=== PATIENT | female | born 1960 | race Caucasian/White ===

== ENCOUNTER 2020-04-09 19:08 | Emergency (ER) | payer OTHER ==
[2020-04-09] MEDS ORDERED: HYDROCODONE/APAP 5/325 MG TAB ONE (20:51)
[2020-04-09] MEDS ORDERED: KETOROLAC 30 MG/ML INJ ONE (20:52)
--- NOTE | 2020-04-09 21:00 | RAD REPORT ---
EXAM DESCRIPTION: RAD - Ankle Right 3 View - 04/09/2020 8:45 pm CLINICAL HISTORY: Right ankle pain status post fall FINDINGS: Tiny avulsion fracture lateral malleolus. No dislocation
--- NOTE | 2020-04-09 21:18 | RAD REPORT ---
EXAM DESCRIPTION: RAD - Knee Left 3 View - 04/09/2020 8:45 pm CLINICAL HISTORY: Left knee pain status post injury FINDINGS: No fracture or dislocation is seen. The anterior soft tissue laceration with possible partial tear patellar tendon. If clinically indicat ed further evaluation with MRI or CT could be obtained
[2020-04-09] MEDS ORDERED: CLINDAMYCIN IV 150 MG/ML (4 mL) VIAL ONE (22:02)
--- NOTE | 2020-04-09 22:37 | ER ---
Nurse's Notes [facility] Name: Erin Jiang Age: 60 yrs Sex: Female : 1960 Arrival Date: 04/09/2020 Time: 19:13 Bed 14 Private MD: Diagnosis: Fracture of lateral malleolus;Laceration of unspecified muscle and tendon at lower leg level Presentation: 04/09 19:25 Chief complaint: Patient states: I am holding my baby then I got out of balance twisted rr5 my right ankle, landed on my left side, now the back of my left shoulder, left elbow, left knee pain. denies head trauma denies blood thinner. Coronavirus screen: Client denies travel out of the [place] in the last 14 days. At this time, the client does not indicate any symptoms associated with coronavirus-19. Ebola Screen: Patient negative for fever greater than or equal to 101.5 degrees Fahrenheit, and additional compatible Ebola Virus Disease symptoms Patient denies exposure to infectious person. Patient denies travel to an Ebola-affected area in the 21 days before illness onset. Initial Sepsis Screen: Does the patient meet any 2 criteria? No. Patient's initial sepsis screen is negative. Does the patient have a suspected source of infection? No. Patient's initial sepsis screen is negative. Risk Assessment: Do you want to hurt yourself or someone else? Patient reports no desire to harm self or others. Onset of symptoms was April 09, 2020. 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 - Social history:: Smoking status: Patient reports the use of cigarette tobacco products, smokes one pack cigarettes per day. Patient uses alcohol, occasionally. Patient/guardian denies using street drugs. Screenin:00 Abuse screen: Denies threats or abuse. Nutritional screening: No deficits noted. jb4 Tuberculosis screening: No symptoms or risk factors identified. Fall Risk Gait- Impaired (20 pts.). Total Giron Fall Scale indicates No Risk (0-24 pts). Assessment: 20:00 General: Appears in no apparent distress. uncomfortable, Behavior is calm, cooperative, jb4 appropriate for age. Pain: Complains of pain in right ankle and left knee Pain does not radiate. Pain currently is 10 out of 10 on a pain scale. Neuro: Level of Consciousness is awake, alert, obeys commands, Oriented to person, place, time, situation. Cardiovascular: Patient's skin is warm and dry. Respiratory: Airway is patent Respiratory effort is even, unlabored, Respiratory pattern is regular, symmetrical. GI: No signs and/or symptoms were reported involving the gastrointestinal system. : No signs and/or symptoms were reported regarding the genitourinary system. EENT: No signs and/or symptoms were reported regarding the EENT system. Derm: Skin is intact, Skin is pink, warm \T\ dry. Musculoskeletal: Circulation, motion, and sensation intact. Range of motion: intact in all extremities. 20:33 Reassessment: X-ray at the bedside. jb4 21:00 Reassessment: Patient appears in no apparent distress at this time. Patient and/or jb4 family updated on plan of care and expected duration. Pain level reassessed. Patient is alert, oriented x 3, equal unlabored respirations, skin warm/dry/pink. 22:00 Reassessment: Patient appears in no apparent distress at this time. Patient and/or jb4 family updated on plan of care and expected duration. Pain level reassessed. Patient is alert, oriented x 3, equal unlabored respirations, skin warm/dry/pink. 23:20 Reassessment: Patient appears in no apparent distress at this time. Patient and/or jb4 family updated on plan of care and expected duration. Pain level reassessed. Patient is alert, oriented x 3, equal unlabored respirations, skin warm/dry/pink. Pt verbalized understanding of d/c and follow up instructions denies questions or concerns. assisted to vehicle via wheel chair. Vital Signs: 19:25 BP 117 / 95; Pulse 75; Resp 19; Temp 98.4; Pulse Ox 99% ; Weight 81.65 kg; Height 5 ft. rr5 5 in. (165.10 cm); Pain 10/10; 21:00 BP 155 / 69; Pulse 56; Resp 16; Pulse Ox 96% on R/A; jb4 22:00 BP 157 / 83; Pulse 51; Resp 16; Pulse Ox 99% on R/A; jb4 23:00 BP 124 / 62; Pulse 51; Resp 16; Pulse Ox 99% on R/A; jb4 19:25 Body Mass Index 29.95 (81.65 kg, 165.10 cm) rr5 ED Course: 19:13 Patient arrived in ED. bp1 19:29 Triage completed. rr5 19:32 Arm band placed on right wrist. rr5 19:51 Antonio Ramos MD is Attending Physician. tw4 20:00 Patient has correct armband on for positive identification. Bed in low position. Call jb4 light in reach. Side rails up X 1. Pulse ox on. NIBP on. 20:33 Onofre Islas RN is Primary Nurse. jb4 20:45 Ankle Right 3 View XRAY In Process Unspecified. EDMS 20:45 Knee Left 3 View XRAY In Process Unspecified. EDMS 22:34 Junaid Tee MD is Referral Physician. tw4 22:34 Eric Rios MD is Referral Physician. tw4 23:33 No provider procedures requiring assistance completed. Patient did not have IV access jb4 during this emergency room visit. Administered Medications: 20:45 Drug: TORadol 60 mg Route: IM; Site: left gluteus; jb4 21:45 Follow up: Response: No adverse reaction; Pain is decreased jb4 20:46 Drug: [place] 5 mg-325 mg 2 tabs Route: PO; jb4 21:45 Follow up: Response: No adverse reaction; Pain is decreased; RASS: Alert and Calm (0) jb4 22:23 Drug: Cleocin 600 mg Route: IM; Site: right gluteus; jb4 23:00 Follow up: Response: No adverse reaction jb4 Outcome: 22:37 Discharge ordered by . tw4 23:33 Discharged to home via wheelchair, with crutches, with family. jb4 23:33 Condition: stable 23:33 Discharge instructions given to patient, Instructed on discharge instructions, follow up and referral plans. medication usage, Demonstrated understanding of instructions, follow-up care, medications, Prescriptions given X 3. 23:34 Patient left the ED. jb4 Signatures: Dispatcher [employer] EDOnofre Wang RN RN jb4 Antonio Ramos MD MD tw4 Roberto Carlos Mcconnell RN RN rr5 Jeanne Alfaro [facility] Corrections: (The following items were deleted from the chart) 21:11 21:00 Reassessment: Patient appears in no apparent distress at this time. Patient jb4 and/or family updated on plan of care and expected duration. Pain level reassessed. Patient is alert, oriented x 3, equal unlabored respirations, skin warm/dry/pink. PT to CT jb4
--- NOTE | 2020-04-09 22:37 | EDPHYS ---
Physician Documentation [facility] Name: Erin Jiang Age: 60 yrs Sex: Female : 1960 Arrival Date: 04/09/2020 Time: 19:13 Bed 14 Private MD: ED Physician Antonio Ramos HPI: 04/09 20:08 This 60 yrs old Female presents to ER via Wheelchair with complaints of Fall tw4 Injury, Leg Injury. 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 - Social history:: Smoking status: Patient reports the use of cigarette tobacco products, smokes one pack cigarettes per day. Patient uses alcohol, occasionally. Patient/guardian denies using street drugs. ROS: 20:15 Constitutional: Negative for fever, chills, and weight loss, Eyes: Negative for injury, tw4 pain, redness, and discharge, Cardiovascular: Negative for chest pain, palpitations, and edema, Respiratory: Negative for shortness of breath, cough, wheezing, and pleuritic chest pain, Abdomen/GI: Negative for abdominal pain, nausea, vomiting, diarrhea, and constipation, Skin: Negative for injury, rash, and discoloration, Neuro: Negative for headache, weakness, numbness, tingling, and seizure. 20:15 MS/extremity: Positive for injury or acute deformity, abrasion, laceration, swelling, tenderness. Exam: 20:15 Constitutional: This is a well developed, well nourished patient who is awake, alert, tw4 and in no acute distress. Head/Face: Normocephalic, atraumatic. Chest/axilla: Normal chest wall appearance and motion. Nontender with no deformity. No lesions are appreciated. Cardiovascular: Regular rate and rhythm with a normal S1 and S2. No gallops, murmurs, or rubs. Normal PMI, no JVD. No pulse deficits. Respiratory: Lungs have equal breath sounds bilaterally, clear to auscultation and percussion. No rales, rhonchi or wheezes noted. No increased work of breathing, no retractions or nasal flaring. Abdomen/GI: Soft, non-tender, with normal bowel sounds. No distension or tympany. No guarding or rebound. No evidence of tenderness throughout. Skin: Warm, dry with normal turgor. Normal color with no rashes, no lesions, and no evidence of cellulitis. Neuro: Awake and alert, GCS 15, oriented to person, place, time, and situation. Cranial nerves II-XII grossly intact. Motor strength 5/5 in all extremities. Sensory grossly intact. Cerebellar exam normal. Normal gait. 20:15 Musculoskeletal/extremity: Extremities: noted in the left knee: abrasion, decreased ROM, laceration, noted in the right ankle, right Achilles and anterior aspect of right ankle: decreased ROM, pain, swelling, tenderness, ROM: limited active range of motion due to pain, limited passive range of motion due to pain, in the lateral aspect of right knee, right ankle, posterior aspect of right knee, right Achilles, right knee and anterior aspect of right ankle, Circulation is intact in all extremities. Sensation intact. Joints: Vital Signs: 19:25 BP 117 / 95; Pulse 75; Resp 19; Temp 98.4; Pulse Ox 99% ; Weight 81.65 kg; Height 5 ft. rr5 5 in. (165.10 cm); Pain 10/10; 21:00 BP 155 / 69; Pulse 56; Resp 16; Pulse Ox 96% on R/A; jb4 22:00 BP 157 / 83; Pulse 51; Resp 16; Pulse Ox 99% on R/A; jb4 23:00 BP 124 / 62; Pulse 51; Resp 16; Pulse Ox 99% on R/A; jb4 19:25 Body Mass Index 29.95 (81.65 kg, 165.10 cm) rr5 MDM: 19:51 Patient medically screened. tw4 20:15 Differential diagnosis: abrasion, contusion, fracture, multiple trauma, sprain, strain. tw4 Data reviewed: vital signs, nurses notes. Counseling: I had a detailed discussion with the patient and/or guardian regarding: the historical points, exam findings, and any diagnostic results supporting the discharge/admit diagnosis. 04/09 20:01 Order name: Ankle Right 3 View XRAY; Complete Time: 21:43 tw4 04/09 20:01 Order name: Knee Left 3 View XRAY; Complete Time: 21:43 tw4 04/09 22:42 Order name: Aircast Ankle Splint; Complete Time: 23:26 jb4 04/09 22:42 Order name: Knee Immobilizer; Complete Time: 23:26 jb4 04/09 23:25 Order name: Crutches; Complete Time: 23:26 jb4 Administered Medications: 20:45 Drug: TORadol 60 mg Route: IM; Site: left gluteus; jb4 21:45 Follow up: Response: No adverse reaction; Pain is decreased jb4 20:46 Drug: [place] 5 mg-325 mg 2 tabs Route: PO; jb4 21:45 Follow up: Response: No adverse reaction; Pain is decreased; RASS: Alert and Calm (0) 4 22:23 Drug: Cleocin 600 mg Route: IM; Site: right gluteus; jb4 23:00 Follow up: Response: No adverse reaction 4 Disposition: 04/09/20 22:37 Discharged to Home. Impression: Fracture of lateral malleolus, Laceration of unspecified muscle and tendon at lower leg level. - Condition is Stable. - Discharge Instructions: Ankle Fracture, Ankle Sprain, Tendon Repair, Ankle Pain. - Prescriptions for Cleocin 300 mg Oral Capsule - take 1 capsule by ORAL route every 6 hours for 10 days; 40 capsule. Tylenol- Codeine #3 300-30 mg Oral Tablet - take 2 tablet by ORAL route every 6 hours As needed; 6 tablet. Tramadol 50 mg Oral Tablet - take 1 tablet by ORAL route every 8 hours as needed; 12 tablet. - Medication Reconciliation Form, Thank You Letter, Antibiotic Education, Prescription Opioid Use form. - Follow up: Private Physician; When: Upon discharge from the Emergency Department; Reason: Recheck today's complaints, Continuance of care, Re-evaluation by your physician. Follow up: Junaid Tee MD; When: Upon discharge from the Emergency Department; Reason: Recheck today's complaints, Continuance of care, Re-evaluation by your physician. Follow up: Eric Rios MD; When: Upon discharge from the Emergency Department; Reason: Recheck today's complaints, Continuance of care, Re-evaluation by your physician. - Problem is new. - Symptoms have improved. Signatures: Dispatcher [employer] EDMS Onofre Islas RN RN jb4 Antonio Ramos MD MD tw4 Roberto Carlos Mcconnell RN RN rr5 Corrections: (The following items were deleted from the chart) 20:19 20:15 Constitutional: This is a well developed, well nourished patient who is awake, tw4 alert, and in no acute distress. Head/Face: Normocephalic, atraumatic. Chest/axilla: Normal chest wall appearance and motion. Nontender with no deformity. No lesions are appreciated. Cardiovascular: Regular rate and rhythm with a normal S1 and S2. No gallops, murmurs, or rubs. Normal PMI, no JVD. No pulse deficits. Respiratory: Lungs have equal breath sounds bilaterally, clear to auscultation and percussion. No rales, rhonchi or wheezes noted. No increased work of breathing, no retractions or nasal flaring. Abdomen/GI: Soft, non-tender, with normal bowel sounds. No distension or tympany. No guarding or rebound. No evidence of tenderness throughout. Back: No spinal tenderness. No costovertebral tenderness. Full range of motion. Neuro: Awake and alert, GCS 15, oriented to person, place, time, and situation. Cranial nerves II-XII grossly intact. Motor strength 5/5 in all extremities. Sensory grossly intact. Cerebellar exam normal. Normal gait. tw4 23:34 22:37 04/09/2020 22:37 Discharged to Home. Impression: Fracture of lateral malleolus; jb4 Laceration of unspecified muscle and tendon at lower leg level. Condition is Stable. Forms are Medication Reconciliation Form, Thank You Letter, Antibiotic Education, Prescription Opioid Use. Follow up: Private Physician; When: Upon discharge from the Emergency Department; Reason: Recheck today's complaints, Continuance of care, Re-evaluation by your physician. Follow up: Junaid Tee; When: Upon discharge from the Emergency Department; Reason: Recheck today's complaints, Continuance of care, Re-evaluation by your physician. Follow up: Eric Rios; When: Upon discharge from the Emergency Department; Reason: Recheck today's complaints, Continuance of care, Re-evaluation by your physician. Problem is new. Symptoms have improved. tw4
[2020-04-14 06:20] VITALS: TEMP 98.4
[2020-04-14 06:23] VITALS: O2SAT 99
[2020-04-14 06:24] VITALS: BP 124/62
== END 2020-04-09 23:34 | disposition home or self-care (01) ==
LOC: ER 19:08
PROC: 2W3QX1Z Immobilization of Right Lower Leg using Splint (ICD-10-PCS; principal; 2020-04-09)
DX: S82.61XA Displaced fracture of lateral malleolus of right fibula, initial encounter for closed fracture (principal); S86.922A Laceration of unspecified muscle(s) and tendon(s) at lower leg level, left leg, initial encounter; W19.XXXA Unspecified fall, initial encounter; Y93.89 Activity, other specified; Y92.9 Unspecified place or not applicable; Z88.1 Allergy status to other antibiotic agents; Z88.2 Allergy status to sulfonamides; F17.210 Nicotine dependence, cigarettes, uncomplicated
CPT/HCPCS: 73562; 73610; 29515; S0077; 96372; 99284

== ENCOUNTER 2020-04-12 09:13 | Emergency (ER) | payer OTHER ==
--- NOTE | 2020-04-12 09:49 | EDPHYS ---
Physician Documentation [facility] Name: Erin Jiang Age: 60 yrs Sex: Female : 1960 Arrival Date: 04/12/2020 Time: 09:14 Bed 19 Private MD: ED Physician Mickie Stacy HPI: 04/12 09:43 This 60 yrs old Female presents to ER via Wheelchair with complaints of Knee kb Pain, Ankle Pain. 09:43 The patient presents with decreased range of motion, an injury, pain, swelling, kb tenderness. The complaints affect the right ankle and left knee. Context: The problem was sustained at home, resulted from the patient falling, while walking, the patient can partially bear weight, uses crutches. Onset: The symptoms/episode began/occurred 4 day(s) ago. Modifying factors: The symptoms are alleviated by nothing. the symptoms are aggravated by movement, weight bearing, bending knee. Associated signs and symptoms: Pertinent positives: swelling, Pertinent negatives calf tenderness, fever, nausea, numbness, rash, tingling, vomiting, warmth, weakness. Treatment prior to arrival includes: no previous treatment. Severity of symptoms: At their worst the symptoms were mild, in the emergency department the symptoms are unchanged. The patient has not experienced similar symptoms in the past. The patient has been recently seen at the [facility] Emergency Department, this week, for similar complaints X-rays were performed, was given a prescription for pain medications. Pt reports she fell on Saturday. Was seen here and diagnosed with a right ankle fracture and left knee laceration with possible laceration of tendon. Was given tylenol with codeine and tramadol for pain and told to follow up with ortho. Pt was unable to get into ortho so she came back due to pain so we could call the ortho out to see her here. . Historical: - Allergies: 09:33 Bactrim; iw 09:33 Levaquin; iw 09:33 PENICILLINS; iw 09:33 Sulfa (Sulfonamide Antibiotics); iw - Home Meds: 09:33 Lexapro 20 mg oral tab once daily [Active]; Zocor 20 mg oral tab once daily [Active]; iw - PMHx: 09:33 Hyperlipidemia; menieresdisease; iw - PSHx: 09:33 neck surgery; iw - Immunization history:: Adult Immunizations not up to date. - Social history:: Smoking status: Patient reports the use of cigarette tobacco products, smokes one pack cigarettes per day. ROS: 09:41 Constitutional: Negative for fever, chills, and weight loss, Cardiovascular: Negative kb for chest pain, palpitations, and edema, Respiratory: Negative for shortness of breath, cough, wheezing, and pleuritic chest pain, Abdomen/GI: Negative for abdominal pain, nausea, vomiting, diarrhea, and constipation, Neuro: Negative for headache, weakness, numbness, tingling, and seizure. 09:41 MS/extremity: Positive for decreased range of motion, pain, swelling, tenderness, of the right ankle and left knee. 09:41 Skin: Positive for laceration(s), of the left knee. Exam: 09:41 Constitutional: This is a well developed, well nourished patient who is awake, alert, kb and in no acute distress. Head/Face: Normocephalic, atraumatic. Neuro: Awake and alert, GCS 15, oriented to person, place, time, and situation. Cranial nerves II-XII grossly intact. Motor strength 5/5 in all extremities. Sensory grossly intact. Cerebellar exam normal. Normal gait. 09:41 Respiratory: the patient does not display signs of respiratory distress, Respirations: normal. 09:41 Musculoskeletal/extremity: Extremities: grossly normal except: noted in the right ankle and left knee: decreased ROM, pain, swelling, tenderness, ROM: limited active range of motion, Circulation is intact in all extremities. Sensation intact. Weight bearing: can bear weight with assistance only, uses crutches. 09:41 Skin: injury, laceration(s), the wound is approximately 3 cm(s), of the left knee, that can be described as clean, no foreign body, irregular, without bleeding. Vital Signs: 09:33 BP 90 / 76; Pulse 76; Resp 16; Temp 97.0; Pulse Ox 98% on R/A; Weight 81.65 kg; Height iw 5 ft. 5 in. (165.10 cm); Pain 10/10; 10:21 BP 131 / 58; Pulse 61; Resp 16; Pulse Ox 94% ; bp 09:33 Body Mass Index 29.95 (81.65 kg, 165.10 cm) iw MDM: 09:23 Patient medically screened. kb 09:42 Data reviewed: vital signs, nurses notes. Data interpreted: Pulse oximetry: on room air kb is 98 %. Interpretation: normal. Counseling: I had a detailed discussion with the patient and/or guardian regarding: the historical points, exam findings, and any diagnostic results supporting the discharge/admit diagnosis, the need for outpatient follow up, a orthopedic surgeon, to return to the emergency department if symptoms worsen or persist or if there are any questions or concerns that arise at home. 09:46 ED course: x-rays from Saturday reviewed. Pt educated that she needs to follow up with kb ortho on an outpatient basis. Pt has appt today to get a referral so she can see the orthopedist. States the ortho didn't have availability until May. I recommended calling to surrounding areas if she would like to get in sooner. Administered Medications: 10:00 Drug: [place] 10 mg-325 mg 1 tabs Route: PO; bp 10:20 Follow up: Response: Pain is decreased bp 10:00 Drug: TORadol 60 mg Route: IM; Site: left gluteus; bp 10:20 Follow up: Response: Pain is decreased bp Disposition: 18:34 Co-signature as Attending Physician, Mickie Stacy MD. ma2 Disposition: 04/12/20 09:49 Discharged to Home. Impression: Fracture of lateral malleolus, Laceration of unspecified muscle and tendon at lower leg level, Laceration without foreign body of knee. - Condition is Stable. - Discharge Instructions: Ankle Fracture, [id number]. - Medication Reconciliation Form, Thank You Letter, Antibiotic Education, Prescription Opioid Use form. - Follow up: Emergency Department; When: As needed; Reason: Worsening of condition. Follow up: Private Physician; When: 2 - 3 days; Reason: Recheck today's complaints, Continuance of care, Re-evaluation by your physician. Signatures: Brandie Sesay, DESTINY CORTES-Amber Dunlap RN RN iw Peltier, Brian, RN RN bp Alzahri, Mohammad, MD MD ma2 Corrections: (The following items were deleted from the chart) 10:31 09:49 04/12/2020 09:49 Discharged to Home. Impression: Fracture of lateral malleolus; bp Laceration of unspecified muscle and tendon at lower leg level; Laceration without foreign body of knee. Condition is Stable. Forms are Medication Reconciliation Form, Thank You Letter, Antibiotic Education, Prescription Opioid Use. Follow up: Emergency Department; When: As needed; Reason: Worsening of condition. Follow up: Private Physician; When: 2 - 3 days; Reason: Recheck today's complaints, Continuance of care, Re-evaluation by your physician. kb
--- NOTE | 2020-04-12 09:49 | ER ---
Nurse's Notes [facility] Name: Erin Jiang Age: 60 yrs Sex: Female : 1960 Arrival Date: 04/12/2020 Time: 09:14 Bed 19 Private MD: Diagnosis: Fracture of lateral malleolus;Laceration of unspecified muscle and tendon at lower leg level;Laceration without foreign body of knee Presentation: 04/12 09:29 Chief complaint: Patient states: had a fall on Saturday , was seen here and was told iw she had a right ankle fracture and torn ligament in her left knee , was told to f/u with ortho but can;t be seen til May , is having a lot of pain. Ebola Screen: Patient negative for fever greater than or equal to 101.5 degrees Fahrenheit, and additional compatible Ebola Virus Disease symptoms Patient denies exposure to infectious person. Patient denies travel to an Ebola-affected area in the 21 days before illness onset. No symptoms or risks identified at this time. Initial Sepsis Screen: Does the patient meet any 2 criteria? No. Patient's initial sepsis screen is negative. Does the patient have a suspected source of infection? No. Patient's initial sepsis screen is negative. Risk Assessment: Do you want to hurt yourself or someone else? Patient reports no desire to harm self or others. 09:29 Method Of Arrival: Wheelchair iw 09:29 Acuity: MONY 4 iw 09:30 Coronavirus screen: At this time, the client does not indicate any symptoms associated bp with coronavirus-19. 09:30 Onset of symptoms is unknown. bp Triage Assessment: 09:30 General: Appears distressed, uncomfortable, obese, Behavior is cooperative, appropriate bp for age, anxious. Pain: Complains of pain in right ankle and left knee. EENT: No deficits noted. Neuro: No deficits noted. Cardiovascular: No deficits noted. Respiratory: No deficits noted. GI: No signs and/or symptoms were reported involving the gastrointestinal system. : No signs and/or symptoms were reported regarding the genitourinary system. Derm: No deficits noted. Musculoskeletal: Range of motion: limited in right ankle and left knee Reports pain in right ankle and left knee. Historical: - Allergies: :33 Bactrim; iw 09:33 Levaquin; iw 09:33 PENICILLINS; iw 09:33 Sulfa (Sulfonamide Antibiotics); iw - Home Meds: 09:33 Lexapro 20 mg oral tab once daily [Active]; Zocor 20 mg oral tab once daily [Active]; iw - PMHx: 09:33 Hyperlipidemia; menieresdisease; iw - PSHx: 09:33 neck surgery; iw - Immunization history:: Adult Immunizations not up to date. - Social history:: Smoking status: Patient reports the use of cigarette tobacco products, smokes one pack cigarettes per day. Screenin:30 Abuse screen: Denies threats or abuse. Denies injuries from another. Nutritional bp screening: No deficits noted. Tuberculosis screening: No symptoms or risk factors identified. Fall Risk Fall in past 12 months (25 points). No secondary diagnosis (0 pts). No IV (0 pts). Ambulatory Aid- Crutches/Cane/Walker (15 pts). Gait- Weak (10 pts.). Mental Status- Oriented to own ability (0 pts). Total Giron Fall Scale indicates Low Risk Score (25-44 pts). Fall prevention measures have been instituted. Side Rails Up X 2 Placed close to Nursing Station Frequent Obs/Assesments occuring Family Present and informed to notify staff if they need to leave bedside As available Patient and Family Educated on Fall Prevention Program and strategies. Assessment: 09:30 General: SEE TRIAGE NOTE. bp 10:21 Reassessment: PT D/C HOME VIA W/C WITH FAMILY, DX WITH LATERAL MALLEOLUS FX. bp Vital Signs: 09:33 BP 90 / 76; Pulse 76; Resp 16; Temp 97.0; Pulse Ox 98% on R/A; Weight 81.65 kg; Height iw 5 ft. 5 in. (165.10 cm); Pain 10/10; 10:21 BP 131 / 58; Pulse 61; Resp 16; Pulse Ox 94% ; bp 09:33 Body Mass Index 29.95 (81.65 kg, 165.10 cm) ED Course: 09:14 Patient arrived in ED. ag5 09:22 Brandie Sesay FNP-C is PHCP. kb 09:22 Mickie Stacy MD is Attending Physician. kb 09:30 Patient has correct armband on for positive identification. Bed in low position. Call bp light in reach. Side rails up X2. Adult w/ patient. 09:31 Triage completed. iw 09:58 Otoniel Martinez, RN is Primary Nurse. bp 10:21 No provider procedures requiring assistance completed. Patient did not have IV access bp during this emergency room visit. Administered Medications: 10:00 Drug: [place] 10 mg-325 mg 1 tabs Route: PO; bp 10:20 Follow up: Response: Pain is decreased bp 10:00 Drug: TORadol 60 mg Route: IM; Site: left gluteus; bp 10:20 Follow up: Response: Pain is decreased bp Outcome: :49 Discharge ordered by . kb 10:21 Discharged to home via wheelchair, with family. bp 10:21 Condition: stable 10:21 Discharge instructions given to patient, family, Instructed on discharge instructions, follow up and referral plans. Demonstrated understanding of instructions, follow-up care. :31 Patient left the ED. bp Signatures: Brandie Sesay, BOTTOM WORKER-C BOTTOM WORKER-Ckb Amber Naranjo RN RN Otoniel Martinez, RN RN bp Priya Grijalva ag5 Corrections: (The following items were deleted from the chart) 10:23 10:21 Discharge instructions given to patient, family, Instructed on discharge bp instructions, follow up and referral plans. medication usage, Demonstrated understanding of instructions, follow-up care, medications, Prescriptions given X 2, bp
[2020-04-12] MEDS ORDERED: HYDROCODONE/APAP 10/325 TAB ONE (10:17)
[2020-04-12] MEDS ORDERED: KETOROLAC 30 MG/ML INJ ONE (10:18)
--- OUTSIDE RECORDS SUMMARY | 2020-04-12 16:40 | XMS REPORT | Continuity of Care Document ---
:1960 Author Organization [facility] t Address [address] [place] [address] Care Team Providers Name Role Phone CAPPS Attending Clinician Unavailable BERTIN Attending Clinician Unavailable JI Attending Clinician Unavailable CECILE Attending Clinician Unavailable DR COLEMAN Attending Clinician Unavailable JOSSE Attending Clinician Unavailable GÉNESIS Admitting Clinician Unavailable BERTIN Admitting Clinician Unavailable JI Admitting Clinician Unavailable GIOVANNA Admitting Clinician Unavailable DALEY Admitting Clinician Unavailable CHERIPARAMBIL Admitting Clinician Unavailable SOLHPOUR Admitting Clinician Unavailable SUBRAMANIA Admitting Clinician Unavailable CEDRIC Admitting Clinician Unavailable DO KOREY Admitting Clinician Unavailable JOSSE Admitting Clinician Unavailable Problems Condition Condition Condition Status Onset Resolution Last Treating Co mments Source Name Details Category Date Date Treatment Clinician Date Costal Costal Problem Active [facility] chondritis chondritis 6-22 Jeremy kes - 00:00: Memoria 00 l (LUF/LI V/SA) Pancreatit Pancreatit Problem Active 2018-[address] [facility] is 2[facility]16 [facility] (LUF/LI V/SA) Diarrhea Diarrhea Problem Active 2018-05 [facility] (LUF/LI V/SA) Cervical Cervical Problem [facility] radiculopa radiculopa [facility]14 Jeremy kes - thy thy 00:00: Memoria 00 l (LUF/LI V/SA) Cervical Cervical Problem [facility] rad[facility] radiculopa [facility]01 Jeremy kes - thy thy 00:00: Memoria 00 l (LUF/LI V/SA) Gastroesop Gastroesop Problem Active [facility] hageal hageal 5-23 [facility] - reflux reflux 00:00: Memoria disease disease 00 l (LUF/LI V/SA) Chest pain Chest pain Problem Active [facility] - [facility]oria 00 l (LUF/LI V/SA) 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 00:00: Memori a 00 l (LUF/LI V/SA) Chest pain Chest pain Problem Active [facility] 09[facility]24 [facility] - 00:[facility]: [facility]oria 00 l (LUF/LI V/SA) Contusion Contusion Problem Active [facility] of lower of lower 6-14 [facility] - leg leg 00:00: Memoria 00 l (LUF/LI V/SA) Contusion Contusion Problem Active [facility] of of 6-06 [facility] - multiple multiple 00:00: Memori a sites sites 00 l (LUF/LI V/SA) Falls Falls Problem Active [facility] - 00:[facility]: Memoria 00 l (LUF/LI V/SA) Contusion Contusion Problem Active [facility] wrist or wrist or 09-11 [facility] - hand hand 00:00: Memoria 00 l (LUF/LI V/SA) Contusion Contusion Problem Active [facility] of rib of rib 09-11 [facility] - 00:00: Memoria 00 l (LUF/LI V/SA) M?i?e's M?i?e's Problem Active [facility] disease disease [facility] - Memoria l (LUF/LI V/SA) Hypertensi Hypertensi Problem Active [facility] ve ve [facility] - disorder disorder Memori a l (LUF/LI V/SA) Viral Viral Problem Active [facility] hepatitis hepatitis [facility] - C C Memoria l (LUF/LI V/SA) Abdominal Abdominal Problem Active [facility] pain pain [facility] (LUF/LI V/SA) 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 Social History Smoking Status Start Date Stop Date Source [facility] ([facility]/SA) Medications Ordered Filled Start Stop Current Ordering Indication Dosage Frequency Signature Comments Components Source Medication Medication Date Date Medication? Clinician (SIG) Name Name Acetaminoph Acetaminoph Yes 1 2xD orally [address] [facility] en 300 MG / en 300 MG / times per [facility] - Codeine Codeine day as [facility]oria Phosphate Phosphate needed. l 30 MG Oral 30 MG Oral (JEREMY F/LI Tablet Tablet V/SA) Albuterol Albuterol Yes [address] [facility] 4 [facility] - hours as Memoria needed. ( l administer (LUF/LI with V/SA) spacer;) Escitalopra Escitalopra Yes 20mg 1xD orally [facility] m 20 MG m 20 MG daily [facility] - Oral Tablet Oral Tablet M emoria l (F/LI V/) Meclizine Meclizine Yes 25mg 3xD orally [address] Hydrochlori Hydrochlori times per [facility] - de 25 MG de 25 MG day as Memor ia Oral Tablet Oral Tablet needed. l (LUF/LI V/SA) Simvastatin Simvastatin Yes 20mg orally [facility] 20 MG Oral 20 MG Oral every day [facility] - Tablet Tablet at bedtime Memor ia l (LUF/LI V/) Spironolact Spironolact Yes 25mg 1xD orally [facility] one 25 MG one 25 MG daily as L ukes - Oral Tablet Oral Tablet needed. Memoria l (LUF/LI V/SA) Immunizations Ordered Immunization Filled Immunization Date Status Commen ts Source Name Name not utd influenza not utd influenza 2019-10-26 Completed [facility] - 00:00:00 [facility] ([facility]/ABHISHEK/SA) pneumococcal pneumococcal 2018-05-21 Completed [facility] es - vaccine, NOS vaccine, NOS 00:00:00 [facility] ([facility]/ABHISHEK/SA) Vital Signs Vital Name Observation Time Observation Value Comments Source Pulse Rate 2019-10-26 17:38:00 48 /min [facility] ([facility]/ABHISHEK/SA) Respiratory Rate 2019-10-26 17:38:00 19 /min [facility] ([facility]/ABHISHEK/SA) O2% BldC Oximetry 2019-10-26 17:38:00 90 % [facility] ([facility]/ABHISHEK/SA) BP Systolic 2019-10-26 17:38:00 152 mm[Hg] [facility] Ean [facility] (LUF/ABHISHEK/SA) BP Diastolic 2019-10-26 17:38:00 77 mm[Hg] [facility] (LUF/ABHISHEK/SA) Body Temperature 2019-10-26 15:10:00 97.8 [degF] [facility] (LUF/ABHISHEK/SA) Height 2019-10-26 15:10:00 55 [in_i] [facility] (LUF/ABHISHEK/SA) Weight 2019-10-26 15:10:00 170 [lb_av] [facility] (LUF/ABHISHEK/SA) BMI (Body Mass Index) 2019-10-26 15:10:00 39.9 kg/m2 [facility] (LUF/ABHISHEK/SA) Body Temperature 2018-10-30 15:03:00 97.8 F [facility] (LUF/ABHISHEK/SA) Pulse Rate 2018-10-30 15:03:00 80 /min [facility] (LUF/ABHISHEK/SA) Respiratory Rate 2018-10-30 15:03:00 18 /min [facility] (LUF/ABHISHEK/SA) O2% BldC Oximetry 2018-10-30 15:03:00 97 % [facility] (LUF/ABHISHEK/SA) BP Systolic 2018-10-30 15:03:00 137 mm[Hg] [facility] (LUF/ABHISHEK/SA) BP Diastolic 2018-10-30 15:03:00 69 mm[Hg] [facility] (LUF/ABHISHEK/SA) Height 2018-10-30 15:03:00 65 in [facility] (LUF/ABHISHEK/SA) Weight Measured 2018-10-30 15:03:00 186.95 lbs [address]НА currie [facility] (LUF/ABHISHEK/SA) BMI (Body Mass Index) 2018-10-30 15:03:00 31.1 kg/m2 [facility] (LUF/ABHISHEK/SA) Body Temperature 2018-10-17 10:41:00 98.6 F [facility] (LUF/ABHISHEK/SA) Pulse Rate 2018-10-17 10:41:00 74 /min [facility] (LUF/ABHISHEK/SA) Respiratory Rate 2018-10-17 10:41:00 18 /min [facility] (LUF/ABHISHEK/SA) O2% BldC Oximetry 2018-10-17 10:41:00 99 % [facility] (LUF/ABHISHEK/SA) BP Systolic 2018-10-17 10:41:00 146 mm[Hg] [facility] (LUF/ABHISHEK/SA) BP Diastolic 2018-10-17 10:41:00 80 mm[Hg] [facility] (LUF/ABHISHEK/SA) Height 2018-10-17 10:41:00 65 in [facility] (LUF/ABHISHEK/SA) Weight Measured 2018-10-17 10:41:00 189.6 lbs [facility] (LUF/ABHISHEK/SA) BMI (Body Mass Index) 2018-10-17 10:41:00 31.5 kg/m2 [facility] (LUF/ABHISHEK/SA) Body Temperature 2018-10-04 14:11:00 98 F [facility] (LUF/ABHISHEK/SA) Pulse Rate 2018-10-04 14:11:00 78 /min [facility] (LUF/ABHISHEK/SA) Respiratory Rate 2018-10-04 14:11:00 20 /min [facility] (LUF/ABHISHEK/SA) O2% BldC Oximetry 2018-10-04 14:11:00 99 % [facility] (LUF/ABHISHEK/SA) BP Systolic 2018-10-04 14:11:00 129 mm[Hg] [facility] (LUF/ABHISHEK/SA) BP Diastolic 2018-10-04 14:11:00 98 mm[Hg] [facility] (LUF/ABHISHEK/SA) Height 2018-10-04 14:11:00 55 in [facility] (LUF/ABHISHEK/SA) Weight Measured 2018-10-04 14:11:00 191 lbs [facility] (LUF/ABHISHEK/SA) BMI (Body Mass Index) 2018-10-04 14:11:00 44.8 kg/m2 [facility] (LUF/ABHISHEK/SA) Pulse Rate 2018-08-28 13:30:00 65 /min [facility] (LUF/ABHISHEK/SA) O2% BldC Oximetry 2018-08-28 13:30:00 96 % [facility] (LUF/ABHISHEK/SA) BP Systolic 2018-08-28 13:30:00 139 mm[Hg] [facility] (LUF/ABHISHEK/SA) BP Diastolic 2018-08-28 13:30:00 86 mm[Hg] [facility] (LUF/ABHISHEK/SA) Body Temperature 2018-08-28 11:47:00 97.5 F [facility] (LUF/ABHISHEK/SA) Respiratory Rate 2018-08-28 11:47:00 18 /min [facility] (LUF/ABHISHEK/SA) Height 2018-08-28 11:47:00 66 in [facility] (LUF/ABHISHEK/SA) Weight Measured 2018-08-28 11:47:00 195 lbs [facility] Zane currie [facility] (LUF/ABHISHEK/SA) BMI (Body Mass Index) 2018-08-28 11:47:00 31.7 kg/m2 [facility] (LUF/ABHISHEK/SA) Body Temperature 2017-09-26 11:00:00 96.5 F [facility] (LUF/ABHISHEK/SA) Respiratory Rate 2017-09-26 11:00:00 18 /min [facility] (LUF/ABHISHEK/SA) O2% BldC Oximetry 2017-09-26 11:00:00 96 % [facility] (LUF/ABHISHEK/SA) BP Systolic 2017-09-26 11:00:00 128 mm[Hg] [facility] (LUF/ABHISHEK/SA) BP Diastolic 2017-09-26 11:00:00 63 mm[Hg] [facility] (LUF/ABHISHEK/SA) Weight Measured 2017-09-26 00:00:00 191.58 lbs [facility] Zane currie [facility] (LUF/ABHISHEK/SA) Height 2017-09-25 18:32:00 65 in [facility] (LUF/ABHISHEK/SA) BMI (Body Mass Index) 2017-09-25 18:32:00 31.9 [facility] (LUF/ABHISHEK/SA) Respiratory Rate 2017-09-25 13:33:00 16 /min [facility] (LUF/ABHISHEK/SA) O2% BldC Oximetry 2017-09-25 13:33:00 95 % [facility] (LUF/ABHISHEK/SA) BP Systolic 2017-09-25 13:33:00 126 mm[Hg] [facility] (LUF/ABHISHEK/SA) BP Diastolic 2017-09-25 13:33:00 72 mm[Hg] [facility] (LUF/ABHISHEK/SA) Body Temperature 2017-09-25 12:25:00 98 F [facility] (LUF/ABHISHEK/SA) Height 2017-09-25 12:25:00 65 in [facility] (LUF/ABHISHEK/SA) Weight Measured 2017-09-25 12:25:00 224.87 lbs [address]НА currie [facility] (LUF/ABHISHEK/SA) BMI (Body Mass Index) 2017-09-25 12:25:00 37.4 [facility] (LUF/ABHISHEK/SA) Body Temperature 2017-09-24 01:37:00 98.3 F [facility] (LUF/ABHISHEK/SA) Respiratory Rate 2017-09-24 01:37:00 20 /min [facility] (LUF/ABHISHEK/SA) O2% BldC Oximetry 2017-09-24 01:37:00 99 % [facility] (LUF/ABHISHEK/SA) BP Systolic 2017-09-24 01:37:00 126 mm[Hg] [facility] (LUF/ABHISHEK/SA) BP Diastolic 2017-09-24 01:37:00 76 mm[Hg] [facility] (LUF/ABHISHEK/SA) Height 2017-09-23 21:40:00 65 in [facility] (LUF/ABHISHEK/SA) Weight Measured 2017-09-23 21:40:00 194 lbs [facility] (LUF/ABHISHEK/SA) BMI (Body Mass Index) 2017-09-23 21:40:00 32.3 [facility] (LUF/ABHISHEK/SA) Procedures Procedure Date / Time Performed Performing Clinician [facility] e RIGHT KNEE [facility] (LUF/ABHISHEK/SA) Appendectomy [facility] (LUF/ABHISHEK/SA) Cholecystectomy [facility] (LUF/ABHISHEK/SA) Hysterectomy [facility] (LUF/ABHISHEK/SA) RIGHT KNEE [facility] (LUF/ABHISHEK/SA) Encounters Start End Encounter Admission Attending Care Care Encounter Source Date/Time Date/Time Type Type Clinicians Facility Department ID 2019-10-26 2019-10-26 CHONDROCOS 1 NAHID CAPPS [facility] [id number] 15:02:00 18:15:00 TANNER AROLDO SILVASTON L ukes - JUNCTION N, [address] [place], (LUF[place] [address] 2018-10-30 2018-10-30 RADICULOJAIRO HUBER U[place]ICH [facility] [id number] 14:48:00 17:52:00 THY AROLDO REDDY L ukes - CERVICAL N, [address] [facility] [address], (LUF/[place] [address] 2018-10-17 2018-10-17 OTH SPEC 3 HEREDIA, [facility] [id number] 09:32:00 23:59:00 DORSOPATHI AGRICEL [facility]ERV N, [address] [facility] [address], ([place]F/[place] [address] 2018-10-17 2018-10-17 ASHTYN NAIR [facility] [id number] 10:35:00 11:31:00 THY APOLINAR SILVASTON L ukes - CERVICAL N, [address] [facility] [address], (LUF/[place] [address] 2018-10-04 2018-10-04 RADICULOPA HUBER, [place] [facility] [id number] 14:03:00 15:00:00 THY AROLDO Mckoy ukes - CERVICAL N, [address], (LUF/[place] [address] 2018-08-28 2018-08-28 CERVICALGI HUBER, [place] [facility] [id number] 11:43:00 14:12:00 A AROLDO Mckoy ukes - N, [address], (LUF/[place] [address] 2018-08-08 2018-08-08 OTH SPEC 3 HEREDIA, [facility] [id number] 09:59:00 23:59:00 DORSOPATHI AGRICEL RICARDOAnh [employer] [facility] - ES CERV N, [address] [facility] [address], (LUF/[place] [address] 2018-06-04 2018-06-04 UNS VIRAL O DALEY, [facility] [id number] 09:46:00 23:59:00 HEPATITIS RAGFEROZBLAISE SILVAAnh REDDY [facility] - C W/O HEP N, [address], (LUF/[place] [address] 2018-05-20 2018-05-20 PAIN IN 3 JI, [facility] [id number] [facility] 09:27:00 23:59:00 RIGHT FRANCISCO J GAMA [facility] - UPPER ARM N, [address], (LUF/[place] [address] 2018-04-17 2018-04-17 OTH ABN 3 JI, [facility] [id number] [facility] 09:21:00 23:59:00 INCONCL FRANCISCO J REDDY [facility] - FIND DX N, [address] BREAST [place]PASS, (LUF/[place] [address] 2018-03-11 2018-03-11 Inpatient O DALEY, [facility] [id number] 11:55:00 23:59:00 RAGHUVEER Dilcia [facility] - N, [address], (LUF/[place] [address] 2018-02-25 2018-02-25 Inpatient [facility] [id number] 13:04:00 23:59:00 [facility] - N, [address], (LUF/[place] [address] 2018-02-04 2018-02-04 CHRONIC O HEREDIA, [facility] [id number] [facility] 11:11:00 23:59:00 VIRAL AGRICEL [facility] Ean ukes - HEPATITIS N, [address], (LUF/[place] [address] 2018-01-09 2018-01-09 UNS VIRAL O DALEY, [facility] [id number] 12:39:00 23:59:00 HEPATITIS RAGFEROZVELEANNA Ha [facility] - C W/O HEP N, [address], (LUF/[place] [address] 2017-11-05 2017-11-05 CHRONIC O DALEY, [facility] [id number] [facility] 08:20:00 23:59:00 VIRAL RAGFEROZVELEANNA Ha [facility] Jeremykes - HEPATITIS N, [address], (LUF/[place] [address] 2017-10-03 2017-10-03 OTHER 3 CHERIPARAMB [facility] [id number] 08:10:00 23:59:00 CHEST PAIN IL, [facility] - TANI N, [address], (LUF[place] [address] 2017-10-02 2017-10-02 HYPERLIPID O SOLHPOUR, [facility] [id number] 12:33:00 23:59:00 EMIA AMIRREZA [place] REDDY [facility] - UNSPECIFIE N, [address], (LUF/[place] [address] 2017-09-25 2017-09-26 OTHER I COLEMAN, [facility] [id number] 17:37:00 14:05:[address], [address] (LUF/[address], V/[place]) [place] [address] 2017-09-25 2017-09-25 UNSTABLE 1 CEDRIC, [facility] [id number] 10:16:00 15:52:00 ANGINA NOAM Mckoy ukes - N, [address], (LUF/[place] [address] 2017-09-23 2017-09-24 CHEST PAIN E KOREY, [facility] [id number] 21:34:00 01:39:00 UNSPECIFIE APOLINAR REDDY [facility] - D N, [address], (LUF/[place] [address] 2017-08-19 2017-08-19 OTH ABN 3 JI, [facility] [id number] [facility] 13:06:00 23:59:00 INCONCL FRANCISCO J Mckoy ukes - FIND DX N, [address] [place], (LUF/[place] [address] 2017-07-31 2017-07-31 ENC SCR 3 JI, [facility] [id number] [facility] 10:47:00 23:59:00 MAMMO FRANCISCO J Mckoy ukes - MALIG N, [address] [place], (LUF/[place] [address] Results Test Description Test Time Test Comments Results Result Sourc e Comments XR RIBS 2019-10-26 Left rib series with UNILATERAL/ PA 16:57:42 PA chest, 5 CHEST views:History: Rib painNo acute rib fracture is identified. There is old healed fracture of the leftsixth rib. No pneumothorax or pleural effusion is noted. The frontal view of thechest shows no acute cardiopulmonary abnormality.Impression : No acute rib fracture.This final report was electronically signed by Dr Gulshan Sanchez MD 10/26/20194:51 PMDictated By: GULSHAN SANCHEZDate: 10/26/2019 16:51 MRI CSPINE W/O 2019-05-25 "If patient is EXAMINATION: MRI of CONTRAST 15:23:44 claustrophobic, the cervical spine contact ordering without ysician for contrastHISTORY: additional Chronic neck pain instructions." radiating to the left upper extremityCOMPARISON: Cervical spine MRI of 10/17/[address] 10/09/16TECHNIQUE: Sagittal T1, T2, STIR; axial T2, gradient echo.FINDINGS:Curvatur e: Normal lordosis.Vertebrae: No evidence of neoplasm, infection, or fracture.Foramen magnum: No mass, Chiari malformation, or basilar invagination.Spinal Cord: Normal size and signal intensity.Soft Tissues: Unremarkable.Degenerat pedro pablo changes:C1-C2: Unremarkable.C2-C3: Unremarkable.C3-C4: Again seen fusion of the left facet joint. No canal or foraminalstenoses.C4-C 5: Small disc osteophyte complex formation, bilateral uncovertebral andfacet arthroses worse on the left with degenerative synovitis (bone marrow edemaand periarticular soft tissue swelling). Mild left foraminal narrowing.C5-C6: Asymmetric right disc osteophyte complex formation, uncovertebraland facet arthroses. Mild right foraminal stenoses.C6-C7: Minimal disc bulge and facet arthrosis without stenoses.C7-T1: Unremarkable.IMPRESSIO N:1. Persistent prominent degenerative facet synovitis on the left side at C4-C5.2. Mild degenerative foraminal stenosis on the left at C4-C5 and on the rightat C5-6.This final report was electronically signed by Dr Law Taylor MD 05/25/2019 3:17PMDictated By: LAW TAYLORDate: 05/25/2019 15:17 [facility] 2019-04-22 09:48:00 Test Item Value Reference Range Interpretation Comme nts Glucose (test code = GLU) 120 mg/dl 75-110 H BUN (test code = BUN) 10.0 mg/dl 6.0-17.0 Creatinine (test code = 0.8 mg/dl 0.4-1.2 CREA) Sodium (test code = NA) 140 mmol/l 137-145 Potassium (test code = K) 3.9 mmol/l 3.5-5.0 Chloride (test code = CL) 108 mmol/l 98-107 H CO2 (test code = CO2) 28 mmol/l 22-30 Calcium (test code = 8.7 mg/dl 8.4-10.2 CALC) T Protein (test code = 6.5 gm/dl 5.1-8.7 TP) Albumin (test code = ALB) 3.3 gm/dl 3.5-4.6 L A/G Ratio (test code = 1.0 % 1.1-2.2 L AGRAT) AST (SGOT) (test code = 68 U/L 11-36 H AST) ALT (SGPT) (test code = 116 U/L 11-40 H ALT) Alkaline Phos (test code 140 U/L 47-114 H = ALKP) Total Bilirubin (test 0.4 mg/dl 0.2-1.2 code = TBIL) Globulin (test code = 3.2 gm/dl 2.3-3.5 GLOBU) Calcium, Corrected (test 9.3 mg/dl 8.4-10.2 Nely ious formulas exist for code = CALCCORR) corrected s awilda calcium results, each y ielding different value s. This corrected resul t was based on the formula: Co rrected Calcium = Serum Calcium + [0.8 * ( 4 - SerumAl bumin)] EGFR if >60 mL/min/1.73m\\S\\2 (test code = EGFRAA) EGFR if Non- >60 mL/min/1.73m\\S\\2 Estimated Glomerular Emirati (test code = Filtra tion Rate (eGFR) EGFRNA) Reference Inter vals Decision Points for 18 y ears and older and average bod y mass: >= 60 Does not exclude kid yue disease. 30 - 59 Suggests moderate chroni c kidney disease and indica daria the need for further inv estigation including asses sment of proteinuria and cardiovascular factors. < 30 Us ually indicates a nee d for referral for assessment and management of chronic kidney failure. [id number] 09:48:00 Test Item Value Reference Range Interpretation Comments Lipase (test code = LIPA) 269 U/L 8-223 H CBC (HEMOGRAM ONLY)2019-04-22 09:05:00 Test Item Value Reference Range Interpretation Comments WBC (test code = 7.09 10\\S\\3/ul 4.80-10.80 WBC) RBC (test code = 3.84 10\\S\\6/ul 4.20-5.40 L RBC) Hemoglobin (test 11.9 gm/dl 12.0-14.0 L code = HGB) Hematocrit (test 36.5 % 37.0-47.0 L code = HCT) MCV (test code = 95.1 fL 81.0-99.0 MCV) MCH (test code = 31.0 pg 27.0-31.0 MCH) MCHC (test code = 32.6 gm/dl 33.0-37.0 L MCHC) RDW (test code = 14.8 % 11.5-14.5 H RDWVC) Platelet (test code 204 10\\S\\3/ul 130-400 = PLT) MPV (test code = 12.0 fL 7.4-10.4 A "NOT MEASUR ED" MPV) RESULTS ARE DIS PLAYED WHEN THE INSTRU MENT HAS A SUPPRESSE D OR UNREPORTABLE RE SULT. THIS WILL MOST OFTEN HAPPEN WITH THE MPV WHEN THERE IS A N ABNORMAL PLATEL ET DISTRIBUTION DU E TO A CRITICAL LOW VA LUE OR PLATELET CLUMPI NG. THE RDW MAY BE SUPPRESSED IF T HERE ARE MULTIPLE PE AKS PRESENT ON THE RBC HISTOGRAM. IN THIS CASE, A MANUAL REVIEW OF THE SLIDE WI LL BE PERFORMED, AND RBC MORPHOLOGY WILL BE NOTED ON THE RE PORT. [id number] 14:03:00 Test Item Value Reference Range Interpretation Comments Glucose (test code 80 mg/dl 75-110 = GLU) BUN (test code = 8.0 mg/dl 6.0-17.0 BUN) Creatinine (test 0.8 mg/dl 0.4-1.2 code = CREA) Sodium (test code = 139 mmol/l 137-145 NA) Potassium (test 4.1 mmol/l 3.5-5.0 code = K) Chloride (test code 106 mmol/l 98-107 = CL) CO2 (test code = 30 mmol/l 22-30 CO2) Calcium (test code 8.7 mg/dl 8.4-10.2 = CALC) T Protein (test 6.7 gm/dl 5.1-8.7 code = TP) Albumin (test code 3.5 gm/dl 3.5-4.6 = ALB) A/G Ratio (test 1.1 % 1.1-2.2 code = AGRAT) AST (SGOT) (test 87 U/L 11-36 H code = AST) ALT (SGPT) (test 127 U/L 11-40 H code = ALT) Alkaline Phos (test 125 U/L 47-114 H code = ALKP) Total Bilirubin 0.5 mg/dl 0.2-1.2 (test code = TBIL) Globulin (test code 3.2 gm/dl 2.3-3.5 = GLOBU) Calcium, Corrected 9.1 mg/dl 8.4-10.2 Various f ormulas exist (test code = for corrected s awilda CALCCORR) calcium results , each yielding differ ent values. This corrected resul t was based on the fo rmula: Corrected Calci um = SerumCalcium + [0.8 * ( 4 - SerumAlbu min)] EGFR if >60 [place] (test code mL/min/1.73m\\ = EGFRAA) S\\2 EGFR if Non- >60 Estimate d Glomerular [place] (test code mL/min/1.73m\\ Filtrat ion Rate (eGFR) = EGFRNA) S\\2 Reference Inter vals Decision Points for 18 years and older and average body ma ss: >= 60 Does not exc lude kidney disease. 30 - 59 Suggests modera te chronic kidney disease and indicat es the need for furthe r investigation including asses sment of proteinuria and cardiovascular factors. < 30 Usually in dicates a need for refe rral for assessment and management of c hronic kidney failure. [id number] 13:56:00 Test Item Value Reference Range Interpretation Comments Lipase (test code = LIPA) 232 U/L 8-223 H CBC (HEMOGRAM ONLY)2019-04-21 13:41:00 Test Item Value Reference Range Interpretation Comments WBC (test code = 7.18 10\\S\\3/ul 4.80-10.80 WBC) RBC (test code = 3.95 10\\S\\6/ul 4.20-5.40 L RBC) Hemoglobin (test 12.1 gm/dl 12.0-14.0 code = HGB) Hematocrit (test 38.0 % 37.0-47.0 code = HCT) MCV (test code = 96.2 fL 81.0-99.0 MCV) MCH (test code = 30.6 pg 27.0-31.0 MCH) MCHC (test code = 31.8 gm/dl 33.0-37.0 L MCHC) RDW (test code = 14.8 % 11.5-14.5 H RDWVC) Platelet (test code 218 10\\S\\3/ul 130-400 = PLT) MPV (test code = 11.9 fL 7.4-10.4 A "NOT MEASUR ED" MPV) RESULTS ARE DIS PLAYED WHEN THE INSTRU MENT HAS A SUPPRESSE D OR UNREPORTABLE RE SULT. THIS WILL MOST OFTEN HAPPEN WITH THE MPV WHEN THERE IS A N ABNORMAL PLATEL ET DISTRIBUTION DU E TO A CRITICAL LOW VA LUE OR PLATELET CLUMPI NG. THE RDW MAY BE SUPPRESSED IF T HERE ARE MULTIPLE PE AKS PRESENT ON THE RBC HISTOGRAM. IN THIS CASE, A MANUAL REVIEW OF THE SLIDE WI LL BE PERFORMED, AND RBC MORPHOLOGY WILL BE NOTED ON THE RE PORT. US ABDOMEN [id number] 14:19:42Hx of RUQ pain, S/P GB resection, and some alcohol over the weekend now with pain, please assess for possible bile duct stoneRIGHT UPPER QUADRANT ULTRASOUND:INDICATION: Right upper quadrant painDISCUSSION:The liver is mildly enlarged but shows normal echogenicity. There is mildperiportal biliary duct dilatation. Hepatopedal flow is noted in the portalvein.The gallbladder is surgically absent. The common duct is mildly dilated statuspost cholecystectomy, measuring just over 11 mm.The visualized portions of the pancreas, IVC, aorta and right kidney show nosignificant abnormality. There is no ascites in the right upper quadrant.IMPRESSION:1. Mild hepatomegaly.2. Status post cholecystectomy with mildly dilated common duct and periportalbile ducts. Correlate with the clinical and laboratory findings.This final report was electronically signed by Dr Gulshan Sanchez MD 04/20/20192:13 PMDictated By: GULSHAN SANCHEZDate: 04/20/2019 14:13CT ABDOMEN/PELVIS [id number] 07:28:14EXAM: CT Abdomen and Pelvis WITH contrastINDICATION: [id number]: Abdominal pain quadrant pain, nausea tonight, hep CCOMPARISON: Abdominal CT October 09, 2016.TECHNIQUE: Abdomen and pelvis were scanned utilizing a multidetector helicalscanner from the lung base to the pubic symphysis after administration ofIVcontrast. Coronal and sagittal reformations were obtained. Routine protocol wasperformed. Scan wasperformed when during portal venous phase.IV CONTRAST: 100 mL of Isovue 300ORAL CONTRAST: NoneCOMPLIC ATIONS: NoneRADIATION DOSE:Total DLP: 1004 mGy*cmEstimated effective dose: (DLP x 0.015 x size factor) mSvCTDIvol has been reviewed. It is below the limits set by the RadiationProtocol Committee (RPC).Dose modulation, iterative reconstruction, and/or weight based adjustmentsof the mA/kV was utilized to reduce the radiation dose to as low as reasonablyachievable.FINDINGS:LINES and TUBES: None.LOWER THORAX: UnremarkableHEPATOBILIARY: Heterogeneous the right and central hepatic parenchyma (series 2image 21). Periportal edema (series 331. No focal hepatic lesions. Mildhepatomegaly. There is intra- andextra- hepatic biliary dilation likely postcholecystectomy reservoir effect, unchanged since 2016.GALLBLADDER: There are cholecystectomy clips.SPLEEN: No splenomegaly. Stable 3.8 cm circumscribed hypodense mass within thespleen with some internal heterogeneity, unchanged since October 09, 2016,compatible with a benign entity such as hemangioma or hamartoma..PANCREAS: No focal masses or ductal dilatation.ADRENALS: No adrenal nodules. Stable slightly thickened and hypodense leftadrenal gland,unchanged since October 09, 2016.KIDNEYS/URETERS: Kidneys enhance symmetrically. No hydronephrosis.Subcentimeter left renal interpolar hypodensity, too small to characterize,likely benign. No stones.GI TR ACT: No abnormal distention, wall thickening, or evidence of bowelobstruction. Appendix absent.PELVIC ORGANS/BLADDER: Hysterectomy. No adnexal masses.LYMPH NODES: No lymphadenopathy.VESSELS: There is mild atherosclerotic disease in the aorta and major arterialbranches.PERITONEUM / RETROPERITONEUM: No free air or fluid.BONES: There are degenerative changes in the spine and hips.SOFT TISSUES: Unremarkable.IMPRESSION:Heterogeneity of the right and central hepatic parenchyma, with periportal edemaand mild hepatomegaly, can be seen with acute hepatitis.This final report was electronically signed by Dr Apolinar Patrick DO 04/20/20197:21 AMDictated By: APOLINAR PATRICKDate: 04/20/2019 07:21CMP 2019-04-20 05:04:00 Test Item Value Reference Range Interpretation Comments Glucose (test code 101 mg/dl 75-110 = GLU) BUN (test code = 10.0 mg/dl 6.0-17.0 BUN) Creatinine (test 0.9 mg/dl 0.4-1.2 code = CREA) Sodium (test code = 139 mmol/l 137-145 NA) Potassium (test 3.7 mmol/l 3.5-5.0 code = K) Chloride (test code 109 mmol/l 98-107 H = CL) CO2 (test code = 28 mmol/l 22-30 CO2) Calcium (test code 8.7 mg/dl 8.4-10.2 = CALC) T Protein (test 6.7 gm/dl 5.1-8.7 code = TP) Albumin (test code 3.3 gm/dl 3.5-4.6 L = ALB) A/G Ratio (test 1.0 % 1.1-2.2 L code = AGRAT) AST (SGOT) (test 27 U/L 11-36 code = AST) ALT (SGPT) (test 26 U/L 11-40 code = ALT) Alkaline Phos (test 75 U/L 47-114 code = ALKP) Total Bilirubin 0.3 mg/dl 0.2-1.2 (test code = TBIL) Globulin (test code 3.4 gm/dl 2.3-3.5 = GLOBU) Calcium, Corrected 9.3 mg/dl 8.4-10.2 Various f ormulas exist (test code = for corrected s awilda CALCCORR) calcium results , each yielding differ ent values. This corrected resul t was based on the fo rmula: Corrected Calci um = SerumCalcium + [0.8 * ( 4 - SerumAlbu min)] EGFR if >60 [place] (test code mL/min/1.73m\\ = EGFRAA) S\\2 EGFR if Non- >60 Estimate d Glomerular [place] (test code mL/min/1.73m\\ Filtrat ion Rate (eGFR) = EGFRNA) S\\2 Reference Inter vals Decision Points for 18 years and older and average body ma ss: >= 60 Does not exc lude kidney disease. 30 - 59 Suggests modera te chronic kidney disease and indicat es the need for furthe r investigation including asses sment of proteinuria and cardiovascular factors. < 30 Usually in dicates a need for refe rral for assessment and management of c hronic kidney failure. [id number] 05:04:00 Test Item Value Reference Range Interpretation Comments Lipase (test code = LIPA) 586 U/L 8-223 H URINALYSIS WITH [id number] 04:55:00 Test Item Value Reference Range Interpretation Comments Color (test code = UCOLR) Lt. Yellow Clarity (test code = UCLAR) Clear Glucose (test code = UGLUC) NEGATIVE NEGATIVE N Bilirubin (test code = UBILI) NEGATIVE NEGATIVE N Ketones (test code = UKET) NEGATIVE NEGATIVE N Specific [place] (test code = 1.010 1.005-1.030 A USPGR) Blood (test code = UBLD) NEGATIVE NEGATIVE N PH (test code = UPH) 7.0 4.5-8.0 A Protein (test code = UPROT) NEGATIVE NEGATIVE N Urobilinogen (test code = U UROB) 0.2 >0.2 N Nitrite (test code = UNITR) NEGATIVE NEGATIVE N Leukocyte Esterase (test code = NEGATIVE NEGATIVE N ULEUK) WBC (test code = WBCUR) None seen 0-5 A RBC (test code = RBCUR) None seen 0-5 A Epithial Cells (test code = U EPI) 0-5 0-10 A Bacteria (test code = UBACT) None seen None Seen,Trace A CBC WITH AUTO [id number] 04:34:00 Test Item Value Reference Range Interpretation Comments WBC (test code = 8.65 10\\S\\3/ul 4.80-10.80 WBC) RBC (test code = 4.02 10\\S\\6/ul 4.20-5.40 L RBC) Hemoglobin (test 12.5 gm/dl 12.0-14.0 code = HGB) Hematocrit (test 37.5 % 37.0-47.0 code = HCT) MCV (test code = 93.3 fL 81.0-99.0 MCV) MCH (test code = 31.1 pg 27.0-31.0 H MCH) MCHC (test code = 33.3 gm/dl 33.0-37.0 MCHC) RDW (test code = 14.7 % 11.5-14.5 H RDWVC) Platelet (test code 236 10\\S\\3/ul 130-400 = PLT) MPV (test code = 11.9 fL 7.4-10.4 A "NOT MEASUR ED" MPV) RESULTS ARE DIS PLAYED WHEN THE INSTRU MENT HAS A SUPPRESSE D OR UNREPORTABLE RE SULT. THIS WILL MOST OFTEN HAPPEN WITH THE MPV WHEN THERE IS A N ABNORMAL PLATEL ET DISTRIBUTION DU E TO A CRITICAL LOW VA LUE OR PLATELET CLUMPI NG. THE RDW MAY BE SUPPRESSED IF T HERE ARE MULTIPLE PE AKS PRESENT ON THE RBC HISTOGRAM. IN THIS CASE, A MANUAL REVIEW OF THE SLIDE WI LL BE PERFORMED, AND RBC MORPHOLOGY WILL BE NOTED ON THE RE PORT. NE% (test code = 53.0 % 42.0-75.0 NE) LY% (test code = 34.7 % 13.0-42.0 LY) MO% (test code = 4.7 % 4.0-14.0 MO) EO% (test code = 6.6 % 1.0-5.0 H EO) BA% (test code = 0.3 % 0.0-3.0 BA) IG% (test code = 0.7 % 0.0-0.4 H IG%) ERYTHROCYTE SED [id number] 13:57:00 Test Item Value Reference Range Interpretation Comments Sed Rate (test 23 mm/hr 0-35 EFFECTIVE 08-04, THE code = ESR) METHODOLOGY USE D FOR ERYTHROCYTE SED IMENTATION RATE HAS CHANGE D. THE NORMAL RANGES H AVE CHANGED. PLEASE NOTE TH AT RANGES ARE DEFINED BY THE AGE OF THE PATIENT. N EW REFERENCE RANGES: Females 0-49 years old = 0-25 mm/h r Females 50-999 years ol d = 0-35 mm/hr Males 0-4 9 years old = 0-20 mm/hr Ma les 50-999 years old = 0-2 5 mm/hr CBC (HEMOGRAM ONLY)2019-03-16 13:19:00 Test Item Value Reference Range Interpretation Comments WBC (test code = 7.94 10\\S\\3/ul 4.80-10.80 WBC) RBC (test code = 4.05 10\\S\\6/ul 4.20-5.40 L RBC) Hemoglobin (test 12.9 gm/dl 12.0-14.0 code = HGB) Hematocrit (test 38.4 % 37.0-47.0 code = HCT) MCV (test code = 94.8 fL 81.0-99.0 MCV) MCH (test code = 31.9 pg 27.0-31.0 H MCH) MCHC (test code = 33.6 gm/dl 33.0-37.0 MCHC) RDW (test code = 14.3 % 11.5-14.5 RDWVC) Platelet (test code 228 10\\S\\3/ul 130-400 = PLT) MPV (test code = 12.1 fL 7.4-10.4 A "NOT MEASUR ED" MPV) RESULTS ARE DIS PLAYED WHEN THE INSTRU MENT HAS A SUPPRESSE D OR UNREPORTABLE RE SULT. THIS WILL MOST OFTEN HAPPEN WITH THE MPV WHEN THERE IS A N ABNORMAL PLATEL ET DISTRIBUTION DU E TO A CRITICAL LOW VA LUE OR PLATELET CLUMPI NG. THE RDW MAY BE SUPPRESSED IF T HERE ARE MULTIPLE PE AKS PRESENT ON THE RBC HISTOGRAM. IN THIS CASE, A MANUAL REVIEW OF THE SLIDE WI LL BE PERFORMED, AND RBC MORPHOLOGY WILL BE NOTED ON THE RE PORT. MRI CSPINE W/O [id number] 15:49:03"If patient is claustrophobic, contact ordering ysician for additional instructions."MRI of the cervical spine without contrast:History: Neck pain and left shoulder and arm painMultiplanar magnetic resonance imaging of the cervical spine was performedwithout contrast.There is normal alignment of the cervical spine. No disc space narrowing isnoted. There is no abnormal marrow or disc signal identified.No disc herniation or significant disc bulging is noted. There is asymmetricright-sided uncovertebral spurring at C4-5 with mild to moderate right foraminalstenosis. Similar changes arepresent to a lesser degree at C5-6 on the rightwith mild right foraminal stenosis.There is no focal disc herniation or significant disc bulging. The cervical cordappears unremarkable. The visualized posterior fossa structures are withinnormal limits and the cerebellar tonsils are in normal position.Impression: Asymmetric uncovertebral spurring at C4-5 and C5-6 on the left withright foraminal stenosisas described.This final report was electronically signed by Dr Gulshan Sanchez MD 10/17/20183:42 PMDictated By: GULSHAN SANCHEZDate: 10/17/2018 15:42XR CERV SPINE MIN 4-5 [id number] 12:09:31Cervical spine series 5 views:History: Neck painAP, lateral, odontoid and both oblique views were obtained. No fracture orsubluxation is identified. No disc space narrowing is noted. There is noprevertebral soft tissue swelling. The sagittal diameter of the spinal canalappears adequate.Impression: Negative cervical spine series.This final report was electronically signed by Dr Gulshan Sanchez MD 08/08/201812:03 PMDictated By: Nathanael SANCHEZte: 08/08/2018 12:03 HCV, RNA, QUANT RT PCR, VIRAL [id number] 06:13:00 Test Item Value Reference Range Interpretation Comments HEPATITIS C HCV Not QUANTITATION (test Detected IU/mL code = 432204) HCV LOG10 (test code GLAZING SUPERINTENDENT = 485406) TEST INFORMATION Comment The quantit ative (test code = 798993) range o f this assay is 15 IU/mL to 100 million IU/mL. PERFORMED AT: [facility] [id number] STEREOTYPER: Etienne Cervantes MD PHONE: [phone] 11:50:00 Test Item Value Reference Range Interpretation Comments Glucose (test code 88 mg/dl 75-110 = GLU) BUN (test code = 11.0 mg/dl 6.0-17.0 BUN) Creatinine (test 0.9 mg/dl 0.4-1.2 code = CREA) Sodium (test code = 138 mmol/l 137-145 NA) Potassium (test 4.7 mmol/l 3.5-5.0 code = K) Chloride (test code 104 mmol/l 98-107 = CL) CO2 (test code = 30 mmol/l 22-30 CO2) Calcium (test code 8.7 mg/dl 8.4-10.2 = CALC) T Protein (test 6.9 gm/dl 5.1-8.7 code = TP) Albumin (test code 4.0 gm/dl 3.5-4.6 = ALB) A/G Ratio (test 1.4 % 1.1-2.2 code = AGRAT) AST (SGOT) (test 12 U/L 11-36 code = AST) ALT (SGPT) (test 20 U/L 11-40 code = ALT) Alkaline Phos (test 76 U/L 47-114 code = ALKP) Total Bilirubin 0.3 mg/dl 0.2-1.2 (test code = TBIL) Globulin (test code 2.9 gm/dl 2.3-3.5 = GLOBU) Calcium, Corrected 8.7 mg/dl 8.4-10.2 Various f ormulas exist (test code = for corrected s awilda CALCCORR) calcium results , each yielding differ ent values. This corrected resul t was based on the fo rmula: Corrected Calci um = SerumCalcium + [0.8 * ( 4 - SerumAlbu min)] EGFR if >60 [place] (test code mL/min/1.73m\\ = EGFRAA) S\\2 EGFR if Non- >60 Estimate d Glomerular [place] (test code mL/min/1.73m\\ Filtrat ion Rate (eGFR) = EGFRNA) S\\2 Reference Inter vals Decision Points for 18 years and older and average body ma ss: >= 60 Does not exc lude kidney disease. 30 - 59 Suggests modera te chronic kidney disease and indicat es the need for furthe r investigation including asses sment of proteinuria and cardiovascular factors. < 30 Usually in dicates a need for refe rral for assessment and management of c hronic kidney failure. CBC WITH AUTO [id number] 11:37:00 Test Item Value Reference Range Interpretation Comments WBC (test code = WBC) 6.62 10\\S\\3/ul 4.80-10.80 RBC (test code = RBC) 4.20 10\\S\\6/ul 4.20-5.40 Hemoglobin (test code = HGB) 12.5 gm/dl 12.0-14.0 Hematocrit (test code = HCT) 39.6 % 37.0-47.0 MCV (test code = MCV) 94.3 fL 81.0-99.0 MCH (test code = MCH) 29.8 pg 27.0-31.0 MCHC (test code = MCHC) 31.6 gm/dl 33.0-37.0 L RDW (test code = RDWVC) 14.7 % 11.5-14.5 H Platelet (test code = PLT) 203 10\\S\\3/ul 130-400 MPV (test code = MPV) 12.3 fL 7.4-10.4 A NE% (test code = NE) 47.5 % 42.0-75.0 LY% (test code = LY) 38.1 % 13.0-42.0 MO% (test code = MO) 5.4 % 4.0-14.0 EO% (test code = EO) 8.2 % 1.0-5.0 H BA% (test code = BA) 0.5 % 0.0-3.0 IG% (test code = IG%) 0.3 % 0.0-0.4 US EXTREMITY NON VASC-SPECIFIC [id number] 10:38:25Ultrasound of the right axillary region:History: Right axillary pain and tendernessTargeted ultrasound examination of the right axilla was performed. No cyst orsolid lesion is visualized. No lymphadenopathy is noted. There is no fluidcollection noted.Impression: Negative ultrasound of the right axilla.This final report was electronically signed by Dr Gulshan Sanchez MD 05/20/201810:32 AMDictated By: GULSHAN ALBADate: 05/20/2018 10:32MM MAMMO DIAG 3D [id number]-[id number] 08:29:26Procedure: MM MAMMO DIAG 3D CASA-BilateralExam Date: 04/17/2018 9:30 AMOrdering Provider: FRANCISCO J Lopezinical Indication: Digital screening mammography.Comparison: July 31, 2017 and August 09, 2017Technique: 3-D tomosynthesis views of both breasts were obtained. The study isinterpreted using computer-aided detection (CAD).Findings:There are scattered fibroglandular densities in each breast.Continued stability of the left retroareolar nodule, showing findings suggestingfibroadenoma on ultrasound.There are benign calcifications in each breast.There are no pathologic skin or nipple alteration s.Impression: No mammographic findings to suggest malignancy. The retroareolarnodule in the left breast can be followed by ultrasound at six-month intervalsuntil two-year stability is established.BIRADS Result 3: Probably benign, short term follow up recommended.This final report was electronically s igned by Dr Gulshan Sanchez MD 04/18/20188:23 AMDictated By: GULSHAN SANCHEZDate: 04/18/2018 08:23HCV, RNA, QUANT RT PCR, VIRAL [id number] 08:31:00 Test Item Value Reference Range Interpretation Comments HEPATITIS C HCV Not QUANTITATION (test Detected IU/mL code = 209603) HCV LOG10 (test code GLAZING SUPERINTENDENT = 616086) TEST INFORMATION Comment The quantit ative (test code = 102208) range o f this assay is 15 IU/mL to 100 million IU/mL. PERFORMED AT: [facility] [id number] STEREOTYPER: Etienne Cervantes MD PHONE: [phone] 13:17:00 Test Item Value Reference Range Interpretation Comments Glucose (test code 91 mg/dl 75-110 = GLU) BUN (test code = 8.0 mg/dl 6.0-17.0 BUN) Creatinine (test 1.0 mg/dl 0.4-1.2 code = CREA) Sodium (test code = 142 mmol/l 137-145 NA) Potassium (test 4.7 mmol/l 3.5-5.0 code = K) Chloride (test code 106 mmol/l 98-107 = CL) CO2 (test code = 31 mmol/l 22-30 H CO2) Calcium (test code 9.4 mg/dl 8.4-10.2 = CALC) T Protein (test 7.3 gm/dl 5.1-8.7 code = TP) Albumin (test code 3.9 gm/dl 3.5-4.6 = ALB) A/G Ratio (test 1.1 % 1.1-2.2 code = AGRAT) AST (SGOT) (test 17 U/L 11-36 code = AST) ALT (SGPT) (test 27 U/L 11-40 code = ALT) Alkaline Phos (test 84 U/L 47-114 code = ALKP) Total Bilirubin 0.4 mg/dl 0.2-1.2 (test code = TBIL) Globulin (test code 3.4 gm/dl 2.3-3.5 = GLOBU) Calcium, Corrected 9.5 mg/dl 8.4-10.2 Various f ormulas exist (test code = for corrected s awilda CALCCORR) calcium results , each yielding differ ent values. This corrected resul t was based on the fo rmula: Corrected Calci um = SerumCalcium + [0.8 * ( 4 - SerumAlbu min)] EGFR if >60 [place] (test code mL/min/1.73m\\ = EGFRAA) S\\2 EGFR if Non- >60 Estimate d Glomerular [place] (test code mL/min/1.73m\\ Filtrat ion Rate (eGFR) = EGFRNA) S\\2 Reference Inter vals Decision Points for 18 years and older and average body ma ss: >= 60 Does not exc lude kidney disease. 30 - 59 Suggests modera te chronic kidney disease and indicat es the need for furthe r investigation including asses sment of proteinuria and cardiovascular factors. < 30 Usually in dicates a need for refe rral for assessment and management of c hronic kidney failure. CBC WITH AUTO [id number] 12:37:00 Test Item Value Reference Range Interpretation Comments WBC (test code = WBC) 7.50 10\\S\\3/ul 4.80-10.80 RBC (test code = RBC) 3.99 10\\S\\6/ul 4.20-5.40 L Hemoglobin (test code = HGB) 11.7 gm/dl 12.0-14.0 L Hematocrit (test code = HCT) 37.5 % 37.0-47.0 MCV (test code = MCV) 94.0 fL 81.0-99.0 MCH (test code = MCH) 29.3 pg 27.0-31.0 MCHC (test code = MCHC) 31.2 gm/dl 33.0-37.0 L RDW (test code = RDWVC) 16.4 % 11.5-14.5 H Platelet (test code = PLT) 228 10\\S\\3/ul 130-400 MPV (test code = MPV) 11.3 fL 7.4-10.4 A NE% (test code = NE) 46.2 % 42.0-75.0 LY% (test code = LY) 35.6 % 13.0-42.0 MO% (test code = MO) 6.5 % 4.0-14.0 EO% (test code = EO) 10.7 % 1.0-5.0 H BA% (test code = BA) 0.5 % 0.0-3.0 IG% (test code = IG%) 0.5 % 0.0-0.4 H URINALYSIS WITH [id number] 13:40:00 Test Item Value Reference Range Interpretation Comments Color (test code = UCOLR) LT. YELLOW Clarity (test code = UCLAR) CLEAR Glucose (test code = UGLUC) NEGATIVE NEGATIVE N Bilirubin (test code = UBILI) NEGATIVE NEGATIVE N Ketones (test code = UKET) NEGATIVE NEGATIVE N Specific [place] (test code = <=1.005 1.005-1.030 A USPGR) Blood (test code = UBLD) TRACE-INTACT NEGATIVE A PH (test code = UPH) 6.5 4.5-8.0 A Protein (test code = UPROT) NEGATIVE NEGATIVE N Urobilinogen (test code = U 0.2 >0.2 N UROB) Nitrite (test code = UNITR) NEGATIVE NEGATIVE N Leukocyte Esterase (test code = NEGATIVE NEGATIVE N ULEUK) RBC (test code = RBCUR) 0-5 0-5 N Epithial Cells (test code = U 0-1 0-10 A EPI) Bacteria (test code = UBACT) Trace None Seen,Trace N [id number] 13:13:00 Test Item Value Reference Range Interpretation Comments Glucose (test code 84 mg/dl 75-110 = GLU) BUN (test code = 12.0 mg/dl 6.0-17.0 BUN) Creatinine (test 0.9 mg/dl 0.4-1.2 code = CREA) Sodium (test code = 142 mmol/l 137-145 NA) Potassium (test 4.5 mmol/l 3.5-5.0 code = K) Chloride (test code 106 mmol/l 98-107 = CL) CO2 (test code = 31 mmol/l 22-30 H CO2) Calcium (test code 9.2 mg/dl 8.4-10.2 = CALC) T Protein (test 7.3 gm/dl 5.1-8.7 code = TP) Albumin (test code 3.7 gm/dl 3.5-4.6 = ALB) A/G Ratio (test 1.0 % 1.1-2.2 L code = AGRAT) AST (SGOT) (test 13 U/L 11-36 code = AST) ALT (SGPT) (test 23 U/L 11-40 code = ALT) Alkaline Phos (test 82 U/L 47-114 code = ALKP) Total Bilirubin 0.2 mg/dl 0.2-1.2 (test code = TBIL) Globulin (test code 3.6 gm/dl 2.3-3.5 H = GLOBU) Calcium, Corrected 9.4 mg/dl 8.4-10.2 Various f ormulas exist (test code = for corrected s awilda CALCCORR) calcium results , each yielding differ ent values. This corrected resul t was based on the fo rmula: Corrected Calci um = SerumCalcium + [0.8 * ( 4 - SerumAlbu min)] EGFR if >60 [place] (test code mL/min/1.73m\\ = EGFRAA) S\\2 EGFR if Non- >60 Estimate d Glomerular [place] (test code mL/min/1.73m\\ Filtrat ion Rate (eGFR) = EGFRNA) S\\2 Reference Inter vals Decision Points for 18 years and older and average body ma ss: >= 60 Does not exc lude kidney disease. 30 - 59 Suggests modera te chronic kidney disease and indicat es the need for furthe r investigation including asses sment of proteinuria and cardiovascular factors. < 30 Usually in dicates a need for refe rral for assessment and management of c hronic kidney failure. C-REACTIVE [id number] 13:12:00 Test Item Value Reference Range Interpretation Comments C REACTIVE PROTEIN (test code = <2.9 mg/dl 0.0-0.9 H CRP) ERYTHROCYTE SED [id number] 12:32:00 Test Item Value Reference Range Interpretation Comments Sed Rate (test 38 mm/hr 0-35 H EFFECTIVE 08-04, THE code = ESR) METHODOLOGY USE D FOR ERYTHROCYTE SED IMENTATION RATE HAS CHANGE D. THE NORMAL RANGES H AVE CHANGED. PLEASE NOTE TH AT RANGES ARE DEFINED BY THE AGE OF THE PATIENT. N EW REFERENCE RANGES: Females 0-49 years old = 0-25 mm/h r Females 50-999 years ol d = 0-35 mm/hr Males 0-4 9 years old = 0-20 mm/hr Ma les 50-999 years old = 0-2 5 mm/hr CBC WITH AUTO [id number] 12:07:00 Test Item Value Reference Range Interpretation Comments WBC (test code = 6.89 10\\S\\3/ul 4.80-10.80 WBC) RBC (test code = 4.01 10\\S\\6/ul 4.20-5.40 L RBC) Hemoglobin (test 11.6 gm/dl 12.0-14.0 L code = HGB) Hematocrit (test 37.1 % 37.0-47.0 code = HCT) MCV (test code = 92.5 fL 81.0-99.0 MCV) MCH (test code = 28.9 pg 27.0-31.0 MCH) MCHC (test code = 31.3 gm/dl 33.0-37.0 L MCHC) RDW (test code = 15.3 % 11.5-14.5 H RDWVC) Platelet (test code 212 10\\S\\3/ul 130-400 = PLT) MPV (test code = 11.0 fL 7.4-10.4 A "NOT MEASUR ED" MPV) RESULTS ARE DIS PLAYED WHEN THE INSTRU MENT HAS A SUPPRESSE D OR UNREPORTABLE RE SULT. THIS WILL MOST OFTEN HAPPEN WITH THE MPV WHEN THERE IS A N ABNORMAL PLATEL ET DISTRIBUTION DU E TO A CRITICAL LOW VA LUE OR PLATELET CLUMPI NG. THE RDW MAY BE SUPPRESSED IF T HERE ARE MULTIPLE PE AKS PRESENT ON THE RBC HISTOGRAM. IN THIS CASE, A MANUAL REVIEW OF THE SLIDE WI LL BE PERFORMED, AND RBC MORPHOLOGY WILL BE NOTED ON THE RE PORT. NE% (test code = 46.6 % 42.0-75.0 NE) LY% (test code = 32.8 % 13.0-42.0 LY) MO% (test code = 7.1 % 4.0-14.0 MO) EO% (test code = 12.3 % 1.0-5.0 H EO) BA% (test code = 0.6 % 0.0-3.0 BA) IG% (test code = 0.6 % 0.0-0.4 H IG%) [id number] 15:37:00 Test Item Value Reference Range Interpretation Comments Glucose (test code 74 mg/dl 75-110 L = GLU) BUN (test code = 9.0 mg/dl 6.0-17.0 BUN) Creatinine (test 0.9 mg/dl 0.4-1.2 code = CREA) Sodium (test code = 142 mmol/l 137-145 NA) Potassium (test 4.5 mmol/l 3.5-5.0 code = K) Chloride (test code 104 mmol/l 98-107 = CL) CO2 (test code = 32 mmol/l 22-30 H CO2) Calcium (test code 9.4 mg/dl 8.4-10.2 = CALC) T Protein (test 7.2 gm/dl 5.1-8.7 code = TP) Albumin (test code 3.9 gm/dl 3.5-4.6 = ALB) A/G Ratio (test 1.2 % 1.1-2.2 code = AGRAT) AST (SGOT) (test 14 U/L 11-36 code = AST) ALT (SGPT) (test 23 U/L 11-40 code = ALT) Alkaline Phos (test 86 U/L 47-114 code = ALKP) Total Bilirubin 0.3 mg/dl 0.2-1.2 (test code = TBIL) Globulin (test code 3.3 gm/dl 2.3-3.5 = GLOBU) Calcium, Corrected 9.5 mg/dl 8.4-10.2 Various f ormulas exist (test code = for corrected s awilda CALCCORR) calcium results , each yielding differ ent values. This corrected resul t was based on the fo rmula: Corrected Calci um = SerumCalcium + [0.8 * ( 4 - SerumAlbu min)] EGFR if >60 [place] (test code mL/min/1.73m\\ = EGFRAA) S\\2 EGFR if Non- >60 Estimate d Glomerular [place] (test code mL/min/1.73m\\ Filtrat ion Rate (eGFR) = EGFRNA) S\\2 Reference Inter vals Decision Points for 18 years and older and average body ma ss: >= 60 Does not exc lude kidney disease. 30 - 59 Suggests modera te chronic kidney disease and indicat es the need for furthe r investigation including asses sment of proteinuria and cardiovascular factors. < 30 Usually in dicates a need for refe rral for assessment and management of c hronic kidney failure. CBC WITH AUTO [id number] 14:32:00 Test Item Value Reference Range Interpretation Comments WBC (test code = 7.75 10\\S\\3/ul 4.80-10.80 WBC) RBC (test code = 4.15 10\\S\\6/ul 4.20-5.40 L RBC) Hemoglobin (test 11.9 gm/dl 12.0-14.0 L code = HGB) Hematocrit (test 39.1 % 37.0-47.0 code = HCT) MCV (test code = 94.2 fL 81.0-99.0 MCV) MCH (test code = 28.7 pg 27.0-31.0 MCH) MCHC (test code = 30.4 gm/dl 33.0-37.0 L MCHC) RDW (test code = 15.4 % 11.5-14.5 H RDWVC) Platelet (test code 242 10\\S\\3/ul 130-400 = PLT) MPV (test code = 11.9 fL 7.4-10.4 A "NOT MEASUR ED" MPV) RESULTS ARE DIS PLAYED WHEN THE INSTRU MENT HAS A SUPPRESSE D OR UNREPORTABLE RE SULT. THIS WILL MOST OFTEN HAPPEN WITH THE MPV WHEN THERE IS A N ABNORMAL PLATEL ET DISTRIBUTION DU E TO A CRITICAL LOW VA LUE OR PLATELET CLUMPI NG. THE RDW MAY BE SUPPRESSED IF T HERE ARE MULTIPLE PE AKS PRESENT ON THE RBC HISTOGRAM. IN THIS CASE, A MANUAL REVIEW OF THE SLIDE WI LL BE PERFORMED, AND RBC MORPHOLOGY WILL BE NOTED ON THE RE PORT. NE% (test code = 50.9 % 42.0-75.0 NE) LY% (test code = 30.8 % 13.0-42.0 LY) MO% (test code = 6.3 % 4.0-14.0 MO) EO% (test code = 11.0 % 1.0-5.0 H EO) BA% (test code = 0.5 % 0.0-3.0 BA) IG% (test code = 0.5 % 0.0-0.4 H IG%) HCV RNA GENOTYPE [id number] 12:58:00 Test Item Value Reference Range Interpretation Comments HEPATITIS C GENOTYPE 1a TEST PE RFORMED AT (test code = 796819) [facility] [id number] 10:32:00 Test Item Value Reference Interpretation Comments Range FIBROSIS SCORE (test 0.08 0.00-0.21 N code = 862943) FIBROSIS STAGE (test Comment F0 code = 235739) - No fibrosis NECROINFLAMMAT 0.08 0.00-0.17 N ACTIVITY SCORE (test code = 435469) NECROINFLAMMAT A0-No ACTIVITY GRADE (test activity code = 791340) Alpha 2 248 mg/dL 110-276 N Macroglobulins Qn (test code = 786129) Haptoglobin (test 216 mg/dL 34-200 H code = 951015) Apolipoprotein A1 170 mg/dL 116-209 N (test code = 591528) Bilirubin, Total 0.2 mg/dL 0.0-1.2 N (test code = 648277) GGT (test code = 19 IU/L 0-60 N 108594) ALT P5P (test code = 24 IU/L 0-40 N 809486) INTERPRETATIONS (test Comment Quanti tative results code = 977271) of 6 biochemi zaynab tests are analyzed us ing a computational algorithm to pr ovide a quantitative ulrich rrogate marker (0.0-1.0 ) for liver fibrosis (METAVIR F0-F4) and for necroinflam matory activity (METAV IR A0-A3). Fibrosis Scoring Comment <0.21 = Stage F0 (test code = 083484) - No fi brosis 0.21 - 0.27 = Stage F0 - F1 0.27 - 0.31 = S tage F1 - Portal fibros is 0.31 - 0.48 = Stage F1 - F2 0.48 - 0.58 = S tage F2 - Bridging fibr osis with few septa 0.58 - 0.72 = Stage F3 - Bridging fibros is with many septa 0.72 - 0.74 = Stage F3 - F4 >0.74 = Stage F 4 - Cirrhosis NECROINFLAMM ACTIVITY Comment <0.17 = Grade A0 SCORING (test code = - No Ac tivity 0.17 - 888351) 0.29 = Grade A0 - A1 0.29 - 0.36 = G rade A1 - Minimal activ ity 0.36 - 0.52 = G rade A1 - A2 0.52 - 0.6 0 = Grade A2 - Mode rate activity 0.60 - 0.62 = Grade A2 - A3 >0.62 = Grade A 3 - Severe activity LIMITATIONS (test Comment The negati ve code = 632876) predictive va lue of a Fibrotest score <0.31 (absence of cli nically significant fib rosis) was 85% when co mpared to liver biopsy in 1,270 HCV infec priyank patients with a 38% prevalence of significant abhishek er fibrosis (F2, 3 or 4). The positive predictive valu e of a Fibro- test sco re >0.48 (F2, 3, 4 ) was 61% in that [facility] patient cohort. HCV FibroSURE is no t recommended in patients with G ilbert Disease, acute hemolysis (e.g. HCV ribavirin thera py mediated hemoly sis) acute hepa- tit is of the liver, extra-hepatic cholestasis, transplant ray ents, and/or renal insufficiency patients. Any of these clinical situations may lead to inaccurate quantitative predictions of fibrosis and necroinflammato ry activity in the liver. COMMENT (test code = Comment This te st was 764700) developed and i ts performance characteristics determined by [employer]. It has not bee n cleared or appr jluis by the Food and Dr ug Administration. The FDA has determi bettie that such clear ance or approval is not necessary. For questions saravanan parnell this report ple ase contact custome r service at . HEP B SURFACE [id number] 06:14:00 Test Item Value Reference Range Interpretation Comments FT (test code = Negative Negative N HBSAG) (qualifier value) Hep B Surface Ag 0.05 mIU/mL HBsAg Signa l Cutoff (Signal Value) Interpretatio n Guide: (test code = < 1.00 HBSAG.SV) Negative Spec imen is presumed to be negative for HB sAg. >=1.00 and < 5. 00 Reactive Spec imen is reactive for HB sAg. Suggest confirm ation by supplemental testing. > 5.00 Positive Specimen is pos itive for HBsAg. US HEPATIC- Liver/ [id number] 11:30:35RIGHT UPPER QUADRANT ULTRASOUND:DATE: 11/05/2017INDICATION: Chronic viral hepatitis CDISCUSSION:The liver is mildly enlarged and demonstrates normal echogenicity. There isminimal prominence of the intrahepatic bile ducts likely reflecting reservoireffect from cholecystectomy. Hepatopedal flow is noted in the portal vein. Thegallbladder is surgically absent. The common duct borderline dilated.The visualized portions of the pancreas, IVC, aorta and right kidney show nosignificant abnormality. There is no ascites in the right upper quadrant.IMPRESSION:1. Mild hepatomegaly.2. Slight prominence of the bile ducts likely reflects reservoir effect fromcholecystectomy.This final report was electronically signed by Dr Gulshan Sanchez MD 11/05/201711:24 AMDictated By: GULSHAN SANCHEZDate: 11/05/2017 11:30 NM MYOCARD PERF STRESS REST [id number] 14:24:44NUCLEAR MEDICINE REST/STRESS MYOCARDIAL PERFUSION SPECT SCANDATE OF EXAM: [id number]: risk fac torsCOMPARISON: nilDISCUSSION: Nuclear medicine myocardial perfusion SPECT imaging acquired andreviewed. Rest and stress images were acquired post intravenous xgvoxhnfazvzqi97 mCi and 30 mCi haiqoempsx92z labeled Cardiolite, respectively per departmentprotocol. The patient was given 0.4 mg Lexiscan for pharmacologic stress images.Gated SPECT imaging acquired in axial, coronal, and sagittal planes. Resting EKGshowed sinus rhythm, non specific STT abnormalities, BP 130/90 mm Hg recordedat rest, BP 121 /71 mm Hg, at the end of the test patient tolerated the testwell, with minimal side effects, & no new EKG changes.FINDINGS: Left ventricle is of normal size and contour with near homogeneousactivity. No reversible perfusion defects are identified. Small low intensity,fixed lateral defects. There is no regional wall motion abnormality, withcardiac ejection fraction estimated at 72 percent.IMPRESSION:1. Non-ischemic rest/and pharmacologic stress myocardial perfusion SPECT scan.Small low intensit y, fixed lateral defects noted .2. There is no regional wall motion abnormality, with cardiac ejection fractionestimated at 72 percent.This final report was electronically signed by Tani Cooper MD10/03/2017 2:18 PMDictated By: TANI COOPERDate: 10/03/2017 14:[id number] 14:19:00 Test Item Value Reference Range Interpretation Comments Glucose (test code 89 mg/dl 75-110 = GLU) BUN (test code = 12.0 mg/dl 6.0-17.0 BUN) Creatinine (test 0.8 mg/dl 0.4-1.2 code = CREA) Sodium (test code = 141 mmol/l 137-145 NA) Potassium (test 3.5 mmol/l 3.5-5.0 code = K) Chloride (test code 97 mmol/l 98-107 L = CL) CO2 (test code = 33 mmol/l 22-30 H CO2) Calcium (test code 10.1 mg/dl 8.4-10.2 = CALC) T Protein (test 7.4 gm/dl 5.1-8.7 code = TP) Albumin (test code 4.4 gm/dl 3.5-4.6 = ALB) A/G Ratio (test 1.5 % 1.1-2.2 code = AGRAT) AST (SGOT) (test 41 U/L 11-36 H code = AST) ALT (SGPT) (test 47 U/L 11-40 H code = ALT) Alkaline Phos (test 95 U/L 47-114 code = ALKP) Total Bilirubin 0.5 mg/dl 0.2-1.2 (test code = TBIL) Globulin (test code 3.0 gm/dl 2.3-3.5 = GLOBU) Anion Gap (test 10 code = GAP) Calcium, Corrected 9.8 mg/dl 8.4-10.2 Various f ormulas exist (test code = for corrected s awilda CALCCORR) calcium results , each yielding differ ent values. This corrected resul t was based on the fo rmula: Corrected Calci um = SerumCalcium + [0.8 * ( 4 - SerumAlbu min)] EGFR if >60 [place] (test code mL/min/1.73m\\ = EGFRAA) S\\2 EGFR if Non- >60 Estimate d Glomerular [place] (test code mL/min/1.73m\\ Filtrat ion Rate (eGFR) = EGFRNA) S\\2 Reference Inter vals Decision Points for 18 years and older and average body ma ss: >= 60 Does not exc lude kidney disease. 30 - 59 Suggests modera te chronic kidney disease and indicat es the need for furthe r investigation including asses sment of proteinuria and cardiovascular factors. < 30 Usually in dicates a need for refe rral for assessment and management of c hronic kidney failure. CBC (HEMOGRAM ONLY)2017-10-02 13:46:00 Test Item Value Reference Range Interpretation Comments WBC (test code = 8.70 10\\S\\3/ul 4.80-10.80 WBC) RBC (test code = 4.37 10\\S\\6/ul 4.20-5.40 RBC) Hemoglobin (test 13.0 gm/dl 12.0-14.0 code = HGB) Hematocrit (test 40.5 % 37.0-47.0 code = HCT) MCV (test code = 92.7 fL 81.0-99.0 MCV) MCH (test code = 29.7 pg 27.0-31.0 MCH) MCHC (test code = 32.1 gm/dl 33.0-37.0 L MCHC) RDW (test code = 15.0 % 11.5-14.5 H RDWVC) Platelet (test code 231 10\\S\\3/ul 130-400 = PLT) MPV (test code = 11.6 fL 7.4-10.4 A "NOT MEASUR ED" MPV) RESULTS ARE DIS PLAYED WHEN THE INSTRU MENT HAS A SUPPRESSE D OR UNREPORTABLE RE SULT. THIS WILL MOST OFTEN HAPPEN WITH THE MPV WHEN THERE IS A N ABNORMAL PLATEL ET DISTRIBUTION DU E TO A CRITICAL LOW VA LUE OR PLATELET CLUMPI NG. THE RDW MAY BE SUPPRESSED IF T HERE ARE MULTIPLE PE AKS PRESENT ON THE RBC HISTOGRAM. IN THIS CASE, A MANUAL REVIEW OF THE SLIDE WI LL BE PERFORMED, AND RBC MORPHOLOGY WILL BE NOTED ON THE RE PORT. HEPARIN [id number] 11:44:00 Test Item Value Reference Range Interpretation Comments HEPARIN XA (test code = HEPXA) 0.36 0.30-0.70 [id number] 05:31:00 Test Item Value Reference Range Interpretation Comments Glucose (test code 107 mg/dl 75-110 = GLU) BUN (test code = 14.0 mg/dl 6.0-17.0 BUN) Creatinine (test 0.6 mg/dl 0.4-1.2 code = CREA) Sodium (test code = 144 mmol/l 137-145 NA) Potassium (test 3.6 mmol/l 3.5-5.0 code = K) Chloride (test code 102 mmol/l 98-107 = CL) CO2 (test code = 29 mmol/l 22-30 CO2) Calcium (test code 9.4 mg/dl 8.4-10.2 = CALC) EGFR if >60 [place] (test code mL/min/1.73m\\ = EGFRAA) S\\2 EGFR if Non- >60 Estimate d Glomerular [place] (test code mL/min/1.73m\\ Filtrat ion Rate (eGFR) = EGFRNA) S\\2 Reference Inter vals Decision Points for 18 years and older and average body ma ss: >= 60 Does not exc lude kidney disease. 30 - 59 Suggests modera te chronic kidney disease and indicat es the need for furthe r investigation including asses sment of proteinuria and cardiovascular factors. < 30 Usually in dicates a need for refe rral for assessment and management of c hronic kidney failure. CBC WITH AUTO [id number] 05:30:00 Test Item Value Reference Range Interpretation Comments WBC (test code = 11.31 4.80-10.80 H WBC) 10\\S\\3/ul RBC (test code = 4.08 10\\S\\6/ul 4.20-5.40 L RBC) Hemoglobin (test 12.1 gm/dl 12.0-14.0 code = HGB) Hematocrit (test 37.8 % 37.0-47.0 code = HCT) MCV (test code = 92.6 fL 81.0-99.0 MCV) MCH (test code = 29.7 pg 27.0-31.0 MCH) MCHC (test code = 32.0 gm/dl 33.0-37.0 L MCHC) RDW (test code = 14.9 % 11.5-14.5 H RDWVC) Platelet (test code 232 10\\S\\3/ul 130-400 = PLT) MPV (test code = 12.0 fL 7.4-10.4 A "NOT MEASUR ED" MPV) RESULTS ARE DIS PLAYED WHEN THE INSTRU MENT HAS A SUPPRESSE D OR UNREPORTABLE RE SULT. THIS WILL MOST OFTEN HAPPEN WITH THE MPV WHEN THERE IS A N ABNORMAL PLATEL ET DISTRIBUTION DU E TO A CRITICAL LOW VA LUE OR PLATELET CLUMPI NG. THE RDW MAY BE SUPPRESSED IF T HERE ARE MULTIPLE PE AKS PRESENT ON THE RBC HISTOGRAM. IN THIS CASE, A MANUAL REVIEW OF THE SLIDE WI LL BE PERFORMED, AND RBC MORPHOLOGY WILL BE NOTED ON THE RE PORT. NE% (test code = 77.4 % 42.0-75.0 H NE) LY% (test code = 16.1 % 13.0-42.0 LY) MO% (test code = 5.4 % 4.0-14.0 MO) EO% (test code = 0.2 % 1.0-3.0 L EO) BA% (test code = 0.2 % 1.0-3.0 L BA) IG% (test code = 0.7 % 0.0-0.4 H IG%) HEPARIN [id number] 05:28:00 Test Item Value Reference Range Interpretation Comments HEPARIN XA (test code = HEPXA) 0.42 0.30-0.70 TROPONIN-I [id number] 01:04:00 Test Item Value Reference Range Interpretation Comments Troponin-I (test <0.012 ng/ml 0.000-0.034 N [address] URL code = TROP) is 0.034 ng/mL. The Joint Society of Cardiology/[place] [place] College of Card iology (ESC/ACC) and t he [facility] y of Clinical [place] Standards of La boratory Practices (NACB ) recommends that the diagnosis of AM I includes the presence of clinical history suggest pedro pablo of Acute Coronary Syndrome (ACS) and a max imum concentration o f cardiac troponin exceed ing the 99th percentile of a normal referenc e population [upp er reference limit (URL)] on at least one oc casion during the firs t 24 hours after the clini zaynab event. MYOGLOBIN, [id number] 01:04:00 Test Item Value Reference Range Interpretation Comments Myoglobin (test code = FLAVIO) 29.3 ng/ml 0.0-61.5 [id number] 01:04:00 Test Item Value Reference Range Interpretation Comments CKMB (test code = CKMB) 0.58 ng/ml 0.00-2.37 CT ANGIO CHEST W/ [id number] 22:13:0620 g Cathlon Above the Antecubital or higher requiredProcedures: CT ANGIO ABD PELVIS W/WO OR W//CON, CT ANGIO CHEST W/ CONTRASTExam Date: 09/25/2017 5:46 PMOrdering Physician: DR LIA AVILEZlinical Indication: RESPDIST: Chest-Respiratory DistressComparison: CT chest/abdomen/pelvis, 10/09/16TECHNIQUE: Spiral multislice scanning was obtained through the thorax,abdomen, and pelvis with a high rate of intravenous contrast infusion foropacification of the aorta. 2-D reconstructions were obtained according to ourusual protocol, utilizing a slice thickness of 3 mm or less.This exam was performed according to the our departmental dose-optimizationprogram which includes automated exposure control, adjustment of the mA and/orkV according to patient size and/or use of iterative reconstruction techniques.Findings:NECK:Limited evaluation is without sign ificant abnormality.LUNGS:Pneumothorax: None.Lungs: Minimal bilateral dependent atelectasis. No worrisome pulmonary nodulesor masses.Effusion: None.Vascular: The pulmonary arterial vasculature is well opacified for evaluationof pulmonary embolism. No significant filling defects are demonstrated withinthe pulmonary trunk, main pulmonary arteries, segmental, or subsegmentalbranches.Airways: No significant abnormality.MEDIASTINUM:Aorta: Four-vessel aortic arch. Few punctate atherosclerotic calcific plaqueare present. No evidence of stenosis, dissection, or aneurysmal dilatation.Airways: No significant abnormality.Lymph nodes: No lymphadenopathy.Heart: No significant abnormality.Esophagus: No significant abnormality.VASCULATURE:Aorta: Atherosclerotic calcific plaque of the abdominal aorta withoutaneurysmal dilatation. The renal arteries, superior mesenteric artery, inferiormesenteric artery, and celiac axis are patent and without significant stenosisor aneurysmal dilatation.RENAL: Normal symmetric cortical enhancement. No hydronephrosis ornephrolithiasis. The ureters are of normal course and caliber. No significantabnormalities of the urinary bladder. Incidental pelvic phlebolithsare noted.Postsurgical change status post hysterectomy.GASTROINTESTINAL: The appendix is not clearly identified on this exam; however,no pericecal inflammatory stranding or free fluid is demonstrated. Moderate tolarge stool burden is demonstrated throughout the colon and may representconstipation.MESENTERY & RETROPERITONEUM: No significant abnormality of theretroperitoneum.OSSEOUS: Mild degenerative changes of the spine; otherwise, no significantosseous lesions.OTHER: No significant abnormali ties of the remaining soft tissues.IMPRESSION:1. Mild amount of atherosclerotic calcific plaque within the abdominal aortawithout aneurysmal dilatation, stenosis, or dissection.2. No significant CT evidence of pulmonary embolism within the pulmonary trunk,main pulmonary arteries, or segmental branches.3. Chronic disease findings, as above.This final report was electronically signed by Dr Lia Rosen MD09/25/2017 10:06 PMDictated By: LIA BRADSHAWDate: 09/25/2017 22:12CT ANGIO ABD PELVIS W/WO OR W//[id number] 22:13:0220 g Cathlon Above the Antecubital or higher requiredProcedures: CT ANGIO ABD PELVIS W/WO OR W//CON, CT ANGIO CHEST W/ CONTRASTExam Date: 09/25/2017 5:46 PMOrdering Physician: DR FITZGERALD MOPURClinical Indication: RESPDIST: Chest- Respiratory DistressComparison: CT chest/abdomen/pelvis, 10/09/16TECHNIQUE: Spiral multislice scanning was obtained through the thorax,abdomen, and pelvis with a high rate of intravenous contrast infusion foropacification of the aorta. 2-D reconstructions were obtained according to ourusual protocol, utilizing a slice thickness of 3 mm or less.This exam was performed according to the our departmental dose-optimizationprogram which includes automated exposure control, adjustment of the mA and/orkV according to patient size and/or use of iterative reconstruction techniques.Findings:NECK:Limited evaluation is without sign ificant abnormality.LUNGS:Pneumothorax: None.Lungs: Minimal bilateral dependent atelectasis. No worrisome pulmonary nodulesor masses.Effusion: None.Vascular: The pulmonary arterial vasculature is well opacified for evaluationof pulmonary embolism. No significant filling defects are demonstrated withinthe pulmonary trunk, main pulmonary arteries, segmental, or subsegmentalbranches.Airways: No significant abnormality.MEDIASTINUM:Aorta: Four-vessel aortic arch. Few punctate atherosclerotic calcific plaqueare present. No evidence of stenosis, dissection, or aneurysmal dilatation.Airways: No significant abnormality.Lymph nodes: No lymphadenopathy.Heart: No significant abnormality.Esophagus: No significant abnormality.VASCULATURE:Aorta: Atherosclerotic calcific plaque of the abdominal aorta withoutaneurysmal dilatation. The renal arteries, superior mesenteric artery, inferiormesenteric artery, and celiac axis are patent and without significant stenosisor aneurysmal dilatation.RENAL: Normal symmetric cortical enhancement. No hydronephrosis ornephrolithiasis. The ureters are of normal course and caliber. No significantabnormalities of the urinary bladder. Incidental pelvic phlebolithsare noted.Postsurgical change status post hysterectomy.GASTROINTESTINAL: The appendix is not clearly identified on this exam; however,no pericecal inflammatory stranding or free fluid is demonstrated. Moderate tolarge stool burden is demonstrated throughout the colon and may representconstipation.MESENTERY & RETROPERITONEUM: No significant abnormality of theretroperitoneum.OSSEOUS: Mild degenerative changes of the spine; otherwise, no significantosseous lesions.OTHER: No significant abnormali ties of the remaining soft tissues.IMPRESSION:1. Mild amount of atherosclerotic calcific plaque within the abdominal aortawithout aneurysmal dilatation, stenosis, or dissection.2. No significant CT evidence of pulmonary embolism within the pulmonary trunk,main pulmonary arteries, or segmental branches.3. Chronic disease findings, as above.This final report was electronically signed by Dr Lia Rosen MD09/25/2017 10:06 PMDictated By: LIA BRADSHAWDate: 09/25/2017 22:[id number] 19:00:00 Test Item Value Reference Range Interpretation Comments CKMB (test code = CKMB) 0.48 ng/ml 0.00-2.37 MYOGLOBIN, [id number] 19:00:00 Test Item Value Reference Range Interpretation Comments Myoglobin (test code = FLAVIO) 33.6 ng/ml 0.0-61.5 TROPONIN-I [id number] 19:00:00 Test Item Value Reference Range Interpretation Comments Troponin-I (test <0.012 ng/ml 0.000-0.034 N [address] URL code = TROP) is 0.034 ng/mL. The Joint Society of Cardiology/[facility] College of Card iology (ESC/ACC) and t [facility] Standards of La boratory Practices (NACB ) recommends that the diagnosis of AM I includes the presence of clinical history suggest pedro pablo of Acute Coronary Syndrome (ACS) and a max imum concentration o f cardiac troponin exceed ing the 99th percentile of a normal referenc e population [upp er reference limit (URL)] on at least one oc casion during the firs t 24 hours after the clini zaynab event. CT HEAD W/O [id number] 13:22:53CT HEAD WITHOUT CONTRAST:DATE OF EXAM: 09/25/2017INDICATION: headacheNoncontrast CT head was performed. Total DLP 898 mGy-cm.FINDINGS:No intracranial hemorrhage, mass effect or midline shift is identified. Theventricular system is normal in size and configuration. The basal cisterns arepatent.The visualized portions of the mastoids, paranasal sinuses and orbits show nosignificant abnormality.IMPRESSION:Negative CT head without contrast.This final report was electronically signed by Dr Gulshan Sanchez MD 09/25/20171:16 PMDictated By: GULSHAN SANCHEZDate: 09/25/2017 13:22PTT 2017-09-25 13:18:00 Test Item Value Reference Range Interpretation Comments aPTT (test code = PTT) 28.1 seconds 25.3-35.7 PT AND [id number] 13:18:00 Test Item Value Reference Range Interpretation Comments Protime (test code 10.2 seconds 9.0-11.8 = PT) INR (test code = 1.0 0.9-1.1 INR results are INR) intended ONLY t o monitor Oral Anticoagulant t herapy in stablized pa tients. The INR Therape utic Range is 2.0 - 3.0 Patients with a mechanical hear t, the INR Range is 2. 5 - 3.5 [id number] 12:06:00 Test Item Value Reference Range Interpretation Comments CPK (test code = CPK) 90 U/L 30-135 TROPONIN-I [id number] 12:06:00 Test Item Value Reference Range Interpretation Comments Troponin-I (test <0.012 ng/ml 0.000-0.034 N [address] URL code = TROP) is 0.034 ng/mL. The Joint Society of Cardiology/[facility] College of Card iology (ESC/ACC) and [facility] of Clinical [facility] Standards of La boratory Practices (NACB ) recommends that the diagnosis of AM I includes the presence of clinical history suggest pedro pablo of Acute Coronary Syndrome (ACS) and a max imum concentration o f cardiac troponin exceed ing the 99th percentile of a normal referenc e population [upp er reference limit (URL)] on at least one oc casion during the firs t 24 hours after the clini zaynab event. [id number] 12:06:00 Test Item Value Reference Range Interpretation Comments CKMB (test code = CKMB) 0.41 ng/ml 0.00-2.36 [id number] 11:22:00 Test Item Value Reference Range Interpretation Comments Glucose (test code 99 mg/dl 75-110 = GLU) BUN (test code = 10.0 mg/dl 6.0-17.0 BUN) Creatinine (test 0.8 mg/dl 0.4-1.2 code = CREA) Sodium (test code = 143 mmol/l 137-145 NA) Potassium (test 3.6 mmol/l 3.5-5.0 code = K) Chloride (test code 99 mmol/l 98-107 = CL) CO2 (test code = 32 mmol/l 22-30 H CO2) Calcium (test code 9.9 mg/dl 8.4-10.2 = CALC) T Protein (test 7.9 gm/dl 5.1-8.7 code = TP) Albumin (test code 4.5 gm/dl 3.5-4.6 = ALB) A/G Ratio (test 1.3 % 1.1-2.2 code = AGRAT) AST (SGOT) (test 53 U/L 11-36 H code = AST) ALT (SGPT) (test 41 U/L 11-40 H code = ALT) Alkaline Phos (test 94 U/L 47-114 code = ALKP) Total Bilirubin 0.6 mg/dl 0.2-1.2 (test code = TBIL) Globulin (test code 3.4 gm/dl 2.3-3.5 = GLOBU) Anion Gap (test 12 code = GAP) Calcium, Corrected 9.5 mg/dl 8.4-10.2 Various f ormulas exist (test code = for corrected s awilda CALCCORR) calcium results , each yielding differ ent values. This corrected resul t was based on the fo rmula: Corrected Calci um = SerumCalcium + [0.8 * ( 4 - SerumAlbu min)] EGFR if >60 [place] (test code mL/min/1.73m\\ = EGFRAA) S\\2 EGFR if Non- >60 Estimate d Glomerular [place] (test code mL/min/1.73m\\ Filtrat ion Rate (eGFR) = EGFRNA) S\\2 Reference Inter vals Decision Points for 18 years and older and average body ma ss: >= 60 Does not exc lude kidney disease. 30 - 59 Suggests modera te chronic kidney disease and indicat es the need for furthe r investigation including asses sment of proteinuria and cardiovascular factors. < 30 Usually in dicates a need for refe rral for assessment and management of c hronic kidney failure. [id number] 11:22:00 Test Item Value Reference Range Interpretation Comments Magnesium (test code = MG) 2.0 mg/dl 1.6-2.3 TROPONIN-I [id number] 11:22:00 Test Item Value Reference Range Interpretation Comments Troponin-I (test <0.012 ng/ml 0.000-0.034 N [address] URL code = TROP) is 0.034 ng/mL. The Joint Society of Cardiology/[place]mer [place] College of Card iology (ESC/ACC) and [facility] of Clinical [place] Standards of [place] boratory Practices (NACB ) recommends that the diagnosis of AM I includes the presence of clinical history suggest pedro pablo of Acute Coronary Syndrome (ACS) and a max imum concentration o f cardiac troponin exceed ing the 99th percentile of a normal referenc e population [upp er reference limit (URL)] on at least one oc casion during the firs t 24 hours after the clini zaynab event. PRO-BNP(B-Type Natriuretic Peptide)2017-09-25 11:22:00 Test Item Value Reference Range Interpretation Comments Pro-BNP(B-Peptide) (test code = 20 pg/ml 0-125 PROBNP) XR CHEST AP/PA 1 [id number] 11:09:11Exam: AP portable chest DATE OF EXAM: 09/25/2017 10:44AMINDICATION: chest painThe lungs are clear. The cardiomediastinal silhouette is within normal limits.The bony thorax shows no significant abnormality.Impression:No active cardiopulmonary disease.This final report was electronically signed by Dr Gulshan Sanchez MD 09/25/201711:02 AMDictated By: GULSHAN SANCHEZDate: 09/25/2017 11:09CBC WITH AUTO [id number] 10:40:00 Test Item Value Reference Range Interpretation Comments WBC (test code = 7.23 10\\S\\3/ul 4.80-10.80 WBC) RBC (test code = 4.43 10\\S\\6/ul 4.20-5.40 RBC) Hemoglobin (test 13.3 gm/dl 12.0-14.0 code = HGB) Hematocrit (test 41.5 % 37.0-47.0 code = HCT) MCV (test code = 93.7 fL 81.0-99.0 MCV) MCH (test code = 30.0 pg 27.0-31.0 MCH) MCHC (test code = 32.0 gm/dl 33.0-37.0 L MCHC) RDW (test code = 15.4 % 11.5-14.5 H RDWVC) Platelet (test code 231 10\\S\\3/ul 130-400 = PLT) MPV (test code = 11.4 fL 7.4-10.4 A "NOT MEASUR ED" MPV) RESULTS ARE DIS PLAYED WHEN THE INSTRU MENT HAS A SUPPRESSE D OR UNREPORTABLE RE SULT. THIS WILL MOST OFTEN HAPPEN WITH THE MPV WHEN THERE IS A N ABNORMAL PLATEL ET DISTRIBUTION DU E TO A CRITICAL LOW VA LUE OR PLATELET CLUMPI NG. THE RDW MAY BE SUPPRESSED IF T HERE ARE MULTIPLE PE AKS PRESENT ON THE RBC HISTOGRAM. IN THIS CASE, A MANUAL REVIEW OF THE SLIDE WI LL BE PERFORMED, AND RBC MORPHOLOGY WILL BE NOTED ON THE RE PORT. NE% (test code = 55.7 % 42.0-75.0 NE) LY% (test code = 28.6 % 13.0-42.0 LY) MO% (test code = 6.1 % 4.0-14.0 MO) EO% (test code = 8.4 % 1.0-3.0 H EO) BA% (test code = 0.6 % 1.0-3.0 L BA) IG% (test code = 0.6 % 0.0-0.4 H IG%) TROPONIN-I [id number] 00:17:00 Test Item Value Reference Range Interpretation Comments Troponin-I (test <0.012 ng/ml 0.000-0.034 N [address] URL code = TROP) is 0.034 ng/mL. The Joint Society of Cardiology/[facility] College of Card iology (ESC/ACC) and [facility] of Clinical [place] Standards of [place] boratory Practices (NACB ) recommends that the diagnosis of AM I includes the presence of clinical history suggest pedro pablo of Acute Coronary Syndrome (ACS) and a max imum concentration o f cardiac troponin exceed ing the 99th percentile of a normal referenc e population [upp er reference limit (URL)] on at least one oc casion during the firs t 24 hours after the clini zaynab event. Rpt Cardiac Panel at 90 mins after 1st set [id number] 00:17:00 Test Item Value Reference Range Interpretation Comments CPK (test code = CPK) 141 U/L 30-135 H Rpt Cardiac Panel at 90 mins after 1st set [id number] 00:17:00 Test Item Value Reference Range Interpretation Comments CKMB (test code = CKMB) 0.79 ng/ml 0.00-2.36 Rpt Cardiac Panel at 90 mins after 1st set [id number] 22:37:00 Test Item Value Reference Range Interpretation Comments CKMB (test code = CKMB) 0.98 ng/ml 0.00-2.36 [id number] 22:37:00 Test Item Value Reference Range Interpretation Comments CPK (test code = CPK) 177 U/L 30-135 H TROPONIN-I [id number] 22:37:00 Test Item Value Reference Range Interpretation Comments Troponin-I (test <0.012 ng/ml 0.000-0.034 N The [address] URL code = TROP) is 0.034 ng/mL. The Joint Society of Cardiology/[facility] College of Card iology (ESC/ACC) and [facility] Standards of La boratory Practices (NACB ) recommends that the diagnosis of AM I includes the presence of clinical history suggest pedro pablo of Acute Coronary Syndrome (ACS) and a max imum concentration o f cardiac troponin exceed ing the 99th percentile of a normal referenc e population [upp er reference limit (URL)] on at least one oc casion during the firs t 24 hours after the clini zaynab event. XR CHEST 2 PA [id number] 22:25:05EXAM: XR CHEST 2 PA LATERALINDICATION: cpCOMPARISON: CT of the chest October 09, 2016 and chest x-ray September 11, 2016FINDINGS:LINES/TUBES: NoneLUNGS: No consolidations or edema.PLEURA: No effusions or pneumothorax.HEART AND MEDIASTINUM: Normal size and contour.BONES AND SOFT TISSUES: No acute findings.IMPRESSION:No acute thoracic abnormality.This final report was electronically signed by Dr Navin Zuniga MD 09/23/201710:18 PMDictated By: NAVIN ZUNIGADate: 09/23/2017 22:[id number] 22:24:00 Test Item Value Reference Range Interpretation Comments Glucose (test code 114 mg/dl 75-110 H = GLU) BUN (test code = 11.0 mg/dl 6.0-17.0 BUN) Creatinine (test 0.9 mg/dl 0.4-1.2 code = CREA) Sodium (test code = 141 mmol/l 137-145 NA) Potassium (test 3.3 mmol/l 3.5-5.0 L code = K) Chloride (test code 100 mmol/l 98-107 = CL) CO2 (test code = 31 mmol/l 22-30 H CO2) Calcium (test code 9.2 mg/dl 8.4-10.2 = CALC) EGFR if >60 [place] (test code mL/min/1.73m\\ = EGFRAA) S\\2 EGFR if Non- >60 Estimate d Glomerular [place] (test code mL/min/1.73m\\ Filtrat ion Rate (eGFR) = EGFRNA) S\\2 Reference Inter vals Decision Points for 18 years and older and average body ma ss: >= 60 Does not exc lude kidney disease. 30 - 59 Suggests modera te chronic kidney disease and indicat es the need for furthe r investigation including asses sment of proteinuria and cardiovascular factors. < 30 Usually in dicates a need for refe rral for assessment and management of c hronic kidney failure. CBC WITH AUTO [id number] 22:07:00 Test Item Value Reference Range Interpretation Comments WBC (test code = 9.04 10\\S\\3/ul 4.80-10.80 WBC) RBC (test code = 4.08 10\\S\\6/ul 4.20-5.40 L RBC) Hemoglobin (test 12.0 gm/dl 12.0-14.0 code = HGB) Hematocrit (test 38.1 % 37.0-47.0 code = HCT) MCV (test code = 93.4 fL 81.0-99.0 MCV) MCH (test code = 29.4 pg 27.0-31.0 MCH) MCHC (test code = 31.5 gm/dl 33.0-37.0 L MCHC) RDW (test code = 15.4 % 11.5-14.5 H RDWVC) Platelet (test code 248 10\\S\\3/ul 130-400 = PLT) MPV (test code = 11.1 fL 7.4-10.4 A "NOT MEASUR ED" MPV) RESULTS ARE DIS PLAYED WHEN THE INSTRU MENT HAS A SUPPRESSE D OR UNREPORTABLE RE SULT. THIS WILL MOST OFTEN HAPPEN WITH THE MPV WHEN THERE IS A N ABNORMAL PLATEL ET DISTRIBUTION DU E TO A CRITICAL LOW VA LUE OR PLATELET CLUMPI NG. THE RDW MAY BE SUPPRESSED IF T HERE ARE MULTIPLE PE AKS PRESENT ON THE RBC HISTOGRAM. IN THIS CASE, A MANUAL REVIEW OF THE SLIDE WI LL BE PERFORMED, AND RBC MORPHOLOGY WILL BE NOTED ON THE RE PORT. NE% (test code = 55.0 % 42.0-75.0 NE) LY% (test code = 31.9 % 13.0-42.0 LY) MO% (test code = 5.4 % 4.0-14.0 MO) EO% (test code = 6.9 % 1.0-3.0 H EO) BA% (test code = 0.4 % 1.0-3.0 L BA) IG% (test code = 0.4 % 0.0-0.4 IG%) US BREAST UNILATERAL [id number] 08:43:17Procedure: MM MAMMO DIAG DIR DIGITAL-BILAT, US BREAST UNILATERAL LIMITED, USBREAST UNILATERAL LIMITEDExam Date: 08/19/2017Ordering Provider: FRANCISCO J Logan Indication: Abnormal screening mammogramComparison: Mammograms dated July 31, 2017Compression spot films of the right breast were obtained as well as targetedultrasound examination of both breasts.Findings: Compression spot films of theright breast show persistence of the 2tiny nodular foci measuring up to 4 mm.Targeted ultrasound examination of the right breast shows a few small lymphnodes in the upper outer right breast. No cyst ordiscrete solid lesion isvisualized. The lymph nodes are slightly larger than the mammographic nodules.Given the probable benignity of these mammographic nodules, followup mammogramsin 6 months would be recommended.Targeted ultrasound examination of the retroareolar left breast shows a 3 x 7 x10 mm hypoechoic well-circumscribed ovoid nodule. It corresponds to themammographic nodule and is most suggestive of a fibroadenoma. There are noassociated calcifications.Impression: Probable benign findings bilaterally as noted. Recommend followupmammograms in 6 months.BI-RADS 3: Probably benign, short term follow up recommended.This final report was electronically signed by Dr Gulshan Sanchez MD 08/20/20178:36 AMDictated By: GULSHAN SANCHEZDate: 08/20/2017 08:43US BREAST UNILATERAL [id number] 08:43:15Procedure: MM MAMMO DIAG DIR DIGITAL-BILAT, US BREAST UNILATERAL LIMITED, USBREAST UNILATERAL LIMITEDExam Date: 08/19/2017Ordering Provider: FRANCISCO J Logan Indication: Abnormal screening mammogramComparison: Mammograms dated July 31, 2017Compression spot films of the right breast were obtained as well as targetedultrasound examination of both breasts.Findings: Compression spot films of theright breast show persistence of the 2tiny nodular foci measuring up to 4 mm.Targeted ultrasound examination of the right breast shows a few small lymphnodes in the upper outer right breast. No cyst ordiscrete solid lesion isvisualized. The lymph nodes are slightly larger than the mammographic nodules .Given the probable benignity of these mammographic nodules, followup mammogramsin 6 months would berecommended.Targeted ultrasound examination of the retroareolar left breast shows a 3 x 7 x10 mm hypoechoic well-circumscribed ovoid nodule. It corresponds to themammographic nodule and is most suggestive of a fibroadenoma. There are noassociated calcifications.Impression: Probable benign findings bilaterally as noted. Recommend followupmammograms in 6 months.BI-RADS 3: Probably benign, short term follow up recommended.This final report was electronically signed by Dr Gulshan Sanchez MD 08/20/20178:36 AMDictated By: GULSHAN SANCHEZDate: 08/20/2017 08:43MM MAMMO DIAG DIR [id number] 08:43:11Procedure: MM MAMMO DIAG DIR DIGITAL-BILAT, US BREAST UNILATERAL LIMITED, USBREAST UNILATERAL LIMITEDExam Date: 08/19/2017Ordering Provider: FRANCISCO J Lopezinical Indication: Abnormal screening mammogramComparison: Mammograms dated July 31, 2017Compression spot films of the right breast were obtained as well as targetedultrasound examination of both breasts.Findings: Compression spot films of theright breast show persistence of the 2tiny nodular foci measuring up to 4 mm.Targeted ultrasound examination of the right breast shows a few small lymphnodes in the upper outer right breast. No cyst ordiscrete solid lesion isvisualized. The lymph nodes are slightly larger than the mammographic nodules.Given the probable benignity of these mammographic nodules, followup mammogramsin 6 months would be recommended.Targeted ultrasound examination of the retroareolar left breast shows a 3 x 7 x10 mm hypoechoic well-circumscribed ovoid nodule. It corresponds to themammographic nodule and is most suggestive of a fibroadenoma. There are noassociated calcifications.Impression: Probable benign findings bilaterally as noted. Recommend followupmammograms in 6 months.BI-RADS 3: Probably benign, short term follow up recommended.This final report was electronically signed by Dr Gulshan Sanchez MD 08/20/20178:36 AMDictated By: Nathanael SANCHEZte: 08/20/2017 08:43MM MAMMO SCREEN DIR [id number] 17:49:01Procedures: MM MAMMO SCREEN DIR DIGITALExam Date: 07/31/2017 10:45 AMOrdering Provider: FRANCISCO J Lopezinical Indication: Digital screening mammography.Comparison: None availableTechnique: Digital craniocaudal and mediolateral oblique views of both breastswere obtained. Exam dictated utilizing computer-aided detection (CAD).Findings:There are scattered fibroglandular densities in each breast.There is a 9 mm nodule which projects in the retroareolar left past. This shouldbe further assessed with ultrasound. There are 2 apparent lymph nodes in the midand outer left breast. On the right, there are2 small nodular parenchymal fociin the mid upper right breast as seen on the MLO view. These could alsorepresent lymph nodes but should be further assessed with compression spot filmsand possibly ultrasound.There are no suspicious calcifications in either breast.There are no pathologic skin or nipple alterations.Impression:Subareolar left breast nodule and possible lymph nodes in the mid upper rightbreast. Recommend compression spot films and ultrasound.BIRADS Result 0: Incomplete. Need additionalimaging and/or prior mammogramsfor comparison.This final report was electronically signed by Dr Gulshan Sanchez MD 07/31/20175:42 PMDictated By: Nathanael SANCHEZte: 07/31/2017 17:49URINALYSIS WITH [id number] 23:35:00 Test Item Value Reference Range Interpretation Comments Color (test code = UCOLR) Lt. Yellow Clarity (test code = UCLAR) CLEAR Glucose (test code = UGLUC) NEGATIVE NEGATIVE N Bilirubin (test code = UBILI) NEGATIVE NEGATIVE N Ketones (test code = UKET) NEGATIVE NEGATIVE N Specific [place] (test code = <=1.005 1.005-1.030 A USPGR) Blood (test code = UBLD) NEGATIVE NEGATIVE N PH (test code = UPH) 5.0 4.5-8.0 A Protein (test code = UPROT) NEGATIVE NEGATIVE N Urobilinogen (test code = U UROB) 0.2 >0.2 N Nitrite (test code = UNITR) NEGATIVE NEGATIVE N Leukocyte Esterase (test code = NEGATIVE NEGATIVE N ULEUK) WBC (test code = WBCUR) 0-1 0-5 A RBC (test code = RBCUR) 0-1 0-5 A Epithial Cells (test code = U EPI) 0-5 0-10 A Mucous (test code = UMUC) None Seen None Seen N Bacteria (test code = UBACT) Trace None Seen,Trace N DRUG SCREEN [id number] 23:21:00 Test Item Value Reference Range Interpretation Comments FT (test code Negative (qualifier = AMPHET) value) FT (test code Negative (qualifier = ALFA) value) FT (test code Negative (qualifier = BENZO) value) FT (test code Negative (qualifier = CHRISTA) value) FT (test code Negative (qualifier = MTD) value) Opiates (test Presumptive code = OPIAT) Positive; Confirmation Upon Request FT (test code Negative (qualifier The fol lowing table = PCP) value) provides an interpretive gu silvio for the Drugs o f Abuse ran on Vitros 5.1 anal yzer listed there in : Amphetamines < 1000 ng/ml = Negative Barbituates < 200 ng/ml = Negative Benzodiazapines < 200 ngml = Negative Christa ceci < 300 n g/ml = Negative Methadone < 300 ng/ml = Negative Opi ate < 300 n g/ml = Negative P CP < 25 ng/ml = Negati ve THC < 50 ng/ml = Nega tive Results equal t o or greater than e above cut-off v alues = Presumptive Positive. Confirmation of Presumptive Pos itive results are hoang ilable upon request. Cannabinoids, Presumptive THC (test code Positive; = THC) Confirmation Upon Request TROPONIN-I [id number] 21:22:00 Test Item Value Reference Range Interpretation Comments Troponin-I (test <0.012 ng/ml 0.000-0.034 N The [address] r[address]ile URL code = TROP) is 0.034 ng/mL. The Joint Society of Cardiology/[facility] College of Card iology (ESC/ACC) and [facility] Clinical [place] Standards of [place] boratory Practices (NACB ) recommends that the diagnosis of AM I includes the presence of clinical history suggest pedro pablo of Acute Coronary Syndrome (ACS) and a max imum concentration o f cardiac troponin exceed ing the 99th percentile of a normal referenc e population [upp er reference limit (URL)] on at least one oc casion during the firs t 24 hours after the clini zaynab event. [id number] 21:15:00 Test Item Value Reference Range Interpretation Comments aPTT (test code = PTT) 25.4 seconds 25.3-35.7 PT AND [id number] 21:15:00 Test Item Value Reference Range Interpretation Comments Protime (test code 10.1 seconds 9.0-11.8 = PT) INR (test code = 1.0 0.9-1.1 INR results are INR) intended ONLY t o monitor Oral Anticoagulant t herapy in stablized pa tients. The INR Therape utic Range is 2.0 - 3.0 Patients with a mechanical hear t, the INR Range is 2. 5 - 3.5 LIPASE, [id number] 21:09:00 Test Item Value Reference Range Interpretation Comments Lipase (test code = LIPA) 75 U/L 8-223 ALCOHOL, [id number] 21:08:00 Test Item Value Reference Range Interpretation Comments Alcohol % (test code = 0 % 0.00-0.00 N Walt ol % 0.00 - 0.10 ALCPC) Sub-clinical 0.11 - 0.20 Emotional Instability 0.21 - 0.30 Confusion 0.31 - 0.40 Stupor 0.41 - 0.50 Coma >.50 Fatal [id number] 21:08:00 Test Item Value Reference Range Interpretation Comments Glucose (test code 91 mg/dl 75-110 = GLU) BUN (test code = 13.0 mg/dl 6.0-17.0 BUN) Creatinine (test 0.9 mg/dl 0.4-1.2 code = CREA) Sodium (test code = 144 mmol/l 137-145 NA) Potassium (test 4.5 mmol/l 3.5-5.0 code = K) Chloride (test code 105 mmol/l 98-107 = CL) CO2 (test code = 27 mmol/l 22-30 CO2) Calcium (test code 9.6 mg/dl 8.4-10.2 = CALC) T Protein (test 6.8 gm/dl 5.1-8.7 code = TP) Albumin (test code 4.0 gm/dl 3.5-4.6 = ALB) A/G Ratio (test 1.4 % 1.1-2.2 code = AGRAT) AST (SGOT) (test 25 U/L 11-36 code = AST) ALT (SGPT) (test 26 U/L 11-40 code = ALT) Alkaline Phos (test 92 U/L 47-114 code = ALKP) Total Bilirubin 0.3 mg/dl 0.2-1.2 (test code = TBIL) Globulin (test code 2.8 gm/dl 2.3-3.5 = GLOBU) Anion Gap (test 13 code = GAP) Calcium, Corrected 9.6 mg/dl 8.4-10.2 Various f ormulas exist (test code = for corrected s awilda CALCCORR) calcium results , each yielding differ ent values. This corrected resul t was based on the fo rmula: Corrected Calci um = SerumCalcium + [0.8 * ( 4 - SerumAlbu min)] EGFR if >60 [place] (test code mL/min/1.73m\\ = EGFRAA) S\\2 EGFR if Non- >60 Estimate d Glomerular [place] (test code mL/min/1.73m\\ Filtrat ion Rate (eGFR) = EGFRNA) S\\2 Reference Inter vals Decision Points for 18 years and older and average body ma ss: >= 60 Does not exc lude kidney disease. 30 - 59 Suggests modera te chronic kidney disease and indicat es the need for furthe r investigation including asses sment of proteinuria and cardiovascular factors. < 30 Usually in dicates a need for refe rral for assessment and management of c hronic kidney failure. CBC WITH AUTO [id number] 20:49:00 Test Item Value Reference Range Interpretation Comments WBC (test code = WBC) 9.6 k/ul 4.8-10.8 RBC (test code = RBC) 3.91 Millions/ul 4.20-5.40 L Hemoglobin (test code = HGB) 11.7 gm/dl 12.0-14.0 L Hematocrit (test code = HCT) 34.9 % 37.0-47.0 L MCV (test code = MCV) 89.3 fL 81.0-99.0 MCH (test code = MCH) 29.8 pg 27.0-31.0 MCHC (test code = MCHC) 33.4 gm/dl 33.0-37.0 RDW (test code = RDWVC) 15.7 % 11.5-14.5 H Platelet (test code = PLT) 208 k/ul 130-400 MPV (test code = MPV) 9.4 fL 7.4-10.4 NE% (test code = NE) 57.9 % 42.0-75.0 LY% (test code = LY) 26.6 % 13.0-42.0 MO% (test code = MO) 5.8 % 4.0-14.0 EO% (test code = EO) 9.0 % 1.0-3.0 H BA% (test code = BA) 0.7 % 1.0-3.0 L NRBC, Auto (test code = 0 /100WBC 0-0 NRBC_AUTO)
== END 2020-04-12 10:31 | disposition home or self-care (01) ==
LOC: ER 09:13
DX: S82.61XD Displaced fracture of lateral malleolus of right fibula, subsequent encounter for closed fracture with routine healing (principal); S81.012D Laceration without foreign body, left knee, subsequent encounter; E78.5 Hyperlipidemia, unspecified; F17.210 Nicotine dependence, cigarettes, uncomplicated; Z88.0 Allergy status to penicillin; Z88.1 Allergy status to other antibiotic agents; Z88.2 Allergy status to sulfonamides
CPT/HCPCS: 96372; 99283

== ENCOUNTER 2020-06-23 13:17 | Emergency (ER) | payer OTHER ==
--- NOTE | 2020-06-23 17:02 | ER ---
Nurse's Notes [facility] Name: Erin Jiang Age: 60 yrs Sex: Female : 1960 Arrival Date: 06/23/2020 Time: 13:19 Bed Hall1 Private MD: Diagnosis: Anxiety disorder, unspecified;Encounter for issue of repeat prescription-Lexapro Presentation: 06/23 13:24 Chief complaint: Patient states: Out of Lexapro for 6 days. Very anxious, slightly ll1 depressed, and stressed. No Suicidal thoughts. Out of electricity and water. Coronavirus screen: Client denies travel out of the [place] in the last 14 days. At this time, the client does not indicate any symptoms associated with coronavirus-19. Initial Sepsis Screen: Does the patient meet any 2 criteria? No. Patient's initial sepsis screen is negative. Risk Assessment: Do you want to hurt yourself or someone else? Patient reports no desire to harm self or others. Onset of symptoms was June 23, 2020. 13:24 Method Of Arrival: Ambulatory ll1 13:24 Acuity: MONY 4 ll1 13:24 Ebola Screen: Patient denies travel to an Ebola-affected area in the 21 days before ll1 illness onset. Initial Sepsis Screen: Does the patient meet any 2 criteria? Does the patient have a suspected source of infection? No. Patient's initial sepsis screen is negative. Historical: - Allergies: 13:26 Bactrim; ll1 13:26 Levaquin; ll1 13:26 PENICILLINS; ll1 13:26 Sulfa (Sulfonamide Antibiotics); ll1 - PMHx: 13:26 Hyperlipidemia; menieresdisease; ll1 - PSHx: 13:26 neck surgery; ll1 - Immunization history:: Flu vaccine is not up to date. - Social history:: Smoking status: Patient reports the use of cigarette tobacco products, smokes one pack cigarettes per day. Screenin:30 Abuse screen: Denies threats or abuse. Denies injuries from another. Nutritional iw screening: No deficits noted. Tuberculosis screening: No symptoms or risk factors identified. Fall Risk None identified. Assessment: 17:10 General: Appears in no apparent distress. Behavior is calm, cooperative. Pain: Denies iw pain. Neuro: Level of Consciousness is awake, alert, obeys commands, Oriented to person, place, time, situation. Cardiovascular: Patient's skin is warm and dry. Respiratory: Respiratory effort is even, unlabored, Respiratory pattern is regular, symmetrical. Derm: Skin is intact, is healthy with good turgor. Musculoskeletal: Range of motion: intact in all extremities. Vital Signs: 13:24 BP 158 / 94; Pulse 71; Resp 16; Temp 97.7; Pulse Ox 99% ; Weight 83.91 kg; Height 5 ft. ll1 5 in. (165.10 cm); Pain 0/10; 14:40 BP 129 / 77; Pulse 67; Resp 17; ll1 13:24 Body Mass Index 30.79 (83.91 kg, 165.10 cm) ll1 ED Course: 13:19 Patient arrived in ED. ds1 13:26 Triage completed. ll1 13:27 Arm band placed on. ll1 16:35 Valeriano Menchaca MD is Attending Physician. [facility] 16:59 Joni Cadena MD is Referral Physician. [facility] 17:01 Amber Naranjo, GILLIAN is Primary Nurse. iw 17:10 Patient has correct armband on for positive identification. iw 17:30 No provider procedures requiring assistance completed. Patient did not have IV access iw during this emergency room visit. Administered Medications: 17:16 Drug: Ativan 1 mg Route: PO; iw 17:29 Follow up: Response: No adverse reaction iw 17:29 Drug: Lexapro 40 mg Route: PO; iw 17:30 Follow up: Response: No adverse reaction iw Outcome: 17:01 Discharge ordered by . [facility] 17:31 Discharged to home ambulatory. iw 17:31 Condition: good 17:31 Discharge instructions given to patient, Instructed on discharge instructions, follow up and referral plans. medication usage, Demonstrated understanding of instructions, follow-up care, medications, Prescriptions given X 1. 17:32 Patient left the ED. hb Signatures: Valeriano Menchaca MD MD cha Sanford, Demi ds1 Amber Naranjo, GILLIAN FRENCH Nikia Klein RN RN hb Lewis, Lynsay, RN RN ll1 Corrections: (The following items were deleted from the chart) 13:28 13:24 Acuity: MONY 3 ll1 ll1
--- NOTE | 2020-06-23 17:02 | EDPHYS ---
Physician Documentation [facility] Name: Erin Jiang Age: 60 yrs Sex: Female : 1960 Arrival Date: 06/23/2020 Time: 13:19 Bed Hall1 Private MD: ED Physician Valeriano Menchaca HPI: 06/23 16:55 This 60 yrs old Female presents to ER via Ambulatory with complaints of devin Anxiety. 16:55 The patient presents to the emergency department with anxiety, depression. Onset: The devin symptoms/episode began/occurred 5 day(s) ago. Past psychiatric history: Prior diagnosis: depression, Psychiatric medications include: Lexapro. Associated signs and symptoms: The patient has no apparent associated signs or symptoms. Severity of symptoms: At their worst the symptoms were mild moderate in the emergency department the symptoms are unchanged. The patient has not experienced similar symptoms in the past. Historical: - Allergies: 13:26 Bactrim; ll1 13:26 Levaquin; ll1 13:26 PENICILLINS; ll1 13:26 Sulfa (Sulfonamide Antibiotics); ll1 - PMHx: 13:26 Hyperlipidemia; menieresdisease; ll1 - PSHx: 13:26 neck surgery; ll1 - Immunization history:: Flu vaccine is not up to date. - Social history:: Smoking status: Patient reports the use of cigarette tobacco products, smokes one pack cigarettes per day. ROS: 16:55 Constitutional: Negative for fever, chills, and weight loss, Eyes: Negative for injury, devin pain, redness, and discharge, ENT: Negative for injury, pain, and discharge, Neck: Negative for injury, pain, and swelling, Cardiovascular: Negative for chest pain, palpitations, and edema, Respiratory: Negative for shortness of breath, cough, wheezing, and pleuritic chest pain, Abdomen/GI: Negative for abdominal pain, nausea, vomiting, diarrhea, and constipation, Back: Negative for injury and pain, : Negative for injury, bleeding, discharge, and swelling, MS/Extremity: Negative for injury and deformity, Skin: Negative for injury, rash, and discoloration, Psych: Negative for depression, anxiety, suicide ideation, homicidal ideation, and hallucinations, Allergy/Immunology: Negative for hives, rash, and allergies, Endocrine: Negative for neck swelling, polydipsia, polyuria, polyphagia, and marked weight changes, Hematologic/Lymphatic: Negative for swollen nodes, abnormal bleeding, and unusual bruising. 16:55 Neuro: Positive for dizziness. 16:55 Psych: Positive for anxiety. Exam: 16:55 Constitutional: This is a well developed, well nourished patient who is awake, alert, devin and in no acute distress. Head/Face: Normocephalic, atraumatic. Eyes: Pupils equal round and reactive to light, extra-ocular motions intact. Lids and lashes normal. Conjunctiva and sclera are non-icteric and not injected. Cornea within normal limits. Periorbital areas with no swelling, redness, or edema. ENT: Nares patent. No nasal discharge, no septal abnormalities noted. Tympanic membranes are normal and external auditory canals are clear. Oropharynx with no redness, swelling, or masses, exudates, or evidence of obstruction, uvula midline. Mucous membranes moist. Neck: Trachea midline, no thyromegaly or masses palpated, and no cervical lymphadenopathy. Supple, full range of motion without nuchal rigidity, or vertebral point tenderness. No Meningismus. Chest/axilla: Normal chest wall appearance and motion. Nontender with no deformity. No lesions are appreciated. Cardiovascular: Regular rate and rhythm with a normal S1 and S2. No gallops, murmurs, or rubs. Normal PMI, no JVD. No pulse deficits. Respiratory: Lungs have equal breath sounds bilaterally, clear to auscultation and percussion. No rales, rhonchi or wheezes noted. No increased work of breathing, no retractions or nasal flaring. Abdomen/GI: Soft, non-tender, with normal bowel sounds. No distension or tympany. No guarding or rebound. No evidence of tenderness throughout. Back: No spinal tenderness. No costovertebral tenderness. Full range of motion. Female : Normal external genitalia. Skin: Warm, dry with normal turgor. Normal color with no rashes, no lesions, and no evidence of cellulitis. MS/ Extremity: Pulses equal, no cyanosis. Neurovascular intact. Full, normal range of motion. Neuro: Awake and alert, GCS 15, oriented to person, place, time, and situation. Cranial nerves II-XII grossly intact. Motor strength 5/5 in all extremities. Sensory grossly intact. Cerebellar exam normal. Normal gait. 16:55 Psych: Behavior/mood is anxious, Affect is animated, Oriented to person, place, time, Patient has no thoughts/intents to harm self or others. Judgement / Insight is normal. Memory is normal. Delusions/hallucinations are not present. Vital Signs: 13:24 BP 158 / 94; Pulse 71; Resp 16; Temp 97.7; Pulse Ox 99% ; Weight 83.91 kg; Height 5 ft. ll1 5 in. (165.10 cm); Pain 0/10; 14:40 BP 129 / 77; Pulse 67; Resp 17; ll1 13:24 Body Mass Index 30.79 (83.91 kg, 165.10 cm) ll1 MDM: 16:35 Patient medically screened. devin 16:58 Differential diagnosis: acute psychotic break, depression, psychosis secondary to devin non-compliance. Data reviewed: vital signs, nurses notes. Data interpreted: site monitor: rate is 67 beats/min, rhythm is regular. Test interpretation: by ED physician or midlevel provider: ECG, plain radiologic studies. Counseling: I had a detailed discussion with the patient and/or guardian regarding: the historical points, exam findings, and any diagnostic results supporting the discharge/admit diagnosis, the need for outpatient follow up, for definitive care, a family practitioner, a psychiatrist. Administered Medications: 17:16 Drug: Ativan 1 mg Route: PO; iw 17:29 Follow up: Response: No adverse reaction iw 17:29 Drug: Lexapro 40 mg Route: PO; iw 17:30 Follow up: Response: No adverse reaction Disposition: 06/23/20 17:01 Discharged to Home. Impression: Anxiety disorder, unspecified, Encounter for issue of repeat prescription - Lexapro. - Condition is Stable. - Discharge Instructions: Panic Attacks, [id number], Generalized Anxiety Disorder. - Prescriptions for Lexapro 20 mg Oral tablet - take 1 tablet by ORAL route once daily; 30 tablet. - Medication Reconciliation Form, Thank You Letter, Antibiotic Education, Prescription Opioid Use form. - Follow up: Private Physician; When: 2 - 3 days; Reason: Recheck today's complaints, Continuance of care, Re-evaluation by your physician. Follow up: Joni Cadena MD; When: 2 - 3 days; Reason: Recheck today's complaints, Continuance of care, Re-evaluation by your physician. - Problem is new. - Symptoms have improved. Signatures: Valeriano Menchaca MD MD cha Williams, Irene, GILLIAN FRENCH Nikia Klein, GILLIAN FRENCH Blade John RN RN ll1 Corrections: (The following items were deleted from the chart) 17:32 17:01 06/23/2020 17:01 Discharged to Home. Impression: Anxiety disorder, unspecified; Encounter for issue of repeat prescription - Lexapro. Condition is Stable. Forms are Medication Reconciliation Form, Thank You Letter, Antibiotic Education, Prescription Opioid Use. Follow up: Private Physician; When: 2 - 3 days; Reason: Recheck today's complaints, Continuance of care, Re-evaluation by your physician. Follow up: Joni Cadena; When: 2 - 3 days; Reason: Recheck today's complaints, Continuance of care, Re-evaluation by your physician. Problem is new. Symptoms have improved. devin
[2020-06-23] MEDS ORDERED: LORAZEPAM 1 MG TABLET ONE (17:24)
[2020-06-23] MEDS ORDERED: ESCITALOPRAM 20 MG TAB PO SCH (18:00)
[2020-06-23 18:39] VITALS: TEMP 97.7; O2SAT 99
[2020-06-23 18:40] VITALS: BP 129/77
== END 2020-06-23 17:32 | disposition home or self-care (01) ==
LOC: ER 13:17
DX: F41.9 Anxiety disorder, unspecified (principal); Z76.0 Encounter for issue of repeat prescription; Z88.0 Allergy status to penicillin; Z88.1 Allergy status to other antibiotic agents; Z88.2 Allergy status to sulfonamides; F17.210 Nicotine dependence, cigarettes, uncomplicated
CPT/HCPCS: 99283

== ENCOUNTER 2020-10-10 10:34 | Emergency (ER) | payer OTHER ==
--- OUTSIDE RECORDS SUMMARY | 2020-10-10 10:40 | XMS REPORT | Continuity of Care Document ---
:[address] [facility] t Address [address] [place] [address] Care Team Providers Name Role Phone GÉNESIS Attending Clinician Unavailable BERTIN Attending Clinician Unavailable JI Attending Clinician Unavailable CECILE Attending Clinician Unavailable DR COLEMAN Attending Clinician Unavailable JOSSE Attending Clinician Unavailable GÉNESIS Admitting Clinician Unavailable BERTIN Admitting Clinician Unavailable JI Admitting Clinician Unavailable HEREDIA Admitting Clinician Unavailable DALEY Admitting Clinician Unavailable [...] Problem Active [facility] - reflux reflux 00:00: Memoria disease disease 00 l (LUF/LI V/SA) Chest pain Chest pain Problem Active [facility] - 00:[facility]: Memoria 00 l (LUF/LI V/SA) 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 00:00: Memori a 00 l (LUF/LI V/SA) Chest pain Chest pain Problem Active [facility] 5- [facility] - 00:[facility]: Memoria 00 l (LUF/LI V/SA) Contusion Contusion Problem Active [facility] lower 6-14 [facility] - leg leg 00:00: Memoria 00 l (LUF/LI V/SA) Contusion Contusion Problem Active [facility]06 [facility] - multiple multiple 00:00: Memori a sites sites 00 l (LUF/LI V/SA) Falls Falls Problem Active [facility] - 00:00: Memoria 00 l (LUF/LI V/SA) Contusion Contusion Problem Active [facility] wrist or wrist or 09-11 [facility] - hand hand 00:00: Memoria 00 l (LUF/LI V/SA) Contusion Contusion Problem Active [facility] rib of rib - [facility] - 00:00: Memoria 00 l [...] Oral Tablet Oral Tablet M emoria l (LUF/LI V/SA) Meclizine Meclizine Yes 25mg 3xD orally [address] Hydrochlori Hydrochlori times per [facility] - de 25 MG de 25 MG day as Memor ia Oral Tablet Oral Tablet needed. l (LUF/LI V/SA) Simvastatin Simvastatin Yes 20mg orally [facility] 20 MG Oral 20 MG Oral every day [facility] - Tablet Tablet at bedtime Memor ia l (LUF/LI V/SA) Spironolact Spironolact Yes 25mg 1xD orally [facility] one 25 MG one 25 MG daily as L ukes - Oral Tablet Oral Tablet needed. Memoria l (LUF/LI V/SA) Immunizations Ordered Immunization Filled Immunization Date Status Commen ts Source Name Name not utd influenza not utd influenza 2019-10-26 [address] [facility]00 [facility] (LUF/ABHISHEK/SA) pneumococcal pneumococcal 2018-05-21 Completed [facility] Jacques es - vaccine, NOS vaccine, NOS 00:00:00 [facility] (LUF/ABHISHEK/SA) Vital Signs Vital Name Observation Time Observation Value Comments Source Pulse Rate 2019-10-26 17:38:00 48 /min [facility] (LUF/[facility]HEK/SA) Respiratory Rate 2019-10-26 17:38:00 19 /min [facility] (LUF/ABHISHEK/SA) O2% BldC Oximetry 2019-10-26 17:38:00 90 % [facility] (LUF/ABHISHEK/SA) BP Systolic 2019-10-26 17:38:00 152 mm[Hg] [facility] (LUF/ABHISHEK/SA) BP Diastolic 2019-10-26 17:38:00 77 mm[Hg] [facility] (LUF/ABHISHEK/SA) Body Temperature 2019-10-26 15:10:00 97.8 [degF] [facility] (LUF/ABHISHEK/SA) Height 2019-10-26 15:10:00 55 [in_i] [facility] (LUF/ABHISHEK/SA) Weight 2019-10-26 15:10:00 170 [lb_av] [facility] (LUF/ABHISHEK/SA) BMI (Body Mass Index) 2019-10-26 15:10:00 39.9 kg/m2 [facility] (LUF/ABHISHEK/SA) Body Temperature 2018-10-30 15:03:00 97.8 F [facility] (LUF/ABHISHEK/SA) Pulse Rate 2018-10-30 15:03:00 80 /min [facility] (LUF/ABHISHEK/SA) Respiratory Rate 2018-10-30 15:03:00 18 /min [facility] (LUF/ABHISHEK/SA) O2% BldC Oximetry 2018-10-30 15:03:00 97 % [facility] (LUF/ABHISHEK/SA) BP Systolic 2018-10-30 15:03:00 137 mm[Hg] [facility] (LUF/ABHISHEK/SA) BP Diastolic 2018-10-30 15:03:00 69 mm[Hg] [facility] (LUF/ABHISHEK/SA) Height 2018-10-30 15:03:00 65 in [facility] (LUF/ABHISHEK/SA) Weight Measured 2018-10-30 15:03:00 186.95 lbs [facility] Zane currie [facility] (LUF/ABHISHEK/SA) BMI (Body Mass Index) 2018-10-30 15:03:00 31.1 kg/m2 [facility] (LUF/ABHISHEK/SA) Body Temperature 2018-10-17 10:41:00 98.6 F [facility] (LUF/ABHISHEK/SA) Pulse Rate 2018-10-17 10:41:00 74 /min [facility] (LUF/ABHISHEK/SA) Respiratory Rate 2018-10-17 10:41:00 18 /min [facility] (LUF/ABHISHEK/SA) O2% BldC Oximetry 2018-10-17 10:41:00 99 % [facility] (LUF/ABHISHEK/SA) BP Systolic 2018-10-17 10:41:00 146 mm[Hg] [facility] (LUF/ABHISHEK/SA) BP Diastolic 2018-10-17 10:41:00 80 mm[Hg] [facility] (LUF/ABHISHEK/SA) Height 2018-10-17 10:41:00 65 in [facility] (LUF/ABHISHEK/SA) Weight Measured 2018-10-17 10:41:00 189.6 lbs [facility] (LUF/ABHISHEK/SA) BMI (Body Mass Index) 2018-10-17 10:41:00 31.5 kg/m2 [facility] (LUF/ABHISHEK/SA) Body Temperature 2018-10-04 14:11:00 98 F [facility] (LUF/ABHISHEK/SA) Pulse Rate 2018-10-04 14:11:00 78 /min [facility] (LUF/ABHISHEK/SA) Respiratory Rate 2018-10-04 14:11:00 20 /min [facility] (LUF/ABHISHEK/SA) O2% BldC Oximetry 2018-10-04 14:11:00 99 % [facility] (LUF/ABHISHEK/SA) BP Systolic 2018-10-04 14:11:00 129 mm[Hg] [facility] (LUF/ABHISHEK/SA) BP Diastolic 2018-10-04 14:11:00 98 mm[Hg] [facility] (LUF/ABHISHEK/SA) Height 2018-10-04 14:11:00 55 in [facility] (LUF/ABHISHEK/SA) Weight Measured 2018-10-04 14:11:00 191 lbs [facility]ane cur[facility] (LUF/ABHISHEK/SA) BMI (Body Mass Index) 2018-10-04 14:11:00 44.8 kg/m2 [facility] (LUF/ABHISHEK/SA) Pulse Rate 2018-08-28 13:30:00 65 /min [facility] (LUF/ABHISHEK/SA) O2% BldC Oximetry 2018-08-28 13:30:00 96 % [facility] (LUF/ABHISHEK/SA) BP Systolic 2018-08-28 13:30:00 139 mm[Hg] [facility] (LUF/ABHISHEK/SA) BP Diastolic 2018-08-28 13:30:00 86 mm[Hg] [facility] (LUF/ABHISHEK/SA) Body Temperature 2018-08-28 11:47:00 97.5 F [facility] (LUF/ABHISHEK/SA) Respiratory Rate 2018-08-28 11:47:00 18 /min [facility] (LUF/ABHISHEK/SA) Height 2018-08-28 11:47:00 66 in [facility] (LUF/ABHISHEK/SA) Weight Measured 2018-08-28 11:47:00 195 lbs [facility] (LUF/ABHISHEK/SA) BMI (Body Mass Index) 2018-08-28 11:47:00 31.7 kg/m2 [facility] (LUF/ABHISHEK/SA) Body Temperature 2017-09-26 11:00:00 96.5 F [facility] (LUF/ABHISHEK/SA) Respiratory Rate 2017-09-26 11:00:00 18 /min [facility] (LUF/ABHISHEK/SA) O2% BldC Oximetry 2017-09-26 11:00:00 96 % [facility] (LUF/ABHISHEK/SA) BP Systolic 2017-09-26 11:00:00 128 mm[Hg] [facility] (LUF/ABHISHEK/SA) BP Diastolic 2017-09-26 11:00:00 63 mm[Hg] [facility] (LUF/ABHISHEK/SA) Weight Measured 2017-09-26 00:00:00 191.58 lbs [facility] (LUF/ABHISHEK/SA) Height 2017-09-25 18:32:00 65 in [facility] (LUF/ABHISHEK/SA) BMI (Body Mass Index) 2017-09-25 18:32:00 31.9 [facility] (LUF/ABHISHEK/SA) Respiratory Rate 2017-09-25 13:33:00 16 /min [facility] (LUF/ABHISHEK/SA) O2% BldC Oximetry 2017-09-25 13:33:00 95 % [facility] (LUF/ABHISHEK/SA) BP Systolic 2017-09-25 13:33:00 126 mm[Hg] [facility] (LUF/ABHISHEK/SA) BP Diastolic 2017-09-25 13:33:00 72 mm[Hg] [facility] (LUF/ABHISHEK/SA) Body Temperature 2017-09-25 12:25:00 98 F [facility] (LUF/ABHISHEK/SA) Height 2017-09-25 12:25:00 65 in [facility] (LUF/ABHISHEK/SA) Weight Measured 2017-09-25 12:25:00 224.87 lbs [facility] (LUF/ABHISHEK/SA) BMI (Body Mass Index) 2017-09-25 12:25:00 37.4 [facility] (LUF/ABHISHEK/SA) Body Temperature 2017-09-24 01:37:00 98.3 F [facility] (LUF/ABHISHEK/SA) Respiratory Rate 2017-09-24 01:37:00 20 /min [facility] (LUF/ABHISHEK/SA) O2% BldC Oximetry 2017-09-24 01:37:00 99 % [facility] (LUF/ABHISHEK/SA) BP Systolic 2017-09-24 01:37:00 126 mm[Hg] [facility] (LUF/ABHISHEK/SA) BP Diastolic 2017-09-24 01:37:00 76 mm[Hg] [facility] (LUF/ABHISHEK/SA) Height 2017-09-23 21:40:00 65 in [facility]ТЬЯНА [facility] (LUF/ABHISHEK/SA) Weight Measured 2017-09-23 21:40:00 194 lbs [address]АТЬЯНА currie [facility] (LUF/ABHISHEK/SA) BMI (Body Mass Index) 2017-09-23 21:40:00 32.3 [facility] (LUF/ABHISHEK/SA) Procedures Procedure Date / Time Performed Performing Clinician Sourc e RIGHT KNEE [facility] (LUF/ABHISHEK/SA) Append[facility] (LUF/ABHISHEK/SA) Cholecyst[facility] (LUF/ABHISHEK/SA) Hyste[facility] (LUF/ABHISHEK/SA) RIGHT KNEE [facility] (LUF/ABHISHEK/SA) Encounters Start End Encounter Admission Attending Care Care Encounter Source Date/Time Date/Time Type Type Clinicians Facility Department ID 2020-07-04 2020[facility]07[id number] 2020-05-25 2020-05-[facility] [id number] 2020-05-10 2020-05-[facility] [id number] 2020-05-03 2020-05-[facility] [id number] [facility] 2020-04-25 2020-04-[facility] [id number] [facility] 2020-04-21 2020-04-[address] [facility] [id number] [facility] 2019-10-26 2019-10-26 CHONDROCOS 1 NAHID CAPPS [facility] [id number] 15:02:00 18:15:00 TANNER AROLDO Mckoy ukes - JUNCTION N, [address], ([place] [address] 2018-10-30 2018-10-30 RADICULOPA HUBER, ULRICH [facility] [id number] 14:48:00 17:52:00 THY AROLDO Mckoy [facility] - CERVICAL N, [address], (LUF[place] [address] 2018-10-17 2018-10-17 OTH SPEC 3 HEREDIA, [facility] [id number] 09:32:00 23:59:00 DORSOPATHI [facility] CERV N, [address] [facility] [address], ([place] [address] 2018-10-17 2018-10-17 RADILUIGI NAIR, [facility] [id number] 10:35:00 11:31:00 THY APOLINAR REDDY L [facility] - CERVICAL N, [address] [facility] [address], ([place] [address] 2018-10-04 2018-10-04 RADICULOPA HUBER, ULRICH [facility] [id number] 14:03:00 15:00:00 THY AROLDO Mckoy ukes - CERVICAL N, [address] [facility] [address], (LUF[place] [address] 2018-08-28 2018-08-28 CERVICALGI HUBER, ULRICH [facility] [id number] 11:43:00 14:12:00 A AROLDO Mckoy ukes - N, [address], (LUF/[place] [address] 2018-08-08 2018-08-08 OTH SPEC 3 HEREDIA, [facility] [id number] 09:59:00 23:59:00 DORSOPATHI NUSRAT [facility] - ES CERV N, [address], (LUF/[place] [address] 2018-06-04 2018-06-04 UNS VIRAL O DALEY, [facility] [id number] 09:46:00 23:59:00 HEPATITIS EVON Malonekes - C W/O HEP N, [address], (LUF[place] [address] 2018-05-20 2018-05-20 PAIN IN 3 JI, [facility] [id number] [facility] 09:27:00 23:59:00 RIGHT FRANCISCOJ SILVAAnh REDDY Jeremykes - UPPER ARM N, [address], ([place]F/[place] [address] 2018-04-17 2018-04-17 OTH ABN 3 JI, [facility] [id number] [facility] 09:21:00 23:59:00 INCONCL FRANCISCO J Malonekes - FIND DX N, [address]AST [address], (LUF/[place] [address] 2018-03-11 2018-03-11 Inpatient O DALEY, [facility] [id number] 11:55:00 23:59:00 RAGSTEPHEN REDDY [facility] - N, [address], ([place] [address] 2018-02-25 2018-02-25 Inpatient [facility] [id number] 13:04:00 23:59:00 AROLDO REDDY L [facility] - N, [address], ([place] [address] 2018-02-04 2018-02-04 CHRONIC O HEREDIA, [facility] [id number] [facility] 11:11:00 23:59:00 VIRAL AGRICEL AROLDO REDDY L [facility] - HEPATITIS N, [address], (LUF/[place] [address] 2018-01-09 2018-01-09 UNS VIRAL O DALEY, [facility] [id number] 12:39:00 23:59:00 HEPATITIS RAGHUVEER Dilcia [facility] - C W/O HEP N, [address], (LUF/[place] [address] 2017-11-05 2017-11-05 CHRONIC O DALEY, [facility] [id number] [facility] 08:20:00 23:59:00 VIRAL RAGHUVEER Dilcia [facility] - HEPATITIS N, [address], ([place] [address] 2017-10-03 2017-10-03 OTHER 3 CHERIPARAMB [facility] [id number] 08:10:00 23:59:00 CHEST PAIN [place], [facility] - TANI N, [address], (LUF[place] [address] 2017-10-02 2017-10-02 HYPERLIPID O SOLHPOUR, [facility] [id number] 12:33:00 23:59:00 EMIA AMITIMA [facility] - UNSPECIFIE N, [address], ([place] [address] 2017-09-25 2017-09-26 OTHER I COLEMAN, [facility] [id number] 17:37:00 14:05:00 CHEST PAIN [facility], Memoria [address] (LUF/[address], V/SA) [facility] [place] [address] 2017-09-25 2017-09-25 UNSTABLE 1 CEDRIC, [facility] [id number] 10:16:00 15:52:00 ANGINA CLEMENT [facility] L u[facility] - N, [address], (LUF[place] [address] 2017-09-23 2017-09-24 CHEST PAIN E KOREY, [facility] [id number] 21:34:00 01:39:00 UNSPECIFIE APOLINARFRANCIS REDDY [facility] D N, [address], (LUF[place] [address] 2017-08-19 2017-08-19 OTH ABN 3 JI, [facility] [id number] [facility] 13:06:00 23:59:00 INCONCL FRANCISCO J Mckoy ukes - FIND DX N, [address], (LUF/[place] [address] 2017-07-31 2017-07-31 ENC SCR 3 JI, [facility] [id number] [facility] 10:47:00 23:59:00 MAMMO FRANCISCO J Mckoy ukes - MALIG N, [address] [place], ([place] [address] Results Test Description Test Time Test Comments [...] PMDictated By: GULSHAN SANCHEZDate: 10/26/2019 16:51 [facility] "If patient is EXAMINATION: MRI [...] 05/25/2019 3:17PMDictated By: LAW TAYLORDate: 05/25/2019 15:17 [facility] 2019-04-22 09:48:00 Test Item Value Reference Range [...] EGFR if Non- >60 mL/min/1.73m\\S\\2 Estimated Glomerular Thai (test code = Filtra tion Rate (eGFR) [...] assessment and management of chronic kidney failure. [id number] 09:48:00 Test Item Value Reference Range Interpretation [...] WILL BE NOTED ON THE RE PORT. [id number] 14:03:00 Test Item Value Reference Range Interpretation [...] 4 - SerumAlbu min)] EGFR if >60 Thai (test code mL/min/1.73m\\ = EGFRAA) S\\2 EGFR if Non- >60 Estimate d Glomerular Thai (test code mL/min/1.73m\\ Filtrat ion Rate (eGFR) [...] and management of c hronic kidney failure. [id number] 13:56:00 Test Item Value Reference Range Interpretation [...] NOTED ON THE RE PORT. US ABDOMEN [id number] 14:19:42Hx of RUQ pain, S/P GB resection, [...] PMDictated By: GULSHAN SANCHEZDate: 04/20/2019 14:13CT ABDOMEN/PELVIS [id number] 07:28:14EXAM: CT Abdomen and Pelvis WITH contrastINDICATION: [id number]: Abdominal pain quadrant pain, nausea tonight, hep [...] 4 - SerumAlbu min)] EGFR if >60 Thai (test code mL/min/1.73m\\ = EGFRAA) S\\2 EGFR if Non- >60 Estimate d Glomerular Thai (test code mL/min/1.73m\\ Filtrat ion Rate (eGFR) [...] and management of c hronic kidney failure. [id number] 05:04:00 Test Item Value Reference Range Interpretation Comments Lipase (test code = LIPA) 586 U/L 8-223 H URINALYSIS WITH [id number] 04:55:00 Test Item Value Reference Range Interpretation Comments Color (test code = UCOLR) Lt. Yellow Clarity (test code = UCLAR) Clear Glucose (test code = UGLUC) NEGATIVE NEGATIVE N Bilirubin (test code = UBILI) NEGATIVE NEGATIVE N Ketones (test code = UKET) NEGATIVE NEGATIVE N Specific [place] (test code = 1.010 1.005-1.030 A USPGR) [...] seen None Seen,Trace A CBC WITH AUTO [id number] 04:34:00 Test Item Value Reference Range Interpretation [...] 0.7 % 0.0-0.4 H IG%) ERYTHROCYTE SED [id number] 13:57:00 Test Item Value Reference Range Interpretation [...] ON THE RE PORT. MRI CSPINE W/O [id number] 15:49:03"If patient is claustrophobic, contact ordering ysician [...] SANCHEZDate: 10/17/2018 15:42XR CERV SPINE MIN 4-5 [id number] 12:09:31Cervical spine series 5 views:History: Neck painAP, lateral, odontoid and both oblique views were obtained. No fracture orsubluxation is identified. No disc space narrowing is noted. There is noprevertebral soft tissue swelling. The sagittal diameter of the spinal canalappears adequate.Impression: Negative cervical spine series.This final report was electronically signed by Dr uGlshan Sanchez MD 08/08/201812:03 PMDictated By: GULSHAN SANCHEZDate: 08/08/2018 12:03 HCV, RNA, QUANT RT PCR, VIRAL [id number] 06:13:00 Test Item Value Reference Range Interpretation Comments HEPATITIS C HCV Not QUANTITATION (test Detected IU/mL code = 463350) HCV LOG10 (test code RECORDAK OPERATOR = 051005) TEST INFORMATION Comment The quantit ative (test code = 785563) range o f this assay is 15 IU/mL to 100 million IU/mL. PERFORMED AT: [facility] [id number] DENTIST ATTENDANT: Etienne Cervantes MD PHONE: [phone] 11:50:00 Test Item Value Reference Range Interpretation [...] 4 - SerumAlbu min)] EGFR if >60 Thai (test code mL/min/1.73m\\ = EGFRAA) S\\2 EGFR if Non- >60 Estimate d Glomerular Thai (test code mL/min/1.73m\\ Filtrat ion Rate (eGFR) [...] c hronic kidney failure. CBC WITH AUTO [id number] 11:37:00 Test Item Value Reference Range Interpretation [...] 0.3 % 0.0-0.4 US EXTREMITY NON VASC-SPECIFIC [id number] 10:38:25Ultrasound of the right axillary region:History: Right axillary pain and tendernessTargeted ultrasound examination of the right axilla was performed. No cyst orsolid lesion is visualized. No lymphadenopathy is noted. There is no fluidcollection noted.Impression: Negative ultrasound of the right axilla.This final report was electronically signed by Dr Gulshan Sanchez MD 05/20/201810:32 AMDictated By: GULSHAN ALBADate: 05/20/2018 10:32MM MAMMO DIAG 3D [id number] 08:29:26Procedure: MM MAMMO DIAG 3D CASA-BilateralExam Date: [...] 04/18/2018 08:23HCV, RNA, QUANT RT PCR, VIRAL [id number] 08:31:00 Test Item Value Reference Range Interpretation Comments HEPATITIS C HCV Not QUANTITATION (test Detected IU/mL code = 113426) HCV LOG10 (test code RECORDAK OPERATOR = 791944) TEST INFORMATION Comment The quantit ative (test code = 946412) range o f this assay is 15 IU/mL to 100 million IU/mL. PERFORMED AT: [facility] [id number] DENTIST ATTENDANT: Etienne Cervantes MD PHONE: [phone] 13:17:00 Test Item Value Reference Range Interpretation [...] 4 - SerumAlbu min)] EGFR if >60 Thai (test code mL/min/1.73m\\ = EGFRAA) S\\2 EGFR if Non- >60 Estimate d Glomerular Thai (test code mL/min/1.73m\\ Filtrat ion Rate (eGFR) [...] c hronic kidney failure. CBC WITH AUTO [id number] 12:37:00 Test Item Value Reference Range Interpretation [...] IG%) 0.5 % 0.0-0.4 H URINALYSIS WITH [id number] 13:40:00 Test Item Value Reference Range Interpretation Comments Color (test code = UCOLR) LT. YELLOW Clarity (test code = UCLAR) CLEAR Glucose (test code = UGLUC) NEGATIVE NEGATIVE N Bilirubin (test code = UBILI) NEGATIVE NEGATIVE N Ketones (test code = UKET) NEGATIVE NEGATIVE N Specific [place] (test code = <=1.005 1.005-1.030 A USPGR) [...] code = UBACT) Trace None Seen,Trace N [id number] 13:13:00 Test Item Value Reference Range Interpretation [...] 4 - SerumAlbu min)] EGFR if >60 Thai (test code mL/min/1.73m\\ = EGFRAA) S\\2 EGFR if Non- >60 Estimate d Glomerular Thai (test code mL/min/1.73m\\ Filtrat ion Rate (eGFR) [...] management of c hronic kidney failure. C-REACTIVE [id number] 13:12:00 Test Item Value Reference Range Interpretation Comments C REACTIVE PROTEIN (test code = <2.9 mg/dl 0.0-0.9 H CRP) ERYTHROCYTE SED [id number] 12:32:00 Test Item Value Reference Range Interpretation [...] = 0-2 5 mm/hr CBC WITH AUTO [id number] 12:07:00 Test Item Value Reference Range Interpretation [...] code = 0.6 % 0.0-0.4 H IG%) [id number] 15:37:00 Test Item Value Reference Range Interpretation [...] 4 - SerumAlbu min)] EGFR if >60 Thai (test code mL/min/1.73m\\ = EGFRAA) S\\2 EGFR if Non- >60 Estimate d Glomerular Thai (test code mL/min/1.73m\\ Filtrat ion Rate (eGFR) [...] c hronic kidney failure. CBC WITH AUTO [id number] 14:32:00 Test Item Value Reference Range Interpretation [...] % 0.0-0.4 H IG%) HCV RNA GENOTYPE [id number] 12:58:00 Test Item Value Reference Range Interpretation Comments HEPATITIS C GENOTYPE 1a TEST PE RFORMED AT (test code = 468768) [facility] [id number] 10:32:00 Test Item Value Reference Interpretation Comments Range FIBROSIS SCORE (test 0.08 0.00-0.21 N code = 641337) FIBROSIS STAGE (test Comment F0 code = 400972) - No fibrosis NECROINFLAMMAT 0.08 0.00-0.17 N ACTIVITY SCORE (test code = 958752) NECROINFLAMMAT A0-No ACTIVITY GRADE (test activity code = 267292) Alpha 2 248 mg/dL 110-276 N Macroglobulins Qn (test code = 856651) Haptoglobin (test 216 mg/dL 34-200 H code = 759126) Apolipoprotein A1 170 mg/dL 116-209 N (test code = 586074) Bilirubin, Total 0.2 mg/dL 0.0-1.2 N (test code = 933604) GGT (test code = 19 IU/L 0-60 N 385426) ALT P5P (test code = 24 IU/L 0-40 N 187149) INTERPRETATIONS (test Comment Quanti tative results code = 847275) of 6 biochemi zaynab tests are analyzed us ing a computational algorithm to pr ovide a quantitative ulrich rrogate marker (0.0-1.0 ) for liver fibrosis (METAVIR F0-F4) and for necroinflam matory activity (METAV IR A0-A3). Fibrosis Scoring Comment <0.21 = Stage F0 (test code = 006046) - No fi brosis 0.21 - 0.27 [...] = - No Ac tivity 0.17 - 385652) 0.29 = Grade A0 - A1 0.29 - 0.36 = G rade A1 - Minimal activ ity 0.36 - 0.52 = G rade A1 - A2 0.52 - 0.6 0 = Grade A2 - Mode rate activity 0.60 - 0.62 = Grade A2 - A3 >0.62 = Grade A 3 - Severe activity LIMITATIONS (test Comment The negati ve code = 490468) predictive va lue of a Fibrotest score <0.31 (absence of cli nically significant fib rosis) was 85% when co mpared to liver biopsy in 1,270 HCV infec priyank patients with a 38% prevalence of significant abhishek er fibrosis (F2, 3 or 4). The positive predictive valu e of a Fibro- test sco re >0.48 (F2, 3, 4 ) was 61% in that [facility] e patient cohort. HCV FibroSURE is no t [...] code = Comment This te st was [id number]) developed and i ts performance characteristics determined by Ean Funez. It has not bee n cleared or appr jluis by the Food and Dr ug Administration. The FDA has determi bettie that such clear ance or approval is not necessary. For questions regar parmjit this report ple ase contact custome r service at . HEP B SURFACE [id number] 06:14:00 Test Item Value Reference Range Interpretation [...] pos itive for HBsAg. US HEPATIC- Liver/ [id number] 11:30:35RIGHT UPPER QUADRANT ULTRASOUND:DATE: 11/05/2017INDICATION: Chronic viral [...] 11/05/2017 11:30 NM MYOCARD PERF STRESS REST [id number] 14:24:44NUCLEAR MEDICINE REST/STRESS MYOCARDIAL PERFUSION SPECT SCANDATE OF EXAM: 0-60-97MPHIEUTRLN: risk fac torsCOMPARISON: nilDISCUSSION: Nuclear medicine myocardial perfusion SPECT imaging acquired andreviewed. Rest and stress images were acquired post intravenous vjuamtdbwpjktn61 mCi and 30 mCi niovryywiu50p labeled Cardiolite, respectively per departmentprotocol. The patient [...] MD10/03/2017 2:18 PMDictated By: TANI COOPERDate: 10/03/2017 14:[id number] 14:19:00 Test Item Value Reference Range Interpretation [...] 4 - SerumAlbu min)] EGFR if >60 Thai (test code mL/min/1.73m\\ = EGFRAA) S\\2 EGFR if Non- >60 Estimate d Glomerular Thai (test code mL/min/1.73m\\ Filtrat ion Rate (eGFR) [...] BE NOTED ON THE RE PORT. HEPARIN [id number] 11:44:00 Test Item Value Reference Range Interpretation Comments HEPARIN XA (test code = HEPXA) 0.36 0.30-0.70 [id number] 05:31:00 Test Item Value Reference Range Interpretation [...] mg/dl 8.4-10.2 = CALC) EGFR if >60 Thai (test code mL/min/1.73m\\ = EGFRAA) S\\2 EGFR if Non- >60 Estimate d Glomerular Thai (test code mL/min/1.73m\\ Filtrat ion Rate (eGFR) [...] c hronic kidney failure. CBC WITH AUTO [id number] 05:30:00 Test Item Value Reference Range Interpretation [...] = 0.7 % 0.0-0.4 H IG%) HEPARIN [id number] 05:28:00 Test Item Value Reference Range Interpretation Comments HEPARIN XA (test code = HEPXA) 0.42 0.30-0.70 TROPONIN-I [id number] 01:04:00 Test Item Value Reference Range Interpretation Comments Troponin-I (test <0.012 ng/ml 0.000-0.034 N [address] URL code = TROP) is 0.034 ng/mL. The Joint Society of Cardiology/[facility] College of Card iology (ESC/ACC) and [facility] [place] of Clinical [facility] ce Standards of La boratory Practices (NACB [...] hours after the clini zaynab event. MYOGLOBIN, [id number] 01:04:00 Test Item Value Reference Range Interpretation Comments Myoglobin (test code = FLAVIO) 29.3 ng/ml 0.0-61.5 [id number] 01:04:00 Test Item Value Reference Range Interpretation Comments CKMB (test code = CKMB) 0.58 ng/ml 0.00-2.37 CT ANGIO CHEST W/ [id number] 22:13:0620 g Cathlon Above the Antecubital or higher requiredProcedures: CT ANGIO ABD PELVIS W/WO OR W//CON, CT ANGIO CHEST W/ CONTRASTExam Date: 09/25/2017 5:46 PMOrder[address] Physician: DR LIA SOTOURClinical Indication: RESPDIST: Chest-Respiratory DistressComparison: CT chest/abdomen/pelvis, 10/09/16TECHNIQUE: [...] 09/25/2017 22:12CT ANGIO ABD PELVIS W/WO OR W//[id number] 22:13:0220 g Cathlon Above the Antecubital or [...] MD09/25/2017 10:06 PMDictated By: LIA BRADSHAWDate: 09/25/2017 22:[id number] 19:00:00 Test Item Value Reference Range Interpretation Comments CKMB (test code = CKMB) 0.48 ng/ml 0.00-2.37 MYOGLOBIN, [id number] 19:00:00 Test Item Value Reference Range Interpretation Comments Myoglobin (test code = FLAVIO) 33.6 ng/ml 0.0-61.5 TROPONIN-I [id number] 19:00:00 Test Item Value Reference Range Interpretation Comments Troponin-I (test <0.012 ng/ml 0.000-0.034 N [address] URL code = TROP) is 0.034 ng/mL. The Joint Society of Cardiology/[facility] College of Card iology (ESC/ACC) and t [facility] of Clinical [facility] ce Standards of La boratory Practices (NACB [...] the clini zaynab event. CT HEAD W/O [id number] 13:22:53CT HEAD WITHOUT CONTRAST:DATE OF EXAM: 09/25/2017INDICATION: [...] = PTT) 28.1 seconds 25.3-35.7 PT AND [id number] 13:18:00 Test Item Value Reference Range Interpretation Comments Protime (test code 10.2 seconds 9.0-11.8 = PT) INR (test code = 1.0 0.9-1.1 INR results are INR) intended ONLY t o monitor Oral Anticoagulant t herapy in stablized pa tients. The INR Therape utic Range is 2.0 - 3.0 Patients with a mechanical hear t, the INR Range is 2. 5 - 3.5 [id number] 12:06:00 Test Item Value Reference Range Interpretation Comments CPK (test code = CPK) 90 U/L 30-135 TROPONIN-I [id number] 12:06:00 Test Item Value Reference Range Interpretation Comments Troponin-I (test <0.012 ng/ml 0.000-0.034 N [address] r[address]ile URL code = TROP) is 0.034 ng/mL. The Joint Society of Cardiology/[place]mer [place] College of Card iology (ESC/ACC) and t he National [facility] of Clinical [facility] ce Standards of La boratory Practices (NACB [...] 24 hours after the clini zaynab event. [id number] 12:06:00 Test Item Value Reference Range Interpretation Comments CKMB (test code = CKMB) 0.41 ng/ml 0.00-2.36 [id number] 11:22:00 Test Item Value Reference Range Interpretation [...] 4 - SerumAlbu min)] EGFR if >60 Thai (test code mL/min/1.73m\\ = EGFRAA) S\\2 EGFR if Non- >60 Estimate d Glomerular Thai (test code mL/min/1.73m\\ Filtrat ion Rate (eGFR) [...] and management of c hronic kidney failure. [id number] 11:22:00 Test Item Value Reference Range Interpretation Comments Magnesium (test code = MG) 2.0 mg/dl 1.6-2.3 TROPONIN-I [id number] 11:22:00 Test Item Value Reference Range Interpretation Comments Troponin-I (test <0.012 ng/ml 0.000-0.034 N [address] r[address]ile URL code = TROP) is 0.034 ng/mL. The Joint Society of Cardiology/[facility] College of Card iology (ESC/ACC) and [facility] of Clinical [place] ce Standards of La [...] pg/ml 0-125 PROBNP) XR CHEST AP/PA 1 [id number] 11:09:11Exam: AP portable chest DATE OF EXAM: 09/25/2017 10:44AMINDICATION: chest painThe lungs are clear. The cardiomediastinal silhouette is within normal limits.The bony thorax shows no significant abnormality.Impression:No active cardiopulmonary disease.This final report was electronically signed by Dr Gulshan Sanchez MD 09/25/201711:02 AMDictated By: GULSHAN SANCHEZDate: 09/25/2017 11:09CBC WITH AUTO [id number] 10:40:00 Test Item Value Reference Range Interpretation [...] = 0.6 % 0.0-0.4 H IG%) TROPONIN-I [id number] 00:17:00 Test Item Value Reference Range Interpretation Comments Troponin-I (test <0.012 ng/ml 0.000-0.034 N [address] r[address]ile URL code = TROP) is 0.034 ng/mL. The Joint Society of Cardiology/[place]mer ican College of Card iology (ESC/ACC) and [facility] [employer] Clinical [employer] ce Standards of La boratory [...] Panel at 90 mins after 1st set [id number] 00:17:00 Test Item Value Reference Range Interpretation Comments CPK (test code = CPK) 141 U/L 30-135 H Rpt Cardiac Panel at 90 mins after 1st set [id number] 00:17:00 Test Item Value Reference Range Interpretation Comments CKMB (test code = CKMB) 0.79 ng/ml 0.00-2.36 Rpt Cardiac Panel at 90 mins after 1st set [id number] 22:37:00 Test Item Value Reference Range Interpretation Comments CKMB (test code = CKMB) 0.98 ng/ml 0.00-2.36 [id number] 22:37:00 Test Item Value Reference Range Interpretation Comments CPK (test code = CPK) 177 U/L 30-135 H TROPONIN-I [id number] 22:37:00 Test Item Value Reference Range Interpretation Comments Troponin-I (test <0.012 ng/ml 0.000-0.034 N [address] r[address]ile URL code = TROP) is 0.034 ng/mL. The Joint Society of Cardiology/[facility] College of Card iology (ESC/ACC) and [facility] [employer] Clinical [place] ce Standards of La boratory [...] clini zaynab event. XR CHEST 2 PA [id number] 22:25:05EXAM: XR CHEST 2 PA LATERALINDICATION: cpCOMPARISON: CT of the chest October 09, 2016 and chest x-ray September 11, 2016FINDINGS:LINES/TUBES: NoneLUNGS: No consolidations or edema.PLEURA: No effusions or pneumothorax.HEART AND MEDIASTINUM: Normal size and contour.BONES AND SOFT TISSUES: No acute findings.IMPRESSION:No acute thoracic abnormality.This final report was electronically signed by Dr Navin Zuniga MD 09/23/201710:18 PMDictated By: NAVIN ZUNIGADate: 09/23/2017 22:[id number] 22:24:00 Test Item Value Reference Range Interpretation [...] mg/dl 8.4-10.2 = CALC) EGFR if >60 Thai (test code mL/min/1.73m\\ = EGFRAA) S\\2 EGFR if Non- >60 Estimate d Glomerular Thai (test code mL/min/1.73m\\ Filtrat ion Rate (eGFR) [...] c hronic kidney failure. CBC WITH AUTO [id number] 22:07:00 Test Item Value Reference Range Interpretation [...] 0.4 % 0.0-0.4 IG%) US BREAST UNILATERAL [id number] 08:43:17Procedure: MM MAMMO DIAG DIR DIGITAL-BILAT, US [...] By: GULSHAN SANCHEZDate: 08/20/2017 08:43US BREAST UNILATERAL [id number] 08:43:15Procedure: MM MAMMO DIAG DIR DIGITAL-BILAT, US [...] GULSHAN SANCHEZDate: 08/20/2017 08:43MM MAMMO DIAG DIR [id number] 08:43:11Procedure: MM MAMMO DIAG DIR DIGITAL-BILAT, US [...] Nathanael SANCHEZte: 08/20/2017 08:43MM MAMMO SCREEN DIR [id number] 17:49:01Procedures: MM MAMMO SCREEN DIR DIGITALExam Date: 07/31/2017 10:45 AMOrdering Provider: FRANCISCO J Logan Indication: Digital screening mammography.Comparison: None availableTechnique: Digital [...] Dr Gulshan Sanchez MD 07/31/20175:42 PMDictated By: GULSHAN SANCHEZDate: 07/31/2017 17:49URINALYSIS WITH [id number] 23:35:00 Test Item Value Reference Range Interpretation Comments Color (test code = UCOLR) Lt. Yellow Clarity (test code = UCLAR) CLEAR Glucose (test code = UGLUC) NEGATIVE NEGATIVE N Bilirubin (test code = UBILI) NEGATIVE NEGATIVE N Ketones (test code = UKET) NEGATIVE NEGATIVE N Specific [place] (test code = <=1.005 1.005-1.030 A USPGR) [...] UBACT) Trace None Seen,Trace N DRUG SCREEN [id number] 23:21:00 Test Item Value Reference Range Interpretation [...] the Drugs o f Abuse ran on th e Vitros 5.1 anal yzer listed there in [...] Positive; = THC) Confirmation Upon Request TROPONIN-I [id number] 21:22:00 Test Item Value Reference Range Interpretation Comments Troponin-I (test <0.012 ng/ml 0.000-0.034 N [address] URL code = TROP) is 0.034 ng/mL. The Joint Society of Cardiology/[facility] College of Card iology (ESC/ACC) and t [facility] of Clinical [facility] Standards of La boratory Practices (NACB [...] 24 hours after the clini zaynab event. [id number] 21:15:00 Test Item Value Reference Range Interpretation Comments aPTT (test code = PTT) 25.4 seconds 25.3-35.7 PT AND [id number] 21:15:00 Test Item Value Reference Range Interpretation Comments Protime (test code 10.1 seconds 9.0-11.8 = PT) INR (test code = 1.0 0.9-1.1 INR results are INR) intended ONLY t o monitor Oral Anticoagulant t herapy in stablized pa tients. The INR Therape utic Range is 2.0 - 3.0 Patients with a mechanical hear t, the INR Range is 2. 5 - 3.5 LIPASE, [id number] 21:09:00 Test Item Value Reference Range Interpretation Comments Lipase (test code = LIPA) 75 U/L 8-223 ALCOHOL, [id number] 21:08:00 Test Item Value Reference Range Interpretation Comments Alcohol % (test code = 0 % 0.00-0.00 N Walt ol % 0.00 - 0.10 ALCPC) Sub-clinical 0.11 - 0.20 Emotional Instability 0.21 - 0.30 Confusion 0.31 - 0.40 Stupor 0.41 - 0.50 Coma >.50 Fatal [id number] 21:08:00 Test Item Value Reference Range Interpretation [...] 4 - SerumAlbu min)] EGFR if >60 Thai (test code mL/min/1.73m\\ = EGFRAA) S\\2 EGFR if Non- >60 Estimate d Glomerular Thai (test code mL/min/1.73m\\ Filtrat ion Rate (eGFR) [...] c hronic kidney failure. CBC WITH AUTO [id number] 20:49:00 Test Item Value Reference Range Interpretation [...]
[2020-10-10 11:52] LABS: Absolute Lymphocytes (CBC) 1.6 K/uL (0.7-4.9); Basophils % 1.2 % (0-1.3); Hematocrit 40.1 % (36.0-45.0); Lymphocytes % 24.8 % (15.3-44.8); MPV 10.6 fL (7.6-11.3); RBC Red Blood Cell Count 4.22 M/uL (3.86-4.86)
--- NOTE | 2020-10-10 11:54 | RAD REPORT ---
EXAM DESCRIPTION: CT - Head Brain Wo Cont - 10/10/2020 11:29 am CLINICAL HISTORY: Head injury status post fall. Headache COMPARISON: None TECHNIQUE: Computed axial tomography of the head was obtained. IV contrast was not requested. All CT scans are performed using dose optimization technique as appropriate and may include automated exposure control or mA/KV adjustment according to patient size. FINDINGS: An intracranial bleed is not seen . The ventricles are normal in caliber. No extra-axial fluid collection is noted. Fluid within the sinuses/ mastoids is not seen. Chronic sinusitis IMPRESSION: No acute intracranial abnormality is seen. If patient's symptoms persist MRI of the bra in would be recommended.
[2020-10-10 12:01] LABS: Protime INR 0.97
--- NOTE | 2020-10-10 12:06 | RAD REPORT ---
EXAM DESCRIPTION: RAD - Humerus Left - 10/10/2020 12:01 pm CLINICAL HISTORY: Left arm pain status post fall FINDINGS: No fracture is seen
[2020-10-10 12:11] LABS: Potassium 3.9 mmol/L (3.5-5.1)
--- NOTE | 2020-10-10 12:57 | EDPHYS ---
Physician Documentation [facility] Name: Erin Jiang Age: 60 yrs Sex: Female : 1960 Arrival Date: 10/10/2020 Time: 10:37 Bed 8 Private MD: ED Physician Oziel Gonzalez HPI: 10/10 12:51 This 60 yrs old Female presents to ER via Ambulatory with complaints of Fall rn Injury - yest, Arm Pain, Headache. 12:51 Details of fall: The patient fell from an upright position. rn 12:51 Onset: The symptoms/episode began/occurred 2 day(s) ago. Associated injuries: The rn patient sustained injury to the head, left arm. Severity of symptoms: At their worst the symptoms were moderate, in the emergency department the symptoms are unchanged. The patient has not experienced similar symptoms in the past. The patient has not recently seen a physician. Fall 2 days ago, hit head, unsure if LOC, not on blood thinners but states bruises easily. Does not feel like broke left arm but increased swelling just today. . Historical: - Allergies: 10:56 Bactrim; jd3 10:56 Levaquin; jd3 10:56 PENICILLINS; jd3 10:56 Sulfa (Sulfonamide Antibiotics); jd3 - PMHx: 10:56 Hyperlipidemia; menieresdisease; jd3 - PSHx: 10:56 neck surgery; breast cyst removal; jd3 - Immunization history:: Adult Immunizations up to date. - Social history:: Smoking status: Patient reports the use of cigarette tobacco products, smokes one pack cigarettes per day. - Family history:: not pertinent. - Hospitalizations: : No recent hospitalization is reported. ROS: 12:51 Constitutional: Negative for fever, chills, and weight loss, Eyes: Negative for injury, rn pain, redness, and discharge, Neck: Negative for injury, pain, and swelling, Cardiovascular: Negative for chest pain, palpitations, and edema, Respiratory: Negative for shortness of breath, cough, wheezing, and pleuritic chest pain, Abdomen/GI: Negative for abdominal pain, nausea, vomiting, diarrhea, and constipation, Back: Negative for injury and pain, : Negative for injury, bleeding, discharge, and swelling, MS/Extremity: + left arm pain and swelling Skin: + bruising Neuro: Negative for weakness, numbness, tingling, and seizure. Exam: 12:51 Constitutional: This is a well developed, well nourished patient who is awake, alert, rn and in no acute distress. Head/Face: + small contusion and hematoma right forehead Eyes: Pupils equal round and reactive to light, extra-ocular motions intact. Lids and lashes normal. Conjunctiva and sclera are non-icteric and not injected. Cornea within normal limits. Periorbital areas with no swelling, redness, or edema. Neck: No midline tenderness Chest/axilla: Normal chest wall appearance and motion. Nontender with no deformity. No lesions are appreciated. Cardiovascular: Regular rate and rhythm. No pulse deficits. Respiratory: No increased work of breathing, no retractions or nasal flaring. Abdomen/GI: Soft, non-tender Skin: Warm, dry MS/ Extremity: Pulses equal, no cyanosis. + LUE with moderate subcutaneous swelling and ecchymosis, no gross bony deformity noted. Neuro: Awake and alert, GCS 15 Vital Signs: 10:56 BP 147 / 76; Pulse 63; Resp 17 S; Temp 97.8(TE); Pulse Ox 98% on R/A; Weight 77.11 kg jd3 (R); Height 5 ft. 5 in. (165.10 cm) (R); Pain 7/10; 12:26 BP 138 / 70; Pulse 61; Resp 18; Temp 97.3; Pulse Ox 99% on R/A; ph 13:14 BP 129 / 72; Pulse 61; Resp 16; Temp 97.8; Pulse Ox 99% on R/A; ph 10:56 Body Mass Index 28.29 (77.11 kg, 165.10 cm) jd3 MDM: 11:03 Patient medically screened. rn 12:51 Differential diagnosis: abrasion, closed head injury, contusion, fracture, sprain, rn strain. Data reviewed: vital signs, nurses notes, lab test result(s), radiologic studies, CT scan, plain films, and as a result, I will discharge patient. Counseling: I had a detailed discussion with the patient and/or guardian regarding: the historical points, exam findings, and any diagnostic results supporting the discharge/admit diagnosis, lab results, radiology results, the need for outpatient follow up, to return to the emergency department if symptoms worsen or persist or if there are any questions or concerns that arise at home. Response to treatment: the patient's symptoms have mildly improved after treatment, and as a result, I will discharge patient. Special discussion: Based on the patient's history, exam and DX evaluation, there is no indication for emergent intervention or inpatient TX. It is understood by the patient/guardian that if the SXs persist or worsen they need to return immediately for re-evaluation. I discussed with the patient/guardian in detail that at this point there is no indication for admission to the hospital. It is understood, however, that if the symptoms persist or worsen the patient needs to return immediately for re-evaluation. 10/10 11:19 Order name: CBC with Diff; Complete Time: 12:13 rn 10/10 11:19 Order name: Basic Metabolic Panel; Complete Time: 12:13 rn 10/10 11:20 Order name: PT-INR rn 10/10 11:20 Order name: Ptt, Activated rn 10/10 11:20 Order name: Protime (+INR); Complete Time: 12:13 EDIN 10/10 11:20 Order name: PTT, Activated Partial Thromb; Complete Time: 12:13 EDIN 10/10 11:19 Order name: IV Start; Complete Time: 11:40 rn 10/10 11:19 Order name: XRAY Humerus LEFT; Complete Time: 12:13 rn 10/10 11:19 Order name: CT Head Brain wo Cont; Complete Time: 12:13 rn Administered Medications: No medications were administered Disposition: 10/10/20 12:57 Discharged to Home. Impression: Hematoma, unspecified, Superficial injury of head. - Condition is Stable. - Discharge Instructions: Head Injury, Adult, Hematoma. - Medication Reconciliation Form, Thank You Letter, Antibiotic Education, Prescription Opioid Use form. - Follow up: Private Physician; When: As needed; Reason: Recheck today's complaints, Re-evaluation by your physician. - Problem is new. - Symptoms have improved. Signatures: Dispatcher [employer] EDMS Oziel Gonzalez ph D, MD MD rn Hall, Patricia, RN RNavies, Jonathon, RN RN jd3 Corrections: (The following items were deleted from the chart) 13:15 12:57 10/10/2020 12:57 Discharged to Home. Impression: Hematoma, unspecified; ph Superficial injury of head. Condition is Stable. Forms are Medication Reconciliation Form, Thank You Letter, Antibiotic Education, Prescription Opioid Use. Follow up: Private Physician; When: As needed; Reason: Recheck today's complaints, Re-evaluation by your physician. Problem is new. Symptoms have improved. rn
--- NOTE | 2020-10-10 12:57 | ER ---
Nurse's Notes [facility] Name: Erin Jiang Age: 60 yrs Sex: Female : 1960 Arrival Date: 10/10/2020 Time: 10:37 Bed 8 Private MD: Diagnosis: Hematoma, unspecified;Superficial injury of head Presentation: 10/10 10:53 Chief complaint: Patient states: "I got tripped up with my dog and i have a pretty jd3 nasty bruise on my left arm. with a knot and a good bump on the head. i have been a little nauseous, but no dizziness.". Coronavirus screen: At this time, the client does not indicate any symptoms associated with coronavirus-19. Ebola Screen: Patient negative for fever greater than or equal to 101.5 degrees Fahrenheit, and additional compatible Ebola Virus Disease symptoms. Initial Sepsis Screen: Does the patient meet any 2 criteria? No. Patient's initial sepsis screen is negative. Does the patient have a suspected source of infection? No. Patient's initial sepsis screen is negative. Risk Assessment: Do you want to hurt yourself or someone else? Patient reports no desire to harm self or others. Onset of symptoms was October 08, 2020. 10:53 Method Of Arrival: Ambulatory jd3 10:53 Acuity: MONY 3 jd3 Historical: - Allergies: 10:56 Bactrim; jd3 10:56 Levaquin; jd3 10:56 PENICILLINS; jd3 10:56 Sulfa (Sulfonamide Antibiotics); jd3 - PMHx: 10:56 Hyperlipidemia; menieresdisease; jd3 - PSHx: 10:56 neck surgery; breast cyst removal; jd3 - Immunization history:: Adult Immunizations up to date. - Social history:: Smoking status: Patient reports the use of cigarette tobacco products, smokes one pack cigarettes per day. - Family history:: not pertinent. - Hospitalizations: : No recent hospitalization is reported. Screenin:15 Abuse screen: Denies threats or abuse. Denies injuries from another. Nutritional ph screening: No deficits noted. Tuberculosis screening: No symptoms or risk factors identified. Fall Risk Fall in past 12 months (25 points). No secondary diagnosis (0 pts). IV access (20 points). Ambulatory Aid- None/Bed Rest/Nurse Assist (0 pts). Gait- Normal/Bed Rest/Wheelchair (0 pts) Mental Status- Oriented to own ability (0 pts). Total Giron Fall Scale indicates High Risk Score (45 or more points). Fall prevention measures have been instituted. Side Rails Up X 2 Placed Close to Nursing Station Frequent Obs/Assessments Occuring As available patient and family educated on Fall Prevention Program and Strategies. Assessment: 11:41 General: Appears in no apparent distress. uncomfortable, Behavior is cooperative, jl7 anxious. Pain: Complains of pain in left bicep Pain currently is 7 out of 10 on a pain scale. Neuro: Level of Consciousness is awake, alert, obeys commands, Oriented to person, place, time, situation. Cardiovascular: Patient's skin is warm and dry. Respiratory: Airway is patent Respiratory effort is even, unlabored, Respiratory pattern is regular, symmetrical. Derm: Skin is pink, warm \\T\\ dry. Musculoskeletal: Range of motion: intact in all extremities. Injury Description: Bruise sustained to left upper arm, left calf. right siode of forehead. 12:25 Reassessment: Patient appears in no apparent distress at this time. Patient and/or ph family updated on plan of care and expected duration. Pain level reassessed. Patient is alert, oriented x 3, equal unlabored respirations, skin warm/dry/pink. Awaiting lab and radiology results. 13:14 Reassessment: Patient appears in no apparent distress at this time. Patient and/or ph family updated on plan of care and expected duration. Pain level reassessed. Patient is alert, oriented x 3, equal unlabored respirations, skin warm/dry/pink. Vital Signs: 10:56 BP 147 / 76; Pulse 63; Resp 17 S; Temp 97.8(TE); Pulse Ox 98% on R/A; Weight 77.11 kg jd3 (R); Height 5 ft. 5 in. (165.10 cm) (R); Pain 7/10; 12:26 BP 138 / 70; Pulse 61; Resp 18; Temp 97.3; Pulse Ox 99% on R/A; ph 13:14 BP 129 / 72; Pulse 61; Resp 16; Temp 97.8; Pulse Ox 99% on R/A; ph 10:56 Body Mass Index 28.29 (77.11 kg, 165.10 cm) jd3 ED Course: 10:37 Patient arrived in ED. as 10:55 Triage completed. jd3 10:56 Arm band placed on. jd3 11:03 Oziel Gonzalez MD is Attending Physician. rn 11:04 Kelsi Doe, RN is Primary Nurse. ph 11:15 Patient has correct armband on for positive identification. Bed in low position. Call ph light in reach. Side rails up X 1. Pulse ox on. NIBP on. Door closed. Noise minimized. Warm blanket given. 11:30 CT Head Brain wo Cont In Process Unspecified. EDMS 11:40 Ptt, Activated Sent. jl7 11:41 PT-INR Sent. jl7 11:41 Initial lab(s) drawn, by me, sent to lab. Inserted saline lock: 20 gauge in left jl7 antecubital area, using aseptic technique. Blood collected. 12:01 XRAY Humerus LEFT In Process Unspecified. EDMS 13:14 No provider procedures requiring assistance completed. IV discontinued, intact, ph bleeding controlled, No redness/swelling at site. Pressure dressing applied. Administered Medications: No medications were administered Outcome: 12:57 Discharge ordered by . rn 13:14 Discharged to home ambulatory. ph 13:14 Condition: good 13:14 Discharge instructions given to patient, Instructed on discharge instructions, follow up and referral plans. Demonstrated understanding of instructions, follow-up care. 13:15 Patient left the ED. ph Signatures: Dispatcher [employer] BRANDONMS Damari Anand Roman, MD MD rn Hall, Patricia, RN RN ph Leta Thomas RN RN jl7 Hamlet Gamboa RN RN jd3
[2020-10-10 13:45] VITALS: O2SAT 99
[2020-10-10 13:47] VITALS: BP 129/72; TEMP 97.8
== END 2020-10-10 13:15 | disposition home or self-care (01) ==
LOC: ER 10:34
DX: S00.90XA Unspecified superficial injury of unspecified part of head, initial encounter (principal); T14.8XXA Other injury of unspecified body region, initial encounter; F17.210 Nicotine dependence, cigarettes, uncomplicated; E78.5 Hyperlipidemia, unspecified; W19.XXXA Unspecified fall, initial encounter
CPT/HCPCS: 36415; 70450; 80048; 85025; 85610; 85730; 99284

== ENCOUNTER 2022-02-23 11:01 | Emergency (ER) | payer OTHER ==
--- OUTSIDE RECORDS SUMMARY | 2022-02-23 11:08 | XMS REPORT | Continuity of Care Document ---
:1960 Author Organization [facility] t Address [address] [place] [address] Care Team Providers Name Role Phone NNAMDI GARY Primary Care Physician Unavailable Kip Manzo Attending Clinician Unavailable Only, Ang Db Test Attending Clinician Unavailable Mae [employer] TECH[employer] Attending Clinician SABINE WALL Attending Clinician Unavailable Uri Marx MD Attending Clinician URI MARX Attending Clinician Unavailable Doctor Unassigned, [place] Attending Clinician Unavailable Only, Adc Test Attending Clinician Unavailable Pob, Adc Lab Main Attending Clinician Unavailable Dale Galeano MD Attending Clinician NAHID CAPPS Attending Clinician Unavailable LEE DENTON Attending Clinician Unavailable KIP MANZO Attending Clinician Unavailable SERG HUBER Attending Clinician Unavailable DR LIA CEE Attending Clinician Unavailable DANNI LOAIZA Attending Clinician Unavailable Uri Marx MD Admitting Clinician URI MARX Admitting Clinician Unavailable NAHID CAPPS Admitting Clinician Unavailable LEE DENTON Admitting Clinician Unavailable KIP MANZO Admitting Clinician Unavailable NUSRAT HEREDIA Admitting Clinician Unavailable EVON DALEY Admitting Clinician Unavailable JOHN COOPER Admitting Clinician Unavailable TRISH SOLIMAN Admitting Clinician Unavailable SUBRAMANIA Admitting Clinician Unavailable NOAM STEELE Admitting Clinician Unavailable DO APOLINAR NAIR Admitting Clinician Unavailable DANNI LOAIZA Admitting Clinician Unavailable Payers Payer Name Policy Type Policy Number Effective Date Expiration Date [place] [id number] Common Sp yaakov ing Medicare - [facility] [id number] [facility] [id number] [facility] [id number] [facility] [id number] [facility] [id number] [facility] [id number] [facility] Problems Condition Condition Condition Status Onset Resolution Last Treating Co mments Source Name Details Category Date Date Treatment Clinician Date Costal Costal Problem Active [facility] chondritis chondritis 6-22 Jeremy kes 00:00: Memoria 00 l (LUF/LI V/SA) Pancreatit Pancreatit Problem Active 2018-[address] [facility] 2[facility]16 [facility] (LUF/LI V/SA) Diarrhea Diarrhea Problem Active 2018-05 [facility] (LUF/LI V/SA) Cervical Cervical Problem Active [facility] radiculopa radiculopa 6-14 Jeremy kes thy thy 00:00: Memoria 00 l (LUF/LI V/SA) Cervical Cervical Problem Active [facility] radiculopa radiculopa 6-01 Jeremy kes thy thy 00:00: Memoria 00 l (LUF/LI V/SA) Gastroesop Gastroesop Problem Active [facility] hageal hageal 5-23 [facility] reflux reflux 00:00: Memoria disease disease 00 l (LUF/LI V/SA) Chest pain Chest pain Problem Active [facility] 00[facility]: [facility] l (LUF/LI V/SA) 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 00:00: Memori a 00 l (LUF/LI V/SA) Chest pain Chest pain Problem Active [facility] 00:[facility]: [facility]oria 00 l (LUF/LI V/SA) Contusion Contusion Problem Active [facility] of lower of lower 6-14 [facility] leg leg 00:00: Memoria 00 l (LUF/LI V/SA) Contusion Contusion Problem Active [facility] of of 6-06 [facility] multiple multiple 00:00: Memori a sites sites 00 l (LUF/LI V/SA) Falls Falls Problem Active [facility] 6[facility]06 [facility] 00:[facility]: Memoria 00 l (LUF/LI V/SA) Contusion Contusion Problem Active [facility] wrist or wrist or 5-09 [facility] hand hand 00:00: Memoria 00 l (LUF/LI V/SA) Contusion Contusion Problem Active [facility] of rib of rib 5-09 [facility] 00:00: Memoria 00 l (LUF/LI V/SA) Low back Low back Disease Active Unive rs pain pain 7 ity of 00:00: [place] 00 Medical Branch Chest pain Chest pain Disease Active U nivers 7- ity of 00:00: [place] [id number] Medical Branch M?i?e's M?i?e's Problem Active [facility] disease disease [facility] l (LUF/LI V/SA) Hypertensi Hypertensi Problem Active [facility] ve ve [facility] disorder disorder Memori a l (LUF/LI V/SA) Viral Viral Problem Active [facility] hepatitis hepatitis Luke s C C Memoria l (LUF/LI V/SA) Abdominal Abdominal Problem Active [facility] pain pain [facility] (LUF/LI V/SA) 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 ed [facility] (LUF/LI V/SA) Allergies, Adverse Reactions, Alerts Allergy Allergy Status Severity Reaction(s) Onset Inactive Treating Comm ents Source Name Type Date Date Clinician Sulfa Propensi Active 2020-05 Univers (Sulfona ty to 05-08 ity of mide adverse 00:00: [place] Antibiot reaction 00 Medica l ics) s Branch SULFAMET DRUG Active 2020-05 Univers HOXAZOLE 05-08 ity of -TRIMETH 00:00: [place] OPRIM 00 Medical Branch SULFA Drug Active Hives 2020-05 Univers (SULFONA Class 1-03 ity of MIDE 00:00: [place] ANTIBIOT 00 Medical ICS) Branch Sulfamet Propensi Active Hives 2020-05 Univer s hoxazole ty to 05-08 ity of -Trimeth adverse 00:00: [place] oprim reaction 00 Medical s Branch Amoxicil Propensi Active Rash Univer s tati ty to 11-28 ity of adverse 00:00: [place] reaction Medical s Branch Levoflox Propensi Active Anaphylaxis U nivers acin ty to 11-28 ity of adverse 00:00: [place] reaction Medical s Branch Penicill Propensi Active Rash Univer s ins ty to 11-28 ity of adverse 00:00: [place] reaction Medical s Branch AMOXICIL DRUG Active Rash Univers TATI INGREDI 11-28 ity of 00:00: [place] Medical [facility] LEVOFLOX DRUG Active Anaphylaxis Uni vers ACIN INGREDI 11-28 ity of 00:00: [place] [facility] PENICILL Drug Active Rash Univers INS Class 11-28 ity of 00:00: [place] 00 Medical Branch sulfamet sulfamet Active Unknown Commo n hoxazole hoxazole Spirit / / - [facility] trimetho trimetho [facility] doxycycl DA Active Unknown [facility] in[facility] (LUF/LI V/SA) gabapent DA Active Unknown [facility] in [facility] (LUF/LI V/SA) Bactrim DA Active Unknown thrush [facility] DS [facility] (LUF/LI V/SA) Levaquin DA Active Unknown thrush [facility] (LUF/LI V/SA) Penicill DA Active Unknown Anaphylaxis [facility] ins (Severe [facility] Allergic Memoria Rxn) l (LUF/LI V/SA) Social History Social Habit Start Date Stop Date Quantity Comments Source Exposure to Not sure [facility] SARS-CoV-2 (event) Medica l Branch History of Tobacco Current Smoker Co m[facility] - [facility] Sex Assigned At Common Sp yaakov - [facility] Smoking Status Start Date Stop Date Source Never smoker [facility] Mem orial (LUF/ABHISHEK/SA) [facility] 2020[facility]07[facility]ations Ordered Filled Start Stop Current Ordering Indication Dosage Frequency Signature Comments Components Source Medication Medication Date Date Medication? Clinician (SIG) Name Name bupivacaine 2020-05 Yes PRN, Univer s (preserv 04 Starting ity of free) 0.5% 17:31: on Mara [place] (SENSORCAIN 00 03/09/21 at [place] dicmd E MPF) 0.5 1231, Branch % (5 mg/mL) Until injection Discontinu ed, Routine, Intra-op bupivacaine 2020-05- No PRN, Unive rs (preserv 05-09 Starting ity of free) 0.5% 17:31: 20:11 [place] (SENSOR[place]IN 00 :30 03/09/21 at [place] dicmd E MPF) 0.5 1231, Branch % (5 mg/mL) Until Mara injection 03/09/21 at 1511, Routine, Intra-op lactated 2020-05 Yes 1000mL at 100 Unive rs ringers IV 1-04 mL/hr, ity of infusion 14:00: 1,000 [place], [place] 1[place]000 [place] 00 IV Medical Infusion, Branch CONTINUOUS , Starting on Mara 03/09/21 at 0900, Until Discontinu ed, Routine, PACU HYDROcodone 2020-05- No 1{tbl} 1 tablet, Univers -acetaminop 05-09 Oral, ity of hen (NORCO 14:00: 14:39 ONCE, 1 Tae as 5) 5-325 mg 00 :00 dose, On Medi zaynab tablet 1 Mara Branch tablet 03/09/21 at 0900, Routine, PACU HYDROcodone 2020-05- No 1{tbl} 1 tablet, Univers -acetaminop 05-09 Oral, ity of hen (NORCO 14:00: 14:39 ONCE, 1 Tae as 5) 5-325 mg 00 :00 dose, On Medi zaynab tablet 1 [place] Branch tablet 03/09/21 at 0900, Routine, PACU lactated 2020-05- No 1000mL at 100 Univ ers ringers IV 1-04 11-04 mL/hr, ity of infusion 14:00: 20:11 1,000 mL, [place] 1,000 mL 00 :30 IV Medical Infusion, Branch CONTINUOUS , Starting on Mara 03/09/21 at 0900, Until Mara 03/09/21 at 1511, Routine, PACU HYDROmorphO 2020-05 Yes .2mg 0.2 mg, Uni vers ne 05-09 Slow IV ity of (DILAUDID) 13:55: Push, [place] injection 47 Q5MIN PRN, Medi zaynab 0.2 mg 10 doses, Branch Starting on Mara 03/09/21 at 0855, Until Discontinu ed, Routine, Pain (scale 7-10), PACU
Us e approved by (Faculty): PACU USE -ANESTHESI A SERVICE-HY DROMORPHON E INJECTIONS FENTanyl PF 2020-05 Yes 25ug 25 mcg, Uni vers (SUBLIMAZE 05-09 Slow IV ity of (PF)) 13:55: Push, [place] injection 47 Q5MIN PRN, Medi zaynab 25 mcg 4 doses, Branch Starting on Mara 03/09/21 at 0855, Until Discontinu ed, Routine, Pain (scale 4-6), PACU ondansetron 2020-05 Yes 4mg 4 mg, Slow Univers (ZOFRAN 05-09 IV Push, ity of (PF)) 13:55: PRN, 1 [place] injection 4 47 dose, Medical mg Starting Branch on Mara 03/09/21 at 0855, Until Discontinu ed, Routine, Nausea and Vomiting (N/V), PACU HYDROmorphO 2020-05- No .2mg 0.2 mg, Un swathi ne 05-0904 Slow IV ity of (DILAUDID) 13:55: 20:11 Push, [place] injection 47 :30 Q5MIN PRN, Medi zaynab 0.2 mg 10 doses, Branch Starting on Mara 03/09/21 at 0855, Until Mara 03/09/21 at 1511, Routine, Pain (scale 7-10), PACU
Us e approved by (Faculty): PACU USE -ANESTHESI A SERVICE-HY DROMORPHON E INJECTIONS FENTanyl PF 2020-05- No 25ug 25 mcg, Un swathi (SUBLIMAZE 05-09 Slow IV ity o f (PF)) 13:55: 20:11 Push, [place] injection 47 :30 Q5MIN PRN, Medi zaynab 25 mcg 4 doses, Branch Starting on Mara 03/09/21 at 0855, Until Mara 03/09/21 at 1511, Routine, Pain (scale 4-6), PACU ondansetron 2020-05- No 4mg 4 mg, Slow Univers (ZOFRAN 05-09 IV Push, ity of (PF)) 13:55: 20:11 PRN, 1 [place] injection 4 47 :30 dose, Medical mg Starting Branch on Mara 03/09/21 at 0855, Until Mara 03/09/21 at 1511, Routine, Nausea and Vomiting (N/V), PACU SPIRONOLACT 2020-05 Yes Take by Uni vers ONE ORAL 1-04 mouth. ity of 13:11: [address] HYDROCODONE 2020-05 Yes Take by Uni vers /ACETAMINOP 1-04 mouth. ity of HEN (NORCO 13:11: [place] ORAL) [address] [place] [address] CYCLOBENZAP 2020-05 Yes Take by Uni vers RINE HCL 1-04 mouth. ity of (FLEXERIL 13:11: [place] ORAL) [address] [place] [address] SPIRONOLACT 2020-05 Yes Take by Uni vers ONE ORAL 1-04 mouth. ity of 13:11: [address] HYDROCODONE 2020-05 Yes Take by Uni vers /ACETAMINOP 1-04 mouth. ity of HEN (NORCO 13:11: [place] ORAL) [address] [place] [address] CYCLOBENZAP 2020-05 Yes Take by Uni vers RINE HCL 1-04 mouth. ity of (FLEXERIL 13:11: [place] ORAL) [address] [place] [address] Branch SPIRONOLACT 2020-05 Yes Take by Uni vers ONE ORAL 1-04 mouth. ity of 13:11: [address] HYDROCODONE 2020-05 Yes Take by Uni vers /ACETAMINOP 1-04 mouth. ity of HEN (NORCO 13:11: [place] ORAL) [address] [place] [address] CYCLOBENZAP 2020-05 Yes Take by Uni vers RINE HCL 1-04 mouth. ity of (FLEXERIL 13:11: [place] ORAL) [address] [place] [address] SPIRONOLACT 2020-05 Yes Take by Uni vers ONE ORAL 1-04 mouth. ity of 13:11: [place] 28 Medical Branch HYDROCODONE 2020-05 Yes Take by Uni vers /ACETAMINOP 1-04 mouth. ity of HEN (NORCO 13:11: [place] ORAL) 28 Medical Branch CYCLOBENZAP 2020-05 Yes Take by Uni vers RINE HCL 1-04 mouth. ity of (FLEXERIL 13:11: [place] ORAL) 28 Medical Branch lactated 2020-05- No 1000mL at 42 Unive rs ringers IV 1-04 11-04 mL/hr, ity of infusion 12:30: 12:22 1,000 mL, [place] 1,000 mL 00 :00 IV Medical Infusion, Branch ONCE, 1 dose, On Mara 03/09/21 at 0730, Routine, DSU Pre-op lactated 2020-05- No 1000mL at 42 Unive rs ringers IV 1-04 11-04 mL/hr, ity of infusion 12:30: 12:22 1,000 mL, [place] 1,000 mL 00 :00 IV Medical Infusion, Branch ONCE, 1 dose, On Mara 03/09/21 at 0730, Routine, DSU Pre-op HYDROCODONE 2020-05 Yes Take by Uni vers /ACETAMINOP 1-03 mouth. ity of HEN (NORCO 10:33: [place] ORAL) 23 Medical Branch CYCLOBENZAP 2020-05 Yes Take by Uni vers RINE HCL 1-03 mouth. ity of (FLEXERIL 10:33: [place] ORAL) 23 Medical Branch TRELEGY 2020-05 Yes Univers ELLIPTA 1-01 ity of 100-62.5-25 00:00: [place] mcg DsDv Medical Branch TRELEGY 2020-05 Yes Univers ELLIPTA 1-01 ity of 100-62.5-25 00:00: [place] mcg DsDv Medical Branch TRELEGY 2020-05 Yes Univers ELLIPTA 1-01 ity of 100-62.5-25 00:00: [place] mcg DsDv Medical Branch TRELEGY 2020-05 Yes Univers ELLIPTA 1-01 ity of 100-62.5-25 00:00: [place] mcg DsDv Medical Branch TRELEGY 2020-05 Yes Univers ELLIPTA 1-01 ity of 100-62.5-25 00:00: [place] mcg DsDv Medical Branch clindamycin 2020-05 Yes Univer s 150 mg 0-28 ity of capsule 00:00: Medical Branch clindamycin 2020-05 Yes Univer s 150 mg 0-28 ity of capsule 00:00: [place] [facility] clindamycin 2020-05 Yes Univer s 150 mg 0-28 ity of capsule 00:00: [place] [facility] clindamycin 2020-05 Yes Univer s 150 mg 0-28 ity of capsule 00:00: [place] [facility] clindamycin 2020-05 Yes Univer s 150 mg 0-28 ity of capsule 00:00: [place] [facility] escitalopra 2020-05 Yes Univer s m oxalate 0-05 ity of 20 mg 00:00: [place] tablet Medical Branch traZODone 2020-05 Yes Univers 50 mg 0-05 ity of tablet 00:00: [place] [facility] escitalopra 2020-05 Yes Univer s m oxalate 0-05 ity of 20 mg 00:00: [place] tablet Medical Branch traZODone 2020-05 Yes Univers 50 mg 0-05 ity of tablet 00:00: [place] [facility] escitalopra 2020-05 Yes Univer s m oxalate 0-05 ity of 20 mg 00:00: [place] tablet Medical Branch traZODone 2020-05 Yes Univers 50 mg 0-05 ity of tablet 00:00: Medical Branch escitalopra 2020-05 Yes Univer s m oxalate 0-05 ity of 20 mg 00:00: [place] tablet Medical Branch traZODone 2020-05 Yes Univers 50 mg 0-05 ity of tablet 00:00: [place] [facility] escitalopra 2020-05 Yes Univer s m oxalate 0-05 ity of 20 mg 00:00: [place] tablet 00 Medical Branch traZODone 2020-05 Yes Univers 50 mg 0-05 ity of tablet 00:00: [place] 00 Medical Branch SPIRONOLACT 0 Yes Take by Uni vers ONE ORAL 7-27 mouth. ity of 17:49: [place] 55 Medical Branch HYDROCODONE Yes Take by Uni vers /ACETAMINOP 7-27 mouth. ity of HEN (NORCO 17:49: [place] ORAL) 55 Medical Branch CYCLOBENZAP Yes Take by Uni vers RINE HCL 7-27 mouth. ity of (FLEXERIL 17:49: [place] ORAL) 55 Medical Branch SPIRONOLACT Yes Take by Uni vers ONE ORAL 7-27 mouth. ity of 17:49: [place] [address] Medical Branch HYDROCODONE Yes Take by Uni vers /ACETAMINOP 7-27 mouth. ity of HEN (NORCO 17:49: [place] ORAL) 55 Medical Branch CYCLOBENZAP Yes Take by Uni vers RINE HCL 7-27 mouth. ity of (FLEXERIL 17:49: [place] ORAL) 55 Medical Branch SPIRONOLACT Yes Take by Uni vers ONE ORAL 7-27 mouth. ity of 17:49: [place] [address] Medical Branch HYDROCODONE Yes Take by Uni vers /ACETAMINOP 7-27 mouth. ity of HEN (NORCO 17:49: [place] ORAL) 55 Medical Branch CYCLOBENZAP Yes Take by Uni vers RINE HCL 7-27 mouth. ity of (FLEXERIL 17:49: [place] ORAL) 55 Medical Branch SPIRONOLACT Yes Take by Uni vers ONE ORAL 7-27 mouth. ity of 17:49: [place] [address] Medical Branch HYDROCODONE Yes Take by Uni vers /ACETAMINOP 7-27 mouth. ity of HEN (NORCO 17:49: [place] ORAL) 55 Medical Branch CYCLOBENZAP Yes Take by Uni vers RINE HCL 7-27 mouth. ity of (FLEXERIL 17:49: [place] ORAL) 55 Medical Branch SPIRONOLACT Yes Take by Uni vers ONE ORAL 7-27 mouth. ity of 17:49: [place] [address] Medical Branch aspirin 81 Yes 81mg Take 1 Tab U nivers mg chewable 7-27 by mouth ity of tablet 00:00: daily. [place] [facility] aspirin 81 Yes 81mg Take 1 Tab U nivers mg chewable 7-27 by mouth ity of tablet 00:00: daily. [place] [facility] aspirin 81 Yes 81mg Take 1 Tab U nivers mg chewable 7-27 by mouth ity of tablet 00:00: daily. [place] [facility] aspirin 81 Yes 81mg Take 1 Tab U nivers mg chewable 7-27 by mouth ity of tablet 00:00: daily. [place] [facility] aspirin 81 2014-0 Yes 81mg Take 1 Tab U nivers mg chewable 7-27 by mouth ity of tablet 00:00: daily. [place] [facility] aspirin 81 2014-0 Yes 81mg Take 1 Tab U nivers mg chewable 7-27 by mouth ity of tablet 00:00: daily. [place] [facility] aspirin 81 Yes 81mg Take 1 Tab U nivers mg chewable 7-27 by mouth ity of tablet 00:00: daily. [place] [facility] aspirin 81 2014- Yes 81mg Take 1 Tab U nivers mg chewable 7-27 by mouth ity of tablet 00:00: daily. [place] [facility] aspirin 81 2014- Yes 81mg Take 1 Tab U nivers mg chewable 7-27 by mouth ity of tablet 00:00: daily. [address] Lexapro Lexapro No Lexapro Lasix Lasix No Lasix Clindamycin Clindamycin No Clindamyci HCl HCl n HCl Acetaminoph Acetaminoph No Acetaminop en-Codeine en-Codeine hen-Codein #3 #3 e #3 Trelegy Trelegy No Trelegy Ellipta Ellipta Ellipta Lexapro Lexapro No Lexapro Lasix Lasix No Lasix Clindamycin Clindamycin No Clindamyci HCl HCl n HCl Acetaminoph Acetaminoph No Acetaminop en-Codeine en-Codeine hen-Codein #3 #3 e #3 Trelegy Trelegy No Trelegy Ellipta Ellipta Ellipta Lexapro Lexapro No Lexapro Lasix Lasix No Lasix Clindamycin Clindamycin No Clindamyci HCl HCl n HCl Acetaminoph Acetaminoph No Acetaminop en-Codeine en-Codeine hen-Codein #3 #3 e #3 Trelegy Trelegy No Trelegy Ellipta Ellipta Ellipta Lexapro Lexapro No Lexapro Lasix Lasix No Lasix Acetaminoph Acetaminoph Yes 1 2xD orally [address] [facility] en 300 MG / en 300 MG / times per [facility] Codeine Codeine day as Memoria Phosphate Phosphate needed. l 30 MG Oral 30 MG Oral (JEREMY F/LI Tablet Tablet V/SA) Albuterol Albuterol Yes [address] [facility] 4 [facility] hours as Memoria needed. ( l administer (LUF/LI with V/) spacer;) Clindamycin Clindamycin No Clindamyci HCl HCl n HCl Escitalopra Escitalopra Yes 20mg 1xD orally [facility] m 20 MG m 20 MG daily [facility] Oral Tablet Oral Tablet M emoria l (LUF/LI V/) Meclizine Meclizine Yes 25mg 3xD orally [address] Hydrochlori Hydrochlori times per [facility] de 25 MG de 25 MG day as Memor ia Oral Tablet Oral Tablet needed. l (LUF/LI V/) Simvastatin Simvastatin Yes 20mg orally [facility] 20 MG Oral 20 MG Oral every day [facility] Tablet Tablet at bedtime Memor ia l (LUF/LI V/) Spironolact Spironolact Yes 25mg 1xD orally [facility] one 25 MG one 25 MG daily as L ukes Oral Tablet Oral Tablet needed. Memoria l (LUF/LI V/SA) Acetaminoph Acetaminoph No Acetaminop en-Codeine en-Codeine hen-Codein #3 #3 e #3 Lasix Lasix No Lasix Common [facility] No Trelegy Common Ellipta Ellipta Ellipta [facility] Lexapro Lexapro No Lexapro Common [facility] Acetaminoph Acetaminoph No Acetaminop Common en-Codeine en-Codeine hen-Codein Spirit #3 #3 e #3 - [facility] Diclofenac Diclofenac No Diclofenac Common Sodium Sodium Sodium [facility] Tramadol Tramadol No Tramadol Com mon HCl HCl HCl [facility] Clindamycin Clindamycin No Clindamyci Common HCl HCl n HCl [facility] Lasix Lasix No Lasix Common [facility] Tramadol Tramadol No Tramadol Com mon HCl HCl HCl [facility] Escitalopra Escitalopra No Escitalopr Common m Oxalate m Oxalate am Oxalate [facility] Trelegy Trelegy No Trelegy Common Ellipta Ellipta Ellipta [facility] Lexapro Lexapro No Lexapro Common [facility] Acetaminoph Acetaminoph No Acetaminop Common en-Codeine en-Codeine hen-Codein [facility] #3 #3 e #3 - [facility] Diclofenac Diclofenac No Diclofenac Common Sodium Sodium Sodium [facility] Clindamycin Clindamycin No Clindamyci Common HCl HCl n HCl [facility] Trelegy Trelegy No Trelegy Ellipta Ellipta Ellipta Immunizations Ordered Immunization Filled Immunization Date Status Commen ts Source Name Name not utd influenza not utd influenza 2019-10-26 Completed [facility] 00:00:00 [facility] (LUF/ABHISHEK/SA) pneumococcal pneumococcal 2018-05-21 Completed [facility] es vaccine, NOS vaccine, NOS 00:00:00 [facility] ([facility]/ABHISHEK/SA) Vital Signs Vital Name Observation Time Observation Value Comments Source Systolic blood 2021-03-09 14:58:00 129 mm[Hg] Univer sity [facility] Diastolic blood 2021-03-09 14:58:00 58 mm[Hg] Unive rsity of [facility] Heart rate 2021-03-09 14:58:00 54 /min [facility] Respiratory rate 2021-03-09 14:58:00 19 /min [facility] Oxygen saturation in 2021-03-09 14:58:00 97 /min [facility] Arterial blood by [facility] Pulse oximetry Branch Body temperature 2021-03-09 13:43:00 36.39 Barbara [facility] Body height 2021-03-08 15:30:00 165.1 cm [facility] Body weight 2021-03-08 15:30:00 68.04 kg [facility] BMI 2021-03-08 15:30:00 24.96 kg/m2 [facility] Systolic blood 2021-03-09 14:58:00 129 mm[Hg] Univer sity of pressure [facility] Diastolic blood 2021-03-09 14:58:00 58 mm[Hg] [facility] Heart rate 2021-03-09 14:58:00 54 /min [facility] Respiratory rate 2021-03-09 14:58:00 19 /min [facility] Oxygen saturation in 2021-03-09 14:58:00 97 /min [facility] Arterial blood by [facility] Pulse oximetry Branch Body temperature 2021-03-09 13:43:00 36.39 Barbara [facility] Body height 2021-03-08 15:30:00 [facility] Body weight 2021-03-08 15:30:00 68[facility]04 [facility] BMI 2021-03-08 15:30:00 24.96 kg/m2 [facility] height 2020-07-04 09:30:00 65 [in_i] [facility] weight 2020-07-04 09:30:00 185 [lb_av] [facility] temperature 2020-07-04 09:30:00 97.3 [degF] [facility] bmi 2020-07-04 09:30:00 30.78 kg/m2 [facility] blood pressure 2020-07-04 09:30:00 156 mm[Hg] [facility] - systolic [facility] blood pressure 2020-07-04 09:30:00 88 mm[Hg] [facility] - diastolic [facility] height 2020-05-25 09:00:00 65 [in_i] [facility] weight 2020-05-25 09:00:00 185 [lb_av] [facility] temperature 2020-05-25 09:00:00 97.1 [degF] [facility] bmi 2020-05-25 09:00:00 30.78 kg/m2 [facility] blood pressure 2020-05-25 09:00:00 142 mm[Hg] [facility] - systolic [facility] blood pressure 2020-05-25 09:00:00 90 mm[Hg] [facility] - diastolic [facility] height 2020-04-21 09:30:00 65 [in_i] [facility] weight 2020-04-21 09:30:00 185 [lb_av] [facility] S [facility]irit [facility] bmi 2020-04-21 09:30:00 30.78 kg/m2 Common S [facility]irit - [facility] blood pressure 2020-04-21 09:30:00 134 mm[Hg] [facility] - systolic [facility] blood pressure 2020-04-21 09:30:00 74 mm[Hg] [facility] - diastolic [facility] Height 2019-10-26 15:10:00 139.7 CM Weight 2019-10-26 15:10:00 77.11 KG Pulse Rate 2019-10-26 17:38:00 48 /min [facility] (LUF/ABHISHEK/SA) Respiratory Rate 2019-10-26 17:38:00 19 /min Pending sale to [facility] (LUF/ABHISHEK/SA) O2% BldC Oximetry 2019-10-26 17:38:00 90 % Pending sale to [facility] (LUF/ABHISHEK/SA) BP Systolic 2019-10-26 17:38:00 152 mm[Hg] [facility] (LUF/ABHISHEK/SA) BP Diastolic 2019-10-26 17:38:00 77 mm[Hg] [facility] (LUF/ABHISHEK/SA) Body Temperature 2019-10-26 15:10:00 97.8 [degF] Pending sale to [facility] (LUF/ABHISHEK/SA) Height 2019-10-26 15:10:00 55 [in_i] [facility] (LUF/ABHISHEK/SA) Weight 2019-10-26 15:10:00 170 [lb_av] [facility] (LUF/ABHISHEK/SA) BMI (Body Mass 2019-10-26 15:10:00 39.9 kg/m2 [facility] (LUF/ABHISHEK/SA) Body Temperature 2018-10-30 15:03:00 97.8 F Pending sale to [facility] (LUF/ABHISHEK/SA) Pulse Rate 2018-10-30 15:03:00 80 /min [facility] (LUF/ABHISHEK/SA) Respiratory Rate 2018-10-30 15:03:00 18 /min Pending sale to [facility] (LUF/ABHISHEK/SA) O2% BldC Oximetry 2018-10-30 15:03:00 97 % Pending sale to [facility] (LUF/ABHISHEK/SA) BP Systolic 2018-10-30 15:03:00 137 mm[Hg] [facility] (LUF/ABHISHEK/SA) BP Diastolic 2018-10-30 15:03:00 69 mm[Hg] [facility] (LUF/ABHISHEK/SA) Height 2018-10-30 15:03:00 65 in [facility] (F/ABHISHEK/SA) Weight Measured 2018-10-30 15:03:00 186.95 lbs [facility] (LUF/ABHISHEK/SA) BMI (Body Mass 2018-10-30 15:03:00 31.1 kg/m2 [facility] (LUF/ABHISHEK/SA) Body Temperature 2018-10-17 10:41:00 98.6 F Pending sale to [facility] (LUF/ABHISHEK/SA) Pulse Rate 2018-10-17 10:41:00 74 /min [facility] (LUF/ABHISHEK/SA) Respiratory Rate 2018-10-17 10:41:00 18 /min Pending sale to [facility] (LUF/ABHISHEK/SA) O2% BldC Oximetry 2018-10-17 10:41:00 99 % Pending sale to [facility] (LUF/ABHISHEK/SA) BP Systolic 2018-10-17 10:41:00 146 mm[Hg] [facility] (LUF/ABHISHEK/SA) BP Diastolic 2018-10-17 10:41:00 80 mm[Hg] [facility] (LUF/ABHISHEK/SA) Height 2018-10-17 10:41:00 65 in [facility] (LUF/ABHISHEK/SA) Weight Measured 2018-10-17 10:41:00 189.6 lbs [facility] (LUF/ABHISHEK/SA) BMI (Body Mass 2018-10-17 10:41:00 31.5 kg/m2 [facility]) [facility] (LUF/ABHISHEK/SA) Body Temperature 2018-10-04 14:11:00 98 F Pending sale to [facility] (LUF/ABHISHEK/SA) Pulse Rate 2018-10-04 14:11:00 78 /min [facility] (LUF/ABHISHEK/SA) Respiratory Rate 2018-10-04 14:11:00 20 /min Pending sale to [facility] (LUF/ABHISHEK/SA) O2% BldC Oximetry 2018-10-04 14:11:00 99 % Pending sale to [facility] (LUF/ABHISHEK/SA) BP Systolic 2018-10-04 14:11:00 129 mm[Hg] [facility] (LUF/ABHISHEK/SA) BP Diastolic 2018-10-04 14:11:00 98 mm[Hg] [facility] (LUF/ABHISHEK/SA) Height 2018-10-04 14:11:00 55 in [facility] (F/ABHISHEK/SA) Weight Measured 2018-10-04 14:11:00 191 lbs [facility] (LUF/ABHISHEK/SA) BMI (Body Mass 2018-10-04 14:11:00 44.8 kg/m2 [facility] (LUF/ABHISHEK/SA) Pulse Rate 2018-08-28 13:30:00 65 /min [facility] (LUF/ABHISHEK/SA) O2% BldC Oximetry 2018-08-28 13:30:00 96 % Pending sale to [facility] (LUF/ABHISHEK/SA) BP Systolic 2018-08-28 13:30:00 139 mm[Hg] [facility] (LUF/ABHISHEK/SA) BP Diastolic 2018-08-28 13:30:00 86 mm[Hg] [facility] (LUF/ABHISHEK/SA) Body Temperature 2018-08-28 11:47:00 97.5 F Pending sale to [facility] (LUF/ABHISHEK/SA) Respiratory Rate 2018-08-28 11:47:00 18 /min Pending sale to [facility] (LUF/ABHISHEK/SA) Height 2018-08-28 11:47:00 66 in [facility] (LUF/ABHISHEK/SA) Weight Measured 2018-08-28 11:47:[address] [facility] Zane [facility] (LUF/ABHISHEK/SA) BMI (Body Mass 2018-08-28 11:47:00 31.7 kg/m2 [facility] (LUF/ABHISHEK/SA) Body Temperature 2017-09-26 11:00:00 96.5 F Pending sale to [facility] (LUF/ABHISHEK/SA) Respiratory Rate 2017-09-26 11:00:00 18 /min Pending sale to [facility] (LUF/ABHISHEK/SA) O2% BldC Oximetry 2017-09-26 11:00:00 96 % Pending sale to [facility] (LUF/ABHISHEK/SA) BP Systolic 2017-09-26 11:00:00 128 mm[Hg] [facility] (LUF/ABHISHEK/SA) BP Diastolic 2017-09-26 11:00:00 63 mm[Hg] [facility] (LUF/ABHISHEK/SA) Weight Measured 2017-09-26 00:00:00 191.58 lbs [facility] (LUF/ABHISHEK/SA) Height 2017-09-25 18:32:00 65 in [facility] (LUF/ABHISHEK/SA) BMI (Body Mass 2017-09-25 18:32:00 31.9 [facility] (LUF/ABHISHEK/SA) Respiratory Rate 2017-09-25 13:33:00 16 /min Pending sale to [facility] (LUF/ABHISHEK/SA) O2% BldC Oximetry 2017-09-25 13:33:00 95 % Pending sale to [facility] (LUF/ABHISHEK/SA) BP Systolic 2017-09-25 13:33:00 126 mm[Hg] [facility] (LUF/ABHISHEK/SA) BP Diastolic 2017-09-25 13:33:00 72 mm[Hg] [facility] (LUF/ABHISHEK/SA) Body Temperature 2017-09-25 12:25:00 98 F Pending sale to [facility] (LUF/ABHISHEK/SA) Height 2017-09-25 12:25:00 65 in [facility] (LUF/ABHISHEK/SA) Weight Measured 2017-09-25 12:25:00 224.87 lbs [facility] (LUF/ABHISHEK/SA) BMI (Body Mass 2017-09-25 12:25:[address] [facility]) [facility] (LUF/ABHISHEK/SA) Body Temperature 2017-09-24 01:37:00 98.3 F Pending sale to [facility] (LUF/ABHISHEK/SA) Respiratory Rate 2017-09-24 01:37:00 20 /min Pending sale to [facility] (LUF/ABHISHEK/SA) O2% BldC Oximetry 2017-09-24 01:37:00 99 % Pending sale to [facility] (LUF/ABHISHEK/SA) BP Systolic 2017-09-24 01:37:00 126 mm[Hg] [facility] (LUF/ABHISHEK/SA) BP Diastolic 2017-09-24 01:37:00 76 mm[Hg] [facility] (LUF/ABHISHEK/SA) Height 2017-09-23 21:40:00 65 in [facility] (LUF/ABHISHEK/SA) Weight Measured 2017-09-23 21:40:[address] [facility] S [facility] (LUF/ABHISHEK/SA) BMI (Body Mass 2017-09-23 21:40:00 32.3 [facility] (LUF/ABHISHEK/SA) Procedures Procedure Date / Time Performing Clinician Source Performed ASPIRATE OR ABSCESS 2021-03-09 13:25:00 Uri Marx [facility] CULTURE(AEROBIC/ANAEROBIC) Medic al Branch EXCISION LESION BACK 2021-03-09 12:27:00 Uri Marx [facility] Medical Branch EXCISION LESION UPPER 2021-03-09 12:27:00 Uri Marx [facility] EXTREMITY Medical Branch DAY SURGERY - ADC 2021-03-09 05:01:00 Doctor Reese [facility] Name Medical Branch EXTERNAL PROVIDER RECORDS 2021-03-08 05:01:00 Doctor Leigh, [facility] Name Medical Branch CONSENT/REFUSAL FOR 2021-03-07 21:17:09 Doctor Reese [facility] DIAGNOSIS AND TREATMENT [facility] ASSIGNMENT OF BENEFITS 2021-03-07 21:16:50 Doctor Leigh [facility] Name Medical Branch NO SHOW OR MISSED 2021-03-07 21:16:29 Doctor Reese [facility] APPOINTMENT POLICY [place] [facility] h ACKNOWLEDGEMENT [facility] PATIENT FINANCIAL 2021-03-07 21:15:49 Doctor Unassbinta, [facility] POLICY [facility] NOTICE OF BILLING 2021-03-07 21:15:13 Doctor Reese, [facility] PRACTICES FOR MEDICARE [place] [facility] ranch PATIENTS NOTICE OF PRIVACY 2021-03-07 21:14:48 Doctor Unassigned, [facility] PRACTICES [facility] [facility] CONSENT/REFUSAL FOR 2021-03-07 21:14:29 Doctor Reese, [facility] DIAGNOSIS AND TREATMENT [facility] [facility] [place] ASSIGNMENT OF BENEFITS 2021-03-07 21:14:12 Doctor Reese, [facility] [facility] [place] EXTERNAL PROVIDER RECORDS 2021-03-07 05:01:00 Doctor Reese, [facility] [facility] [place] EXTERNAL PROVIDER RECORDS 2021-03-07 05:01:00 Doctor Reese, [facility] [facility] [place] RIGHT KNEE [facility] (LUF/ABHISHEK/SA) Appendectomy Pending sale to [facility] (LUF/ABHISHEK/SA) Cholecystectomy Pending sale to [facility] (LUF/ABHISHEK/SA) Hysterectomy Pending sale to [facility] (LUF/ABHISHEK/SA) RIGHT KNEE Pending sale to [facility] (LUF/ABHISHEK/SA) Encounters Start End Encounter Admission Attending Care Care Encounter Source Date/Time Date/Time Type Type Clinicians Facility Department ID 2021-05-31 Outpatient [facility] [id number] Common 12:38:25 Kip [id number] [facility] 2021-05-31 Outpatient [facility] [id number] Common 12:14:19 Kip [id number] [facility] 2021-05-22 2021-05-22 Laboratory Only, Ang Db Test [facility] 1.2.8 40.114 [id number] Univers 14:15:00 14:30:00 Only [employer] [id number] ity of [place] [id number] Tae as JOSUE?BLEA [id number] Il jonathan [address] MEDICAL OFFICE BUILDING 2021-05-22 2021-05-22 Outpatient R MAE [facility] [id number] Univers 14:15:00 14:15:00 OMLILLIPramod ity [facility] 2021-03-09 2021-03-09 Hospital [place] [facility] [id number] Univers 06:41:00 10:10:00 Encounter Uri PETER [id number] [id number] [id number] [facility] [address] [place] 2021-03-09 2021-03-09 Outpatient [facility] SAV [id number] Univers 06:41:00 10:10:00 URI jeane [facility] 2021-03-09 2021-03-09 Surgery [place] [facility] [id number] Univers 07:30:00 10:06:00 Uri PETER [id number] i [place]ICAL [id number] [facility] 020 Branch 2021-03-09 2021-03-09 Orders Doctor TANYA 1.2.840.114 [id number] Univers 00:00:00 00:00:00 Only UnassignedHEYDI [id number] [facility] 4.2.7.2.686 Tae as [id number] [facility] 009 Branch 2021-03-08 2021-03-08 Laboratory Only, Adc Test [facility] 1.2.840. 114 [id number] Univers 11:39:34 11:54:34 Only Uri Marx [id number] [place] C[place] [id number] [facility] 353 Branch 2021-03-08 2021-03-08 [facility] [id number] Univers 10:45:00 10:45:00 URI zaragoza [facility] 2021-03-08 2021-03-08 Orders Doctor MARTÍNEZ 1.2.840.114 [id number] Univers 00:00:00 00:00:00 Only UnassignedHEYDI [id number] ity of [place] [facility] 4.2.7.2.686 Tae [id number] [facility] 009 Branch 2021-03-07 2021-03-07 [facility] 1.2.840.114 [id number] Univers 16:09:28 23:59:00 Encounter Uri PETER [id number] ity of [facility] 4.2.7.2.686 [facility] [id number] [facility] 807 Branch 2021-03-07 2021-03-07 Floor Broker Naomie, Adc Lab Main [facility] 1.2.8 40.114 [id number] Univers 16:09:12 16:24:12 Visit Dale Galeano [id number] ity of [place] J Uri [facility] 4.2.7.2.686 [facility] [id number] Il dical NAL 353 Branch [facility] 2021-03-07 2021-03-07 Outpatient R [facility]ANC[facility]CO [facility] [id number] Univers 16:13:15 16:08:00 URI ity [facility] 2021-03-07 2021-03-07 [facility] 1.2.840.114 [id number] Univers 15:45:00 16:08:00 Encounter Uri PETER [id number] ity of [facility] 4.2.7.2.686 [facility] [id number] [facility] 850 Branch 2020-07-04 2020-07-04 OFFICE STLMLC STLMLC [id number] Co mmon 00:00:00 00:00:00 VISIT EST Spir it PT LEVEL 3 - [facility] 2020-05-25 2020-05-25 OFFICE STLMLC STLMLC [id number] Co mmon 00:00:00 00:00:00 VISIT Spirit ESTAB PT - CHI LEVEL 4 [facility] 2020-05-10 2020-05-10 (TEL) STLMLC STLMLC [id number] Co mmon 00:00:00 00:00:00 Spirit - [facility] 2020-05-03 2020-05-03 (TEL) STLMLC STLMLC [id number] Co mmon 00:00:00 00:00:00 [facility] 2020-04-25 2020-04-25 (TEL) STLC STLC [id number] Co mmon 00:00:00 00:00:00 [facility] 2020-04-21 2020-04-21 OFFICE [facility] [id number] Co mmon 00:00:00 00:00:00 VISIT [facility] PT LEVEL 4 - [facility] 2019-10-26 2019-10-[address] [facility] [id number] 15:02:00 18:15:00 TANNER [facility] REDDY L ukes JUNCTION N, [address] [place], ([place] [address] 2018-10-30 2018-10-30 RADILUIGI HUBER, [facility] [id number] 14:48:00 17:52:00 THY LIVINGSTO REDDY L ukes CERVICAL N, [address] [place], (LUF/[place] [address] 2018-10-17 2018-10-17 OTH SPEC 3 HEREDIA, [facility] [id number] 09:32:00 23:59:00 DORSOPATHI AGR[facility]EL [facility] ES CERV N, [address], (LUF/[place] [address] 2018-10-17 2018-10-17 ASHTYN NAIR, [facility] [id number] 10:35:00 11:31:00 THY APOLINAR ROSENDAO REDDY L ukes CERVICAL N, [address], (LUF/[place] [address] 2018-10-04 2018-10-04 ASHTYN HUBER, [facility] [id number] 14:03:00 15:00:00 THY LIVINGST[place] REDDY L ukes CERVICAL N, [address], (LUF/[place] [address] 2018-08-28 2018-08-28 CERVICALGI HUBER, [facility] [id number] 11:43:00 14:12:00 A AROLDO Mckoy ukes N, [address], (LUF/[place] [address] 2018-08-08 2018-08-08 OTH SPEC 3 HEREDIA, [facility] [id number] 09:59:00 23:59:00 DORSOPATHI AGRICEL AROLDO Blas ES CERV N, [address], (LUF/[place] [address] 2018-06-04 2018-06-04 UNS VIRAL O DALEY, [facility] [id number] 09:46:00 23:59:00 HEPATITIS EVON Blas C W/O HEP N, [address], (LUF[place] [address] 2018-05-20 2018-05-20 PAIN IN 3 JI, [facility] [id number] [facility] 09:27:00 23:59:00 RIGHT KIP Blas UPPER ARM N, [address], (LUF/[place] [address] 2018-04-17 2018-04-17 OTH ABN 3 JI, [facility] [id number] [facility] 09:21:00 23:59:00 INCONCL KIP Blas FIND DX N, [address] BREAST BYPASS, ([place] [address] 2018-03-11 2018-03-11 Inpatient O DALEY, [facility] [id number] 11:55:00 23:59:00 EVON Blas N, [address], (LUF/[place] [address] 2018-02-25 2018-02-[address] [facility] [id number] 13:04:00 23:59:00 LIVINGMARIN REDDY L ukes N, [address], (LUF[place] [address] 2018-02-04 2018-02-04 CHRONIC O HEREDIA, [facility] [id number] [facility] 11:11:00 23:59:00 VIRAL AGRICEL AROLDO REDDY L ukes HEPATITIS N, [address], (LUF/[place] [address] 2018-01-09 2018-01-09 UNS VIRAL O DALEY, [facility] [id number] 12:39:00 23:59:00 HEPATITIS RAGHUVEER Dilcia [facility] Roopa C W/O HEP N, [address], (LUF[place] [address] 2017-11-05 2017-11-05 CHRONIC O DALEY, [facility] [id number] [facility] 08:20:00 23:59:00 VIRAL RAGHUVEER Dilcia [facility] Roopa HEPATITIS N, [address], ([place] [address] 2017-10-03 2017-10-[address] [facility] [id number] 08:10:00 23:59:00 CHEST PAIN IL, [facility] Roopa JOHN N, [address], ([place] [address] 2017-10-02 2017-10-02 HYPERLIPID O SOLHPOUR, [facility] [id number] 12:33:00 23:59:00 [facility] UNSPECIFIE N, [address], ([place] [address] 2017-09-25 2017-09-26 OTHER I CHARLESUR, [facility] [id number] 17:37:00 14:05:00 CHEST PAIN [facility], [address] (LUF/[address], V/[place]) [place] [address] 2017-09-25 2017-09-25 UNSTABLE 1 CEDRIC, [facility] [id number] 10:16:00 15:52:00 ANGINA CLEMENT AROLDO Mckoy ukes N, [address], (LUF[place] [address] 2017-09-23 2017-09-24 CHEST PAIN E KOREY, [facility] [id number] 21:34:00 01:39:00 UNSPECIFIE APOLINAR AROLDO REDDY [facility] D N, [address], ([place] [address] 2017-08-19 2017-08-19 OTH ABN 3 JI, [facility] [id number] [facility] 13:06:00 23:59:00 INCONCL KIP calabrese FIND DX N, [address] BREAST [place]PASS, (LUF[place] [address] 2017-07-31 2017-07-31 ENC SCR 3 JI, [facility] [id number] [facility] 10:47:00 23:59:00 MAMMO KIP calabrese MALIG N, [address] [place]AST [place], ([place] [address] Results Test Description Test Time Test Comments Results Result Sourc e Comments XR RIBS 2019-10-06 Left rib series with [facility] UNILATER[facility]/ PA 2 PA chest, 5 CHEST 16:57:42 views:History: Rib painNo acute rib fracture is identified. There is old healed fracture of the leftsixth rib. No pneumothorax or pleural effusion is noted. The frontal view of thechest shows no acute cardiopulmonary abnormality.Impressi on: No acute rib fracture.This final report was electronically signed by Dr Jerrell Sanchez MD 10/26/20194:51 PMDictated By: JERRELL SANCHEZDate: 10/26/2019 16:51 MRI CSPINE W/O 2019-05-07 "If patient is EXAMINATION: MRI of [facility] CONTRAST 0 claustrophobic the cervical spine 15:23:44 , contact without ordering ph contrastHISTORY: ysician for Chronic neck pain additional radiating to the instructions." left upper extremityCOMPARISON: Cervical spine MRI of 10/17/[address] 10/09/16TECHNIQUE: Sagittal T1, T2, STIR; axial T2, gradient echo.FINDINGS:Curvat ure: Normal lordosis.Vertebrae: No evidence of neoplasm, infection, or fracture.Foramen magnum: No mass, Chiari malformation, or basilar invagination.Spinal Cord: Normal size and signal intensity.Soft Tissues: Unremarkable.Degener ative changes:C1-C2: Unremarkable.C2-C3: Unremarkable.C3-C4: Again seen fusion of the left facet joint. No canal or foraminalstenoses.C4 -C5: Small disc osteophyte complex formation, bilateral uncovertebral andfacet arthroses worse on the left with degenerative synovitis (bone marrow edemaand periarticular soft tissue swelling). Mild left foraminal narrowing.C5-C6: Asymmetric right disc osteophyte complex formation, uncovertebraland facet arthroses. Mild right foraminal stenoses.C6-C7: Minimal disc bulge and facet arthrosis without stenoses.C7-T1: Unremarkable.IMPRESS ION:1. Persistent prominent degenerative facet synovitis on the left side at C4-C5.2. Mild degenerative foraminal stenosis on the left at C4-C5 and on the rightat C5-6.This final report was electronically signed by Dr Law Taylor MD 05/25/2019 3:17PMDictated By: LAW TAYLORDate: 05/25/2019 15:17 [facility] 2019-04-22 09:48:00 Test Item Value Reference Range [...] EGFR if Non- >60 mL/min/1.73m\\S\\2 Estimated Glomerular Tristanian (test code = Filtra tion Rate (eGFR) EGFRNA) Reference Inter vals Decision Points for 18 y ears and older and average bod y mass: >= 60 Does not exclud e kidney disease. 30 - 5 9 Suggests moderate chroni c kidney disease and ind icates the need for furthe r investigation i ncluding assessment of p roteinuria and cardiovascular factors. < 30 Usually indicat es a need for referral for as sessment and management of c hronic kidney failure. [facility] Test Item Value Reference Range Interpretation Comments Lipase (test code = LIPA) 269 U/L 8-223 H [facility] ([facility] ONLY)2019-04-22 09:05:00 Test Item Value Reference [...] AKS PRESENT ON THE RBC HISTOGRAM. IN T HIS CASE, A MANUAL REVIEW OF THE SLIDE WI LL BE PERFORMED, AND RBC MORPHOLOGY WILL BE NOTED ON THE RE PORT. [facility] 14:03:00 Test Item Value Reference Range Interpretation [...] , each yielding differ ent values. This co rrected result was base d on the formula: Co rrected Calcium = Serum Calcium + [0.8 * ( 4 - SerumAlbumin)] EGFR if >60 Tristanian (test code mL/min/1.73m\\ = EGFRAA) S\\2 EGFR if Non- >60 Estimate d Glomerular Tristanian (test code mL/min/1.73m\\ Filtrat ion Rate (eGFR) = EGFRNA) S\\2 Reference Inter vals Decision Points for 18 years and older and average body ma ss: >= 60 Does not exc lude kidney disease. 30 - 59 Suggests mod erate chronic kidney disease and indicates t he need for further investigation including asses sment of proteinuria and cardiovascular factors. < 30 U sually indicates a nee d for referral for assessment and management of c hronic kidney failure. [facility] 13:56:00 Test Item Value Reference Range Interpretation Comments Lipase (test code = LIPA) 232 U/L 8-223 H [facility] (HEMOGRAM ONLY)2019-04-21 13:41:00 Test Item Value Reference [...] AKS PRESENT ON THE RBC HISTOGRAM. IN T HIS CASE, A MANUAL REVIEW OF THE SLIDE WI LL BE PERFORMED, AND RBC MORPHOLOGY WILL BE NOTED ON THE RE PORT. [facility] ABDOMEN [id number] 14:19:42Hx of RUQ pain, S/P GB resection, and some alcohol over the weekend now with pain, please assess forpossible bile duct stoneRIGHT UPPER QUADRANT ULTRASOUND:INDICATION: Right [...] final report was electronically signed by Dr Jerrell Sanchez MD 04/20/20192:13 PMDictated By: JERRELL SANCHEZDate: 2018 14:13[facility]PELVIS [id number] 07:28:14EXAM: CT Abdomen and Pelvis WITH contrastINDICATION: [id number]: Abdominal pain quadrant pain, nausea tonight, hep CCOMPARISON: Abdominal CT October 09, 2016.TECHNIQUE: Abdomen and pelvis were scanned utilizing a multidetector helicalscanner from the lung base to the pubic symphysis after administration ofIVcontrast. Coronal and sagittal reformations were obtained. Routine protocol wasperformed. Scan was performed when during portal venous phase.IV CONTRAST: 100 mL of Isovue 300ORAL CONTRAST: NoneCOMPLICATIONS: NoneRADIATION DOSE:Total DLP: 1004 mGy*cmEstimated effective dose: [...] focal hepatic lesions. Mildhepatomegaly. There is intra- and extra- hepatic biliary dilation likely postcholecystectomy reservoir effect, unchanged since February 08, 2017.GALLBLADDER: There are cholecystectomy clips.SPLEEN: No splenomegaly. Stable 3.8 cm circumscribed hypodense mass within thespleen with some internal heterogeneity, unchanged since October 09, 2016,compatible with a benign entity such as hemangioma or hamartoma..PANCREAS: No focal masses or ductal dilatation.ADRENALS: No adrenal nodules. Stable slightly thickened and hypodense leftadrenal gland, unchanged since October 09, 2016.KIDNEYS/URETERS: Kidneys enhance symmetrically. No hydronephrosis.Subcentimeter left renal interpolar hypodensity, too small to characterize,likely benign. No stones.GI TRACT: No abnormal distention, wall thickening, or evidence of bowelobstruction. Appendix absent.PELVIC ORGANS/BLADDER: Hysterectomy. No adnexal masses.LYMPH NODES: No lymphadenopathy.VESSELS: There is mild atherosclerotic disease in the aorta and major arterialbranches.PERITONEUM / RETROPERITONEUM: No free air or fluid.BONES: There are degenerative changes in the spine and hips.SOFT TISSUES: Unremarkable .IMPRESSION:Heterogeneity of the right and central hepatic parenchyma, with periportal edemaand mildhepatomegaly, can be seen with acute hepatitis.This final report was electronically signed by Dr Apolinar Patrick DO 04/20/20197:21 AMDictated By: APOLINAR PATRICKDate: 04/20/2019 07:21[facility] [id number] 05:04:00 Test Item Value Reference Range Interpretation [...] , each yielding differ ent values. This co rrected result was base d on the formula: Co rrected Calcium = Serum Calcium + [0.8 * ( 4 - SerumAlbumin)] EGFR if >60 Tristanian (test code mL/min/1.73m\\ = EGFRAA) S\\2 EGFR if Non- >60 Estimate d Glomerular Tristanian (test code mL/min/1.73m\\ Filtrat ion Rate (eGFR) = EGFRNA) S\\2 Reference Inter vals Decision Points for 18 years and older and average body ma ss: >= 60 Does not exc lude kidney disease. 30 - 59 Suggests mod erate chronic kidney disease and indicates t he need for further investigation including asses sment of proteinuria and cardiovascular factors. < 30 U sually indicates a nee d for referral for assessment and management of c hronic kidney failure. [facility] 05:04[facility]00 Test Item Value Reference Range Interpretation Comments Lipase (test code = LIPA) 586 U/L 8-223 H [facility]IS WITH [id number] 04:55:00 Test Item Value Reference Range Interpretation Comments Color (test code = UCOLR) Lt. Yellow Clarity (test code = UCLAR) Clear Glucose (test code = UGLUC) NEGATIVE NEGATIVE N Bilirubin (test code = UBILI) NEGATIVE NEGATIVE N Ketones (test code = UKET) NEGATIVE NEGATIVE N Specific [place] (test code = 1.010 1.005-1.030 A USPGR) [...] = UBACT) None seen None Seen,Trace A [facility] HospitalCB WITH AUTO [id number] 04:34:00 Test Item Value Reference Range Interpretation [...] AKS PRESENT ON THE RBC HISTOGRAM. IN T HIS CASE, A MANUAL REVIEW OF THE SLIDE [...] code = 0.7 % 0.0-0.4 H IG%) [facility] CenterLivingCastleberryRYTHROCYTE SED [id number] 13:57:00 Test Item Value Reference Range Interpretation Comments Sed Rate (test 23 mm/hr 0-35 EFFECTIVE 08-04, THE code = ESR) METHODOLOGY USE D FOR ERYTHROCYTE SED IMENTATION RATE HAS CHANGE D. THE NORMAL RANGES H AVE CHANGED. PLEASE NOTE JOHN T RANGES ARE DEFINED BY THE AGE OF THE PATIENT. NEW RE FERENCE RANGES: Females 0-49 years old = 0-25 mm/h r Females 50-999 years ol d = 0-35 mm/hr Males 0-4 9 years old = 0-20 mm/hr Ma les 50-999 years old = 0-2 5 mm/hr [facility]-fkinCB (HEMOGRAM ONLY)2019-03-16 13:19:00 Test Item Value Reference [...] AKS PRESENT ON THE RBC HISTOGRAM. IN T HIS CASE, A MANUAL REVIEW OF THE SLIDE WI LL BE PERFORMED, AND RBC MORPHOLOGY WILL BE NOTED ON THE RE PORT. [facility]-LufkinMRI CSPINE W/O [id number] 15:49:03"If patient is claustrophobic, contact ordering ysician for additional instructions."MRI of the cervical spine without contrast:History: Neck pain and left shoulder and arm painMultiplanar magnetic resonance imaging of the cervical spine was performedwithout contrast.There is normal alignment of the cervical spine. No disc space narrowing isnoted. There is no abnormal marrow or disc si gnal identified.No disc herniation or significant disc bulging [...] final report was electronically signed by Dr Jerrell Sanchez MD 10/17/20183:42 PMDic tated By: Nathanael SANCHEZte: 10/17/2018 15:42[facility] CAMP LEJEUNEXR CERV SPINE MIN 4-5 [id number] 12:09:31Cervical spine series 5 views:History: Neck painAP, lateral, odontoid and both oblique views were obtained. No fracture orsubluxation is identified. No disc space narrowing is noted. There is noprevertebral soft tissue swelling. The sagittal diameter of the spinal canalappears adequate.Impression: Negative cervical spine series.This final report was electronically signed by Dr Jerrell Sanchez MD 08/08/201812:03 PMDictated By: Nathanael SANCHEZte: 08/08/2018 12:03[facility] CAMP LEJEUNEHCV, RNA, QUANT RT PCR, VIRAL [id number] 06:13:00 Test Item Value Reference Range Interpretation Comments HEPATITIS C HCV Not QUANTITATION (test Detected IU/mL code = 000018) HCV LOG10 (test code SEATING UPHOLSTERER = 811259) TEST INFORMATION Comment The quantit ative (test code = 072174) range o f this assay is 15 IU/mL to 100 million IU/mL. PERFORMED AT: [facility] [id number] HELP DESK REP: Etienne Cervantes MD PHONE: [phone] All Saints HospitalCMP2019-01-30 11:50:00 Test Item Value Reference Range Interpretation [...] , each yielding differ ent values. This co rrected result was base d on the formula: Co rrected Calcium = Serum Calcium + [0.8 * ( 4 - SerumAlbumin)] EGFR if >60 Tristanian (test code mL/min/1.73m\\ = EGFRAA) S\\2 EGFR if Non- >60 Estimate d Glomerular Tristanian (test code mL/min/1.73m\\ Filtrat ion Rate (eGFR) = EGFRNA) S\\2 Reference Inter vals Decision Points for 18 years and older and average body ma ss: >= 60 Does not exc lude kidney disease. 30 - 59 Suggests mod erate chronic kidney disease and indicates the need for furthe r investigation including asses sment of proteinuria and cardiovascular factors. < 30 Usually indicates a nee d for referral for assessment and management of c hronic kidney failure. [facility] WITH AUTO [id number] 11:37:00 Test Item Value Reference Range Interpretation [...] (test code = IG%) 0.3 % 0.0-0.4 [facility] EXTREMITY NON VASC-SPECIFIC [id number] 10:38:25Ultrasound of the right axillary region:History: Right axillary pain and tendernessTargeted ultrasound examination of the right axilla was performed. No cyst orsolid lesion is visualized. No lymphadenopathy is noted. There is no fluidcollection noted.Impression: Negative ultrasound of the right axilla.This final report was electronically signed by Dr Jerrell Sanchez MD 05/20/201810:32 AMDictated By: JERRELL SANCHEZDate: 05/20/2018 10:32[facility] MAMMO DIAG 3D IBTF-[id number] 08:29:26Procedure: MM MAMMO DIAG 3D CASA- BilateralExam Date: 04/17/2018 9:30 AMOrdering Provider: KIP Lopezinical Indication: Digital screening mammography.Comparison: July 31, 2017 and August 09, 2017Technique: 3-D tomosynthesis views of both breasts were obtained. The study isinterpreted using computer-aided detection (CAD).Findings:There are scattered fibroglandular densities in each breast.Continued stability of the left retroareolar nodule, showing findings suggestingfibroadenoma on ultrasound.There are benign calcifications in each breast.There are no pathologic skin or nipple alterations.Impression: No mammographic findings to suggest malignancy. The retroareolarnodule in the left breast can be followed by ultrasound at six-month intervalsuntil two-year stability is established.BIRADS Result 3: Probably benign, short term follow up recommended.This final report was electronically signed by Dr Jerrell Sanchez MD 04/18/20188:23 AMDictated By: JERRELL SANCHEZDate: 04/18/2018 08:23[facility]ENTERHCV, RNA, QUANT RT PCR, VIRAL [id number] 08:31:00 Test Item Value Reference Range Interpretation Comments HEPATITIS C HCV Not QUANTITATION (test Detected IU/mL code = 746306) HCV LOG10 (test code SEATING UPHOLSTERER = 473312) TEST INFORMATION Comment The quantit ative (test code = 683016) range o f this assay is 15 IU/mL to 100 million IU/mL. PERFORMED AT: [address] [id number] HELP DESK REP: Eitenne Cervantes MD PHONE: [phone] All Saints HospitalCMP2018-11-06 13:17:00 Test Item Value Reference Range Interpretation [...] , each yielding differ ent values. This co rrected result was base d on the formula: Co rrected Calcium = Serum Calcium + [0.8 * ( 4 - SerumAlbumin)] EGFR if >60 Tristanian (test code mL/min/1.73m\\ = EGFRAA) S\\2 EGFR if Non- >60 Estimate d Glomerular Tristanian (test code mL/min/1.73m\\ Filtrat ion Rate (eGFR) = EGFRNA) S\\2 Reference Inter vals Decision Points for 18 years and older and average body ma ss: >= 60 Does not exc lude kidney disease. 30 - 59 Suggests mod erate chronic kidney disease and indicates t he need for further investigation including asses sment of proteinuria and cardiovascular factors. < 30 U sually indicates a nee d for referral for assessment and management of c hronic kidney failure. [facility] WITH AUTO [id number] 12:37:00 Test Item Value Reference Range Interpretation [...] code = IG%) 0.5 % 0.0-0.4 H [facility] HospitalURINALYSIS WITH [id number] 13:40:00 Test Item Value Reference Range Interpretation Comments Color (test code = UCOLR) LT. YELLOW Clarity (test code = UCLAR) CLEAR Glucose (test code = UGLUC) NEGATIVE NEGATIVE N Bilirubin (test code = UBILI) NEGATIVE NEGATIVE N Ketones (test code = UKET) NEGATIVE NEGATIVE N Specific [place] (test code = <=1.005 1.005-1.030 A USPGR) [...] code = UBACT) Trace None Seen,Trace N [facility] HospitalCMP2018-10-02 13:13:00 Test Item Value Reference Range Interpretation [...] , each yielding differ ent values. This co rrected result was base d on the formula: Co rrected Calcium = Serum Calcium + [0.8 * ( 4 - SerumAlbumin)] EGFR if >60 Tristanian (test code mL/min/1.73m\\ = EGFRAA) S\\2 EGFR if Non- >60 Estimate d Glomerular Tristanian (test code mL/min/1.73m\\ Filtrat ion Rate (eGFR) = EGFRNA) S\\2 Reference Inter vals Decision Points for 18 years and older and average body ma ss: >= 60 Does not exc lude kidney disease. 30 - 59 Suggests mod erate chronic kidney disease and indicates t he need for further investigation including asses sment of proteinuria and cardiovascular factors. < 30 U sually indicates a nee d for referral for assessment and management of c hronic kidney failure. [facility]-REACTIVE [id number] 13:12:00 Test Item Value Reference Range Interpretation Comments C REACTIVE PROTEIN (test code = <2.9 mg/dl 0.0-0.9 H CRP) [facility] HospitalstonERYTHROCYTE SED [id number] 12:32:00 Test Item Value Reference Range Interpretation Comments Sed Rate (test 38 mm/hr 0-35 H EFFECTIVE 08-04, THE code = ESR) METHODOLOGY USE D FOR ERYTHROCYTE SED IMENTATION RATE HAS CHANGE D. THE NORMAL RANGES H AVE CHANGED. PLEASE NOTE JOHN T RANGES ARE DEFINED BY THE AGE OF THE PATIENT. NEW RE FERENCE RANGES: Females 0-49 years old = 0-25 mm/h r Females 50-999 years ol d = 0-35 mm/hr Males 0-4 9 years old = 0-20 mm/hr Ma les 50-999 years old = 0-2 5 mm/hr [facility]CB WITH AUTO [id number] 12:07:00 Test Item Value Reference Range Interpretation [...] AKS PRESENT ON THE RBC HISTOGRAM. IN T HIS CASE, A MANUAL REVIEW OF THE SLIDE [...] code = 0.6 % 0.0-0.4 H IG%) [facility] HospitalCMP2018-09-06 15:37:00 Test Item Value Reference Range Interpretation [...] , each yielding differ ent values. This co rrected result was base d on the formula: Co rrected Calcium = Serum Calcium + [0.8 * ( 4 - SerumAlbumin)] EGFR if >60 Tristanian (test code mL/min/1.73m\\ = EGFRAA) S\\2 EGFR if Non- >60 Estimate d Glomerular Tristanian (test code mL/min/1.73m\\ Filtrat ion Rate (eGFR) = EGFRNA) S\\2 Reference Inter vals Decision Points for 18 years and older and average body ma ss: >= 60 Does not exc lude kidney disease. 30 - 59 Suggests mod erate chronic kidney disease and indicates t he need for further investigation including asses sment of proteinuria and cardiovascular factors. < 30 U sually indicates a nee d for referral for assessment and management of c hronic kidney failure. [facility] WITH AUTO [id number] 14:32:00 Test Item Value Reference Range Interpretation [...] AKS PRESENT ON THE RBC HISTOGRAM. IN T HIS CASE, A MANUAL REVIEW OF THE SLIDE [...] code = 0.5 % 0.0-0.4 H IG%) [facility] RNA GENOTYPE [id number] 12:58:00 Test Item Value Reference Range Interpretation Comments HEPATITIS C GENOTYPE 1a TEST PE RFORMED AT (test code = 020902) [facility] [id number] 10:32:00 Test Item Value Reference Interpretation Comments Range FIBROSIS SCORE (test 0.08 0.00-0.21 N code = 431066) FIBROSIS STAGE (test Comment F0 - N o fibrosis code = 506758) NECROINFLAMMAT 0.08 0.00-0.17 N ACTIVITY SCORE (test code = 580887) NECROINFLAMMAT A0-No ACTIVITY GRADE (test activity code = 682388) Alpha 2 248 mg/dL 110-276 N Macroglobulins Qn (test code = 917320) Haptoglobin (test 216 mg/dL 34-200 H code = 916116) Apolipoprotein A1 170 mg/dL 116-209 N (test code = 752748) Bilirubin, Total 0.2 mg/dL 0.0-1.2 N (test code = 802623) GGT (test code = 19 IU/L 0-60 N 047028) ALT P5P (test code = 24 IU/L 0-40 N 782543) INTERPRETATIONS (test Comment Quanti tative results code = 354143) of 6 biochemi zaynab tests are analyzed us ing a computational algorithm to pr ovide a quantitative ulrich rrogate marker (0.0-1.0 ) for liver fibrosis (METAVIR F0-F4) and for necroinflam matory activity (METAV IR A0-A3). Fibrosis Scoring Comment <0.21 = St age F0 - No (test code = 145968) fibrosi s 0.21 - 0.27 = Stage F0 - F1 0 .27 - 0.31 = Stage F1 - Portal fibrosis 0.31 - 0.48 = Stage F1 - F2 0.48 - 0.58 = S tage F2 - Bridging fibr osis with few septa 0.58 - 0.72 = Stage F3 - Bridging fibros is with many septa 0.72 - 0.74 = Stage F3 - F4 >0.74 = Stage F4 - Ci rrhosis NECROINFLAMM ACTIVITY Comment <0.17 = Grade A0 - No SCORING (test code = Activit y 0.17 - 0.29 = 920740) Grade A0 - A1 0 .29 - 0.36 = Grade A1 - Minimal activit y 0.36 - 0.52 = Grade A1 - A2 0.52 - 0.60 = G rade A2 - Moderate acti vity 0.60 - 0.62 = G rade A2 - A3 >0.62 = Gr nayely A3 - Severe activi ty LIMITATIONS (test Comment The negati ve code = 131785) predictive va lue of a Fibrotest score <0.31 (absence of cli nically significant fib rosis) was 85% when co mpared to liver biopsy in 1,270 HCV infec priyank patients with a 38% prevalence of significant abhishek er fibrosis (F2, 3 or 4). The positive predictive valu e of a Fibro- test sco re >0.48 (F2, 3, 4 ) was 61% in that [facility] patient cohort. HCV FibroSURE is no t recommended in patients with G ilbert Disease, acute hemolysis (e.g. HCV ribavirin thera py mediated hemoly sis) acute hepa- tit is of the liver, extra-hepatic cholestasis, transplant ray ents, and/or renal insufficiency patients. Any o f these clinical situat ions may lead to jerrell ccurate quantitative predictions of fibrosis and necroinflammato ry activity in the liver. COMMENT (test code = Comment This te st was 123728) developed and i ts performance characteristics determined by [employer]. It has not been cleared or appr jluis by the Food and Dr ug Administration. The FDA has determi bettie that such clear ance or approval is not necessary. For questions narcisoar parmjit this report ple ase contact custome r service at . [facility] HospitalHEP B SURFACE [id number] 06:14:00 Test Item Value Reference Range Interpretation Comments FT (test code = Negative Negative N HBSAG) (qualifier value) Hep B Surface Ag 0.05 mIU/mL HBsAg Signa l Cutoff (Signal Value) Interpretatio n Guide: (test code = < 1.00 Negative HBSAG.SV) Specimen is pre sumed to be negative for HBsAg. >=1.00 a nd < 5.00 Reactive S pecimen is reactive for HBsAg. Suggest confirm ation by supplemental testing. > 5.00 Positive Specim en is positive for HB sAg. [facility] HospitalUS [facility]IC- Liver/ [id number] 11:30:35RIGHT UPPER QUADRANT ULTRASOUND:DATE: 11/05/2017INDICATION: Chronic viral [...] final report was electronically signed by Dr Jerrell Sanchez MD 11/05/201711:24 AMDictated By: EJRRELL SANCHEZDate: 11/05/2017 11:30[facility] MYOCARD PERF STRESS REST [id number] 14:24:44NUCLEAR MEDICINE REST/STRESS MYOCARDIAL PERFUSION SPECT SCANDATE OF EXAM: 0-52-64PFIHQITRPQ: risk factorsCOMPARISON: nilDISCUSSION: Nuclear medicine myocardial perfusion SPECT imaging acquired andreviewed. Rest and stress images were acquired post intravenous lciryltsaddnve15 mCi and 30 mCi [id number] labeled Cardiolite, respectively per departmentprotocol. The patient [...] pharmacologic stress myocardial perfusion SPECT scan.Small low intensity, fixed lateral defects noted .2. There is no regional wall motion abnormality, with cardiac ejectionfractionestimated at 72 percent.This final report was electronically signed by John Cooper MD10/03/2017 2:18 PMDictated By: JOHN COOPERDate: 10/03/2017 14:24[facility] [id number] 14:19:00 Test Item Value Reference Range Interpretation [...] , each yielding differ ent values. This co rrected result was base d on the formula: Co rrected Calcium = Serum Calcium + [0.8 * ( 4 - SerumAlbumin)] EGFR if >60 Tristanian (test code mL/min/1.73m\\ = EGFRAA) S\\2 EGFR if Non- >60 Estimate d Glomerular Tristanian (test code mL/min/1.73m\\ Filtrat ion Rate (eGFR) = EGFRNA) S\\2 Reference Inter vals Decision Points for 18 years and older and average body ma ss: >= 60 Does not exc lude kidney disease. 30 - 59 Suggests mod erate chronic kidney disease and indicates t he need for further investigation including asses sment of proteinuria and cardiovascular factors. < 30 U sually indicates a nee d for referral for assessment and management of c hronic kidney failure. [facility] (HEMOGRAM ONLY)2017-10-02 13:46:00 Test Item Value Reference [...] AKS PRESENT ON THE RBC HISTOGRAM. IN T HIS CASE, A MANUAL REVIEW OF THE SLIDE WI LL BE PERFORMED, AND RBC MORPHOLOGY WILL BE NOTED ON THE RE PORT. [facility]-LivingstonHEPARIN [id number] 11:44:00 Test Item Value Reference Range Interpretation Comments HEPARIN XA (test code = HEPXA) 0.36 0.30-0.70 [facility]-[id number] 05:31:00 Test Item Value Reference Range Interpretation [...] mg/dl 8.4-10.2 = CALC) EGFR if >60 Tristanian (test code mL/min/1.73m\\ = EGFRAA) S\\2 EGFR if Non- >60 Estimate d Glomerular Tristanian (test code mL/min/1.73m\\ Filtrat ion Rate (eGFR) = EGFRNA) S\\2 Reference Inter vals Decision Points for 18 years and older and average body ma ss: >= 60 Does not exc lude kidney disease. 30 - 59 Suggests mod erate chronic kidney disease and indicates t he need for further investigation including asses sment of proteinuria and cardiovascular factors. < 30 U sually indicates a nee d for referral for assessment and management of c hronic kidney failure. [facility] AndersonkinCB WITH AUTO [id number] 05:30:00 Test Item Value Reference Range Interpretation [...] AKS PRESENT ON THE RBC HISTOGRAM. IN T HIS CASE, A MANUAL REVIEW OF THE SLIDE [...] code = 0.7 % 0.0-0.4 H IG%) [facility]-fkinHEPARIN [id number] 05:28:00 Test Item Value Reference Range Interpretation Comments HEPARIN XA (test code = HEPXA) 0.42 0.30-0.70 [facility]kinTROPONIN-I [id number] 01:04:00 Test Item Value Reference Range Interpretation Comments Troponin-I (test <0.012 ng/ml 0.000-0.034 N [address] URL code = TROP) is 0.034 ng/mL. The Joint Societ y of Cardiology/[facility] College of Card iology (ESC/ACC) and [facility] y of Clinical [facility] Hospitale ce Standards of La boratory Practices [...] 24 hours after the clini zaynab event. [facility]-LufkinMYOGLOBIN, [id number] 01:04:00 Test Item Value Reference Range Interpretation Comments Myoglobin (test code = FLAVIO) 29.3 ng/ml 0.0-61.5 [facility] ClinicAaetzg-[id number] 01:04:00 Test Item Value Reference Range Interpretation Comments CKMB (test code = CKMB) 0.58 ng/ml 0.00-2.37 [facility]-LufkinCT ANGIO CHEST W/ [id number] 22:13:0620 g Cathlon Above the Antecubital or higher requiredProcedures: CT ANGIO ABD PELVIS W/WO OR W//CON, CT ANGIO CHEST W/ CONTRASTExam Date: 09/25/2017 5:46 PMOrdering Physician: DR FITZGERALD MOPURClinical Indication: RESPDIST: Chest-Respiratory DistressComparison: CT chest/abdomen/pelvis, 10/09/16TECHNIQUE: [...] of iterative reconstruction techniques.Findings:NECK:Limited evaluation is without significant abnormality.LUNGS:Pneumothorax: None.Lungs: Minimal bilateral dependent atelectasis. No worrisome pulmonary nodulesor masses.Effusion: None.Vascular: The pulmonary arterial vasculature is well opacifiedfor evaluationof pulmonary embolism. No significant filling defects are demonstrated withinthe pulmonary trunk, main pulmonary arteries, segmental, or subsegmentalbranches.Airways: No significant abnormality.MEDIASTINUM:Aorta: Four-vessel aortic arch. Few punctate atherosclerotic calcific plaqueare pre sent. No evidence of stenosis, dissection, or aneurysmal dilatation.Airways: No significant abnormality.Lymph nodes: No lymphadenopathy.Heart: No significant abnormality.Esophagus: No significant abnormality.VASCULATURE:Aorta: Atherosclerotic calcific plaque of the abdominal aorta withoutaneurysmal dil atation. The renal arteries, superior mesenteric artery, inferiormesenteric artery, and celiac axis are patent and without significant stenosisor aneurysmal dilatation.RENAL: Normal symmetric cortical enhancement. No hydronephrosis ornephrolithiasis. The ureters are of normal course and caliber. No sig nificantabnormalities of the urinary bladder. Incidental pelvic phleboliths are noted.Postsurgical change status post hysterectomy.GASTROINTESTINAL: The appendix is not clearly identified on this exam;however,no pericecal inflammatory stranding or free fluid is demonstrated. Moderate tolarge stool bur den is demonstrated throughout the colon and may representconstipation.MESENTERY & RETROPERITONEUM: No significant abnormality of theretroperitoneum.OSSEOUS: Mild degenerative changes of the spine;otherwise, no significantosseous lesions.OTHER: No significant abnormalities of the remaining soft ti ssues.IMPRESSION:1. Mild amount of atherosclerotic calcific plaque within the abdominal aortawithoutaneurysmal dilatation, stenosis, or dissection.2. No significant CT evidence of pulmonary embolism within the pulmonary trunk,main pulmonary arteries, or segmental branches.3. Chronic disease findings,as above.This final report was electronically signed by Dr Lia Rosen MD09/25/2017 10:06 PMDictated By: LIA BRADSHAWDate: 09/25/2017 22:12[facility] OF SYRACUSECT ANGIO ABD PELVIS W/WO OR W//[id number] 22:13:0220 g Cathlon Above the Antecubital or higher requiredProcedures: CT ANGIO ABD PELVIS W/WO OR W//CON, CT ANGIO CHEST W/ CONTRASTExam Date: 09/25/2017 5:46 PMOrdering Physician: DR LIA SOTOCIMARRON [facility] – BOISE CITYlinical Indication: RESPDIST: Chest-Respiratory DistressComparison: CT chest/abdomen/pelvis, 10/09/16TECHNIQUE: [...] of iterative reconstruction techniques.Findings:NECK:Limited evaluation is without significant abnormality.LUNGS:Pneumothorax: None.Lungs: Minimal bilateral dependent atelectasis. No worrisome pulmonary nodulesor masses.Effusion: None.Vascular: The pulmonary arterial vasculature is well opacifiedfor evaluationof pulmonary embolism. No significant filling defects are demonstrated withinthe pulmonary trunk, main pulmonary arteries, segmental, or subsegmentalbranches.Airways: No significant abnormality.MEDIASTINUM:Aorta: Four-vessel aortic arch. Few punctate atherosclerotic calcific plaqueare pre sent. No evidence of stenosis, dissection, or aneurysmal dilatation.Airways: No significant abnormality.Lymph nodes: No lymphadenopathy.Heart: No significant abnormality.Esophagus: No significant abnormality.VASCULATURE:Aorta: Atherosclerotic calcific plaque of the abdominal aorta withoutaneurysmal dil atation. The renal arteries, superior mesenteric artery, inferiormesenteric artery, and celiac axis are patent and without significant stenosisor aneurysmal dilatation.RENAL: Normal symmetric cortical enhancement. No hydronephrosis ornephrolithiasis. The ureters are of normal course and caliber. No sig nificantabnormalities of the urinary bladder. Incidental pelvic phleboliths are noted.Postsurgical change status post hysterectomy.GASTROINTESTINAL: The appendix is not clearly identified on this exam;however,no pericecal inflammatory stranding or free fluid is demonstrated. Moderate tolarge stool bur den is demonstrated throughout the colon and may representconstipation.MESENTERY & RETROPERITONEUM: No significant abnormality of theretroperitoneum.OSSEOUS: Mild degenerative changes of the spine;otherwise, no significantosseous lesions.OTHER: No significant abnormalities of the remaining soft ti ssues.IMPRESSION:1. Mild amount of atherosclerotic calcific plaque within the abdominal aortawithoutaneurysmal dilatation, stenosis, or dissection.2. No significant CT evidence of pulmonary embolism within the pulmonary trunk,main pulmonary arteries, or segmental branches.3. Chronic disease findings,as above.This final report was electronically signed by Dr Lia Rosen MD09/25/2017 10:06 PMDictated By: LIA BRADSHAWDate: 09/25/2017 22:12[facility] [id number] 19:00:00 Test Item Value Reference Range Interpretation Comments CKMB (test code = CKMB) 0.48 ng/ml 0.00-2.37 [facility]MYOGLOB[facility], [id number] 19:00:00 Test Item Value Reference Range Interpretation Comments Myoglobin (test code = FLAVIO) 33.6 ng/ml 0.0-61.5 [facility]TROPONIN-I [id number] 19:00:00 Test Item Value Reference Range Interpretation Comments Troponin-I (test <0.012 ng/ml 0.000-0.034 N [address] URL code = TROP) is 0.034 ng/mL. The Joint Societ y of Cardiology/Amer ican College of Card iology (ESC/ACC) and [facility] y of Clinical Bioche ce Standards [...] 24 hours after the clini zaynab event. [facility]CT HEAD W/O [id number] 13:22:53CT HEAD WITHOUT CONTRAST:DATE OF EXAM: 09/25/2017INDICATION: headacheNoncontrast CT head was performed. Total DLP 898 mGy-cm.FINDINGS:No intracranial hemorrhage, mass effect or midline shift is identified. Theventricular system is normal in size and configuration. The basal cisterns arepatent.The visualized portions of the mastoids, paranasal sinuses and orbits show nosignificant abnormality.IMPRESSION :Negative CT head without contrast.This final report was electronically signed by Dr Jerrell SanchezMD 09/25/20171:16 PMDictated By: JERRELL SANCHEZDate: 09/25/2017 13:22[facility] [id number] 13:18:00 Test Item Value Reference Range Interpretation Comments aPTT (test code = PTT) 28.1 seconds 25.3-35.7 [facility]PT AND [id number] 13:18:00 Test Item Value Reference Range Interpretation Comments Protime (test code 10.2 seconds 9.0-11.8 = PT) INR (test code = 1.0 0.9-1.1 INR results are INR) intended ONLY t o monitor Oral Anticoagulant t herapy in stablized pa tients. The INR Therape utic Range is 2.0 - 3.0 Patients with a mechanical hear t, the INR Range is 2. 5 - 3.5 [facility] HospitalCPK2018-05-23 12:06:00 Test Item Value Reference Range Interpretation Comments CPK (test code = CPK) 90 U/L 30-135 [facility] HospitalTROPONIN-I [id number] 12:06:00 Test Item Value Reference Range Interpretation Comments Troponin-I (test <0.012 ng/ml 0.000-0.034 N [address] URL code = TROP) is 0.034 ng/mL. The Joint Societ y of Cardiology/[place]mer ican College of Card iology (ESC/ACC) and t National Academ y of Clinical Bioche ce Standards of [...] 24 hours after the clini zaynab event. [facility] HospitalCKMB2018-05-23 12:06:00 Test Item Value Reference Range Interpretation Comments CKMB (test code = CKMB) 0.41 ng/ml 0.00-2.36 [facility] HospitalCMP2018-05-23 11:22:00 Test Item Value Reference Range Interpretation [...] , each yielding differ ent values. This co rrected result was base d on the formula: Co rrected Calcium = Serum Calcium + [0.8 * ( 4 - SerumAlbumin)] EGFR if >60 Tristanian (test code mL/min/1.73m\\ = EGFRAA) S\\2 EGFR if Non- >60 Estimate d Glomerular Tristanian (test code mL/min/1.73m\\ Filtrat ion Rate (eGFR) = EGFRNA) S\\2 Reference Inter vals Decision Points for 18 years and older and average body ma ss: >= 60 Does not ex clude kidney disease. 30 - 59 Suggests mod erate chronic kidney disease and indicates t he need for further investigation including asses sment of proteinuria and cardiovascular factors. < 30 U sually indicates a nee d for referral for assessment and management of c hronic kidney failure. [facility] HospitalMAGNESIUM2018-05-23 11:22:00 Test Item Value Reference Range Interpretation Comments Magnesium (test code = MG) 2.0 mg/dl 1.6-2.3 [facility] HospitalTROPONIN-I [id number] 11:22:00 Test Item Value Reference Range Interpretation Comments Troponin-I (test <0.012 ng/ml 0.000-0.034 N [address] URL code = TROP) is 0.034 ng/mL. The Joint Societ y of Cardiology/Amer [facility] College of Card iology (ESC/ACC) and t [facility] y of Clinical Bioche ce Standards of [...] 24 hours after the clini zaynab event. [facility] HospitalPRO-BNP(B-Type Natriuretic Peptide)2017-09-25 11:22:00 Test Item Value Reference Range Interpretation Comments Pro-BNP(B-Peptide) (test code = 20 pg/ml 0-125 PROBNP) [facility] HospitalXR CHEST AP/PA 1 [id number] 11:09:11Exam: AP portable chest DATE OF EXAM: 09/25/2017 10:44AMINDICATION: chest painThe lungs are clear. The cardiomediastinal silhouette is within normal limits.The bony thorax shows no significant abnormality.Impression:No active cardiopulmonary disease.This final report was electronically signed by Dr Jerrell Sanchez MD 09/25/201711:02 AMDictated By: JERRELL SANCHEZDate: 09/25/2017 11:09[facility] WITH AUTO [id number] 10:40:00 Test Item Value Reference Range Interpretation [...] AKS PRESENT ON THE RBC HISTOGRAM. IN T HIS CASE, A MANUAL REVIEW OF THE SLIDE [...] code = 0.6 % 0.0-0.4 H IG%) [facility] HospitalTROPONIN-I [id number] 00:17:00 Test Item Value Reference Range Interpretation Comments Troponin-I (test <0.012 ng/ml 0.000-0.034 N [address] URL code = TROP) is 0.034 ng/mL. The Joint Societ y of Cardiology/[place]mer ican College of Card iology (ESC/ACC) and [facility] of Clinical Bioche ce Standards of [place] [...] Panel at 90 mins after 1st set drawnFrancisco [place]ille [id number] 00:17:00 Test Item Value Reference Range Interpretation Comments CPK (test code = CPK) 141 U/L 30-135 H Rpt Cardiac Panel at 90 mins [facility]st [facility] [place]22 00:17:00 Test Item Value Reference Range Interpretation Comments CKMB (test code = CKMB) 0.79 ng/ml 0.00-2.36 Rpt Cardiac Panel at 90 mins after 1st set [facility] [place]2018-05-21 22:37:00 Test Item Value Reference Range Interpretation Comments CKMB (test code = CKMB) 0.98 ng/ml 0.00-2.36 [place] [id number] 22:37:00 Test Item Value Reference Range Interpretation Comments CPK (test code = CPK) 177 U/L 30-135 H [facility] HospitalTROPONIN-I [id number] 22:37:00 Test Item Value Reference Range Interpretation Comments Troponin-I (test <0.012 ng/ml 0.000-0.034 N [address] URL code = TROP) is 0.034 ng/mL. The Joint Societ y of Cardiology/Amer ican College of Card iology (ESC/ACC) and [facility] y of Clinical Bioche ce Standards [...] 24 hours after the clini zaynab event. [facility] HospitalXR CHEST 2 PA [id number] 22:25:05EXAM: XR CHEST 2 PA LATERALINDICATION: cpCOMPARISON: CT of the chest October 09, 2016 and chest x-ray September 11, 2016FINDINGS:LINES/TUBES: NoneLUNGS: No consolidations or edema.PLEURA: No effusions or pneumothorax.HEART AND MEDIASTINUM: Normal size and contour.BONES AND SOFT TISSUES: No acute findings.IMPRESSION:No acute thoracic abnormality.This final report was electronically signed by Dr Navin Zuniga MD09/23/201710:18 PMDictated By: NAVIN ZUNIGADate: 09/23/2017 22:25[facility] [id number] 22:24:00 Test Item Value Reference Range Interpretation [...] mg/dl 8.4-10.2 = CALC) EGFR if >60 Tristanian (test code mL/min/1.73m\\ = EGFRAA) S\\2 EGFR if Non- >60 Estimate d Glomerular Tristanian (test code mL/min/1.73m\\ Filtrat ion Rate (eGFR) = EGFRNA) S\\2 Reference Inter vals Decision Points for 18 years and older and average body ma ss: >= 60 Does not exc lude kidney disease. 30 - 59 Suggests mod erate chronic kidney disease and indicates t he need for further investigation including asses sment of proteinuria and cardiovascular factors. < 30 U sually indicates a nee d for referral for assessment and management of c hronic kidney failure. [facility] WITH AUTO [id number] 22:07:00 Test Item Value Reference Range Interpretation [...] AKS PRESENT ON THE RBC HISTOGRAM. IN T HIS CASE, A MANUAL REVIEW OF THE SLIDE [...] (test code = 0.4 % 0.0-0.4 IG%) [facility] BREAST UNILATERAL [id number] 08:43:17Procedure: MM MAMMO DIAG DIR DIGITAL-BILAT, US BREAST UNILATERAL LIMITED, USBREAST UNILATERAL LIMITEDExam Date: 08/19/2017Ordering Provider: KIP Lopezinical Indication: Abnormal screening mammogramComparison: Mammograms dated July 31, 2017Compression spot films of the right breast were obtained as well as targetedultrasound examination of both breasts.Findings: Compression spot films of the right breast show persistence of the 2tiny nodular foci measuring up to 4 mm.Targeted ultrasound examination of the right breast shows a few small lymphnodes in the upper outer right breast. No cyst or discr ete solid lesion isvisualized. The lymph nodes are [...] final report was electronically signed by Dr Jerrell Sanchez MD 08/20/20178:36 AMDictated By: JERRELL SANCHEZDate: 08/20/2017 08:43 [facility] BREAST UNILATERAL [id number] 08:43:15Procedure: MM MAMMO DIAG DIR DIGITAL-BILAT, US BREAST UNILATERAL LIMITED, USBREAST UNILATERAL LIMITEDExam Date: 08/19/2017Ordering Provider: KIP Lopezinical Indication: Abnormal screening mammogramComparison: Mammograms dated July 31, 2017Compression spot films of the right breast were obtained as well as targetedultrasound examination of both breasts.Findings: Compression spot films of the right breast show persistence of the 2tiny nodular foci measuring up to 4 mm.Targeted ultrasound examination of the right breast shows a few small lymphnodes in the upper outer right breast. No cyst or discrete solid lesion isvisualized. The lymph nodes are [...] final report was electronically signed by Dr Jerrell Sanchez MD 08/20/20178:36 AMDi ctated By: JERRELL SANCHEZDate: 08/20/2017 08:43[facility] M[facility] DI[facility] DIR [id number] 08:43:11Procedure: MM MAMMO DIAG DIR DIGITAL-BILAT, US BREAST UNILATERAL LIMITED, USBREAST UNILATERAL LIMITEDExam Date: 08/19/2017Ordering Provider: KIP Logan Indication: Abnormal screening mammogramComparison: Mammograms dated July 31, 2017Compression spot films of the right breast were obtained as well as targetedultrasound examination of both breasts.Findings: Compression spot films of the right breast show persistence of the 2tiny nodular foci measuring up to 4 mm.Targeted ultrasound examination of the right breast shows a few small lymphnodes in the upper outer right breast. No cyst or discrete solid lesion isvisualized. The lymph nodes are slightly larger than the mammographic nodules.Given the probable benignity of these mammographic nodules, followup mammogramsin 6 months would be recom mended.Targeted ultrasound examination of the retroareolar left breast shows a 3 x 7 x10 mm hypoechoic well-circumscribed ovoid nodule. It corresponds to themammographic nodule and is most suggestive of a fibroadenoma. There are noassociated calcifications.Impression: Probable benign findings bilaterally as noted. Recommend followupmammograms in 6 months.BI-RADS 3: Probably benign, short term follow up recommended.This final report was electronically signed by Dr Jerrlel Sanchez MD 08/20/20178:36 AMDictated By: JERRELL SANCHEZDate: 08/20/2017 08:43[facility] MAMMO SCREEN DIR [id number] 17:49:01 Procedures: MM MAMMO SCREEN DIR DIGITALExam Date: 07/31/2017 10:45 AMOrdering Provider: KIP LUNAClinical Indication: Digital screening mammography.Comparison: None availableTechnique: Digital craniocaudal and mediolateral oblique views of both breastswere obtained. Exam dictated utilizing computer-aided detection (CAD).Findings:There are scattered fibroglandular densities in each breast.There is a9 mm nodule which projects in the retroareolar left past. This shouldbe further assessed with ultrasound. There are 2 apparent lymph nodes in the midand outer left breast. On the right, there are 2 small nodular parenchymal fociin the mid upper right breast as seen on the MLO view. These could alsorepresent lymph nodes but should be further assessed with compression spot filmsand possibly ultrasound.There are no suspicious calcifications in either breast.There are no pathologic skin or nipple alterat ions.Impression:Subareolar left breast nodule and possible lymph nodes in the mid upper rightbreast.Recommend compression spot films and ultrasound.BIRADS Result 0: Incomplete. Need additional imagingand/or prior mammogramsfor comparison.This final report was electronically signed by Dr Jerrell Sanchez MD 07/31/20175:42 PMDictated By: JERRELL SANCHEZDate: 07/31/2017 17:49[facility]INAL[facility] WITH [id number] 23:35:00 Test Item Value Reference Range Interpretation Comments Color (test code = UCOLR) Lt. Yellow Clarity (test code = UCLAR) CLEAR Glucose (test code = UGLUC) NEGATIVE NEGATIVE N Bilirubin (test code = UBILI) NEGATIVE NEGATIVE N Ketones (test code = UKET) NEGATIVE NEGATIVE N Specific [place] (test code = <=1.005 1.005-1.030 A USPGR) [...] code = UBACT) Trace None Seen,Trace N [facility] HospitalDRUG SCREEN [id number] 23:21:00 Test Item Value Reference Range Interpretation Comments FT (test code = Negative (qualifier AMPHET) value) FT (test code = Negative (qualifier ALFA) value) FT (test code = Negative (qualifier BENZO) value) FT (test code = Negative (qualifier KEKE) value) FT (test code = Negative (qualifier MTD) value) Opiates (test Presumptive code = OPIAT) Positive; Confirmation Upon Request FT (test code = Negative (qualifier The f ollowing table PCP) value) provides an interpretive gu silvio for the Drugs o f Abuse ran on e Vitros 5.1 anal yzer listed there in : Amphetamines < 1000 ng/ml = Negativ e Barbituates < 2 00 ng/ml = Negativ e Benzodiazapines < 200 ngml = Nega tive Cocaine < 300 n g/ml = Negative Meth adone < 300 ng/ml = Negative Opiate < 300 ng/ml = Neg ative PCP < 25 ng/ml = Negative THC < 50 ng/ml = Negativ e Results equal t o or greater than e above cut-off v alues = Presumptive Positive. Confirmation of Presumptive Pos itive results are available upon request. Cannabinoids, Presumptive THC (test code Positive; = THC) Confirmation Upon Request [facility] HospitalTROPONIN-I [id number] 21:22:00 Test Item Value Reference Range Interpretation Comments Troponin-I (test <0.012 ng/ml 0.000-0.034 N [address] URL code = TROP) is 0.034 ng/mL. The Joint Societ y of Cardiology/Amer ican College of Card iology (ESC/ACC) and t [facility] y of Clinical Bioche ce Standards of [...] 24 hours after the clini zaynab event. [facility] HospitalPTT2017-06-06 21:15:00 Test Item Value Reference Range Interpretation Comments aPTT (test code = PTT) 25.4 seconds 25.3-35.7 [facility] HospitalPT AND [id number] 21:15:00 Test Item Value Reference Range Interpretation Comments Protime (test code 10.1 seconds 9.0-11.8 = PT) INR (test code = 1.0 0.9-1.1 INR results are INR) intended ONLY t o monitor Oral Anticoagulant t herapy in stablized pa tients. The INR Therape utic Range is 2.0 - 3.0 Patients with a mechanical hear t, the INR Range is 2. 5 - 3.5 [facility] HospitalLIPASE, [id number] 21:09:00 Test Item Value Reference Range Interpretation Comments Lipase (test code = LIPA) 75 U/L 8-223 [facility] HospitalALCOHOL, [id number] 21:08:00 Test Item Value Reference Range Interpretation Comments Alcohol % (test code = 0 % 0.00-0.00 N Walt ol % 0.00 - 0.10 ALCPC) Sub-clinical 0. 11 - 0.20 Emotional Insta bility 0.21 - 0.30 Confusio n 0.31 - 0.40 Stupor 0.4 1 - 0.50 Coma >.50 Fatal [facility] HospitalCMP2017-06-06 21:08:00 Test Item Value Reference Range Interpretation [...] , each yielding differ ent values. This co rrected result was base d on the formula: Co rrected Calcium = Serum Calcium + [0.8 * ( 4 - SerumAlbumin)] EGFR if >60 Tristanian (test code mL/min/1.73m\\ = EGFRAA) S\\2 EGFR if Non- >60 Estimate d Glomerular Tristanian (test code mL/min/1.73m\\ Filtrat ion Rate (eGFR) = EGFRNA) S\\2 Reference Inter vals Decision Points for 18 years and older and average body ma ss: >= 60 Does not exc lude kidney disease. 30 - 59 Suggests mod erate chronic kidney disease and indicates t he need for further investigation including asses sment of proteinuria and cardiovascular factors. < 30 U sually indicates a nee d for referral for assessment and management of c hronic kidney failure. [facility] WITH AUTO [id number] 20:49:00 Test Item Value Reference Range Interpretation [...] (test code = 0 /100WBC 0-0 NRBC_AUTO) [facility]
[2022-02-23] MEDS ORDERED: MORPHINE 4 MG/ML SYR ONE (11:56)
[2022-02-23] MEDS ORDERED: ONDANSETRON 4 MG/2 ML VIAL ONE (11:56)
[2022-02-23 12:25] LABS: Urine Blood Negative (Negative); Urine Glucose Negative (Negative); Urine Protein Negative (Negative); Urine Specific Gravity 1.015 (1.005-1.030); Urine pH 8.5 (5.0-7.0)
[2022-02-23] MEDS ORDERED: DIAZEPAM 5 MG TABLET ONE (12:50)
[2022-02-23] MEDS ORDERED: KETOROLAC 30 MG/ML INJ ONE (12:51)
[2022-02-23] MEDS ORDERED: NA CHLORIDE 0.9% 1,000 ML ONE (12:51)
[2022-02-23 13:03] LABS: Absolute Lymphocytes (CBC) 0.6 K/uL (0.7-4.9); Hematocrit 38.5 % (36.0-45.0); Lymphocytes % 11.1 % (15.3-44.8); MCV 95.7 fL (80-100); MPV 9.5 fL (7.6-11.3); RBC Red Blood Cell Count 4.03 M/uL (3.86-4.86)
[2022-02-23 13:21] LABS: Albumin 3.5 g/dL (3.4-5.0); Bilirubin Total 0.3 mg/dL (0.2-1.0); Potassium 3.7 mmol/L (3.5-5.1); Protein, Total 6.5 g/dL (6.4-8.2)
--- NOTE | 2022-02-23 13:24 | RAD REPORT ---
EXAM DESCRIPTION: CT - Pelvis Wo Cont - 02/23/2022 1:05 pm CLINICAL HISTORY: Pelvic trauma, fall from ladder, unable to bear weight on the right leg COMPARISON: No remote comparisons TECHNIQUE: Axial noncontrast 2 mm thick images of the pelvis were obtained and extended from above e ach iliac crest to the proximal femoral shaft. Sagittal and coronal reconstruction images were genera priyank and reviewed. All CT scans are performed using dose optimization technique as appropriate and may include automate d exposure control or mA/KV adjustment according to patient size. FINDINGS: No fracture of the bony pelvis identified. Sacral ala are intact. SI joint degenerative ch anges are present with no diastases. Pubic symphysis is intact. Proximal femora are intact. No AVN or focal femoral head abnormality seen. Degenerative change at each hip joint is minimal. Skeletal musculature of the pelvis and right upper thigh is normal in appearance and symmetric with t he left side musculature. No extra muscular right-side hematoma. There is congestion or stranding in the subcutaneous fat along the inferior most aspect of the gluteal cleft. The right versus left symme try of this subcutaneous fat finding would suggest this is nonacute given the right-side only symptom s. No air or foreign body. In the peritoneal and retroperitoneal spaces of the pelvis bowel is unremarkable. No hematoma or susp icious finding noted. IMPRESSION: No fracture of the pelvis or proximal femora. No muscle or soft tissue hematoma or injury identifiable.
--- NOTE | 2022-02-23 13:30 | RAD REPORT ---
EXAM DESCRIPTION: CT - Spine Lumbar Wo Con - 02/23/2022 1:05 pm CLINICAL HISTORY: Low back pain, trauma COMPARISON: None. TECHNIQUE: Thin section axial imaging of the lumbar spine was performed from the T11-12 disc level t hrough the lowest sacral level. CT pelvis and hip imaging was also performed and is separately report ed. Sagittal and coronal reconstruction images were generated and reviewed. All CT scans are performed using dose optimization technique as appropriate and may include automated exposure control or mA/KV adjustment according to patient size. FINDINGS: T12 - L5 vertebrae are normal in height and alignment. No acute traumatic or pathologic in jury to these vertebrae noted. Alignment is normal. No paraspinal mass or hematoma seen. Facet joint degenerative changes are present in the lower lumbar spine. Minimal endplate spurring changes seen in all vertebrae. Sacral ala are intact. No SI joint abnormality seen. Central canal detail is inherently limited. No gross evidence for a large disc herniation or signific ant canal stenosis. Disc bulge changes are present at L4-5. Midline canal diameter is at least 11 mm. Bilateral mild foraminal encroachment is present No pars interarticularis defects seen. Aortic atherosclerotic calcifications are present. No aortic aneurysm. Hepatomegaly is evident but is not fully assessed on this study. IMPRESSION: No compression fracture or acute vertebral body finding. No paraspinal mass or other acu te finding identified. L4-5 disc bulge changes causing mild bilateral foraminal stenosis. Central canal detail is inherently limited but no gross abnormality seen. Hepatomegaly is evident but is only partially imaged on this study.
--- NOTE | 2022-02-23 13:40 | RAD REPORT ---
EXAM DESCRIPTION: RAD - Hip Right 2 View - 02/23/2022 1:28 pm CLINICAL HISTORY: PAIN COMPARISON: <Comparisons> FINDINGS: AP and frog-leg views of the right hip were obtained. There is no fracture or dislocation. No AVN or focal head abnormality. No acute or destructive bony p rocess seen. Minimal degenerative change at the hip joint. No pubic symphysis or SI joint diastases. Sacral ala is too obscured by bowel for assessment. IMPRESSION: Negative right hip examination for acute or significant findings.
[2022-02-23] MEDS ORDERED: dexAMETHasone 10 MG/ML VIAL ONE (13:54)
--- NOTE | 2022-02-23 14:16 | EDPHYS ---
Physician Documentation [facility] Name: Erin Jiang Age: 62 yrs Sex: Female : 1960 Arrival Date: 02/23/2022 Time: 11:12 Bed 20 Private MD: Adrian Sheehan R ED Physician Valeriano Menchaca HPI: 02/23 14:06 This 62 yrs old Female presents to ER via Wheelchair with complaints of Hip devin Pain, Back Pain. 14:06 The patient or guardian reports decreased range of motion, pain. that occurred at work, devin sustained from climbing stairs, There is no obvious deformity, The patient is able to ambulate with assistance. The patient is able to bear partial body weight. The patient's discomfort radiates to the coccyx. The complaints affect the right iliac crest and right hip. Onset: The symptoms/episode began/occurred 1 day(s) ago. Modifying factors: The symptoms are alleviated by nothing, remaining still, the symptoms are aggravated by any movement. Associated signs and symptoms: Loss of consciousness: the patient experienced no loss of consciousness. Severity of symptoms: At their worst the symptoms were moderate, in the emergency department the symptoms are unchanged. The patient has not experienced similar symptoms in the past. Historical: - Allergies: 11:27 Bactrim; iw 11:27 Levaquin; iw 11:27 PENICILLINS; iw 11:27 Sulfa (Sulfonamide Antibiotics); iw - PMHx: 11:27 Hyperlipidemia; menieresdisease; iw - Immunization history:: Adult Immunizations up to date. - Social history:: Smoking status: Patient reports the use of cigarette tobacco products, smokes one-half pack cigarettes per day. - Family history:: not pertinent. ROS: 14:06 Constitutional: Negative for fever, chills, and weight loss, Eyes: Negative for injury, devin pain, redness, and discharge, ENT: Negative for injury, pain, and discharge, Neck: Negative for injury, pain, and swelling, Cardiovascular: Negative for chest pain, palpitations, and edema, Respiratory: Negative for shortness of breath, cough, wheezing, and pleuritic chest pain, Abdomen/GI: Negative for abdominal pain, nausea, vomiting, diarrhea, and constipation, : Negative for injury, bleeding, discharge, and swelling, MS/Extremity: Negative for injury and deformity, Skin: Negative for injury, rash, and discoloration, Neuro: Negative for headache, weakness, numbness, tingling, and seizure, Psych: Negative for depression, anxiety, suicide ideation, homicidal ideation, and hallucinations, Allergy/Immunology: Negative for hives, rash, and allergies, Endocrine: Negative for neck swelling, polydipsia, polyuria, polyphagia, and marked weight changes, Hematologic/Lymphatic: Negative for swollen nodes, abnormal bleeding, and unusual bruising. 14:06 Back: Positive for decreased range of motion, pain at rest, pain with movement, of the lumbar area. Exam: 14:06 Constitutional: This is a well developed, well nourished patient who is awake, alert, devin and in no acute distress. Head/Face: Normocephalic, atraumatic. Eyes: Pupils equal round and reactive to light, extra-ocular motions intact. Lids and lashes normal. Conjunctiva and sclera are non-icteric and not injected. Cornea within normal limits. Periorbital areas with no swelling, redness, or edema. ENT: Nares patent. No nasal discharge, no septal abnormalities noted. Tympanic membranes are normal and external auditory canals are clear. Oropharynx with no redness, swelling, or masses, exudates, or evidence of obstruction, uvula midline. Mucous membranes moist. Neck: Trachea midline, no thyromegaly or masses palpated, and no cervical lymphadenopathy. Supple, full range of motion without nuchal rigidity, or vertebral point tenderness. No Meningismus. Chest/axilla: Normal chest wall appearance and motion. Nontender with no deformity. No lesions are appreciated. Cardiovascular: Regular rate and rhythm with a normal S1 and S2. No gallops, murmurs, or rubs. Normal PMI, no JVD. No pulse deficits. Respiratory: Lungs have equal breath sounds bilaterally, clear to auscultation and percussion. No rales, rhonchi or wheezes noted. No increased work of breathing, no retractions or nasal flaring. Abdomen/GI: Soft, non-tender, with normal bowel sounds. No distension or tympany. No guarding or rebound. No evidence of tenderness throughout. Female : Normal external genitalia. Skin: Warm, dry with normal turgor. Normal color with no rashes, no lesions, and no evidence of cellulitis. Neuro: Awake and alert, GCS 15, oriented to person, place, time, and situation. Cranial nerves II-XII grossly intact. Motor strength 5/5 in all extremities. Sensory grossly intact. Cerebellar exam normal. Normal gait. Psych: Awake, alert, with orientation to person, place and time. Behavior, mood, and affect are within normal limits. 14:06 Back: pain, that is mild, that is moderate, of the lumbar area and right low back. 14:06 Musculoskeletal/extremity: Extremities: grossly normal except: noted in the right hip: decreased ROM, pain, ROM: limited active range of motion, limited passive range of motion, Circulation is intact in all extremities. Sensation intact. Compartment Syndrome exam of affected extremity: is normal. DVT Exam: no swelling, negative Homans' sign noted on exam, no appreciated bluish discoloration, no erythema, no increased warmth, pain, tenderness. Vital Signs: 11:22 BP 156 / 90; Resp 18; Temp 97.7; Weight 56.7 kg; Height 5 ft. 4 in. (162.56 cm); Pain iw 10/10; 12:25 BP 155 / 81; Pulse 57; Resp 14; Pulse Ox 99% ; Pain 4/10; mb8 13:34 BP 166 / 73; Pulse 61; Resp 16; Pulse Ox 99% ; Pain 4/10; mb8 14:02 BP 154 / 74; Pulse 59; Resp 16; Pulse Ox 100% ; Pain 2/10; mb8 11:22 Body Mass Index 21.46 (56.70 kg, 162.56 cm) iw MDM: 11:25 Patient medically screened. devin 14:12 Differential diagnosis: hip fracture, intertrochanteric fracture, femoral neck devin fracture, femoral shaft fracture, bursitis, arthritis, strain. Data reviewed: vital signs, nurses notes, lab test result(s), radiologic studies, CT scan, plain films. Data interpreted: nurse monitoring: rate is 59 beats/min, rhythm is regular, Pulse oximetry: on room air is 100 %. Test interpretation: by ED physician or midlevel provider: plain radiologic studies. Counseling: I had a detailed discussion with the patient and/or guardian regarding: the historical points, exam findings, and any diagnostic results supporting the discharge/admit diagnosis, lab results, radiology results, the need for outpatient follow up, for definitive care, a family practitioner, a orthopedic surgeon. 02/23 12:25 Order name: Urine Dipstick-Ancillary; Complete Time: 12:39 EDMS 02/23 12:39 Order name: CBC with Diff [facility] 02/23 12:39 Order name: CT Lumbar Spine Wo Con [facility] 02/23 12:39 Order name: Comprehensive Metabolic Panel [facility] 02/23 13:08 Order name: CBC with Automated Diff; Complete Time: 13:49 EDMS 02/23 13:21 Order name: Comprehensive Metabolic Panel; Complete Time: 13:49 EDMS 02/23 12:39 Order name: CT Pelvis wo Cont: include hips [facility] 02/23 12:39 Order name: Hip Right 2 View XRAY [facility] 02/23 13:25 Order name: CT; Complete Time: 13:49 EDMS 02/23 13:31 Order name: CT; Complete Time: 13:49 EDMS 02/23 13:41 Order name: RAD; Complete Time: 13:49 EDMS 02/23 12:25 Order name: Urine Dipstick-Ancillary (obtain specimen); Complete Time: 12:25 mb8 Administered Medications: 11:55 Drug: morphine 4 mg Route: IVP; Infused Over: 4 mins; Site: right antecubital; mb8 12:26 Follow up: Response: No adverse reaction; Pain is decreased; RASS: Alert and Calm (0) mb8 11:59 Drug: Zofran (Ondansetron) 4 mg Route: IVP; Site: right antecubital; mb8 12:26 Follow up: Response: No adverse reaction; Nausea is decreased mb8 12:58 Drug: NS 0.9% 1000 ml Route: IV; Rate: 1 bolus; Site: right antecubital; mb8 14:25 Follow up: Response: No adverse reaction; IV Status: Completed infusion mb8 12:58 Drug: Ketorolac 30 mg Route: IVP; Site: right antecubital; mb8 13:57 Follow up: Response: No adverse reaction; Pain is decreased mb8 12:58 Drug: Valium (diazepam) 10 mg Route: PO; mb8 13:56 Follow up: Response: No adverse reaction; Pain is decreased; RASS: Drowsy (-1) mb8 13:56 Drug: Decadron - Dexamethasone 10 mg Route: IVP; Site: right antecubital; mb8 14:29 Follow up: Response: No adverse reaction; Pain is decreased mb8 Disposition Summary: 02/23/22 14:15 Discharge Ordered Location: Home devin Problem: new devin Symptoms: have improved devin Condition: Stable devin Diagnosis - Fall (on) (from) other stairs and steps devin - Pain in right hip devin - Other injury of muscle, fascia and tendon of lower back devin - Strain of muscle, fascia and tendon of abdomen, lower back and pelvis devin Followup: devin - With: Adrian Sheehan MD - When: 2 - 3 days - Reason: Recheck today's complaints, Continuance of care, Re-evaluation by your physician Followup: devin - With: Zay Smith MD - When: 2 - 3 days - Reason: Recheck today's complaints, Continuance of care, Re-evaluation by your physician Discharge Instructions: - Discharge Summary Sheet devin - Joint Pain devin - Musculoskeletal Pain devin - Hip Pain devin - Joint Pain, [id number] devin Forms: - Medication Reconciliation Form devin - Thank You Letter devin - Antibiotic Education devin - Prescription Opioid Use devin Prescriptions: - dexamethasone 1 mg Oral tablet - take 2 tablet by ORAL route 2 times per day; 10 tablet; Refills: 0, Product devin Selection Permitted - Valium 2 mg Oral Tablet - take 1 tablet by ORAL route every 8 hours As needed; 20 tablet; Refills: 0, [facility] Product Selection Permitted - Diclofenac Sodium 75 mg Oral tablet,delayed release (DR/EC) - take 1 tablet by ORAL route 2 times per day; 20 tablet; Refills: 0, Product [facility] Selection Permitted - Tylenol-Codeine #3 300 mg-30 mg Oral - take 2 tablet by ORAL route every 6 hours; 24 tablet; Refills: 0, Product devin Selection Permitted Signatures: Dispatcher [employer] Valeriano Alejandra MD MD cha Williams, Irene, RN RN iw Bates, Michael, RN RN mb8
--- NOTE | 2022-02-23 14:16 | ER ---
Nurse's Notes [facility] Name: Erin Jiang Age: 62 yrs Sex: Female : 1960 Arrival Date: 02/23/2022 Time: 11:12 Bed 20 Private MD: Adrian Sheehan R Diagnosis: Fall (on) (from) other stairs and steps;Pain in right hip;Other injury of muscle, fascia and tendon of lower back;Strain of muscle, fascia and tendon of abdomen, lower back and pelvis Presentation: 02/23 11:22 Chief complaint: Patient states: I stepped off a ladder wrong saturday, hurt my hip. iw [place] a pop in my hip and ever since it's so painful I cant put weight on my right leg. Coronavirus screen: Vaccine status: Patient reports being unvaccinated. Client denies travel out of the [place] in the last 14 days. Ebola Screen: Patient negative for fever greater than or equal to 101.5 degrees Fahrenheit, and additional compatible Ebola Virus Disease symptoms Patient denies exposure to infectious person. Patient denies travel to an Ebola-affected area in the 21 days before illness onset. Initial Sepsis Screen: Does the patient meet any 2 criteria? No. Patient's initial sepsis screen is negative. Does the patient have a suspected source of infection? No. Patient's initial sepsis screen is negative. Risk Assessment: Do you want to hurt yourself or someone else? Patient reports no desire to harm self or others. Onset of symptoms was February 20, 2022. 11:22 Method Of Arrival: Wheelchair iw 11:22 Acuity: MONY 3 iw Triage Assessment: 11:27 General: Appears distressed, uncomfortable, slender, Behavior is cooperative, iw appropriate for age, crying. Historical: - Allergies: 11:27 Bactrim; iw 11:27 Levaquin; iw 11:27 PENICILLINS; iw 11:27 Sulfa (Sulfonamide Antibiotics); iw - PMHx: 11:27 Hyperlipidemia; menieresdisease; iw - Immunization history:: Adult Immunizations up to date. - Social history:: Smoking status: Patient reports the use of cigarette tobacco products, smokes one-half pack cigarettes per day. - Family history:: not pertinent. Screenin:26 Abuse screen: Denies threats or abuse. Denies injuries from another. Nutritional mb8 screening: No deficits noted. Tuberculosis screening: No symptoms or risk factors identified. Fall Risk No fall in past 12 months (0 pts). Secondary diagnosis (15 points) No IV (0 pts). Ambulatory Aid- None/Bed Rest/Nurse Assist (0 pts). Gait- Weak (10 pts.). Mental Status- Oriented to own ability (0 pts). Total Giron Fall Scale indicates Low Risk Score (25-44 pts). Fall prevention measures have been instituted. Side Rails Up X 2 As available Patient and Family Educated on Fall Prevention Program and strategies. Assessment: 11:24 General: Appears uncomfortable, Behavior is cooperative, appropriate for age, anxious, mb8 restless. Pain: Complains of pain in right hip/right flank Pain does not radiate. Pain currently is 10 out of 10 on a pain scale. Quality of pain is described as aching. Neuro: Level of Consciousness is awake, alert, obeys commands, Oriented to person, place, time, situation, Appropriate for age [employer] Service [employer] are equal bilaterally Moves all extremities. Full function Gait is unsteady due to not wanting to put weight on right leg. Speech is normal, Facial symmetry appears normal, Pupils are PERRLA, Pupil Size: 4 Intact. Musculoskeletal: Circulation, motion, and sensation intact. Capillary refill < 3 seconds, Range of motion: limited in right hip Tenderness present in right hip/right flank Denies. 12:26 Reassessment: Patient and/or family updated on plan of care and expected duration. Pain mb8 level reassessed. Patient is alert, oriented x 3, equal unlabored respirations, skin warm/dry/pink. Patient states feeling better. 13:35 Reassessment: Patient and/or family updated on plan of care and expected duration. Pain mb8 level reassessed. Patient is alert, oriented x 3, equal unlabored respirations, skin warm/dry/pink. Vital Signs: 11:22 BP 156 / 90; Resp 18; Temp 97.7; Weight 56.7 kg; Height 5 ft. 4 in. (162.56 cm); Pain iw 10/10; 12:25 BP 155 / 81; Pulse 57; Resp 14; Pulse Ox 99% ; Pain 4/10; mb8 13:34 BP 166 / 73; Pulse 61; Resp 16; Pulse Ox 99% ; Pain 4/10; mb8 14:02 BP 154 / 74; Pulse 59; Resp 16; Pulse Ox 100% ; Pain 2/10; mb8 11:22 Body Mass Index 21.46 (56.70 kg, 162.56 cm) iw ED Course: 11:12 Patient arrived in ED. am2 11:16 Adrian Sheehan MD is Private Physician. am2 11:23 Dale Ford RN is Primary Nurse. mb8 11:25 Valeriano Menchaca MD is Attending Physician. devin 11:26 No provider procedures requiring assistance completed. mb8 11:27 Triage completed. iw 11:27 Patient has correct armband on for positive identification. Placed in gown. Bed in low mb8 position. Call light in reach. Side rails up X2. Client placed on continuous cardiac and pulse oximetry monitoring. NIBP monitoring applied. Warm blanket given. 11:27 Arm band placed on right wrist. iw 11:50 Inserted saline lock: 20 gauge in right antecubital area, using aseptic technique. mb8 12:58 Comprehensive Metabolic Panel Sent. mb8 12:58 CBC with Diff Sent. mb8 14:13 Adrian Sheehan MD is Referral Physician. devin 14:14 Zay Smith MD is Referral Physician. devin 14:29 IV discontinued, intact, bleeding controlled, No redness/swelling at site. Pressure mb8 dressing applied. Administered Medications: 11:55 Drug: morphine 4 mg Route: IVP; Infused Over: 4 mins; Site: right antecubital; mb8 12:26 Follow up: Response: No adverse reaction; Pain is decreased; RASS: Alert and Calm (0) mb8 11:59 Drug: Zofran (Ondansetron) 4 mg Route: IVP; Site: right antecubital; mb8 12:26 Follow up: Response: No adverse reaction; Nausea is decreased mb8 12:58 Drug: NS 0.9% 1000 ml Route: IV; Rate: 1 bolus; Site: right antecubital; mb8 14:25 Follow up: Response: No adverse reaction; IV Status: Completed infusion mb8 12:58 Drug: Ketorolac 30 mg Route: IVP; Site: right antecubital; mb8 13:57 Follow up: Response: No adverse reaction; Pain is decreased mb8 12:58 Drug: Valium (diazepam) 10 mg Route: PO; mb8 13:56 Follow up: Response: No adverse reaction; Pain is decreased; RASS: Drowsy (-1) mb8 13:56 Drug: Decadron - Dexamethasone 10 mg Route: IVP; Site: right antecubital; mb8 14:29 Follow up: Response: No adverse reaction; Pain is decreased mb8 Medication: 11:26 VIS not applicable for this client. mb8 Outcome: 14:15 Discharge ordered by MD. beltran 14:29 Discharged to home ambulatory. mb8 14:29 Condition: stable 14:29 Condition: stable 14:29 Discharge instructions given to patient, Instructed on discharge instructions, follow up and referral plans. no drinking with medication, no driving heavy equipment, medication usage, Demonstrated understanding of instructions, follow-up care, medications, Prescriptions given X 4. 14:34 Patient left the ED. mb8 Signatures: Valeriano Menchaca MD MD cha Williams, Irene, RN RN Yanni Murdock 2 Dale Ford RN RN mb8 Corrections: (The following items were deleted from the chart) 12:33 12:25 Pulse 57bpm; Resp 14bpm; Pulse Ox 99%; Pain 4/10; mb8 mb8
[2022-02-23 14:44] VITALS: TEMP 97.7
[2022-02-23 15:01] VITALS: BP 154/74; O2SAT 100
== END 2022-02-23 14:34 | disposition home or self-care (01) ==
LOC: ER 11:01
DX: S39.002A Unspecified injury of muscle, fascia and tendon of lower back, initial encounter (principal); S39.011A Strain of muscle, fascia and tendon of abdomen, initial encounter; S39.012A Strain of muscle, fascia and tendon of lower back, initial encounter; S39.013A Strain of muscle, fascia and tendon of pelvis, initial encounter; F17.210 Nicotine dependence, cigarettes, uncomplicated; E78.5 Hyperlipidemia, unspecified; H81.09 Meniere's disease, unspecified ear; W10.9XXA Fall (on) (from) unspecified stairs and steps, initial encounter; Y93.89 Activity, other specified; Y92.9 Unspecified place or not applicable; Y99.0 Civilian activity done for income or pay; Z88.0 Allergy status to penicillin; Z88.1 Allergy status to other antibiotic agents; Z88.2 Allergy status to sulfonamides
CPT/HCPCS: 96361; 85025; 36415; 81003; 80053; 72131; 72192; 73502; 96375; 96374; 99284; J1100; J7030; J2405

== ENCOUNTER 2023-09-03 12:01 | Emergency (ER) | payer OTHER ==
--- OUTSIDE RECORDS SUMMARY | 2023-09-03 12:09 | XMS REPORT | Continuity of Care Document ---
Author Name Unknown Address [address] [facility] [address] [place] [address] [facility] thconnect Address [address] [facility] [address] [place] [address] Care Team Providers Care Director Inpatient Headache Program Name Role Phone Camila Mario Primary Care Physician [phone] Kip Manzo Attending Clinician Unavailable RADIOLOGY Attending Clinician Unavailable Radiology Attending Clinician Unavailable Doctor Unassigned, Effort Attending Clinician U Samuel Mcgregor MD Attending Clinician [phone] SAMUEL HADDAD Attending Clinician Unavailgiancarlo chery Only, Ang Db Test Attending Clinician UnavailSabine Taylor Attending Clinician [phone] SABINE WALL Attending Clinician UnavailUri John MD Attending Clinician [phone] URI MARX Attending Clinician Unavailable Only, Adc Test Attending Clinician Unavailable Pob, Adc Lab Main Attending Clinician UnavailDale Gifford MD Attending Clinician NAHID CAPPS Attending Clinician [...] Admitting Clinician Unavailable JOHN COOPER Admitting Clinician Esperanza vailable LISA SOLIMANRREZA Admitting Clinician Unavailab dolores SUBRAMANIA Admitting Clinician Unavailable NOAM STEELE Admitting Clinician Unavailable DO APOLINAR NAIR Admitting Clinician Unavailable DANNI LOAIZA Admitting Clinician Unavailable Payers Payer Name Policy Type Policy Number Effective Date Expirati on Date Source [facility] DUAL COMP HMO D SNP [id number] 2022 00:00:00 [employer] Replace [id number] [id number] [facility] [id number] [facility] [id number] [facility] [id number] [facility] [id number] [facility] [id number] [facility] [id number] [facility] Problems Condition Name Condition Details Condition Category Status Onset Date Resolution Date Last Treatment Date Treating Clinician Comments Source Costal chondritis Costal chondritis Problem Active 10-25 00:00: [address] [facility] ([facility]/SA) Pancreatit is Pancreatit is Problem Active 2018-05 00:00: [address] [facility] (LUF/LI V/SA) Diarrhea Diarrhea Problem Active 2018-05 00:00: [address] [facility] (LUF/LI V/SA) Cervical radiculopa thy Cervical radiculopa thy Problem Active 10-17 00:00: [address] [facility] (LUF/LI V/SA) Cervical radiculopa thy Cervical radiculopa thy Problem Active 10-04 00:00: [address] [facility] (LUF/LI V/SA) Gastroesop hageal reflux disease Gastroesop hageal reflux disease Problem Active 09-25 00:00: [address] [facility] (LUF/LI V/SA) Chest pain Chest pain Problem Active 09-25 00:00: [address] [facility] (LUF/LI V/SA) Preinfarct ion syndrome Preinfarct ion syndrome Problem Active 09-25 00:00: [address] [facility] (LUF/LI V/SA) Chest pain Chest pain Problem Active 09-24 00:00: [address] [facility] (LUF/LI V/SA) Contusion of lower leg Contusion of lower leg Problem Active 10-17 00:00: 00 [facility] (LUF/LI V/SA) Contusion of multiple sites Contusion of multiple sites Problem Active 10-09 00:00: 00 [facility] (LUF/LI V/SA) [place] Problem Active 10-09 00:00: 00 [facility] (LUF/LI V/SA) Contusion wrist or hand Contusion wrist or hand Problem Active 09-11 00:00: [address] [facility] (LUF/LI V/SA) Contusion of rib Contusion of rib Problem Active 09-11 00:00: 00 [facility] (LUF/LI V/SA) Low back pain Low back pain Disease Active 11-29 00:00: 00 [facility] Chest pain Chest pain Disease Active 11-28 00:00: 00 [facility] [id number] Primary osteoarthr itis of right shoulder Problem Common [facility] M?i?e's disease M?i?e's disease Problem Active [facility] (LUF/LI V/SA) Hypertensi ve disorder Hypertensi ve disorder Problem Active [facility] (LU[facility] V/SA) Viral hepatitis C Viral hepatitis C Problem Active [facility] (LUF/LI V/SA) Abdominal pain Abdominal pain Problem Active [facility] (LUF/LI V/SA) Pyloric stenosis Pyloric stenosis Problem Complet ed [facility] (LUF/LI V/SA) Allergies, Adverse Reactions, Alerts Allergy Name Allergy Type Status Severity Reaction(s) Onset Date Inactive Date Treating Clinician Comments Source Sulfa Drugs (Not Checked) Propensi ty to adverse reaction to drug Active 4-22 00:00: 00 Kwaku Meena Aron Penicill ins - CLASS Propensi ty to adverse reaction to drug Active 2-08 00:00: 00 Kwaku Meena Aron Sulfa (Sulfona mide Antibiot ics) Propensi ty to adverse reaction s Active Hives 2020-05 1 00:00: 00 [facility] SULFAMET HOXAZOLE -TRIMETH OPRIM DRUG Active Hives 2020-05 1- 00:00: 00 [facility] SULFA (SULFONA MIDE ANTIBIOT ICS) Drug Class Active Hives 2020-05 00:00: 00 [facility] Sulfamet hoxazole -Trimeth oprim Propensi ty to adverse reaction s Active Hives 2020-05 00:00: 00 [facility] Sulfa (Sulfona mide Antibiot ics) Propensi ty to adverse reaction s Active Hives 2020-05 00:00: 00 [facility] Amoxicil tati Propensi ty to adverse reaction s Active Rash 11-28 00:00: 00 [facility] Levoflox acin Propensi ty to adverse reaction s Active Anaphylaxis 11-28 00:00: 00 [facility] Penicill ins Propensi ty to adverse reaction s Active Rash 11-28 00:00: 00 [facility] Penicill ins Propensi ty to adverse reaction s Active Rash 11-28 00:00: 00 [facility] AMOXICIL TATI DRUG INGREDI Active Rash 11-28 00:00: 00 [facility] LEVOFLOX ACIN DRUG INGREDI Active Anaphylaxis 11-28 00:00: 00 [facility] PENICILL INS Drug Class Active Rash 11-28 00:00: 00 [facility] sulfamet hoxazole / trimetho prim sulfamet hoxazole / trimetho prim Active Unknown [facility] [id number] Drug allergy Active Unknown [facility] 0 Drug allergy Active Unknown [facility] doxycycl ine DA Active Unknown [facility] (LUF/LI V/SA) gabapent in DA Active Unknown [facility] (LUF/LI V/SA) Bactrim DS DA Active Unknown thrush [facility] (LUF/LI V/SA) Levaquin DA Active Unknown thrush [facility] (LUF/LI V/SA) Penicill ins DA Active Unknown Anaphylaxis (Severe Allergic Rxn) [facility] (LUF/LI V/SA) Social History Social Habit Start Date Stop Date Quantity Comments Source Sex Assigned At [facility] History of tobacco use Smokes tobacco daily [facility] Exposure to SARS-CoV-2 (event) 2022-09-04 00:00:00 2022-09-14 14:13:00 Not sure [facility] Tobacco use and exposure 2022-03-23 00:00:00 2022-03-23 00:00:00 Smokeless tobacco non-user [facility] Smoking Status Start Date Stop Date Source Never smoker [facility] morial (LUF/MICHELLE/SA) Smokes tobacco daily 2022-03-23 00:00:00 [facility] Medications Ordered Medication Name Filled Medication Name Start Date Stop Date Current Medication? Ordering Clinician Indication Dosage Frequency Signature (SIG) Comments Components Source meloxicam 15 mg tablet 08-25 00:00: 00 Yes 1mg Kwakuperri Sharp spironolact one 25 mg tablet 08-25 00:00: 00 Yes 1mg Kwaku Meena Sharp TRELEGY 100 ELLIPTA INH -18 00:00: 00 Yes Kwaku Meena Sharp meloxicam 7.5 mg tablet 3- 00:00: 00 Yes 1mg Kwaku Sharp escitalopra m 20 mg tablet 07-03 00:00: 00 Yes mg Kwaku Sharp Trelegy Ellipta 100 mcg-62.5 mcg-25 mcg powder for inhalation 07-03 00:00: 00 Yes mcg Kwaku Sharp Ventolin HFA 90 mcg/actuati on aerosol inhaler 07-01 00:00: 00 Yes mcg/act uation Kwaku Sharp INHALE 1 TO 2 PUFFS BY MOUTH EVERY 4 TO 6 HOURS NEEDED FOR WHEEZING , COUGH, AND/OR SHORTNESS OF BREATH 07-01 00:00: 00 08-26 00:00 :00 No [id number] Kwaku Sharp TAKE 2 TABLETS ON DAY 1 THEN TAKE 1 TABLET A DAY FOR 4 DAYS. 07-01 00:00: 00 08-26 00:00 :00 No 250 Kwaku Sharp methocarbam ol 500 mg tablet 06-20 00:00: 00 Yes mg Kwaku Sharp TAKE 1 TO 2 TABLETS DAILY. 06-20 00:00: 00 08-26 00:00 :00 No 75 Kwaku Sharp fluticasone propionate 50 mcg/actuati on nasal spray,suspe nsion 06-14 00:00: 00 Yes mcg/act uation Kwaku Sharp TAKE 10ML Q4-6HRS PRN COUGH 06-14 00:00: 00 08-26 00:00 :00 No [id number] Kwaku Sharp TAKE 1 TO 2 TABLETS DAILY. 2022-05 00:00: 00 08-26 00:00 :00 No 75 Kwaku Sharp TAKE 1 TABLET DAILY. 2022-05 00:00: 00 08-26 00:00 :00 No 20 Kwaku Sharp INHALE 1 PUFF BY MOUTH DAILY. 2022-05 00:00: 00 Yes [id number] 5 Kwaku Sharp TAKE 1 TABLET AT BEDTIME. 2022-05 00:00: 00 08-26 00:00 :00 No 20 Kwaku Sharp TAKE 1 TO 2 TABLETS DAILY. 2022-05 00:00: 00 08-26 00:00 :00 No 75 Kwaku Sharp TAKE 1 TABLET DAILY. 2022-05 1-16 00:00: 00 08-26 00:00 :00 No 20 Kwaku Sharp INHALE 1 PUFF BY MOUTH DAILY. 8-15 00:00: 00 08-26 00:00 :00 No [id number] 5 Kwaku Sharp Bupivicaine [place] Bupivicaine [place] 8-10 00:00: 00 No 5mL [facility] Kenalog (Triamcinol one) Kenalog (Triamcinol one) 8-10 00:00: 00 No 1mL [facility] Bupivicaine [place] Bupivicaine [place] 8-10 00:00: 00 No 5mL [facility] Kenalog (Triamcinol one) Kenalog (Triamcinol one) 8-10 00:00: 00 No 1mL [facility] INHALE 1 PUFF DAILY. 18 00:00: 00 08-26 00:00 :00 No [id number] 5 Kwaku Sharp TAKE 2 TABLETS ON DAY 1 THEN TAKE 1 TABLET A DAY FOR 4 DAYS. 11-20 00:00: 00 08-26 00:00 :00 No 250 Kwaku Sharp ESCITALOPRA M OXALATE 20 MG TABS 11-20 00:00: 00 08-26 00:00 :00 No Kwaku Sharp APPLY SPARINGLY TO AFFECTED AREA(S) TWICE DAILY 10-25 00:00: 00 08-26 00:00 :00 No 2 Kwaku Sharp TIZANIDINE HYDROCHLORI DE 4 MG TABS 10-20 00:00: 00 08-26 00:00 :00 No Kwaku Sharp APPLY SPARINGLY TO AFFECTED AREA(S) ONCE DAILY. 04 00:00: 00 08-26 00:00 :00 No 1 Kwaku Sharp TAKE 1 TABLET AT BEDTIME. 09-06 00:00: 00 08-26 00:00 :00 No 4 Kwaku Sharp TAKE 1 TABLET BY MOUTH TWICE A DAY FOR 10 DAYS - 00:00: 00 08-26 00:00 :00 No 50 Kwaku Sharp TAKE 1 TABLET TWICE DAILY. -14 00:00: 00 08-26 00:00 :00 No 500 Kwaku Sharp TAKE 1 TABLET 3 TIMES DAILY. 08-17 00:00: 00 08-26 00:00 :00 No 500 Kwaku Sharp ESCITALOPRA M OXALATE 20 MG TABS 08-02 00:00: 00 Yes Kwaku Sharp TRELEGY ELLIPTA 100-62.5-25 MCG/ACT AEPB 08-02 00:00: 00 Yes Kwaku Sharp APPLY 1 PATCH DAILY DIRECTED. 08-02 00:00: 00 08-26 00:00 :00 No 1424 Kwaku Sharp INHALE 1 PUFF DAILY. 06-13 00:00: 00 Yes [id number] 5 Kwaku Sharp TAKE 1 TABLET DAILY. 08 00:00: 00 Yes 20 Kwaku Sharp TAKE 1 TABLET BY MOUTH EVERY 8 HOURS NEEDED 2021-05 00:00: 00 Yes Kwaku Sharp TAKE 2 TABLETS BY MOUTH EVERY 6 HOURS NEEDED FOR PAIN 2021-05 00:00: 00 Yes Kwaku Sharp TAKE 1 TABLET BY MOUTH TWICE A DAY 2021-05 00:00: 00 Yes Kwaku Sharp TAKE 2 TABLETS BY MOUTH TWICE A DAY 2021-05 00:00: 00 Yes Kwaku Sharp TAKE 1 TABLET BY MOUTH EVERY DAY NEEDED 0 11-28 00:00: 00 Yes Kwaku Sharp TAKE 1 TABLET BY MOUTH EVERY DAY IN THE MORNING 0 11-28 00:00: 00 Yes Kwaku Sharp TAKE 1 PUFF BY MOUTH EVERY DAY 0 11-28 00:00: 00 Yes Kwaku Sharp TAKE 1 TABLET BY MOUTH EVERYDAY AT BEDTIME 0 08-10 00:00: 00 Yes Kwaku Sharp INHALE 1 PUFF BY MOUTH EVERY DAY 08-10 00:00: 00 Yes Kwaku Sharp TAKE 1 TABLET BY MOUTH EVERY DAY IN THE MORNING 08-10 00:00: 00 Yes Kwaku Sharp bupivacaine (preserv free) 0.5% (SENSORCAIN E MPF) 0.5 % (5 mg/mL) injection 2020-05 17:31: 00 03-09 20:11 :30 No PRN, Starting on Sat03/09/21 at 1231, Until Mara 03/09/21 at 1511, Routine, Intra-op [facility] HYDROcodone -acetaminop hen (NORCO 5) 5-325 mg tablet 1 tablet 2020-05 14:00: 00 03-09 14:39 :00 No 1{tbl} 1 tablet, Oral, ONCE, 1 dose, On Mara 03/09/21 at 0900, Routine, PACU [facility] lactated ringers IV infusion 1,000 mL 2020-05 14:00: 00 03-09 20:11 :30 No 1000mL at 100 mL/hr, 1,000 mL, IV Infusion, CONTINUOUS , Starting on Mara 03/09/21 at 0900, Until Amra 03/09/21 at 1511, Routine, PACU [facility] HYDROmorphO ne (DILAUDID) injection 0.2 mg 2020-05 13:55: 47 03-09 20:11 :30 No .2mg 0.2 mg, Slow IV Push, Q5MIN PRN, 10 doses, Starting on Mara 03/09/21 at 0855, Until Mara 03/09/21 at 151, Routine, Pain (scale 7-10), PACU
Us e approved by (Faculty): PACU USE -ANESTHESI A SERVICE-HY DROMORPHON E INJECTIONS [facility] FENTanyl PF (SUBLIMAZE (PF)) injection 25 mcg 2020-05 13:55: 47 03-09 20:11 :30 No 25ug 25 mcg, Slow IV Push, Q5MIN PRN, 4 doses, Starting on Mara 03/09/21 at 0855, Until Mara 03/09/21 at 1511, Routine, Pain (scale 4-6), PACU [facility] ondansetron (ZOFRAN (PF)) injection 4 mg 2020-05 13:55: 47 03-09 20:11 :30 No 4mg 4 mg, Slow IV Push, PRN, 1 dose, Starting on Mara 03/09/21 at 0855, Until Mara 03/09/21 at 1511, Routine, Nausea and Vomiting (N/V), PACU [facility] SPIRONOLACT ONE ORAL 2020-05 13:11: 28 Yes Take by mouth. [facility] lactated ringers IV infusion 1,000 mL 2020-05 12:30: 00 03-09 12:22 :00 No 1000mL at 42 mL/hr, 1,000 mL, IV Infusion, ONCE, 1 dose, On Mara 03/09/21 at 0730, Routine, DSU Pre-op [facility] HYDROCODONE /ACETAMINOP HEN (NORCO ORAL) 2020-05 10:33: 23 Yes Take by mouth. [facility] TRELEGY ELLIPTA 100-62.5-25 mcg DsDv 2020-05 00:00: 00 Yes [facility] clindamycin 150 mg capsule 2020-05 00:00: 00 Yes [facility] escitalopra m oxalate 20 mg tablet 2020-05 00:00: 00 Yes [facility] traZODone 50 mg tablet 2020-05 00:00: 00 Yes [facility] SPIRONOLACT ONE ORAL 11-29 17:49: 55 Yes Take by mouth. [facility] aspirin 81 mg chewable tablet 11-29 00:00: 00 Yes 81mg Take 1 Tab by mouth daily. [facility] Lexapro Lexapro No Lexapro Lasix Lasix No Lasix Lasix Lasix No Lasix [facility] traMADol HCl traMADol HCl No traMADol HCl Acetaminoph en 300 MG / Codeine Phosphate 30 MG Oral Tablet Acetaminoph en 300 MG / Codeine Phosphate 30 MG Oral Tablet Yes 1 2xD orally 2 times per day as needed. [facility] (LUF/LI V/SA) Albuterol Albuterol Yes 1 6xD inhale d every 4 hours as needed. ( administer with spacer;) [facility] (LUF/LI V/SA) Meclizine Hydrochlori de 25 MG Oral Tablet Meclizine Hydrochlori de 25 MG Oral Tablet Yes 25mg 3xD orally 3 times per day as needed. [facility] (LUF/LI V/SA) Simvastatin 20 MG Oral Tablet Simvastatin 20 MG Oral Tablet Yes 20mg orally every day at bedtime [facility] (LUF/LI V/SA) Spironolact one 25 MG Oral Tablet Spironolact one 25 MG Oral Tablet Yes 25mg 1xD orally daily as needed. [facility] (LUF/LI V/SA) Vital Signs Vital Name Observation Time Observation Value Comments S ource height 2022-12-13 09:30:00 65 [in_i] Commo n [facility] weight 2022-12-13 09:30:00 143 [lb_av] Comm on [facility] temperature 2022-12-13 09:30:00 98.2 [degF] Com mon [facility] bmi 2022-12-13 09:30:00 23.79 kg/m2 Comm on [facility] blood pressure systolic 2022-12-13 09:30:00 126 mm[Hg] Common [facility] blood pressure diastolic 2022-12-13 09:30:00 76 mm[Hg] [facility] Systolic blood pressure 2022-03-23 16:56:00 134 mm[Hg] [facility] Diastolic blood pressure 2022-03-23 16:56:00 78 mm[Hg] [facility] Heart rate 2022-03-23 16:56:00 83 /min [facility] Oxygen saturation in Arterial blood by Pulse oximetry 2022-03-23 16:56:00 100 /min [facility] Body height 2022-03-23 16:22:00 163.8 cm [facility] Body weight 2022-03-23 16:22:00 53.434 kg [facility] BMI 2022-03-23 16:22:00 19.91 kg/m2 [facility] Systolic blood pressure 2021-03-09 14:58:00 129 mm[Hg] [facility] Diastolic blood pressure 2021-03-09 14:58:00 58 mm[Hg] [facility] Heart rate 2021-03-09 14:58:00 54 /min Unive [facility] Respiratory rate 2021-03-09 14:58:00 19 /min [facility] Oxygen saturation in Arterial blood by Pulse oximetry 2021-03-09 14:58:00 97 /min [facility] Body temperature 2021-03-09 13:43:00 36.39 Barbara [facility] Body height 2021-03-08 15:30:00 165.1 cm [facility] Body weight 2021-03-08 15:30:00 68.04 kg [facility] BMI 2021-03-08 15:30:00 24.96 kg/m2 [facility] Systolic blood pressure 2021-03-09 14:58:00 129 mm[Hg] [facility] Diastolic blood pressure 2021-03-09 14:58:00 58 mm[Hg] [facility] Heart rate 2021-03-09 14:58:00 54 /min Unive [facility] Respiratory rate 2021-03-09 14:58:00 19 /min [facility] Oxygen saturation in Arterial blood by Pulse oximetry 2021-03-09 14:58:00 97 /min [facility] Body temperature 2021-03-09 13:43:00 36.39 Barbara [facility] Body height 2021-03-08 15:30:00 165.1 cm [facility] Body weight 2021-03-08 15:30:00 68.04 kg [facility] BMI 2021-03-08 15:30:00 24.96 kg/m2 [facility] height 2020-07-04 09:30:00 65 [in_i] Commo n [facility] weight 2020-07-04 09:30:00 185 [lb_av] Comm on [facility] temperature 2020-07-04 09:30:00 97.3 [degF] Com mon [facility] bmi 2020-07-04 09:30:00 30.78 kg/m2 Comm on [facility] blood pressure systolic 2020-07-04 09:30:00 156 mm[Hg] [facility] blood pressure diastolic 2020-07-04 09:30:00 88 mm[Hg] Common [facility] height 2020-05-25 09:00:00 65 [in_i] Commo n [facility] weight 2020-05-25 09:00:00 185 [lb_av] Comm on [facility] temperature 2020-05-25 09:00:00 97.1 [degF] Com mon [facility] bmi 2020-05-25 09:00:00 30.78 kg/m2 Comm on [facility] blood pressure systolic 2020-05-25 09:00:00 142 mm[Hg] [facility] blood pressure diastolic 2020-05-25 09:00:00 90 mm[Hg] [facility] height 2020-04-21 09:30:00 65 [in_i] Commo n [facility] weight 2020-04-21 09:30:00 185 [lb_av] Comm on [facility] bmi 2020-04-21 09:30:00 30.78 kg/m2 Comm on [facility] blood pressure systolic 2020-04-21 09:30:00 134 mm[Hg] [facility] blood pressure diastolic 2020-04-21 09:30:00 74 mm[Hg] Common Pbi kush [facility] Height 2019-10-26 15:10:00 139.7 CM Weight 2019-10-26 15:10:00 77.11 KG Respiratory Rate 2023-08-26 16:10:00 18.00 /min Kwaku F Aron BP Systolic 2023-08-26 16:10:00 154 mm[Hg] Step hen F Aron BP Diastolic 2023-08-26 16:10:00 74 mm[Hg] [place] phen F Aron Weight Measured 2023-08-26 16:10:00 169.60 pounds Kwaku F Aron Height Measured 2023-08-26 16:10:00 63.00 inches Kwaku F Aron Body Temperature 2023-08-26 16:10:00 98.30 degrees Kwaku F Aron Heart Rate 2023-08-26 16:10:00 81.00 /min Nabila en F Aron BP Systolic 2023-07-02 18:31:00 Step hen F Aron BP Diastolic 2023-07-02 18:31:00 [place] phen F Aron Weight Measured 2023-07-02 18:31:00 Kwaku F Aron Height Measured 2023-07-02 18:31:00 Kwaku F Aron Body Temperature 2023-07-02 18:31:00 Kwaku F Aron Heart Rate 2023-07-02 18:31:00 Nabila en F Aron Respiratory Rate 2023-07-02 18:31:00 Kwaku F Aron BP Systolic 2023-06-20 17:07:00 158 mm[Hg] Step hen F Aron BP Diastolic 2023-06-20 17:07:00 85 mm[Hg] [place] phen F Aron Weight Measured 2023-06-20 17:07:00 158.20 pounds Kwaku F Aron Height Measured 2023-06-20 17:07:00 63.00 inches Kwaku F Aron Body Temperature 2023-06-20 17:07:00 98.20 degrees Kwaku F Aron Heart Rate 2023-06-20 17:07:00 91.00 /min Nabila en F Aron Respiratory Rate 2023-06-20 17:07:00 18.00 /min Kwaku F Aron BP Systolic 2023-06-20 16:54:00 158 mm[Hg] Step hen F Aron BP Diastolic 2023-06-20 16:54:00 85 mm[Hg] [place] phen F Aron Weight Measured 2023-06-20 16:54:00 158.20 pounds Kwaku F Aron Height Measured 2023-06-20 16:54:00 63.00 inches Kwaku F Aron Body Temperature 2023-06-20 16:54:00 98.20 degrees Kwaku F Aron Heart Rate 2023-06-20 16:54:00 91.00 /min Nabila en F Aron Respiratory Rate 2023-06-20 16:54:00 18.00 /min Kwaku F Aron BP Systolic 2023-06-14 13:58:00 Step hen F Aron BP Diastolic 2023-06-14 13:58:00 [place] phen F Aron Weight Measured 2023-06-14 13:58:00 Kwaku F Aron Height Measured 2023-06-14 13:58:00 Kwaku F Aron Body Temperature 2023-06-14 13:58:00 Kwaku F Aron Heart Rate 2023-06-14 13:58:00 Nabila en F Aron Respiratory Rate 2023-06-14 13:58:00 Kwaku F Aron BP Systolic 2023-04-16 11:28:00 125 mm[Hg] Step hen F Aron BP Diastolic 2023-04-16 11:28:00 82 mm[Hg] [place] phen F Aron Weight Measured 2023-04-16 11:28:00 155.00 pounds Kwaku F Aron Height Measured 2023-04-16 11:28:00 63.00 inches Kwaku F Aron Body Temperature 2023-04-16 11:28:00 98.20 degrees Kwaku F Aron Heart Rate 2023-04-16 11:28:00 82.00 /min Nabila en F Aron Respiratory Rate 2023-04-16 11:28:00 19.00 /min Kwaku F Aron BP Systolic 2023-03-26 13:47:00 137 mm[Hg] Step hen F Aron BP Diastolic 2023-03-26 13:47:00 69 mm[Hg] [place] phen F Aron Weight Measured 2023-03-26 13:47:00 159.20 pounds Kwaku F Aron Height Measured 2023-03-26 13:47:00 63.00 inches Kwaku F Aron Body Temperature 2023-03-26 13:47:00 98.10 degrees Kwaku F Aron Heart Rate 2023-03-26 13:47:00 79.00 /min Nabila en F Aron Respiratory Rate 2023-03-26 13:47:00 19.00 /min Kwaku F Aron BP Systolic 2022-10-25 10:35:00 144 mm[Hg] Step hen F Aron BP Diastolic 2022-10-25 10:35:00 77 mm[Hg] [place] phen F Aron Weight Measured 2022-10-25 10:35:00 134.40 pounds Kwaku F Aron Height Measured 2022-10-25 10:35:00 63.00 inches Kwaku F Aron Body Temperature 2022-10-25 10:35:00 98.30 degrees Kwaku F Aron Heart Rate 2022-10-25 10:35:00 77.00 /min Nabila en F Aron Respiratory Rate 2022-10-25 10:35:00 18.00 /min Kwaku F Aron BP Systolic 2022-10-18 11:43:00 120 mm[Hg] Step hen F Aron BP Diastolic 2022-10-18 11:43:00 62 mm[Hg] [place] phen F Aron Weight Measured 2022-10-18 11:43:00 131.00 pounds Kwaku F Aron Height Measured 2022-10-18 11:43:00 63.00 inches Kwaku F Aron Body Temperature 2022-10-18 11:43:00 98.10 degrees Kwaku F Aron Heart Rate 2022-10-18 11:43:00 82.00 /min Nabila en F Aron Respiratory Rate 2022-10-18 11:43:00 19.00 /min Kwaku F Aron BP Systolic 2022-09-10 14:12:00 143 mm[Hg] Step hen F Aron BP Diastolic 2022-09-10 14:12:00 84 mm[Hg] Guanako phen F Aron Weight Measured 2022-09-10 14:12:00 126.20 pounds Kwaku F Aron Height Measured 2022-09-10 14:12:00 63.00 inches Kwaku F Aron Body Temperature 2022-09-10 14:12:00 98.30 degrees Kwaku F Aron Heart Rate 2022-09-10 14:12:00 77.00 /min Nabila en Meena Sharp Respiratory Rate 2022-09-10 14:12:00 18.00 /min Kwaku Sharp BP Systolic 2022-09-06 13:47:00 122 mm[Hg] Abdoul Sharp BP Diastolic 2022-09-06 13:47:00 76 mm[Hg] Guanako Sharp Weight Measured 2022-09-06 13:47:00 126.80 pounds Kwaku Sharp Height Measured 2022-09-06 13:47:00 63.00 inches Kwaku Sharp Body Temperature 2022-09-06 13:47:00 98.50 degrees Kwaku Sharp Heart Rate 2022-09-06 13:47:00 78.00 /min Nabila Sharp Respiratory Rate 2022-09-06 13:47:00 17.00 /min Kwaku Sharp Pulse Rate 2019-10-26 17:38:00 48 /min [facility] t [facility] (LUF/MICHELLE/SA) Respiratory Rate 2019-10-26 17:38:00 19 /min [facility] (LUF/MICHELLE/SA) O2% BldC Oximetry 2019-10-26 17:38:00 90 % [facility] (LUF/MICHELLE/SA) BP Systolic 2019-10-26 17:38:00 152 mm[Hg] [facility] (LUF/MICHELLE/SA) BP Diastolic 2019-10-26 17:38:00 77 mm[Hg] [facility] (LUF/MICHELLE/SA) Body Temperature 2019-10-26 15:10:00 97.8 [degF] [facility] (LUF/MICHELLE/SA) Height 2019-10-26 15:10:00 55 [in_i] [facility] S t [facility] (LUF/MICHELLE/SA) Weight 2019-10-26 15:10:00 170 [lb_av] [facility] (LUF/MICHELLE/SA) BMI (Body Mass Index) 2019-10-26 15:10:00 39.9 kg/m2 [facility] (LUF/MICHELLE/SA) Body Temperature 2018-10-30 15:03:00 97.8 F [facility] (LUF/MICHELLE/SA) Pulse Rate 2018-10-30 15:03:00 80 /min [facility] S t [facility] (LUF/MICHELLE/SA) Respiratory Rate 2018-10-30 15:03:00 18 /min [facility] (LUF/MICHELLE/SA) O2% BldC Oximetry 2018-10-30 15:03:00 97 % [facility] (LUF/MICHELLE/SA) BP Systolic 2018-10-30 15:03:00 137 mm[Hg] [facility] (LUF/MICHELLE/SA) BP Diastolic 2018-10-30 15:03:00 69 mm[Hg] [facility] (LUF/MICHELLE/SA) Height 2018-10-30 15:03:00 65 in [facility] S [facility] (LUF/MICHELLE/SA) Weight Measured 2018-10-30 15:03:00 186.95 lbs [facility] (LUF/MICHELLE/SA) BMI (Body Mass Index) 2018-10-30 15:03:00 31.1 kg/m2 [facility] (LUF/MICHELLE/SA) Body Temperature 2018-10-17 10:41:00 98.6 F [facility] (LUF/MICHELLE/SA) Pulse Rate 2018-10-17 10:41:00 74 /min [facility] S [facility] (LUF/MICHELLE/SA) Respiratory Rate 2018-10-17 10:41:00 18 /min [facility] (LUF/MICHELLE/SA) O2% BldC Oximetry 2018-10-17 10:41:00 99 % [facility] (LUF/MICHELLE/SA) BP Systolic 2018-10-17 10:41:00 146 mm[Hg] [facility] (LUF/MICHELLE/SA) BP Diastolic 2018-10-17 10:41:00 80 mm[Hg] [facility] (LUF/MICHELLE/SA) Height 2018-10-17 10:41:00 65 in [facility] S [facility] (LUF/MICHELLE/SA) Weight Measured 2018-10-17 10:41:00 189.6 lbs [facility] (LUF/MICHELLE/SA) BMI (Body Mass Index) 2018-10-17 10:41:00 31.5 kg/m2 [facility] (LUF/MICHELLE/SA) Body Temperature 2018-10-04 14:11:00 98 F [facility] (LUF/MICHELLE/SA) Pulse Rate 2018-10-04 14:11:00 78 /min [facility] S [facility] (LUF/MICHELLE/SA) Respiratory Rate 2018-10-04 14:11:00 20 /min [facility] (LUF/MICHELLE/SA) O2% BldC Oximetry 2018-10-04 14:11:00 99 % [facility] (LUF/MICHELLE/SA) BP Systolic 2018-10-04 14:11:00 129 mm[Hg] [facility] (LUF/MICHELLE/SA) BP Diastolic 2018-10-04 14:11:00 98 mm[Hg] [facility] (LUF/MICHELLE/SA) Height 2018-10-04 14:11:00 55 in [facility] (LUF/MICHELLE/SA) Weight Measured 2018-10-04 14:11:00 191 lbs [facility] (LUF/MICHELLE/SA) BMI (Body Mass Index) 2018-10-04 14:11:00 44.8 kg/m2 [facility] (LUF/MICHELLE/SA) Pulse Rate 2018-08-28 13:30:00 65 /min [facility] (LUF/MICHELLE/SA) O2% BldC Oximetry 2018-08-28 13:30:00 96 % [facility] (LUF/MICHELLE/SA) BP Systolic 2018-08-28 13:30:00 139 mm[Hg] [facility] (LUF/MICHELLE/SA) BP Diastolic 2018-08-28 13:30:00 86 mm[Hg] [facility] (LUF/MICHELLE/SA) Body Temperature 2018-08-28 11:47:00 97.5 F [facility] (LUF/MICHELLE/SA) Respiratory Rate 2018-08-28 11:47:00 18 /min [facility] (LUF/MICHELLE/SA) Height 2018-08-28 11:47:00 66 in [facility] (LUF/MICHELLE/SA) Weight Measured 2018-08-28 11:47:00 195 lbs [facility] (LUF/MICHELLE/SA) BMI (Body Mass Index) 2018-08-28 11:47:00 31.7 kg/m2 [facility] (LUF/MICHELLE/SA) Body Temperature 2017-09-26 11:00:00 96.5 F [facility] (LUF/MICHELLE/SA) Respiratory Rate 2017-09-26 11:00:00 18 /min [facility] (LUF/MICHELLE/SA) O2% BldC Oximetry 2017-09-26 11:00:00 96 % [facility] (LUF/MICHELLE/SA) BP Systolic 2017-09-26 11:00:00 128 mm[Hg] [facility] (LUF/MICHELLE/SA) BP Diastolic 2017-09-26 11:00:00 63 mm[Hg] [facility] (LUF/MICHELLE/SA) Weight Measured 2017-09-26 00:00:00 191.58 lbs [facility] (LUF/MICHELLE/SA) Height 2017-09-25 18:32:00 65 in [facility] (LUF/MICHELLE/SA) BMI (Body Mass Index) 2017-09-25 18:32:00 31.9 [facility] (LUF/MICHELLE/SA) Respiratory Rate 2017-09-25 13:33:00 16 /min [facility] (LUF/MICHELLE/SA) O2% BldC Oximetry 2017-09-25 13:33:00 95 % [facility] (LUF/MICHELLE/SA) BP Systolic 2017-09-25 13:33:00 126 mm[Hg] [facility] (LUF/MICHELLE/SA) BP Diastolic 2017-09-25 13:33:00 72 mm[Hg] [facility] (LUF/MICHELLE/SA) Body Temperature 2017-09-25 12:25:00 98 F [facility] (LUF/MICHELLE/SA) Height 2017-09-25 12:25:00 65 in [facility] (LUF/MICHELLE/SA) Weight Measured 2017-09-25 12:25:00 224.87 lbs [facility] (LUF/MICHELLE/SA) BMI (Body Mass Index) 2017-09-25 12:25:00 37.4 [facility] (LUF/MICHELLE/SA) Body Temperature 2017-09-24 01:37:00 98.3 F [facility] (LUF/MICHELLE/SA) Respiratory Rate 2017-09-24 01:37:00 20 /min [facility] (F/MICHELLE/SA) O2% BldC Oximetry 2017-09-24 01:37:00 99 % [facility] (LUF/MICHELLE/SA) BP Systolic 2017-09-24 01:37:00 126 mm[Hg] [facility] (LUF/MICHELLE/SA) BP Diastolic 2017-09-24 01:37:00 76 mm[Hg] [facility] (LUF/MICHELLE/SA) Height 2017-09-23 21:40:00 65 in [facility] (LUF/MICHELLE/SA) Weight Measured 2017-09-23 21:40:00 194 lbs [facility] (LUF/MICHELLE/SA) BMI (Body Mass Index) 2017-09-23 21:40:00 32.3 [facility] (LUF/MICHELLE/SA) Procedures Procedure Date / Time Performed Performing Clinician Source XR SHOULDER 2+ VW RIGHT 2022-09-14 19:26:34 Lenin Grewal Hussein [facility] XR CERVICAL SPINE 3 VW 2022-09-14 19:26:14 Delmar Jeff Hussein [facility] ASSIGNMENT OF BENEFITS 2022-09-14 19:11:13 Docto r Unassigned, Effort [facility] EXTERNAL PROVIDER RECORDS 2022-04-10 06:01:00 Do ctor Unassigned, Effort [facility] INSURANCE CORRESPONDENCE 2022-03-01 05:01:00 Doc tor Unassigned, Effort [facility] ASPIRATE OR ABSCESS CULTURE(AEROBIC/ANAEROBIC) 2021-03-09 13:25:00 Uri Marx [facility] EXCISION LESION BACK 2021-03-09 12:27:00 Perri Marx [facility] EXCISION LESION UPPER EXTREMITY 2021-03-09 12:27:00 Uri Marx [facility] DAY SURGERY - ADC 2021-03-09 05:01:00 Doctor Esperanza ssigned, Effort [facility] EXTERNAL PROVIDER RECORDS 2021-03-08 05:01:00 Do ctor Unassigned, Effort [facility] CONSENT/REFUSAL FOR DIAGNOSIS AND TREATMENT 2021-03-07 21:17:09 Doctor Unassigned, Effort [facility] ASSIGNMENT OF BENEFITS 2021-03-07 21:16:50 Docto r Unassigned, Effort [facility] NO SHOW OR MISSED APPOINTMENT POLICY ACKNOWLEDGEMENT 2021-03-07 21:16:29 Doctor Unassigned, Effort [facility] PATIENT FINANCIAL POLICY 2021-03-07 21:15:49 Doctor Unassigned, Effort [facility] NOTICE OF BILLING PRACTICES FOR MEDICARE PATIENTS 2021-03-07 21:15:13 Doctor Unassigned, Effort [facility] NOTICE OF PRIVACY PRACTICES 2021-03-07 21:14:48 Doctor Unassigned, Effort [facility] CONSENT/REFUSAL FOR DIAGNOSIS AND TREATMENT 2021-03-07 21:14:29 Doctor Unassigned, Effort [facility] ASSIGNMENT OF BENEFITS 2021-03-07 21:14:12 Docto r Unassigned, Effort [facility] EXTERNAL PROVIDER RECORDS 2021-03-07 05:01:00 Do ctor Unassigned, Effort [facility] EXTERNAL PROVIDER RECORDS 2021-03-07 05:01:00 Do ctor Unassigned, Effort [facility] RIGHT KNEE [facility] (LUF/MICHELLE/SA) Appendectomy [facility] (LUF/MICHELLE/SA) Cholecystectomy [facility] (LUF/MICHELLE/SA) Hysterectomy [facility] (LUF/MICHELLE/SA) RIGHT KNEE [facility] (LUF/MICHELLE/SA) Encounters Start Date/Time End Date/Time Encounter Type Admission Type Attending [facility] Care Facility Care Department Encounter ID Source 2023-01-21 09:00:00 Outpatient Kip Manzo [facility] [id number] [facility] 2022-12-13 11:21:00 Outpatient Kip Manzo [facility] [id number] [facility] 2022-10-19 09:15:00 Outpatient Kip Manzo [facility] [id number] [facility] 2021-05-31 12:38:25 Outpatient Kip Manzo [facility] [id number] [facility] 2021-05-31 12:14:19 Outpatient Kip Manzo [facility] [id number] [facility] 2023-08-26 16:07:12 2023-08-26 16:07:12 Outpatient SFA [facility] [id number] Kwaku Sharp 2023-08-26 00:00:00 2023-08-26 00:00:00 Outpatient Visit SFA [id number] Kwaku Sharp 2023-07-02 00:00:00 2023-07-02 00:00:00 Outpatient Visit SFA [id number] Kwaku Sharp 2023-06-20 16:48:59 2023-06-20 16:48:59 Outpatient SFA SFA [id number] Kwaku Sharp 2023-06-14 13:23:21 2023-06-14 13:23:21 Outpatient SFA SFA [id number] Kwaku Sharp 2023-04-16 11:21:16 2023-04-16 11:21:16 Outpatient SFA SFA [id number] Kwaku Sharp 2023-03-26 13:37:59 2023-03-26 13:37:59 Outpatient SFA SFA [id number] Kwaku Sharp 2023-03-19 10:50:48 2023-03-19 10:50:48 Outpatient SFA SFA [id number] Kwaku Sharp 2022-12-13 00:00:00 2022-12-13 00:00:00 OFFICE VISIT ESTAB PT LEVEL 4 [facility] [id number] [facility] 2022-10-25 10:25:35 2022-10-25 10:25:35 Outpatient SFA SFA [id number] Kwaku Sharp 2022-10-19 00:00:00 2022-10-19 00:00:00 (TEL) STLMLC STLMLC [id number] [facility] 2022-10-18 11:39:26 2022-10-18 11:39:26 Outpatient SFA [facility] [id number] Kwaku Sharp 2022-09-14 14:13:18 2022-09-14 23:59:00 Outpatient R RADIOLOGY [facility] [id number] [facility] 2022-09-14 14:13:18 2022-09-14 23:59:00 Hospital Encounter Radiology [facility] [id number] 350.1.13.10 4.2.7.2.686 [id number] [facility] 2022-09-14 13:45:00 2022-09-14 14:12:00 Hospital Encounter Radiology [facility] 1.2.840.114 350.1.13.10 4.2.7.2.686 [id number] [facility] 2022-09-14 00:00:00 2022-09-14 00:00:00 Orders Only Doctor Unassigned, Effort [facility] 1.2.840.114 350.1.13.10 4.2.7.2.686 [id number] [facility] 2022-09-10 14:07:08 2022-09-10 14:07:08 Outpatient SFA [facility] [id number] Kwaku Sharp 2022-09-06 13:30:34 2022-09-06 13:30:34 Outpatient SFA [facility] [id number] Kwaku Sharp 2022-08-17 14:17:44 2022-08-17 14:17:44 Outpatient SFA [facility] [id number] Kwaku Sharp 2022-08-02 10:27:41 2022-08-02 10:27:41 Outpatient SFA [facility] [id number] Kwaku Sharp 2022-06-13 10:22:11 2022-06-13 10:22:11 Outpatient SFA [facility] [id number] Kwaku Sharp 2022-04-13 00:00:00 2022-04-13 00:00:00 Telephone [facility] [id number] 350.1.13.10 4.2.7.2.686 [id number] [facility] 2022-04-10 00:00:00 2022-04-10 00:00:00 Orders Only Doctor Unassigned, Effort [facility] 1.20.114 350.1.13.10 4.2.7.2.686 [id number] [facility] 2022-04-06 00:00:00 2022-04-06 00:00:00 Telephone Samuel [facility]addad [facility] 1.2840.114 350.1.13.10 4.2.7.2.686 [id number] [facility] 2022-04-02 00:00:00 2022-04-02 00:00:00 Telephone Samuel [facility]addad [facility] 1..114 350.1.13.10 4.2.7.2.686 [id number] [facility] 2022-03-28 00:00:00 2022-03-28 00:00:00 Telephone Samuel [facility]addad [facility] 1.20.114 350.1.13.10 4.2.7.2.686 [id number] [facility] 2022-03-28 00:00:00 2022-03-28 00:00:00 Telephone Samuel [facility]addad [facility] 1.2.114 350.1.13.10 4.2.7.2.686 [id number] [facility] 2022-03-23 10:15:00 2022-03-23 11:16:16 Outpatient R SAMUEL HADDAD [facility] [id number] [facility] 2022-03-23 10:15:00 2022-03-23 11:16:16 Office Visit Samuel Haddad [facility] 1.114 350.1.13.10 4.2.7.2.686 [id number] [facility] 2022-03-16 10:00:00 2022-03-16 10:00:00 Outpatient R BOO SAMUEL [facility] [id number] [facility] 2022-03-01 00:00:00 2022-03-01 00:00:00 Orders Only Doctor Unassigned, Effort [facility] 1.114 350.1.13.10 4.2.7.2.686 [id number] [facility] 2021-05-22 14:15:00 2021-05-22 14:30:00 Laboratory Only Only, Ang Db Test Chris Natanaelkendrick [facility] 1.114 350.1.13.10 4.2.7.2.686 [id number] [facility] 2021-05-22 14:15:00 2021-05-22 14:15:00 Outpatient R LORENALUCIANAKendrick ARIAKendrick [facility] [id number] [facility] 2021-03-09 06:41:00 2021-03-09 10:10:00 Hospital Encounter Uri Marx [facility] 1.114 350.1.13.10 4.2.7.2.686 [id number] [facility] 2021-03-09 06:41:00 2021-03-09 10:10:00 Outpatient R [facility] [id number] [facility] 2021-03-09 07:30:00 2021-03-09 10:06:00 Surgery [facility] 1.2.840.114 350.1.13.10 4.2.7.2.686 [id number] [facility] 2021-03-09 00:00:00 2021-03-09 00:00:00 Orders Only Doctor Unassigned, Effort [facility] 1.2.840.114 350.1.13.10 4.2.7.2.686 [id number] [facility] 2021-03-08 11:39:34 2021-03-08 11:54:34 Laboratory Only Only, Adc Test [facility] 1.2.840.114 350.1.13.10 4.2.7.2.686 [id number] [facility] 2021-03-08 10:45:00 2021-03-08 10:45:00 Outpatient R FRANCISCO J [facility] [id number] [facility] 2021-03-08 00:00:00 2021-03-08 00:00:00 Orders Only Doctor Unassigned, Effort [facility] 1.2.840.114 350.1.13.10 4.2.7.2.686 [id number] [facility] 2021-03-07 16:09:28 2021-03-07 23:59:00 Hospital Encounter [facility] 1.2.840.114 350.1.13.10 4.2.7.2.686 [id number] [facility] 2021-03-07 16:09:12 2021-03-07 16:24:12 Slot Machine Floor Person Visit Pob, Adc Lab Main Froylan Dale [facility] 1.2.840.114 350.1.13.10 4.2.7.2.686 [id number] [facility] 2021-03-07 16:13:15 2021-03-07 16:08:00 Outpatient R FRANCISCO J [facility] [id number] [facility] 2021-03-07 15:45:00 2021-03-07 16:08:00 Hospital Encounter Francisco J [facility] 1.2.840.114 350.1.13.10 4.2.7.2.686 [id number] [facility] 2020-07-04 00:00:00 2020-07-04 00:00:00 OFFICE VISIT EST PT LEVEL 3 [facility] ST[facility] [id number] [facility] 2020-05-25 00:00:00 2020-05-25 00:00:00 OFFICE VISIT ESTAB PT LEVEL 4 STLMLC STLMLC [id number] [facility] 2020-05-10 00:00:00 2020-05-10 00:00:00 (TEL) STLMLC STLMLC [id number] [facility] 2020-05-03 00:00:00 2020-05-03 00:00:00 (TEL) STLMLC STLMLC [id number] [facility] 2020-04-25 00:00:00 2020-04-25 00:00:00 (TEL) STLMLC STLMLC [id number] [facility] 2020-04-21 00:00:00 2020-04-21 00:00:00 OFFICE VISIT NEW PT LEVEL 4 STLMLC STLMLC [id number] [facility] 2019-10-26 15:02:00 2019-10-26 18:15:00 CHONDROCOS TANNER JUNCTION SYND TIETZE 1 NAHID CAPPS [facility] [place], [address], [place] [address] [facility] [id number] [facility] (LUF/LI V/SA) 2018-10-30 14:48:00 2018-10-30 17:52:00 RADICULOPA THY CERVICAL REGION SERG HUBER [facility] [place], [address], [facility] [place] [address] [facility] [id number] [facility] (LUF/LI V/SA) 2018-10-17 09:32:00 2018-10-17 23:59:00 OTH SPEC DORSOPATHI ES CERV REGION 3 HEREDIA, AGRICEL [facility] [place], [address], [facility], [facility] [id number] [facility] (LUF/LI V/SA) 2018-10-17 10:35:00 2018-10-17 11:31:00 RADICULOPA THY CERVICAL REGION APOLINAR NAIR [facility] N, [address], [facility], [facility] [id number] [facility] (LUF/LI V/SA) 2018-10-04 14:03:00 2018-10-04 15:00:00 RADICULOPA THY CERVICAL REGION SERG HUBER [facility] [place], [address], [facility], [facility] [id number] [facility] (LUF/LI V/SA) 2018-08-28 11:43:00 2018-08-28 14:12:00 CERVICALGI A CECILE ULRICH [facility] [place], [address], [facility] [place] [address] [facility] [id number] [facility] (LUF/LI V/SA) 2018-08-08 09:59:00 2018-08-08 23:59:00 OTH SPEC DORSOPATHI ES CERV REGION 3 HEREDIA, [facility], [address], [facility], [facility] [phone] [facility] (LUF/LI V/SA) 2018-06-04 09:46:00 2018-06-04 23:59:00 UNS VIRAL HEPATITIS C W/O HEP COMA O EVON DALEY M [facility] [place], [address], [facility] [address] [facility] [phone] [facility] (LUF/LI V/SA) 2018-05-20 09:27:00 2018-05-20 23:59:00 PAIN IN RIGHT UPPER ARM 3 KIP MANZO [facility] [place] N, [address], [facility] [place] [address] [facility] [phone] [facility] (LUF/LI V/SA) 2018-04-17 09:21:00 2018-04-17 23:59:00 OTH ABN INCONCL FIND DX IMAG BREAST 3 KIP MANZO [facility] N, [address], [facility] [address] [facility] [id number] [facility] (LUF/LI V/SA) 2018-03-11 11:55:00 2018-03-11 23:59:00 Inpatient O EVON DALEY [facility] N, [address], [facility] [address] [facility] [id number] [facility] (LUF/LI V/SA) 2018-02-25 13:04:00 2018-02-25 23:59:00 Inpatient [facility] N, [address], [facility] [address] [facility] [id number] [facility] (LUF/LI V/SA) 2018-02-04 11:11:00 2018-02-04 23:59:00 CHRONIC VIRAL HEPATITIS C O NUSRAT HEREDIA [facility] N, [address], [facility] [place] [address] [facility] [id number] [facility] (LUF/LI V/SA) 2018-01-09 12:39:00 2018-01-09 23:59:00 UNS VIRAL HEPATITIS C W/O HEP COMA O EVON DALEY [facility] N, [address], [facility] [place] [address] [facility] [id number] [facility] (LUF/LI V/SA) 2017-11-05 08:20:00 2017-11-05 23:59:00 CHRONIC VIRAL HEPATITIS C O EVON DALEY Dilcia [facility] N, [address] [place], [facility] [place] [address] [facility] [id number] [facility] (LUF/LI V/SA) 2017-10-03 08:10:00 2017-10-03 23:59:00 OTHER CHEST PAIN 3 [place], JOHN [facility] N, [address] [place], [facility] [place] [address] [facility] [id number] [facility] (LUF/LI V/SA) 2017-10-02 12:33:00 2017-10-02 23:59:00 HYPERLIPID EMIA UNSPECIFIE D O KRISTEN SOLIMANEZA [facility] N, [address] [place], [facility] [place] [address] [facility] [id number] [facility] (LUF/LI V/SA) 2017-09-25 17:37:00 2017-09-26 14:05:00 OTHER CHEST PAIN I LIA CEE [facility], [address] [place] [address] [facility] [id number] [facility] (LUF/LI V/SA) 2017-09-25 10:16:00 2017-09-25 15:52:00 UNSTABLE ANGINA 1 NOAM STEELE [facility] N, [address] [place], [facility] [place] [address] [facility] [id number] [facility] (LUF/LI V/SA) 2017-09-23 21:34:00 2017-09-24 01:39:00 CHEST PAIN UNSPECIFIE D APOLINRA MANZANARES [facility] N, [address] [place], [facility] [address] [facility] [id number] [facility] (LUF/LI V/SA) 2017-08-19 13:06:00 2017-08-19 23:59:00 OTH ABN INCONCL FIND DX IMAG BREAST 3 KIP MANZO [facility] N, [address] [place], [facility] [address] [facility] [id number] [facility] 2017-07-31 10:47:00 2017-07-31 23:59:00 ENC SCR MAMMO MALIG NEOPLASM BREAST 3 KIP MANZO [facility], [address], [facility] [place] [address] [facility] [id number] [facility] ([facility]LI V/SA) Results Test Description Test Time Test Comments Results Result Co mments Source LIPID [id number] 04:03:08* Test Item Value Reference Range Interpretation Comme nts CHOLESTEROL (test code = 2210) 217 MG/DL <200 H TRIGLYCERIDES (test code = 2232) 131 MG/DL <150 HDL CHOLESTEROL (test code = 2220) 70 MG/DL >39 CALC LDL CHOL (test code = 2237) 122 MG/DL <100 H NOTE: CALCULATED LDL IS BASED ON RUI-CHAVEZ METHOD WHICHINCLUDES ADJUSTABLE TRIGLYCERIDE:VLDL CHOLESTEROL RATIO.THIS FACTOR VARIES BY MEASURED TRIGLYCERIDE AND NON-HDLCHOLESTEROL CONCENTRATIONS WITH INCREASED CALCULATED LDL SEENIN HIGHER TRIGLYCERIDE OR LOWER NON-HDL SPECIMENS. FOR MOREINFORMATION, SEE CLIENT ANNOUNCEMENT AT [email or web address] /[email or web address] RISK RATIO LDL/HDL (test code = 2238) 1.74 RATIO <3.22 UNLESS OTHERW ISE INDICATED, ALL TESTING PERFORMED AT [facility] [address] [place] [address] HOG PUSHER: RAJEEV AGUDELO M.D. CLIA NUMBER [id number] [place]. [id number] 06:25:41* Test Item Value Reference Range Interpretation Comme nts AMYLASE (test code = 2205) 43 U/L 28-100 COMPREHENSIVE METABOLIC [id number] 05:49:02* Test Item Value Reference Range Interpretation Comme nts GLUCOSE (test code = 2217) 66 MG/DL 70-99 L BUN (test code = 2208) 13 MG/DL 8-23 CREATININE (test code = 2213) 0.94 MG/DL 0.60-1.30 eGFR (2020 CKD-EPI) (test code = ) 69 ML/MIN/1.73 >60 CALC BUN/CREAT (test code = 2234) 14 RATIO 6-28 SODIUM (test code = 2230) 143 MEQ/L 133-146 POTASSIUM (test code = 2227) 5.1 MEQ/L 3.5-5.4 CHLORIDE (test code = 2214) 106 MEQ/L 95-107 CARBON DIOXIDE (test code = 2205) 25 MEQ/L 19-31 CALCIUM (test code = 2208) 9.7 MG/DL 8.5-10.5 PROTEIN, TOTAL (test code = 2228) 6.6 G/DL 6.1-8.3 ALBUMIN (test code = 2200) 4.4 G/DL 3.5-5.2 CALC GLOBULIN (test code = 2239) 2.2 G/DL 1.9-3.7 CALC A/G RATIO (test code = 2233) 2.0 RATIO 1.0-2.6 BILIRUBIN, TOTAL (test code = 2206) 0.2 MG/DL <=1.2 ALKALINE PHOSPHATASE (test code = 2203) 80 U/L 40-140 AST (test code = 2217) 13 U/L 9-40 ALT (test code = 2218) 10 U/L 5-40 UNLESS OTHERWISE INDICATED, ALL TESTING PERFORMED AT [facility] [address] [place] [address] HOG PUSHER: RAJEEV AGUDELO M.D. CLIA NUMBER [id number] [facility] [place]. [id number] CBC W/AUTO DIFF WITH [id number] 02:33:46* Test Item Value Reference Range Interpretation Comme nts WBC (test code = 1001) 6.5 K/UL 3.5-11.0 RBC (test code = 1002) 4.04 M/UL 3.80-5.40 HEMOGLOBIN (test code = 1003) 13.0 G/DL 11.5-15.5 HEMATOCRIT (test code = 1004) 38.8 % 34.0-45.0 MCV (test code = 1005) 96.0 fL 80.0-99.0 MCH (test code = 1006) 32.2 PG 25.0-33.0 MCHC (test code = 1007) 33.5 G/DL 31.0-36.0 RDW (test code = 1038) 12.5 % 11.5-15.0 NEUTROPHILS (test code = 1008) 59.7 % LYMPHOCYTES (test code = 1010) 25.1 % MONOCYTES (test code = 1011) 5.9 % EOSINOPHILS (test code = 1012) 8.2 % BASOPHILS (test code = 1013) 0.5 % IMMATURE GRANULOCYTES (test code = 1036) 0.6 % NUCLEATED RBCS (test code = 1065) 0.0 /100 WBC'S See_Comment [Automated messa ge] The system which generated this result transmitted reference range: 0.0. The reference range was not used to interpret this result as normal/abnormal. PLATELET COUNT (test code = 1015) 247 K/UL 130-400 ABSOLUTE NEUTROPHILS (test code = 1066) 3.88 K/UL 1.50-7.50 ABSOLUTE LYMPHOCYTES (test code = 1067) 1.63 K/UL 1.00-4.00 ABSOLUTE MONOCYTES (test code = 1068) 0.38 K/UL 0.20-1.00 ABSOLUTE EOSINOPHILS (test code = 1040) 0.53 K/UL 0.00-0.50 H ABSOLUTE BASOPHILS (test code = 1069) 0.03 K/UL 0.00-0.20 ABS IMMATURE GRANULOCYTES (test code = 1020) 0.04 K/UL 0.00-0.10 ABS NUCLEATED RBCS (test code = 11590) 0.00 K/UL 0.00-0.11 [id number] 00:00:00* Test Item Value Reference Range Interpretation Comme nts AMYLASE (test code = 2205) 43 U/L Kwaku Robledo AustinCBC W/AUTO [id number] 00:00:00* Test Item Value Reference Range Interpretation Comme nts WBC (test code = 1001) 6.5 K/UL RBC (test code = 1002) 4.04 M/UL HEMOGLOBIN (test code = 1003) 13.0 G/DL HEMATOCRIT (test code = 1004) 38.8 % MCV (test code = 1005) 96.0 fL MCH (test code = 1006) 32.2 PG MCHC (test code = 1007) 33.5 G/DL RDW (test code = 1038) 12.5 % NEUTROPHILS (test code = 1008) 59.7 % LYMPHOCYTES (test code = 1010) 25.1 % MONOCYTES (test code = 1011) 5.9 % EOSINOPHILS (test code = 1012) 8.2 % BASOPHILS (test code = 1013) 0.5 % IMMATURE GRANULOCYTES (test code = 1036) 0.6 % NUCLEATED RBCS (test code = 1065) 0.0 /100WBC'S PLATELET COUNT (test code = 1015) 247 K/UL ABSOLUTE NEUTROPHILS (test c ode = 1066) 3.88 K/UL ABSOLUTE LYMPHOCYTES (test c ode = 1067) 1.63 K/UL ABSOLUTE MONOCYTES (test cod e = 1068) 0.38 K/UL ABSOLUTE EOSINOPHILS (test c ode = 1040) 0.53 K/UL ABSOLUTE BASOPHILS (test cod e = 1069) 0.03 K/UL ABS IMMATURE GRANULOCYTES (t est code = 1020) 0.04 K/UL ABS NUCLEATED RBCS (test cod e = 66825) 0.00 K/UL Kwaku Meena AronCOMPREHENSIVE METABOLIC [id number] 00:00:00* Test Item Value Reference Range Interpretation Comme nts GLUCOSE (test code = 2217) 66 MG/DL BUN (test code = 2208) 13 MG/DL CREATININE (test code = 2214) 0.94 MG/DL eGFR (2020 CKD-EPI) (test co de = 41976) 69 ML/MIN/1.73 CALC BUN/CREAT (test code = 2235) 14 RATIO SODIUM (test code = 2231) 143 MEQ/L POTASSIUM (test code = 2228) 5.1 MEQ/L CHLORIDE (test code = 2215) 106 MEQ/L CARBON DIOXIDE (test code = 2206) 25 MEQ/L CALCIUM (test code = 2209) 9.7 MG/DL PROTEIN, TOTAL (test code = 2229) 6.6 G/DL ALBUMIN (test code = 2201) 4.4 G/DL CALC GLOBULIN (test code = 2240) 2.2 G/DL CALC A/G RATIO (test code = 2234) 2.0 RATIO BILIRUBIN, TOTAL (test code = 2207) 0.2 MG/DL ALKALINE PHOSPHATASE (test code = 2204) 80 U/L AST (test code = 2218) 13 U/L ALT (test code = 2219) 10 U/L Kwaku [id number] 00:00:00* Test Item Value Reference Range Interpretation Comme nts AMYLASE (test code = 2205) 43 U/L Kwaku SharpCBC W/AUTO [id number] 00:00:00* Test Item Value Reference Range Interpretation Comme nts WBC (test code = 1001) 6.5 K/UL RBC (test code = 1002) 4.04 M/UL HEMOGLOBIN (test code = 1003) 13.0 G/DL HEMATOCRIT (test code = 1004) 38.8 % MCV (test code = 1005) 96.0 fL MCH (test code = 1006) 32.2 PG MCHC (test code = 1007) 33.5 G/DL RDW (test code = 1038) 12.5 % NEUTROPHILS (test code = 1008) 59.7 % LYMPHOCYTES (test code = 1010) 25.1 % MONOCYTES (test code = 1011) 5.9 % EOSINOPHILS (test code = 1012) 8.2 % BASOPHILS (test code = 1013) 0.5 % IMMATURE GRANULOCYTES (test code = 1036) 0.6 % NUCLEATED RBCS (test code = 1065) 0.0 /100WBC'S PLATELET COUNT (test code = 1015) 247 K/UL ABSOLUTE NEUTROPHILS (test c ode = 1066) 3.88 K/UL ABSOLUTE LYMPHOCYTES (test c ode = 1067) 1.63 K/UL ABSOLUTE MONOCYTES (test cod e = 1068) 0.38 K/UL ABSOLUTE EOSINOPHILS (test c ode = 1040) 0.53 K/UL ABSOLUTE BASOPHILS (test cod e = 1069) 0.03 K/UL ABS IMMATURE GRANULOCYTES (t est code = 1020) 0.04 K/UL ABS NUCLEATED RBCS (test cod e = 78856) 0.00 K/UL Kwaku SharpCOMPREHENSIVE METABOLIC [id number] 00:00:00* Test Item Value Reference Range Interpretation Comme nts GLUCOSE (test code = 2217) 66 MG/DL BUN (test code = 2208) 13 MG/DL CREATININE (test code = 2214) 0.94 MG/DL eGFR (2020 CKD-EPI) (test co de = 98105) 69 ML/MIN/1.73 CALC BUN/CREAT (test code = 2235) 14 RATIO SODIUM (test code = 2231) 143 MEQ/L POTASSIUM (test code = 2228) 5.1 MEQ/L CHLORIDE (test code = 2215) 106 MEQ/L CARBON DIOXIDE (test code = 2206) 25 MEQ/L CALCIUM (test code = 2209) 9.7 MG/DL PROTEIN, TOTAL (test code = 2229) 6.6 G/DL ALBUMIN (test code = 2201) 4.4 G/DL CALC GLOBULIN (test code = 2240) 2.2 G/DL CALC A/G RATIO (test code = 2234) 2.0 RATIO BILIRUBIN, TOTAL (test code = 2207) 0.2 MG/DL ALKALINE PHOSPHATASE (test code = 2204) 80 U/L AST (test code = 2218) 13 U/L ALT (test code = 2219) 10 U/L Kwaku AkersH, THIRD [id number] 07:05:44* Test Item Value Reference Range Interpretation Comme [facility] TSH, THIRD GENERATION (test code = 2821) 1.460 UIU/ML 0.400-4.100 HEMOGLOBIN [id number] 04:35:46* Test Item Value Reference Range Interpretation Comme [facility] HEMOGLOBIN A1c (test code = 63693) 6.1 % 4.2-5.6 H [employer] GUIDELINES FOR HGB A1C: PREDIABETES/INCREASED RISK . . . . . . . 5.7-6.4% DIAGNOSIS OF DIABETES . . . . . . . . . >=6.5% WITH CONFIRMATION OR APPROPRIATE SYMPTOMS NOTE: ASSAY MAY BE AFFECTED BY HEMOGLOBINOPATHIES (SICKLE CELL ANEMIA, S-C DISEASE, OTHERS) OR ARTIFICIALLY LOWERED BY DECREASED RED CELL SURVIVAL (HEMOLYTIC ANEMIAS, BLOOD LOSS, ETC.). CONSIDER ALTERNATE TESTING OR LABORATORY CONSULTATION. COMPREHENSIVE METABOLIC [id number] 04:34:12* Test Item Value Reference Range Interpretation Comme nts GLUCOSE (test code = 7) 84 MG/DL 70-99 BUN (test code = 2208) 15 MG/DL 8-23 CREATININE (test code = 2214) 1.15 MG/DL 0.60-1.30 eGFR (2020 CKD-EPI) (test code = 93564) 55 ML/MIN/1.73 >60 L The NKF-ASN Taskforce recommends use of Cystatin C to confirm eGFR inadults at risk for CKD. [facility] offers eGFR with Cystatin C-Creatinineusing the 2020 CKD-EPI eGFR_creat-cystat equation (order code 3057) toincrease the accuracy of estimated GFR. For more information, contactyour group account director or see announcement [email or web address] CALC BUN/CREAT (test code = 2234) 13 RATIO 6-28 SODIUM (test code = 2230) 141 MEQ/L 133-146 POTASSIUM (test code = 2227) 4.4 MEQ/L 3.5-5.4 CHLORIDE (test code = 2214) 102 MEQ/L 95-107 CARBON DIOXIDE (test code = 2205) 27 MEQ/L 19-31 CALCIUM (test code = 2208) 9.7 MG/DL 8.5-10.5 PROTEIN, TOTAL (test code = 2228) 6.7 G/DL 6.1-8.3 ALBUMIN (test code = 2200) 4.5 G/DL 3.5-5.2 CALC GLOBULIN (test code = 2239) 2.2 G/DL 1.9-3.7 CALC A/G RATIO (test code = 2233) 2.0 RATIO 1.0-2.6 BILIRUBIN, TOTAL (test code = 2206) 0.2 MG/DL See_Comment [Automated me ssage] The system which generated this result transmitted reference range: <=1.2. The reference range was not used to interpret this result as normal/abnormal. ALKALINE PHOSPHATASE (test code = 2203) 74 U/L 40-136 AST (test code = 2217) 17 U/L 9-40 ALT (test code = 9) 14 U/L 5-40 LIPID [id number] 04:34:12* Test Item Value Reference Range Interpretation Comme nts CHOLESTEROL (test code = 221) 193 MG/DL <200 TRIGLYCERIDES (test code = 2232) 82 MG/DL <150 HDL CHOLESTEROL (test code = 2219) 77 MG/DL >39 CALC LDL CHOL (test code = 2236) 99 MG/DL <100 NOTE: CALCULATED LDL IS BASED ON RUI-CHAVEZ METHOD WHICHINCLUDES ADJUSTABLE TRIGLYCERIDE:VLDL CHOLESTEROL RATIO.THIS FACTOR VARIES BY MEASURED TRIGLYCERIDE AND NON-HDLCHOLESTEROL CONCENTRATIONS WITH INCREASED CALCULATED LDL SEENIN HIGHER TRIGLYCERIDE OR LOWER NON-HDL SPECIMENS. FOR MOREINFORMATION, SEE CLIENT ANNOUNCEMENT AT [email or web address] /CalcLDL-C RISK RATIO LDL/HDL (test code = 2238) 1.29 RATIO <3.22 [facility] has i mportant pathology staff changes effective 07/04/2022. New pathology staff will provide uninterrupted, excellent patient care and clinical consultation. See URL: [email or web address]. UNLESS OTHERWISE INDICATED, ALL TESTING PERFORMED AT [facility] [address] [place] [address] HOG PUSHER: RAJEEV AGUDELO M.D. CLIA NUMBER [id number] [facility] [place]. [id number] CBC W/AUTO DIFF WITH [id number] 03:51:06* Test Item Value Reference Range Interpretation Comme nts WBC (test code = 1001) 7.1 K/UL 3.5-11.0 RBC (test code = 1002) 4.26 M/UL 3.80-5.40 HEMOGLOBIN (test code = 1003) 13.5 G/DL 11.5-15.5 HEMATOCRIT (test code = 1004) 41.2 % 34.0-45.0 MCV (test code = 1005) 96.7 fL 80.0-99.0 MCH (test code = 1006) 31.7 PG 25.0-33.0 MCHC (test code = 1007) 32.8 G/DL 31.0-36.0 RDW (test code = 1038) 12.7 % 11.5-15.0 NEUTROPHILS (test code = 1008) 50.4 % LYMPHOCYTES (test code = 1010) 34.9 % MONOCYTES (test code = 1011) 5.5 % EOSINOPHILS (test code = 1012) 8.3 % BASOPHILS (test code = 1013) 0.6 % IMMATURE GRANULOCYTES (test code = 1036) 0.3 % NUCLEATED RBCS (test code = 1065) 0.0 /100 WBC'S See_Comment [Automated [employer] ge] The system which generated this result transmitted reference range: 0.0. The reference range was not used to interpret this result as normal/abnormal. PLATELET COUNT (test code = 1015) 256 K/UL 130-400 ABSOLUTE NEUTROPHILS (test code = 1066) 3.61 K/UL 1.50-7.50 ABSOLUTE LYMPHOCYTES (test code = 1067) 2.49 K/UL 1.00-4.00 ABSOLUTE MONOCYTES (test code = 1068) 0.39 K/UL 0.20-1.00 ABSOLUTE EOSINOPHILS (test code = 1040) 0.59 K/UL 0.00-0.50 H ABSOLUTE BASOPHILS (test code = 1069) 0.04 K/UL 0.00-0.20 ABS IMMATURE GRANULOCYTES (test code = 1020) 0.02 K/UL 0.00-0.10 ABS NUCLEATED RBCS (test code = 18832) 0.00 K/UL 0.00-0.11 TSH, THIRD [id number] 00:00:00* Test Item Value Reference Range Interpretation Comme nts TSH, THIRD GENERATION (test code = 2821) 1.460 UIU/ML Kwaku Robledo AronCBC W/AUTO [id number] 00:00:00* Test Item Value Reference Range Interpretation Comme nts WBC (test code = 1001) 7.1 K/UL RBC (test code = 1002) 4.26 M/UL HEMOGLOBIN (test code = 1003) 13.5 G/DL HEMATOCRIT (test code = 1004) 41.2 % MCV (test code = 1005) 96.7 fL MCH (test code = 1006) 31.7 PG MCHC (test code = 1007) 32.8 G/DL RDW (test code = 1038) 12.7 % NEUTROPHILS (test code = 1008) 50.4 % LYMPHOCYTES (test code = 1010) 34.9 % MONOCYTES (test code = 1011) 5.5 % EOSINOPHILS (test code = 1012) 8.3 % BASOPHILS (test code = 1013) 0.6 % IMMATURE GRANULOCYTES (test code = 1036) 0.3 % NUCLEATED RBCS (test code = 1065) 0.0 /100WBC'S PLATELET COUNT (test code = 1015) 256 K/UL ABSOLUTE NEUTROPHILS (test c ode = 1066) 3.61 K/UL ABSOLUTE LYMPHOCYTES (test c ode = 1067) 2.49 K/UL ABSOLUTE MONOCYTES (test cod e = 1068) 0.39 K/UL ABSOLUTE EOSINOPHILS (test c ode = 1040) 0.59 K/UL ABSOLUTE BASOPHILS (test cod e = 1069) 0.04 K/UL ABS IMMATURE GRANULOCYTES (t est code = 1020) 0.02 K/UL ABS NUCLEATED RBCS (test cod e = 75297) 0.00 K/UL Kwkau SharpCOMPREHENSIVE METABOLIC [id number] 00:00:00* Test Item Value Reference Range Interpretation Comme nts GLUCOSE (test code = 2217) 84 MG/DL BUN (test code = 2208) 15 MG/DL CREATININE (test code = 2214) 1.15 MG/DL eGFR (2020 CKD-EPI) (test co de = 82801) 55 ML/MIN/1.73 CALC BUN/CREAT (test code = 2235) 13 RATIO SODIUM (test code = 2231) 141 MEQ/L POTASSIUM (test code = 2228) 4.4 MEQ/L CHLORIDE (test code = 2215) 102 MEQ/L CARBON DIOXIDE (test code = 2206) 27 MEQ/L CALCIUM (test code = 2209) 9.7 MG/DL PROTEIN, TOTAL (test code = 2229) 6.7 G/DL ALBUMIN (test code = 2201) 4.5 G/DL CALC GLOBULIN (test code = 2240) 2.2 G/DL CALC A/G RATIO (test code = 2234) 2.0 RATIO BILIRUBIN, TOTAL (test code = 2207) 0.2 MG/DL ALKALINE PHOSPHATASE (test code = 2204) 74 U/L AST (test code = 2218) 17 U/L ALT (test code = 2219) 14 U/L Kwaku SharpHEMOGLOBIN [id number] 00:00:00* Test Item Value Reference Range Interpretation Comme nts HEMOGLOBIN A1c (test code = 53420) 6.1 % Kwaku SharpLIPID [id number] 00:00:00* Test Item Value Reference Range Interpretation Comme nts CHOLESTEROL (test code = 2210) 193 MG/DL TRIGLYCERIDES (test code = 2232) 82 MG/DL HDL CHOLESTEROL (test code = 2220) 77 MG/DL CALC LDL CHOL (test code = 2237) 99 MG/DL RISK RATIO LDL/HDL (test cod e = 2238) 1.29 RATIO Kwaku Duron, THIRD [id number] 00:00:00* Test Item Value Reference Range Interpretation Comme nts TSH, THIRD GENERATION (test code = 2821) 1.460 UIU/ML Kwaku SharpCBC W/AUTO [id number] 00:00:00* Test Item Value Reference Range Interpretation Comme nts WBC (test code = 1001) 7.1 K/UL RBC (test code = 1002) 4.26 M/UL HEMOGLOBIN (test code = 1003) 13.5 G/DL HEMATOCRIT (test code = 1004) 41.2 % MCV (test code = 1005) 96.7 fL MCH (test code = 1006) 31.7 PG MCHC (test code = 1007) 32.8 G/DL RDW (test code = 1038) 12.7 % NEUTROPHILS (test code = 1008) 50.4 % LYMPHOCYTES (test code = 1010) 34.9 % MONOCYTES (test code = 1011) 5.5 % EOSINOPHILS (test code = 1012) 8.3 % BASOPHILS (test code = 1013) 0.6 % IMMATURE GRANULOCYTES (test code = 1036) 0.3 % NUCLEATED RBCS (test code = 1065) 0.0 /100WBC'S PLATELET COUNT (test code = 1015) 256 K/UL ABSOLUTE NEUTROPHILS (test c ode = 1066) 3.61 K/UL ABSOLUTE LYMPHOCYTES (test c ode = 1067) 2.49 K/UL ABSOLUTE MONOCYTES (test cod e = 1068) 0.39 K/UL ABSOLUTE EOSINOPHILS (test c ode = 1040) 0.59 K/UL ABSOLUTE BASOPHILS (test cod e = 1069) 0.04 K/UL ABS IMMATURE GRANULOCYTES (t est code = 1020) 0.02 K/UL ABS NUCLEATED RBCS (test cod e = 66838) 0.00 K/UL Kwaku SharpCOMPREHENSIVE METABOLIC [id number] 00:00:00* Test Item Value Reference Range Interpretation Comme nts GLUCOSE (test code = 2217) 84 MG/DL BUN (test code = 2208) 15 MG/DL CREATININE (test code = 2214) 1.15 MG/DL eGFR (2020 CKD-EPI) (test co de = 89538) 55 ML/MIN/1.73 CALC BUN/CREAT (test code = 2235) 13 RATIO SODIUM (test code = 2231) 141 MEQ/L POTASSIUM (test code = 2228) 4.4 MEQ/L CHLORIDE (test code = 2215) 102 MEQ/L CARBON DIOXIDE (test code = 2206) 27 MEQ/L CALCIUM (test code = 2209) 9.7 MG/DL PROTEIN, TOTAL (test code = 2229) 6.7 G/DL ALBUMIN (test code = 2201) 4.5 G/DL CALC GLOBULIN (test code = 2240) 2.2 G/DL CALC A/G RATIO (test code = 2234) 2.0 RATIO BILIRUBIN, TOTAL (test code = 2207) 0.2 MG/DL ALKALINE PHOSPHATASE (test code = 2204) 74 U/L AST (test code = 2218) 17 U/L ALT (test code = 2219) 14 U/L Kwaku SharpHEMOGLOBIN [id number] 00:00:00* Test Item Value Reference Range Interpretation Comme nts HEMOGLOBIN A1c (test code = 78524) 6.1 % Kwaku SharpLIPID [id number] 00:00:00* Test Item Value Reference Range Interpretation Comme nts CHOLESTEROL (test code = 2210) 193 MG/DL TRIGLYCERIDES (test code = 2232) 82 MG/DL HDL CHOLESTEROL (test code = 2220) 77 MG/DL CALC LDL CHOL (test code = 2237) 99 MG/DL RISK RATIO LDL/HDL (test cod e = 2238) 1.29 RATIO Kwaku SharpXR RIBS UNILATERAL/ PA [id number] 16:57:42Left rib series with PA chest, 5 views:History: Rib painNo acute rib fracture is identified. There is old healed fracture of the leftsixth rib. No pneumothorax or pleural effusion is noted. The frontal view of thechest shows no acute cardiopulmonary abnormality.Impression: No acute rib fracture.This final report was electronically signed by Dr Jerrell Sanchez MD 10/26/20194:51 PMDictated By: JERRELL SANCHEZDate: 10/26/2019 16:51[facility] CSPINE W/O CONTRAST 2019-05-25 15:23:44"If patient is claustrophobic, contact ordering ysician for additional instructions."EXAMINATION: MRI of the cervical spine without contrastHISTORY: Chronic neck pain radiating to the left upper extremityCOMPARISON: Cervical spine MRI of 10/17/[address] 10/09/16TECHNIQUE:Sagittal T1, T2, STIR; axial T2, gradient echo.FINDINGS:Curvature: Normal lordosis.Vertebrae: No evidence of neoplasm, infection, or fracture.Foramen magnum: No mass, Chiari malformation, or basilar invagination.Spinal Cord: Normal size and signal intensity.Soft Tissues: Unremarkable.Degenerative changes:C1-C2: Unremarkable.C2-C3: Unremarkable.C3-C4: Again seen fusion of the left facet joint. No canal or foraminalstenoses.C4-C5: Small disc osteophyte complex formation, bilateral uncovertebral andfacet arthroses worse on the left with degenerative synovitis (bone marrow edemaand periarticular soft tissue swelling). Mild left foraminal narrowing.C5-C6: Asymmetric right disc osteophyte complexformation, uncovertebraland facet arthroses. Mild right foraminal stenoses.C6-C7: Minimal disc bulge and facet arthrosis without stenoses.C7-T1: Unremarkable.IMPRESSION:1. Persistent prominent degenerative facet synovitis on the left side at C4-C5.2. Mild degenerative foraminal stenosis on the leftat C4-C5 and on the rightat C5-6.This final report was electronically signed by Dr Law Taylor MD 05/25/2019 3:17PMDictated By: LAW TAYLORDate: 05/25/2019 15:17[facility] [id number] 09:48:00* Test Item Value Reference Range Interpretation Comme nts Glucose (test code = GLU) 120 mg/dl 75-110 H BUN (test code = BUN) 10.0 mg/dl 6.0-17.0 Creatinine (test code = CREA) 0.8 mg/dl 0.4-1.2 Sodium (test code = NA) 140 mmol/l 137-145 Potassium (test code = K) 3.9 mmol/l 3.5-5.0 Chloride (test code = CL) 108 mmol/l 98-107 H CO2 (test code = CO2) 28 mmol/l 22-30 Calcium (test code = CALC) 8.7 mg/dl 8.4-10.2 T Protein (test code = TP) 6.5 gm/dl 5.1-8.7 Albumin (test code = ALB) 3.3 gm/dl 3.5-4.6 L A/G Ratio (test code = AGRAT) 1.0 % 1.1-2.2 L AST (SGOT) (test code = AST) 68 U/L 11-36 H ALT (SGPT) (test code = ALT) 116 U/L 11-40 H Alkaline Phos (test code = ALKP) 140 U/L 47-114 H Total Bilirubin (test code = TBIL) 0.4 mg/dl 0.2-1.2 Globulin (test code = GLOBU) 3.2 gm/dl 2.3-3.5 Calcium, Corrected (test code = CALCCORR) 9.3 mg/dl 8.4-10.2 Various formulas exist for corrected serum calcium results, each yielding different values. This corrected result was based on the formula: Corrected Calcium = SerumCalcium + [0.8 * ( 4 - SerumAlbumin)] EGFR if (test code = EGFRAA) >60 mL/min/1.73m\\ S\\2 EGFR if Non- (test code = EGFRNA) >60 mL/min/1.73m\\ S\\2 Estimated Glomerular Filtration Rate (eGFR) Reference Intervals Decision Points for 18 years and older and average body mass: >= 60 Does not exclude kidney disease. 30 - 59 Suggests moderate chronic kidney disease and indicates the need for further investigation including assessment of proteinuria and cardiovascular factors. < 30 Usually indicates a need for referral for assessment and management of chronic kidney failure. [facility] 09:48:00* Test Item Value Reference Range Interpretation Comme nts Lipase (test code = LIPA) 269 U/L 8-223 H [facility] (HEMOGRAM ONLY)2019-04-22 09:05:00* Test Item Value Reference Range Interpretation Comme nts WBC (test code = WBC) 7.09 10\\S\\3/ul 4.80-10.80 RBC (test code = RBC) 3.84 10\\S\\6/ul 4.20-5.40 L Hemoglobin (test code = HGB) 11.9 gm/dl 12.0-14.0 L Hematocrit (test code = HCT) 36.5 % 37.0-47.0 L MCV (test code = MCV) 95.1 fL 81.0-99.0 MCH (test code = MCH) 31.0 pg 27.0-31.0 MCHC (test code = MCHC) 32.6 gm/dl 33.0-37.0 L RDW (test code = RDWVC) 14.8 % 11.5-14.5 H Platelet (test code = PLT) 204 10\\S\\3/ul 130-400 MPV (test code = MPV) 12.0 fL 7.4-10.4 A "NOT MEASURED" RESULTS ARE DISPLAYED WHEN THE INSTRUMENT HAS A SUPPRESSED OR UNREPORTABLE RESULT. THIS WILL MOST OFTEN HAPPEN WITH THE MPV WHEN THERE IS AN ABNORMAL PLATELET DISTRIBUTION DUE TO A CRITICAL LOW VALUE OR PLATELET CLUMPING. THE RDW MAY BE SUPPRESSED IF THERE ARE MULTIPLE PEAKS PRESENT ON THE RBC HISTOGRAM. IN THIS CASE, A MANUAL REVIEW OF THE SLIDE WILL BE PERFORMED, AND RBC MORPHOLOGY WILL BE NOTED ON THE REPORT. [facility] 14:03:00* Test Item Value Reference Range Interpretation Comme nts Glucose (test code = GLU) 80 mg/dl 75-110 BUN (test code = BUN) 8.0 mg/dl 6.0-17.0 Creatinine (test code = CREA) 0.8 mg/dl 0.4-1.2 Sodium (test code = NA) 139 mmol/l 137-145 Potassium (test code = K) 4.1 mmol/l 3.5-5.0 Chloride (test code = CL) 106 mmol/l 98-107 CO2 (test code = CO2) 30 mmol/l 22-30 Calcium (test code = CALC) 8.7 mg/dl 8.4-10.2 T Protein (test code = TP) 6.7 gm/dl 5.1-8.7 Albumin (test code = ALB) 3.5 gm/dl 3.5-4.6 A/G Ratio (test code = AGRAT) 1.1 % 1.1-2.2 AST (SGOT) (test code = AST) 87 U/L 11-36 H ALT (SGPT) (test code = ALT) 127 U/L 11-40 H Alkaline Phos (test code = ALKP) 125 U/L 47-114 H Total Bilirubin (test code = TBIL) 0.5 mg/dl 0.2-1.2 Globulin (test code = GLOBU) 3.2 gm/dl 2.3-3.5 Calcium, Corrected (test code = CALCCORR) 9.1 mg/dl 8.4-10.2 Various formulas exist for corrected serum calcium results, each yielding different values. This corrected result was based on the formula: Corrected Calcium = SerumCalcium + [0.8 * ( 4 - SerumAlbumin)] EGFR if (test code = EGFRAA) >60 mL/min/1.73m\\ S\\2 EGFR if Non- (test code = EGFRNA) >60 mL/min/1.73m\\ S\\2 Estimated Glomerular Filtration Rate (eGFR) Reference Intervals Decision Points for 18 years and older and average body mass: >= 60 Does not exclude kidney disease. 30 - 59 Suggests moderate chronic kidney disease and indicates the need for further investigation including assessment of proteinuria and cardiovascular factors. < 30 Usually indicates a need for referral for assessment and management of chronic kidney failure. [facility]2019-[facility]17 13:56:00* Test Item Value Reference Range Interpretation Comme nts Lipase (test code = LIPA) 232 U/L 8-223 H [facility] (HEMOGRAM ONLY)2019-04-21 13:41:00* Test Item Value Reference Range Interpretation Comme nts WBC (test code = WBC) 7.18 10\\S\\3/ul 4.80-10.80 RBC (test code = RBC) 3.95 10\\S\\6/ul 4.20-5.40 L Hemoglobin (test code = HGB) 12.1 gm/dl 12.0-14.0 Hematocrit (test code = HCT) 38.0 % 37.0-47.0 MCV (test code = MCV) 96.2 fL 81.0-99.0 MCH (test code = MCH) 30.6 pg 27.0-31.0 MCHC (test code = MCHC) 31.8 gm/dl 33.0-37.0 L RDW (test code = RDWVC) 14.8 % 11.5-14.5 H Platelet (test code = PLT) 218 10\\S\\3/ul 130-400 MPV (test code = MPV) 11.9 fL 7.4-10.4 A "NOT MEASURED" RESULTS ARE DISPLAYED WHEN THE INSTRUMENT HAS A SUPPRESSED OR UNREPORTABLE RESULT. THIS WILL MOST OFTEN HAPPEN WITH THE MPV WHEN THERE IS AN ABNORMAL PLATELET DISTRIBUTION DUE TO A CRITICAL LOW VALUE OR PLATELET CLUMPING. THE RDW MAY BE SUPPRESSED IF THERE ARE MULTIPLE PEAKS PRESENT ON THE RBC HISTOGRAM. IN THIS CASE, A MANUAL REVIEW OF THE SLIDE WILL BE PERFORMED, AND RBC MORPHOLOGY WILL BE NOTED ON THE REPORT. Formerly Named [facility] ABDOMEN [id number] 14:19:42Hx of RUQ pain, S/P GB resection, and some alcohol over the weekend now with pain, please assess for possible bile duct stoneRIGHT UPPER QUADRANT ULTRASOUND:INDICATION: Right upper quadrant painDISCUSSION:The liver is mildlyenlarged but shows normal echogenicity. There is mildperiportal biliary duct dilatation. Hepatopedal flow is noted in the portalvein.The gallbladder is surgically absent. The common duct is mildly dilated statuspost cholecystectomy, measuring just over 11 mm.The visualized portions of the pancreas,IVC, aorta and right kidney show nosignificant abnormality. There is no ascites in the right upper q uadrant.IMPRESSION:1. Mild hepatomegaly.2. Status post cholecystectomy with mildly dilated common duct and periportalbile ducts. Correlate with the clinical and laboratory findings.This final report was electronically signed by Dr Jerrell Sanchez MD 04/20/20192:13 PMDictated By: JERRELL SANCHEZDate: 04/20/2019 14:13[facility]/PELVIS W/[id number] 07:28:14 EXAM: CT Abdomen and Pelvis WITH contrastINDICATION: [id number]: Abdominal pain quadrant pain, nauseatonight, hep CCOMPARISON: Abdominal CT October 09, 2016.TECHNIQUE: Abdomen and pelvis were scanned utilizing a multidetector helicalscanner from the lung base to the pubic symphysis after administrationof IVcontrast. Coronal and sagittal reformations were obtained. Routine protocol wasperformed. Scanwas performed when during portal venous phase.IV CONTRAST: 100 mL of Isovue 300ORAL CONTRAST: NoneCOMPLICATIONS: NoneRADIATION DOSE:Total DLP: 1004 mGy*cmEstimated effective dose: (DLP x 0.015 x sizefactor) mSvCTDIvol has been reviewed. It is below [...] within thespleen with some internal heterogeneity, unchanged sinceOctober 09, 2016,compatible with a benign entity such [...] 04/20/20197:21 AMDictated By: APOLINAR PATRICKDate: 04/20/2019 07:21[facility] [id number] 05:04:00* Test Item Value Reference Range Interpretation Comme nts Glucose (test code = GLU) 101 mg/dl 75-110 BUN (test code = BUN) 10.0 mg/dl 6.0-17.0 Creatinine (test code = CREA) 0.9 mg/dl 0.4-1.2 Sodium (test code = NA) 139 mmol/l 137-145 Potassium (test code = K) 3.7 mmol/l 3.5-5.0 Chloride (test code = CL) 109 mmol/l 98-107 H CO2 (test code = CO2) 28 mmol/l 22-30 Calcium (test code = CALC) 8.7 mg/dl 8.4-10.2 T Protein (test code = TP) 6.7 gm/dl 5.1-8.7 Albumin (test code = ALB) 3.3 gm/dl 3.5-4.6 L A/G Ratio (test code = AGRAT) 1.0 % 1.1-2.2 L AST (SGOT) (test code = AST) 27 U/L 11-36 ALT (SGPT) (test code = ALT) 26 U/L 11-40 Alkaline Phos (test code = ALKP) 75 U/L 47-114 Total Bilirubin (test code = TBIL) 0.3 mg/dl 0.2-1.2 Globulin (test code = GLOBU) 3.4 gm/dl 2.3-3.5 Calcium, Corrected (test code = CALCCORR) 9.3 mg/dl 8.4-10.2 Various formulas exist for corrected serum calcium results, each yielding different values. This corrected result was based on the formula: Corrected Calcium = SerumCalcium + [0.8 * ( 4 - SerumAlbumin)] EGFR if (test code = EGFRAA) >60 mL/min/1.73m\\ S\\2 EGFR if Non- (test code = EGFRNA) >60 mL/min/1.73m\\ S\\2 Estimated Glomerular Filtration Rate (eGFR) Reference Intervals Decision Points for 18 years and older and average body mass: >= 60 Does not exclude kidney disease. 30 - 59 Suggests moderate chronic kidney disease and indicates the need for further investigation including assessment of proteinuria and cardiovascular factors. < 30 Usually indicates a need for referral for assessment and management of chronic kidney failure. [facility]2019[facility] 05:04:00* Test Item Value Reference Range Interpretation Comme nts Lipase (test code = LIPA) 586 U/L 8-223 H [facility]IN[facility] WITH [id number] 04:55:00 * Test Item Value Reference Range Interpretation Comme nts Color (test code = UCOLR) Lt. Yellow Clarity (test code = UCLAR) Clear Glucose (test code = UGLUC) NEGATIVE NEGATIVE N Bilirubin (test code = UBILI) NEGATIVE NEGATIVE N Ketones (test code = UKET) NEGATIVE NEGATIVE N Specific [place] (test code = USPGR) 1.010 1.005-1.030 A Blood (test code = UBLD) NEGATIVE NEGATIVE N PH (test code = UPH) 7.0 4.5-8.0 A Protein (test code = UPROT) NEGATIVE NEGATIVE N Urobilinogen (test code = U UROB) 0.2 >0.2 N Nitrite (test code = UNITR) NEGATIVE NEGATIVE N Leukocyte Esterase (test cod e = ULEUK) NEGATIVE NEGATIVE N WBC (test code = WBCUR) None seen 0-5 A RBC (test code = RBCUR) None seen 0-5 A Epithial Cells (test code = U EPI) 0-5 0-10 A Bacteria (test code = UBACT) None seen None Seen,Trace A [facility] Rose[facility] WITH AUTO [id number] 04:34:00* Test Item Value Reference Range Interpretation Comme nts WBC (test code = WBC) 8.65 10\\S\\3/ul 4.80-10.80 RBC (test code = RBC) 4.02 10\\S\\6/ul 4.20-5.40 L Hemoglobin (test code = HGB) 12.5 gm/dl 12.0-14.0 Hematocrit (test code = HCT) 37.5 % 37.0-47.0 MCV (test code = MCV) 93.3 fL 81.0-99.0 MCH (test code = MCH) 31.1 pg 27.0-31.0 H MCHC (test code = MCHC) 33.3 gm/dl 33.0-37.0 RDW (test code = RDWVC) 14.7 % 11.5-14.5 H Platelet (test code = PLT) 236 10\\S\\3/ul 130-400 MPV (test code = MPV) 11.9 fL 7.4-10.4 A "NOT MEASURED" RESULTS ARE DISPLAYED WHEN THE INSTRUMENT HAS A SUPPRESSED OR UNREPORTABLE RESULT. THIS WILL MOST OFTEN HAPPEN WITH THE MPV WHEN THERE IS AN ABNORMAL PLATELET DISTRIBUTION DUE TO A CRITICAL LOW VALUE OR PLATELET CLUMPING. THE RDW MAY BE SUPPRESSED IF THERE ARE MULTIPLE PEAKS PRESENT ON THE RBC HISTOGRAM. IN THIS CASE, A MANUAL REVIEW OF THE SLIDE WILL BE PERFORMED, AND RBC MORPHOLOGY WILL BE NOTED ON THE REPORT. NE% (test code = NE) 53.0 % 42.0-75.0 LY% (test code = LY) 34.7 % 13.0-42.0 MO% (test code = MO) 4.7 % 4.0-14.0 EO% (test code = EO) 6.6 % 1.0-5.0 H BA% (test code = BA) 0.3 % 0.0-3.0 IG% (test code = IG%) 0.7 % 0.0-0.4 H [facility] SED [id number] 13:57:00* Test Item Value Reference Range Interpretation Comme nts Sed Rate (test code = ESR) 23 mm/hr 0-35 EFFECTIVE 4-1-20 14, THE METHODOLOGY USED FOR ERYTHROCYTE SEDIMENTATION RATE HAS CHANGED. THE NORMAL RANGES HAVE CHANGED. PLEASE NOTE THAT RANGES ARE DEFINED BY THE AGE OF THE PATIENT. NEW REFERENCE RANGES: Females 0-49 years old = 0-25 mm/hr Females 50-999 years old = 0-35 mm/hr Males 0-49 years old = 0-20 mm/hr Males 50-999 years old = 0-25 mm/hr [facility]2019-03-16 13:19:00* Test Item Value Reference Range Interpretation Comme nts WBC (test code = WBC) 7.94 10\\S\\3/ul 4.80-10.80 RBC (test code = RBC) 4.05 10\\S\\6/ul 4.20-5.40 L Hemoglobin (test code = HGB) 12.9 gm/dl 12.0-14.0 Hematocrit (test code = HCT) 38.4 % 37.0-47.0 MCV (test code = MCV) 94.8 fL 81.0-99.0 MCH (test code = MCH) 31.9 pg 27.0-31.0 H MCHC (test code = MCHC) 33.6 gm/dl 33.0-37.0 RDW (test code = RDWVC) 14.3 % 11.5-14.5 Platelet (test code = PLT) 228 10\\S\\3/ul 130-400 MPV (test code = MPV) 12.1 fL 7.4-10.4 A "NOT MEASURED" RESULTS ARE DISPLAYED WHEN THE INSTRUMENT HAS A SUPPRESSED OR UNREPORTABLE RESULT. THIS WILL MOST OFTEN HAPPEN WITH THE MPV WHEN THERE IS AN ABNORMAL PLATELET DISTRIBUTION DUE TO A CRITICAL LOW VALUE OR PLATELET CLUMPING. THE RDW MAY BE SUPPRESSED IF THERE ARE MULTIPLE PEAKS PRESENT ON THE RBC HISTOGRAM. IN THIS CASE, A MANUAL REVIEW OF THE SLIDE WILL BE PERFORMED, AND RBC MORPHOLOGY WILL BE NOTED ON THE REPORT. Former[facility] Named [facility] CSPINE W/O [id number] 15:49:03"If patient is claustrophobic, contact ordering ph ysician for additional instructions."MRI of the cervical [...] mild to moderate right foraminalstenosis. Similar changes are present to a lesser degree at C5-6 on the rightwith mild right foraminal stenosis.There is no focal disc herniation or significant disc bulging. The cervical cordappears unremarkable. The visuali zed posterior fossa structures are withinnormal limits and the cerebellar tonsils are in normal position.Impression: Asymmetric uncovertebral spurring at C4-5 and C5-6 on the left withright foraminalstenosis as described.This final report was electronically signed by Dr Jerrell Sanchez MD 10/17/20183:42 PMDictated By: JERRELL SANCHEZDate: 10/17/2018 15:42[facility]IVINGSTONXR CERV SPINE MIN 4-5 [id number] 12:09:31Cervical spine series 5 views:History: Neck painAP, lateral, odontoid and both oblique views were obtained. No fracture orsubluxation is identified. No disc space narrowing is noted. There is noprever tebral soft tissue swelling. The sagittal diameter of the spinal canalappears adequate.Impression: Negative cervical spine series.This final report was electronically signed by Dr Jerrell Sanchez MD 08/08/201812:03 PMDictated By: JERRELL SANCHEZDate: 08/08/2018 12:03[facility] CLAYTONHCV, RNA, QUANT RT PCR, VIRAL [id number] 06:13:00* Test Item Value Reference Range Interpretation Comme nts HEPATITIS C QUANTITATION (test code = 132858) HCV Not Detected IU/mL HCV LOG10 (test code = 483849) STEAMBLASTER TEST INFORMATION (test code = 233195) Comment The quantit ative range of this assay is 15 IU/mL to 100 million IU/mL. PERFORMED AT: [facility] [id number] NETWORK OPERATIONS SPECIALIST: Etienne Cervantes MD PHONE: [phone] Health's Bellin [facility] HospitalP2019-01-30 11:50:00* Test Item Value Reference Range Interpretation Comme nts Glucose (test code = GLU) 88 mg/dl 75-110 BUN (test code = BUN) 11.0 mg/dl 6.0-17.0 Creatinine (test code = CREA) 0.9 mg/dl 0.4-1.2 Sodium (test code = NA) 138 mmol/l 137-145 Potassium (test code = K) 4.7 mmol/l 3.5-5.0 Chloride (test code = CL) 104 mmol/l 98-107 CO2 (test code = CO2) 30 mmol/l 22-30 Calcium (test code = CALC) 8.7 mg/dl 8.4-10.2 T Protein (test code = TP) 6.9 gm/dl 5.1-8.7 Albumin (test code = ALB) 4.0 gm/dl 3.5-4.6 A/G Ratio (test code = AGRAT) 1.4 % 1.1-2.2 AST (SGOT) (test code = AST) 12 U/L 11-36 ALT (SGPT) (test code = ALT) 20 U/L 11-40 Alkaline Phos (test code = ALKP) 76 U/L 47-114 Total Bilirubin (test code = TBIL) 0.3 mg/dl 0.2-1.2 Globulin (test code = GLOBU) 2.9 gm/dl 2.3-3.5 Calcium, Corrected (test code = CALCCORR) 8.7 mg/dl 8.4-10.2 Various formulas exist for corrected serum calcium results, each yielding different values. This corrected result was based on the formula: Corrected Calcium = SerumCalcium + [0.8 * ( 4 - SerumAlbumin)] EGFR if (test code = EGFRAA) >60 mL/min/1.73m\\ S\\2 EGFR if Non- (test code = EGFRNA) >60 mL/min/1.73m\\ S\\2 Estimated Glomerular Filtration Rate (eGFR) Reference Intervals Decision Points for 18 years and older and average body mass: >= 60 Does not exclude kidney disease. 30 - 59 Suggests moderate chronic kidney disease and indicates the need for further investigation including assessment of proteinuria and cardiovascular factors. < 30 Usually indicates a need for referral for assessment and management of chronic kidney failure. [facility] WITH AUTO [id number] 11:37:00* Test Item Value Reference Range Interpretation Comme nts WBC (test code = WBC) 6.62 10\\S\\3/ul [...] (test code = IG%) 0.3 % 0.0-0.4 [facility] RoseUS EXTREMITY NON VASC-SPECIFIC [id number] 10:38:25Ultrasound of the right axillary region:History: Right axillary pain and tendernessTargeted ultrasound examination of the right axilla was performed. No cyst orsolid lesion is visualized. No lymphadenopathy is noted. There is no fluidcollection noted.Impression: Negative ultrasound of the right axilla.This final report was electronically signed by Dr Jerrell Sanchez MD 05/20/201810:32 AMDictated By: Nathanael SANCHEZte: 05/20/2018 10:32[facility] MAUREENMM MAMMO DIAG 3D OFTD-[id number] 08:29:26Procedure: MM MAMMO DIAG 3D CASA- BilateralExam Date: 04/17/2018 9:30 AMOrdering Provider: KIP Lopezinical Indication: Digital screening mammography.Comparison: July 31, 2017 and August 09, 2017Technique: 3-D tomosynthesis views of both breasts were obtained. The study isinterpreted using computer-aided detection (CAD).Findings:There are scattered fibroglandular densities in each breast.Co ntinued stability of the left retroareolar nodule, showing [...] Dr Jerrell Sanchez MD 04/18/20188:23 AMDictated By: Blessing SANCHEZ: 04/18/2018 08:23MMRUSK REHABILITATION CENTERHCV, RNA, QUANT RT PCR, VIRAL [id number] 08:31:00* Test Item Value Reference Range Interpretation Comme nts HEPATITIS C QUANTITATION (test code = 913718) HCV Not Detected IU/mL HCV LOG10 (test code = 311744) STEAMBLASTER TEST INFORMATION (test code = 252740) Comment The quantit ative range of this assay is 15 IU/mL to 100 million IU/mL. PERFORMED AT: [facility] [id number] NETWORK OPERATIONS SPECIALIST: Etienne Cervantes MD PHONE: [phone] RoseCMP2018-11-06 13:17:00* Test Item Value Reference Range Interpretation Comme nts Glucose (test code = GLU) 91 mg/dl 75-110 BUN (test code = BUN) 8.0 mg/dl 6.0-17.0 Creatinine (test code = CREA) 1.0 mg/dl 0.4-1.2 Sodium (test code = NA) 142 mmol/l 137-145 Potassium (test code = K) 4.7 mmol/l 3.5-5.0 Chloride (test code = CL) 106 mmol/l 98-107 CO2 (test code = CO2) 31 mmol/l 22-30 H Calcium (test code = CALC) 9.4 mg/dl 8.4-10.2 T Protein (test code = TP) 7.3 gm/dl 5.1-8.7 Albumin (test code = ALB) 3.9 gm/dl 3.5-4.6 A/G Ratio (test code = AGRAT) 1.1 % 1.1-2.2 AST (SGOT) (test code = AST) 17 U/L 11-36 ALT (SGPT) (test code = ALT) 27 U/L 11-40 Alkaline Phos (test code = ALKP) 84 U/L 47-114 Total Bilirubin (test code = TBIL) 0.4 mg/dl 0.2-1.2 Globulin (test code = GLOBU) 3.4 gm/dl 2.3-3.5 Calcium, Corrected (test code = CALCCORR) 9.5 mg/dl 8.4-10.2 Various formulas exist for corrected serum calcium results, each yielding different values. This corrected result was based on the formula: Corrected Calcium = SerumCalcium + [0.8 * ( 4 - SerumAlbumin)] EGFR if (test code = EGFRAA) >60 mL/min/1.73m\\ S\\2 EGFR if Non- (test code = EGFRNA) >60 mL/min/1.73m\\ S\\2 Estimated Glomerular Filtration Rate (eGFR) Reference Intervals Decision Points for 18 years and older and average body mass: >= 60 Does not exclude kidney disease. 30 - 59 Suggests moderate chronic kidney disease and indicates the need for further investigation including assessment of proteinuria and cardiovascular factors. < 30 Usually indicates a need for referral for assessment and management of chronic kidney failure. [facility] WITH AUTO [id number] 12:37:00* Test Item Value Reference Range Interpretation Comme nts WBC (test code = WBC) 7.50 10\\S\\3/ul [...] code = IG%) 0.5 % 0.0-0.4 H [facility]INAL[facility] WITH [id number] 13:40:00 * Test Item Value Reference Range Interpretation Comme nts Color (test code = UCOLR) LT. YELLOW Clarity (test code = UCLAR) CLEAR Glucose (test code = UGLUC) NEGATIVE NEGATIVE N Bilirubin (test code = UBILI) NEGATIVE NEGATIVE N Ketones (test code = UKET) NEGATIVE NEGATIVE N Specific [place] (test code = USPGR) <=1.005 1.005-1.030 A Blood (test code = UBLD) TRACE-INTACT NEGATIVE A PH (test code = UPH) 6.5 4.5-8.0 A Protein (test code = UPROT) NEGATIVE NEGATIVE N Urobilinogen (test code = U UROB) 0.2 >0.2 N Nitrite (test code = UNITR) NEGATIVE NEGATIVE N Leukocyte Esterase (test cod e = ULEUK) NEGATIVE NEGATIVE N RBC (test code = RBCUR) 0-5 0-5 N Epithial Cells (test code = U EPI) 0-1 0-10 A Bacteria (test code = UBACT) Trace None Seen,Trace N [facility] RoseCMP2018-10-02 13:13:00* Test Item Value Reference Range Interpretation Comme nts Glucose (test code = GLU) 84 mg/dl 75-110 BUN (test code = BUN) 12.0 mg/dl 6.0-17.0 Creatinine (test code = CREA) 0.9 mg/dl 0.4-1.2 Sodium (test code = NA) 142 mmol/l 137-145 Potassium (test code = K) 4.5 mmol/l 3.5-5.0 Chloride (test code = CL) 106 mmol/l 98-107 CO2 (test code = CO2) 31 mmol/l 22-30 H Calcium (test code = CALC) 9.2 mg/dl 8.4-10.2 T Protein (test code = TP) 7.3 gm/dl 5.1-8.7 Albumin (test code = ALB) 3.7 gm/dl 3.5-4.6 A/G Ratio (test code = AGRAT) 1.0 % 1.1-2.2 L AST (SGOT) (test code = AST) 13 U/L 11-36 ALT (SGPT) (test code = ALT) 23 U/L 11-40 Alkaline Phos (test code = ALKP) 82 U/L 47-114 Total Bilirubin (test code = TBIL) 0.2 mg/dl 0.2-1.2 Globulin (test code = GLOBU) 3.6 gm/dl 2.3-3.5 H Calcium, Corrected (test code = CALCCORR) 9.4 mg/dl 8.4-10.2 Various formulas exist for corrected serum calcium results, each yielding different values. This corrected result was based on the formula: Corrected Calcium = SerumCalcium + [0.8 * ( 4 - SerumAlbumin)] EGFR if (test code = EGFRAA) >60 mL/min/1.73m\\ S\\2 EGFR if Non- (test code = EGFRNA) >60 mL/min/1.73m\\ S\\2 Estimated Glomerular Filtration Rate (eGFR) Reference Intervals Decision Points for 18 years and older and average body mass: >= 60 Does not exclude kidney disease. 30 - 59 Suggests moderate chronic kidney disease and indicates the need for further investigation including assessment of proteinuria and cardiovascular factors. < 30 Usually indicates a need for referral for assessment and management of chronic kidney failure. [facility]-REACTIVE [id number] 13:12:00* Test Item Value Reference Range Interpretation Comme nts C REACTIVE PROTEIN (test cod e = CRP) <2.9 mg/dl 0.0-0.9 H [facility]TH[facility] SED [id number] 12:32:00* Test Item Value Reference Range Interpretation Comme nts Sed Rate (test code = ESR) 38 mm/hr 0-35 H EFFECTIVE 4--20 14, THE METHODOLOGY USED FOR ERYTHROCYTE SEDIMENTATION RATE HAS CHANGED. THE NORMAL RANGES HAVE CHANGED. PLEASE NOTE THAT RANGES ARE DEFINED BY THE AGE OF THE PATIENT. NEW REFERENCE RANGES: Females 0-49 years old = 0-25 mm/hr Females 50-999 years old = 0-35 mm/hr Males 0-49 years old = 0-20 mm/hr Males 50-999 years old = 0-25 mm/hr [facility] WITH AUTO [id number] 12:07:00* Test Item Value Reference Range Interpretation Comme nts WBC (test code = WBC) 6.89 10\\S\\3/ul 4.80-10.80 RBC (test code = RBC) 4.01 10\\S\\6/ul 4.20-5.40 L Hemoglobin (test code = HGB) 11.6 gm/dl 12.0-14.0 L Hematocrit (test code = HCT) 37.1 % 37.0-47.0 MCV (test code = MCV) 92.5 fL 81.0-99.0 MCH (test code = MCH) 28.9 pg 27.0-31.0 MCHC (test code = MCHC) 31.3 gm/dl 33.0-37.0 L RDW (test code = RDWVC) 15.3 % 11.5-14.5 H Platelet (test code = PLT) 212 10\\S\\3/ul 130-400 MPV (test code = MPV) 11.0 fL 7.4-10.4 A "NOT MEASURED" RESULTS ARE DISPLAYED WHEN THE INSTRUMENT HAS A SUPPRESSED OR UNREPORTABLE RESULT. THIS WILL MOST OFTEN HAPPEN WITH THE MPV WHEN THERE IS AN ABNORMAL PLATELET DISTRIBUTION DUE TO A CRITICAL LOW VALUE OR PLATELET CLUMPING. THE RDW MAY BE SUPPRESSED IF THERE ARE MULTIPLE PEAKS PRESENT ON THE RBC HISTOGRAM. IN THIS CASE, A MANUAL REVIEW OF THE SLIDE WILL BE PERFORMED, AND RBC MORPHOLOGY WILL BE NOTED ON THE REPORT. NE% (test code = NE) 46.6 % 42.0-75.0 LY% (test code = LY) 32.8 % 13.0-42.0 MO% (test code = MO) 7.1 % 4.0-14.0 EO% (test code = EO) 12.3 % 1.0-5.0 H BA% (test code = BA) 0.6 % 0.0-3.0 IG% (test code = IG%) 0.6 % 0.0-0.4 H [facility]2018-[facility] 15:37:00* Test Item Value Reference Range Interpretation Comme nts Glucose (test code = GLU) 74 mg/dl 75-110 L BUN (test code = BUN) 9.0 mg/dl 6.0-17.0 Creatinine (test code = CREA) 0.9 mg/dl 0.4-1.2 Sodium (test code = NA) 142 mmol/l 137-145 Potassium (test code = K) 4.5 mmol/l 3.5-5.0 Chloride (test code = CL) 104 mmol/l 98-107 CO2 (test code = CO2) 32 mmol/l 22-30 H Calcium (test code = CALC) 9.4 mg/dl 8.4-10.2 T Protein (test code = TP) 7.2 gm/dl 5.1-8.7 Albumin (test code = ALB) 3.9 gm/dl 3.5-4.6 A/G Ratio (test code = AGRAT) 1.2 % 1.1-2.2 AST (SGOT) (test code = AST) 14 U/L 11-36 ALT (SGPT) (test code = ALT) 23 U/L 11-40 Alkaline Phos (test code = ALKP) 86 U/L 47-114 Total Bilirubin (test code = TBIL) 0.3 mg/dl 0.2-1.2 Globulin (test code = GLOBU) 3.3 gm/dl 2.3-3.5 Calcium, Corrected (test code = CALCCORR) 9.5 mg/dl 8.4-10.2 Various formulas exist for corrected serum calcium results, each yielding different values. This corrected result was based on the formula: Corrected Calcium = SerumCalcium + [0.8 * ( 4 - SerumAlbumin)] EGFR if (test code = EGFRAA) >60 mL/min/1.73m\\ S\\2 EGFR if Non- (test code = EGFRNA) >60 mL/min/1.73m\\ S\\2 Estimated Glomerular Filtration Rate (eGFR) Reference Intervals Decision Points for 18 years and older and average body mass: >= 60 Does not exclude kidney disease. 30 - 59 Suggests moderate chronic kidney disease and indicates the need for further investigation including assessment of proteinuria and cardiovascular factors. < 30 Usually indicates a need for referral for assessment and management of chronic kidney failure. [facility] WITH AUTO [id number] 14:32:00* Test Item Value Reference Range Interpretation Comme nts WBC (test code = WBC) 7.75 10\\S\\3/ul 4.80-10.80 RBC (test code = RBC) 4.15 10\\S\\6/ul 4.20-5.40 L Hemoglobin (test code = HGB) 11.9 gm/dl 12.0-14.0 L Hematocrit (test code = HCT) 39.1 % 37.0-47.0 MCV (test code = MCV) 94.2 fL 81.0-99.0 MCH (test code = MCH) 28.7 pg 27.0-31.0 MCHC (test code = MCHC) 30.4 gm/dl 33.0-37.0 L RDW (test code = RDWVC) 15.4 % 11.5-14.5 H Platelet (test code = PLT) 242 10\\S\\3/ul 130-400 MPV (test code = MPV) 11.9 fL 7.4-10.4 A "NOT MEASURED" RESULTS ARE DISPLAYED WHEN THE INSTRUMENT HAS A SUPPRESSED OR UNREPORTABLE RESULT. THIS WILL MOST OFTEN HAPPEN WITH THE MPV WHEN THERE IS AN ABNORMAL PLATELET DISTRIBUTION DUE TO A CRITICAL LOW VALUE OR PLATELET CLUMPING. THE RDW MAY BE SUPPRESSED IF THERE ARE MULTIPLE PEAKS PRESENT ON THE RBC HISTOGRAM. IN THIS CASE, A MANUAL REVIEW OF THE SLIDE WILL BE PERFORMED, AND RBC MORPHOLOGY WILL BE NOTED ON THE REPORT. NE% (test code = NE) 50.9 % 42.0-75.0 LY% (test code = LY) 30.8 % 13.0-42.0 MO% (test code = MO) 6.3 % 4.0-14.0 EO% (test code = EO) 11.0 % 1.0-5.0 H BA% (test code = BA) 0.5 % 0.0-3.0 IG% (test code = IG%) 0.5 % 0.0-0.4 H [facility] RNA GENOTYPE [id number] 12:58:00* Test Item Value Reference Range Interpretation Comme nts HEPATITIS C GENOTYPE (test code = 204465) 1a TEST PERFOR MED AT [facility] [id number] 10:32:00* Test Item Value Reference Range Interpretation Comments FIBROSIS SCORE (test code = 853567) 0.08 0.00-0.21 N FIBROSIS STAGE (test code = 862179) Comment F0 - No fibrosis NECROINFLAMMAT ACTIVITY SCORE (test code = 213914) 0.08 0.00-0.17 N NECROINFLAMMAT ACTIVITY GRADE (test code = 486064) A0-No activity Alpha 2 Macroglobulins Qn (test code = 859205) 248 mg/dL 110-276 N Haptoglobin (test code = 561460) 216 mg/dL 34-200 H Apolipoprotein A1 (test code = 169280) 170 mg/dL 116-209 N Bilirubin, Total (test code = 141355) 0.2 mg/dL 0.0-1.2 N GGT (test code = 470056) 19 IU/L 0-60 N ALT P5P (test code = 590482) 24 IU/L 0-40 N INTERPRETATIONS (test code = 979908) Comment Quantitative res ults of 6 biochemical tests are analyzed using a computational algorithm to provide a quantitative surrogate marker (0.0-1.0) for liver fibrosis (METAVIR F0-F4) and for necroinflammatory activity (METAVIR A0-A3). Fibrosis Scoring (test code = 259798) Comment <0.21 = Sta ge F0 - No fibrosis 0.21 - 0.27 = Stage F0 - F1 0.27 - 0.31 = Stage F1 - Portal fibrosis 0.31 - 0.48 = Stage F1 - F2 0.48 - 0.58 = Stage F2 - Bridging fibrosis with few septa 0.58 - 0.72 = Stage F3 - Bridging fibrosis with many septa 0.72 - 0.74 = Stage F3 - F4 >0.74 = Stage F4 - Cirrhosis NECROINFLAMM ACTIVITY SCORING (test code = 447113) Comment <0.17 = Grade A0 - No Activity 0.17 - 0.29 = Grade A0 - A1 0.29 - 0.36 = Grade A1 - Minimal activity 0.36 - 0.52 = Grade A1 - A2 0.52 - 0.60 = Grade A2 - Moderate activity 0.60 - 0.62 = Grade A2 - A3 >0.62 = Grade A3 - Severe activity LIMITATIONS (test code = 199070) Comment The negative predictive value of a Fibrotest score <0.31 (absence of clinically significant fibrosis) was 85% when compared to liver biopsy in 1,270 HCV infected patients with a 38% prevalence of significant liver fibrosis (F2, 3 or 4). The positive predictive value of a Fibro- test score >0.48 (F2, 3, 4) was 61% in that same patient cohort. HCV FibroSURE is not recommended in patients with Gilbert Disease, acute hemolysis (e.g. HCV ribavirin therapy mediated hemolysis) acute hepa- titis of the liver, extra-hepatic cholestasis, transplant patients, and/or renal insufficiency patients. Any of these clinical situations may lead to inaccurate quantitative predictions of fibrosis and necroinflammatory activity in the liver. COMMENT (test code = 408220) Comment This test was developed and its performance characteristics determined by [employer]. It has not been cleared or approved by the Food and Drug Administration. The FDA has determined that such clearance or approval is not necessary. For questions regarding this report please contact customer service at . [facility] SURFACE [id number] 06:14:00* Test Item Value Reference Range Interpretation Comme nts FT (test code = HBSAG) Negative (qualifier value) Negative N Hep B Surface Ag (Signal Value) (test code = HBSAG.SV) 0.05 mIU/mL HBsAg Signal Cut off Interpretation Guide: < 1.00 Negative Specimen is presumed to be negative for HBsAg. >=1.00 and < 5.00 Reactive Specimen is reactive for HBsAg. Suggest confirmation by supplemental testing. > 5.00 Positive Specimen is positive for HBsAg. [facility] HEPATIC- Liver/ [id number] 11:30:35RIGHT UPPER QUADRANT ULTRASOUND:DATE: 11/05/2017INDICATION: Chronic viral hepatitis CDISCUSSION:The liver is mildly enlarged and demonstrates normal echogenicity. There isminimal prominence of the intrahepatic bile ducts likely reflecting reservoireffect from cholecystectomy. Hepatopedal flow is noted in the portal vein. Thegallbladder is surgically absent. The common duct borderline dilated.The visualized portions of the pancreas, IVC, aorta and right kidney show nosignificant abnormality. Thereis no ascites in the right upper quadrant.IMPRESSION:1. Mild hepatomegaly.2. Slight prominence of the bile ducts likely reflects reservoir effect fromcholecystectomy.This final report was electronically signed by Dr Jerrell Sanchez MD 11/05/201711:24 AMDictated By: JERRELL SANCHEZDate: 11/05/2017 11:30[facility] MYOCARD PERF STRESS REST [id number] 14:24:44NUCLEAR MEDICINE REST/STRESS MYOCARDIAL PERFUSION SPECT SCANDATE OF EXAM: 6-29-41INXTXKWSCT: risk factorsCOMPARISON: nilDISCUSSION: Nuclear medicine myocardial perfusion SPECT imaging acquired andreviewed. Rest and stress images were acquired post intravenous zfdbsqwlehbspq76 mCi and 30 mCi technetium 99m labeled Cardiolite, respectively per departmentprotocol. The patient was given 0.4 mg Lexiscan for pharmacologic stress images.Gated SPECT imaging acquired in axial, coronal, and sagittal planes. Resting EKGshowed sinus rhythm, non specific STT abnormalities, BP 130/90 mm Hg recordedat rest,BP 121 /71 mm Hg, at the end of the test patient tolerated the testwell, with minimal side effects,& no new EKG changes.FINDINGS: Left ventricle is of normal size and contour with near homogeneousactivity. No reversible perfusion defects are identified. Small low intensity,fixed lateral defects. There is no regional wall motion abnormality, withcardiac ejection fraction estimated at 72 percen t.IMPRESSION:1. Non-ischemic rest/and pharmacologic stress myocardial perfusion SPECT scan.Small low intensity, fixed lateral defects noted .2. There is no regional wall motion abnormality, with cardiac ejection fractionestimated at 72 percent.This final report was electronically signed by John Cooper MD10/03/2017 2:18 PMDictated By: JOHN COOPERDate: 10/03/2017 14:24[facility] [id number] 14:19:00* Test Item Value Reference Range Interpretation Comme nts Glucose (test code = GLU) 89 mg/dl 75-110 BUN (test code = BUN) 12.0 mg/dl 6.0-17.0 Creatinine (test code = CREA) 0.8 mg/dl 0.4-1.2 Sodium (test code = NA) 141 mmol/l 137-145 Potassium (test code = K) 3.5 mmol/l 3.5-5.0 Chloride (test code = CL) 97 mmol/l 98-107 L CO2 (test code = CO2) 33 mmol/l 22-30 H Calcium (test code = CALC) 10.1 mg/dl 8.4-10.2 T Protein (test code = TP) 7.4 gm/dl 5.1-8.7 Albumin (test code = ALB) 4.4 gm/dl 3.5-4.6 A/G Ratio (test code = AGRAT) 1.5 % 1.1-2.2 AST (SGOT) (test code = AST) 41 U/L 11-36 H ALT (SGPT) (test code = ALT) 47 U/L 11-40 H Alkaline Phos (test code = ALKP) 95 U/L 47-114 Total Bilirubin (test code = TBIL) 0.5 mg/dl 0.2-1.2 Globulin (test code = GLOBU) 3.0 gm/dl 2.3-3.5 Anion Gap (test code = GAP) 10 Calcium, Corrected (test code = CALCCORR) 9.8 mg/dl 8.4-10.2 Various formulas exist for corrected serum calcium results, each yielding different values. This corrected result was based on the formula: Corrected Calcium = SerumCalcium + [0.8 * ( 4 - SerumAlbumin)] EGFR if (test code = EGFRAA) >60 mL/min/1.73m\\ S\\2 EGFR if Non- (test code = EGFRNA) >60 mL/min/1.73m\\ S\\2 Estimated Glomerular Filtration Rate (eGFR) Reference Intervals Decision Points for 18 years and older and average body mass: >= 60 Does not exclude kidney disease. 30 - 59 Suggests moderate chronic kidney disease and indicates the need for further investigation including assessment of proteinuria and cardiovascular factors. < 30 Usually indicates a need for referral for assessment and management of chronic kidney failure. [facility] (HEMOGRAM ONLY)2017-10-02 13:46:00* Test Item Value Reference Range Interpretation Comme nts WBC (test code = WBC) 8.70 10\\S\\3/ul 4.80-10.80 RBC (test code = RBC) 4.37 10\\S\\6/ul 4.20-5.40 Hemoglobin (test code = HGB) 13.0 gm/dl 12.0-14.0 Hematocrit (test code = HCT) 40.5 % 37.0-47.0 MCV (test code = MCV) 92.7 fL 81.0-99.0 MCH (test code = MCH) 29.7 pg 27.0-31.0 MCHC (test code = MCHC) 32.1 gm/dl 33.0-37.0 L RDW (test code = RDWVC) 15.0 % 11.5-14.5 H Platelet (test code = PLT) 231 10\\S\\3/ul 130-400 MPV (test code = MPV) 11.6 fL 7.4-10.4 A "NOT MEASURED" RESULTS ARE DISPLAYED WHEN THE INSTRUMENT HAS A SUPPRESSED OR UNREPORTABLE RESULT. THIS WILL MOST OFTEN HAPPEN WITH THE MPV WHEN THERE IS AN ABNORMAL PLATELET DISTRIBUTION DUE TO A CRITICAL LOW VALUE OR PLATELET CLUMPING. THE RDW MAY BE SUPPRESSED IF THERE ARE MULTIPLE PEAKS PRESENT ON THE RBC HISTOGRAM. IN THIS CASE, A MANUAL REVIEW OF THE SLIDE WILL BE PERFORMED, AND RBC MORPHOLOGY WILL BE NOTED ON THE REPORT. [facility]PAR[facility] [id number] 11:44:00* Test Item Value Reference Range Interpretation Comme nts HEPARIN XA (test code = HEPXA) 0.36 0.30-0.70 Formerly Named [facility]-[id number] 05:31:00* Test Item Value Reference Range Interpretation Comme nts Glucose (test code = GLU) 107 mg/dl 75-110 BUN (test code = BUN) 14.0 mg/dl 6.0-17.0 Creatinine (test code = CREA) 0.6 mg/dl 0.4-1.2 Sodium (test code = NA) 144 mmol/l 137-145 Potassium (test code = K) 3.6 mmol/l 3.5-5.0 Chloride (test code = CL) 102 mmol/l 98-107 CO2 (test code = CO2) 29 mmol/l 22-30 Calcium (test code = CALC) 9.4 mg/dl 8.4-10.2 EGFR if (test code = EGFRAA) >60 mL/min/1.73m\\ S\\2 EGFR if Non- (test code = EGFRNA) >60 mL/min/1.73m\\ S\\2 Estimated Glomerular Filtration Rate (eGFR) Reference Intervals Decision Points for 18 years and older and average body mass: >= 60 Does not exclude kidney disease. 30 - 59 Suggests moderate chronic kidney disease and indicates the need for further investigation including assessment of proteinuria and cardiovascular factors. < 30 Usually indicates a need for referral for assessment and management of chronic kidney failure. [facility] WITH [facility]O [id number] 05:30:00* Test Item Value Reference Range Interpretation Comme nts WBC (test code = WBC) 11.31 10\\S\\3/ul 4.80-10.80 H RBC (test code = RBC) 4.08 10\\S\\6/ul 4.20-5.40 L Hemoglobin (test code = HGB) 12.1 gm/dl 12.0-14.0 Hematocrit (test code = HCT) 37.8 % 37.0-47.0 MCV (test code = MCV) 92.6 fL 81.0-99.0 MCH (test code = MCH) 29.7 pg 27.0-31.0 MCHC (test code = MCHC) 32.0 gm/dl 33.0-37.0 L RDW (test code = RDWVC) 14.9 % 11.5-14.5 H Platelet (test code = PLT) 232 10\\S\\3/ul 130-400 MPV (test code = MPV) 12.0 fL 7.4-10.4 A "NOT MEASURED" RESULTS ARE DISPLAYED WHEN THE INSTRUMENT HAS A SUPPRESSED OR UNREPORTABLE RESULT. THIS WILL MOST OFTEN HAPPEN WITH THE MPV WHEN THERE IS AN ABNORMAL PLATELET DISTRIBUTION DUE TO A CRITICAL LOW VALUE OR PLATELET CLUMPING. THE RDW MAY BE SUPPRESSED IF THERE ARE MULTIPLE PEAKS PRESENT ON THE RBC HISTOGRAM. IN THIS CASE, A MANUAL REVIEW OF THE SLIDE WILL BE PERFORMED, AND RBC MORPHOLOGY WILL BE NOTED ON THE REPORT. NE% (test code = NE) 77.4 % 42.0-75.0 H LY% (test code = LY) 16.1 % 13.0-42.0 MO% (test code = MO) 5.4 % 4.0-14.0 EO% (test code = EO) 0.2 % 1.0-3.0 L BA% (test code = BA) 0.2 % 1.0-3.0 L IG% (test code = IG%) 0.7 % 0.0-0.4 H [facility] [id number] 05:28:00* Test Item Value Reference Range Interpretation Comme nts HEPARIN XA (test code = HEPXA) 0.42 0.30-0.70 [facility]-LufkinTROPONIN-I [id number] 01:04:00* Test Item Value Reference Range Interpretation Comme nts Troponin-I (test code = TROP) <0.012 ng/ml 0.000-0.034 N The 99th Percent ile URL is 0.034 ng/mL. The Joint Society of Cardiology/[place] [employer] (ESC/ACC) and the National Academy of Clinical Biochemistry Standards of Laboratory Practices (NACB) recommends that the diagnosis of AMI includes the presence of clinical history suggestive of Acute Coronary Syndrome (ACS) and a maximum concentration of cardiac troponin exceeding the 99th percentile of a normal reference population [upper reference limit (URL)] on at least one occasion during the first 24 hours after the clinical event. [facility]amed [facility]-LufkinMYOGLOBIN, [id number] 01:04:00* Test Item Value Reference Range Interpretation Comme nts Myoglobin (test code = FLAVIO) 29.3 ng/ml 0.0-61.5 [facility] CenterSafjsv-[id number] 01:04:00* Test Item Value Reference Range Interpretation Comme nts CKMB (test code = CKMB) 0.58 ng/ml 0.00-2.37 [facility]-LufkinCT ANGIO CHEST W/ [id number] 22:13:0620 g Cathlon Above the Antecubital or higher requiredProcedures: CT ANGIO ABD PELVIS W/WO OR W//CON, CT ANGIO CHEST W/ CONTRASTExam Date: 09/25/2017 5:46PMOrdering Physician: DR LIA SOTOURClinical Indication: RESPDIST: Chest-Respiratory [...] of iterative reconstruction techniques.Findings:NECK:Limited evaluation is without signi ficant abnormality.LUNGS:Pneumothorax: None.Lungs: Minimal bilateral dependent atelectasis. No worrisome pulmonary nodulesor masses.Effusion: None.Vascular: The pulmonary arterial vasculature is wellopacified for evaluationof pulmonary embolism. No significant filling defects are demonstrated withinthe pulmonary trunk, main pulmonary arteries, segmental, or subsegmentalbranches.Airways: No significant abnormality.MEDIASTINUM:Aorta: Four-vessel aortic arch. Few punctate atherosclerotic calcificplaqueare present. No evidence of stenosis, dissection, or aneurysmal dilatation.Airways: No significant abnormality.Lymph nodes: No lymphadenopathy.Heart: No significant abnormality.Esophagus: No significant abnormality.VASCULATURE:Aorta: Atherosclerotic calcific plaque of the abdominal aorta withoutaneurysmal dilatation. The renal arteries, superior mesenteric artery, inferiormesenteric artery,and celiac axis are patent and without significant stenosisor aneurysmal dilatation.RENAL: Normal symmetric cortical enhancement. No hydronephrosis ornephrolithiasis. The ureters are of normal courseand caliber. No significantabnormalities of the urinary bladder. Incidental pelvic phleboliths are noted.Postsurgical change status post hysterectomy.GASTROINTESTINAL: The appendix is not clearly identified on this exam; however,no pericecal inflammatory stranding or free fluid is demonstrated. Moderate tolarge stool burden is demonstrated throughout the colon and may representconstipation.MESENTERY & RETROPERITONEUM: No significant abnormality of theretroperitoneum.OSSEOUS: Mild degenerative changes of the spine; otherwise, no significantosseous lesions.OTHER: No significant abnormalities of the remaining soft tissues.IMPRESSION:1. Mild amount of atherosclerotic calcific plaque within the abdominal aortawithout aneurysmal dilatation, stenosis, or dissection.2. No significant CT evidence of pulmonary embolism within the pulmonary trunk,main pulmonary arteries, or segmental branches.3. Chronic disease findings, as above.This final report was electronically signed by Dr Lia Rosen MD09/25/2017 10:06 PMDictated By: LIA BRADSHAWDate: 09/25/2017 22:12[facility]CT AN[facility] PELVIS W/WO OR W//[id number] 22:13:0220 g Cathlon Above the Antecubital or higher requiredProcedures: CT ANGIO ABD PELVIS W/WO OR W//CON, CT ANGIO CHEST W/ CONTRASTExam Date: 09/25/2017 5:46PMOrdering Physician: DR FITZGERALD MOPURClinical Indication: RESPDIST: Chest- [...] of iterative reconstruction techniques.Findings:NECK:Limited evaluation is without signi ficant abnormality.LUNGS:Pneumothorax: None.Lungs: Minimal bilateral dependent atelectasis. No worrisome pulmonary nodulesor masses.Effusion: None.Vascular: The pulmonary arterial vasculature is wellopacified for evaluationof pulmonary embolism. No significant filling defects are demonstrated withinthe pulmonary trunk, main pulmonary arteries, segmental, or subsegmentalbranches.Airways: No significant abnormality.MEDIASTINUM:Aorta: Four-vessel aortic arch. Few punctate atherosclerotic calcificplaqueare present. No evidence of stenosis, dissection, or aneurysmal dilatation.Airways: No significant abnormality.Lymph nodes: No lymphadenopathy.Heart: No significant abnormality.Esophagus: No significant abnormality.VASCULATURE:Aorta: Atherosclerotic calcific plaque of the abdominal aorta withoutaneurysmal dilatation. The renal arteries, superior mesenteric artery, inferiormesenteric artery,and celiac axis are patent and without significant stenosisor aneurysmal dilatation.RENAL: Normal symmetric cortical enhancement. No hydronephrosis ornephrolithiasis. The ureters are of normal courseand caliber. No significantabnormalities of the urinary bladder. Incidental pelvic phleboliths are noted.Postsurgical change status post hysterectomy.GASTROINTESTINAL: The appendix is not clearly identified on this exam; however,no pericecal inflammatory stranding or free fluid is demonstrated. Moderate tolarge stool burden is demonstrated throughout the colon and may representconstipation.MESENTERY & RETROPERITONEUM: No significant abnormality of theretroperitoneum.OSSEOUS: Mild degenerative changes of the spine; otherwise, no significantosseous lesions.OTHER: No significant abnormalities of the remaining soft tissues.IMPRESSION:1. Mild amount of atherosclerotic calcific plaque within the abdominal aortawithout aneurysmal dilatation, stenosis, or dissection.2. No significant CT evidence of pulmonary embolism within the pulmonary trunk,main pulmonary arteries, or segmental branches.3. Chronic disease findings, as above.This final report was electronically signed by Dr Lia Rosen MD09/25/2017 10:06 PMDictated By: LIA BRADSHAWDate: 09/25/2017 22:12[id number] 19:00:00* Test Item Value Reference Range Interpretation Comme nts CKMB (test code = CKMB) 0.48 ng/ml 0.00-2.37 [facility] Named [facility]LufkinMYOGLOBIN, [id number] 19:00:00* Test Item Value Reference Range Interpretation Comme nts Myoglobin (test code = FLAVIO) 33.6 ng/ml 0.0-61.5 [facility] Named [facility]ufkinTROPONIN-I [id number] 19:00:00* Test Item Value Reference Range Interpretation Comme nts Troponin-I (test code = TROP) <0.012 ng/ml 0.000-0.034 N The 99th Percent ile URL is 0.034 ng/mL. The Joint Society of Cardiology/[place] College [employer] Cardiology (ESC/ACC) and the National Academy of Clinical Biochemistry Standards of Laboratory Practices (NACB) recommends that the diagnosis of AMI includes the presence of clinical history suggestive of Acute Coronary Syndrome (ACS) and a maximum concentration of cardiac troponin exceeding the 99th percentile of a normal reference population [upper reference limit (URL)] on at least one occasion during the first 24 hours after the clinical event. [facility]kinCT HEAD W/O [id number] 13:22:53CT HEAD WITHOUT CONTRAST:DATE OF EXAM: 09/25/2017INDICATION: headacheNoncontrast CT head was performed. Total DLP 898 mGy-cm.FINDINGS:No intracranial hemorrhage, mass effect or midline shift is identified. Theventricular system is normal in size and configuration. The basal cisterns arepatent.The visualized portions of the mastoids, paranasal sinuses and orbits show nosignificant abnormality.IMPRES MICHAELA:Negative CT head without contrast.This final report was electronically signed by Dr Jerrell Sanchez MD 09/25/20171:16 PMDictated By: Blessing SANCHEZ: 09/25/2017 13:22[facility] [id number] 13:18:00* Test Item Value Reference Range Interpretation Comme nts aPTT (test code = PTT) 28.1 seconds 25.3-35.7 [facility] RosePT AND [id number] 13:18:00* Test Item Value Reference Range Interpretation Comme nts Protime (test code = PT) 10.2 seconds 9.0-11.8 INR (test code = INR) 1.0 0.9-1.1 INR results are intended ONLY to monitor Oral Anticoagulant therapy in stablized patients. The INR Therapeutic Range is 2.0 - 3.0 Patients with a mechanical heart, the INR Range is 2.5 - 3.5 [facility] RoseCPK2018-05-23 12:06:00* Test Item Value Reference Range Interpretation Comme nts CPK (test code = CPK) 90 U/L 30-135 [facility] RoseTROPONIN-I [id number] 12:06:00* Test Item Value Reference Range Interpretation Comme [facility] Troponin-I (test code = TROP) <0.012 ng/ml 0.000-0.034 N The 99th Percent ile URL is 0.034 ng/mL. The Joint Society of Cardiology/[place] College [employer] Cardiology (ESC/ACC) and the National Academy of Clinical Biochemistry Standards of Laboratory Practices (NACB) recommends that the diagnosis of AMI includes the presence of clinical history suggestive of Acute Coronary Syndrome (ACS) and a maximum concentration of cardiac troponin exceeding the 99th percentile of a normal reference population [upper reference limit (URL)] on at least one occasion during the first 24 hours after the clinical event. [facility] RoseCKMB2018-05-23 12:06:00* Test Item Value Reference Range Interpretation Comme [facility] CKMB (test code = CKMB) 0.41 ng/ml 0.00-2.36 [facility] RoseCMP2018-05-23 11:22:00* Test Item Value Reference Range Interpretation Comme nts Glucose (test code = GLU) 99 mg/dl 75-110 BUN (test code = BUN) 10.0 mg/dl 6.0-17.0 Creatinine (test code = CREA) 0.8 mg/dl 0.4-1.2 Sodium (test code = NA) 143 mmol/l 137-145 Potassium (test code = K) 3.6 mmol/l 3.5-5.0 Chloride (test code = CL) 99 mmol/l 98-107 CO2 (test code = CO2) 32 mmol/l 22-30 H Calcium (test code = CALC) 9.9 mg/dl 8.4-10.2 T Protein (test code = TP) 7.9 gm/dl 5.1-8.7 Albumin (test code = ALB) 4.5 gm/dl 3.5-4.6 A/G Ratio (test code = AGRAT) 1.3 % 1.1-2.2 AST (SGOT) (test code = AST) 53 U/L 11-36 H ALT (SGPT) (test code = ALT) 41 U/L 11-40 H Alkaline Phos (test code = ALKP) 94 U/L 47-114 Total Bilirubin (test code = TBIL) 0.6 mg/dl 0.2-1.2 Globulin (test code = GLOBU) 3.4 gm/dl 2.3-3.5 Anion Gap (test code = GAP) 12 Calcium, Corrected (test code = CALCCORR) 9.5 mg/dl 8.4-10.2 Various formulas exist for corrected serum calcium results, each yielding different values. This corrected result was based on the formula: Corrected Calcium = SerumCalcium + [0.8 * ( 4 - SerumAlbumin)] EGFR if (test code = EGFRAA) >60 mL/min/1.73m\\ S\\2 EGFR if Non- (test code = EGFRNA) >60 mL/min/1.73m\\ S\\2 Estimated Glomerular Filtration Rate (eGFR) Reference Intervals Decision Points for 18 years and older and average body mass: >= 60 Does not exclude kidney disease. 30 - 59 Suggests moderate chronic kidney disease and indicates the need for further investigation including assessment of proteinuria and cardiovascular factors. < 30 Usually indicates a need for referral for assessment and management of chronic kidney failure. [facility]2018-05-23 11:22:00* Test Item Value Reference Range Interpretation Comme nts Magnesium (test code = MG) 2.0 mg/dl 1.6-2.3 [facility] [id number] 11:22:00* Test Item Value Reference Range Interpretation Comme nts Troponin-I (test code = TROP) <0.012 ng/ml 0.000-0.034 N The 99th Percent ile URL is 0.034 ng/mL. The Joint Society of Cardiology/[place] [employer] (ESC/ACC) and the National Academy of Clinical Biochemistry Standards of Laboratory Practices (NACB) recommends that the diagnosis of AMI includes the presence of clinical history suggestive of Acute Coronary Syndrome (ACS) and a maximum concentration of cardiac troponin exceeding the 99th percentile of a normal reference population [upper reference limit (URL)] on at least one occasion during the first 24 hours after the clinical event. [facility](B-Type Natriuretic Peptide)2017-09-25 11:22:00* Test Item Value Reference Range Interpretation Comme nts Pro-BNP(B-Peptide) (test cod e = PROBNP) 20 pg/ml 0-125 [facility] CHE[facility] AP/PA 1 [id number] 11:09:11Exam: AP portable chest DATE OF EXAM: 09/25/2017 10:44AMINDICATION: chest painThe lungs are clear. The cardiomediastinal silhouette is within normal limits.The bony thorax shows no significant abnormality.Impression:No active cardiopulmonary disease.This final report was electronically signed by Yanick Sanchez MD 09/25/201711:02 AMDictated By: JERRELL SANCHEZDate: 09/25/2017 11:09 [facility] WITH AUTO [id number] 10:40:00* Test Item Value Reference Range Interpretation Comme nts WBC (test code = WBC) 7.23 10\\S\\3/ul 4.80-10.80 RBC (test code = RBC) 4.43 10\\S\\6/ul 4.20-5.40 Hemoglobin (test code = HGB) 13.3 gm/dl 12.0-14.0 Hematocrit (test code = HCT) 41.5 % 37.0-47.0 MCV (test code = MCV) 93.7 fL 81.0-99.0 MCH (test code = MCH) 30.0 pg 27.0-31.0 MCHC (test code = MCHC) 32.0 gm/dl 33.0-37.0 L RDW (test code = RDWVC) 15.4 % 11.5-14.5 H Platelet (test code = PLT) 231 10\\S\\3/ul 130-400 MPV (test code = MPV) 11.4 fL 7.4-10.4 A "NOT MEASURED" RESULTS ARE DISPLAYED WHEN THE INSTRUMENT HAS A SUPPRESSED OR UNREPORTABLE RESULT. THIS WILL MOST OFTEN HAPPEN WITH THE MPV WHEN THERE IS AN ABNORMAL PLATELET DISTRIBUTION DUE TO A CRITICAL LOW VALUE OR PLATELET CLUMPING. THE RDW MAY BE SUPPRESSED IF THERE ARE MULTIPLE PEAKS PRESENT ON THE RBC HISTOGRAM. IN THIS CASE, A MANUAL REVIEW OF THE SLIDE WILL BE PERFORMED, AND RBC MORPHOLOGY WILL BE NOTED ON THE REPORT. NE% (test code = NE) 55.7 % 42.0-75.0 LY% (test code = LY) 28.6 % 13.0-42.0 MO% (test code = MO) 6.1 % 4.0-14.0 EO% (test code = EO) 8.4 % 1.0-3.0 H BA% (test code = BA) 0.6 % 1.0-3.0 L IG% (test code = IG%) 0.6 % 0.0-0.4 H [facility] RoseTROP[facility]-I [id number] 00:17:00* Test Item Value Reference Range Interpretation Comme nts Troponin-I (test code = TROP) <0.012 ng/ml 0.000-0.034 N The 99th Percent ile URL is 0.034 ng/mL. The Joint Society of Cardiology/[place] [employer]iology (ESC/ACC) and the National Academy of Clinical Biochemistry Standards of Laboratory Practices (NACB) recommends that the diagnosis of AMI includes the presence of clinical history suggestive of Acute Coronary Syndrome (ACS) and a maximum concentration of cardiac troponin exceeding the 99th percentile of a normal reference population [upper reference limit (URL)] on at least one occasion during the first 24 hours after the clinical event. Rpt Cardiac Panel at 90 mins after 1st set drawnThe[facility] RoseCPK2018-05-22 00:17:00* Test Item Value Reference Range Interpretation Comme nts CPK (test code = CPK) 141 U/L 30-135 H Rpt Cardiac Panel at 90 mins [facility] 00:17:00* Test Item Value Reference Range Interpretation Comme nts CKMB (test code = CKMB) 0.79 ng/ml 0.00-2.36 Rpt Cardiac Panel at 90 mins after [facility]st [facility]2018-[facility]-21 22:37:00* Test Item Value Reference Range Interpretation Comme nts CKMB (test code = CKMB) 0.98 ng/ml 0.00-2.36 [facility] RoseCPK2018-05-21 22:37:00* Test Item Value Reference Range Interpretation Comme nts CPK (test code = CPK) 177 U/L 30-135 H [facility] RoseTROPONIN-I [id number] 22:37:00* Test Item Value Reference Range Interpretation Comme nts Troponin-I (test code = TROP) <0.012 ng/ml 0.000-0.034 N The 99th Percent ile URL is 0.034 ng/mL. The Joint Society of Cardiology/[place] [employer]iology (ESC/ACC) and the National Academy of Clinical Biochemistry Standards of Laboratory Practices (NACB) recommends that the diagnosis of AMI includes the presence of clinical history suggestive of Acute Coronary Syndrome (ACS) and a maximum concentration of cardiac troponin exceeding the 99th percentile of a normal reference population [upper reference limit (URL)] on at least one occasion during the first 24 hours after the clinical event. [facility] CHE[facility] 2 PA [id number] 22:25:05EXAM: XR CHEST 2 PA LATERALINDICATION: cpCOMPARISON: CT of the chest October 09, 2016 and chest x-ray September 11, 2016FINDINGS:LINES/TUBES: NoneLUNGS: No consolidations or edema.PLEURA: No effusions or pneumothorax.HEART AND MEDIASTINUM: Normal size and contour.BONES AND SOFT TISSUES: No acute findings.IMPRESSION:No acute thoracic abnormality.This final report was electronically signed by Dr Lizbet Zuniga MD 09/23/201710:18 PMDictated By: Indigo ZUNIGAte: 09/23/2017 22:25MM[facility] LICENSE OF [id number] 22:24:00* Test Item Value Reference Range Interpretation Comme nts Glucose (test code = GLU) 114 mg/dl 75-110 H BUN (test code = BUN) 11.0 mg/dl 6.0-17.0 Creatinine (test code = CREA) 0.9 mg/dl 0.4-1.2 Sodium (test code = NA) 141 mmol/l 137-145 Potassium (test code = K) 3.3 mmol/l 3.5-5.0 L Chloride (test code = CL) 100 mmol/l 98-107 CO2 (test code = CO2) 31 mmol/l 22-30 H Calcium (test code = CALC) 9.2 mg/dl 8.4-10.2 EGFR if (test code = EGFRAA) >60 mL/min/1.73m\\ S\\2 EGFR if Non- (test code = EGFRNA) >60 mL/min/1.73m\\ S\\2 Estimated Glomerular Filtration Rate (eGFR) Reference Intervals Decision Points for 18 years and older and average body mass: >= 60 Does not exclude kidney disease. 30 - 59 Suggests moderate chronic kidney disease and indicates the need for further investigation including assessment of proteinuria and cardiovascular factors. < 30 Usually indicates a need for referral for assessment and management of chronic kidney failure. [facility] WITH AUTO [id number] 22:07:00* Test Item Value Reference Range Interpretation Comme nts WBC (test code = WBC) 9.04 10\\S\\3/ul 4.80-10.80 RBC (test code = RBC) 4.08 10\\S\\6/ul 4.20-5.40 L Hemoglobin (test code = HGB) 12.0 gm/dl 12.0-14.0 Hematocrit (test code = HCT) 38.1 % 37.0-47.0 MCV (test code = MCV) 93.4 fL 81.0-99.0 MCH (test code = MCH) 29.4 pg 27.0-31.0 MCHC (test code = MCHC) 31.5 gm/dl 33.0-37.0 L RDW (test code = RDWVC) 15.4 % 11.5-14.5 H Platelet (test code = PLT) 248 10\\S\\3/ul 130-400 MPV (test code = MPV) 11.1 fL 7.4-10.4 A "NOT MEASURED" RESULTS ARE DISPLAYED WHEN THE INSTRUMENT HAS A SUPPRESSED OR UNREPORTABLE RESULT. THIS WILL MOST OFTEN HAPPEN WITH THE MPV WHEN THERE IS AN ABNORMAL PLATELET DISTRIBUTION DUE TO A CRITICAL LOW VALUE OR PLATELET CLUMPING. THE RDW MAY BE SUPPRESSED IF THERE ARE MULTIPLE PEAKS PRESENT ON THE RBC HISTOGRAM. IN THIS CASE, A MANUAL REVIEW OF THE SLIDE WILL BE PERFORMED, AND RBC MORPHOLOGY WILL BE NOTED ON THE REPORT. NE% (test code = NE) 55.0 % 42.0-75.0 LY% (test code = LY) 31.9 % 13.0-42.0 MO% (test code = MO) 5.4 % 4.0-14.0 EO% (test code = EO) 6.9 % 1.0-3.0 H BA% (test code = BA) 0.4 % 1.0-3.0 L IG% (test code = IG%) 0.4 % 0.0-0.4 [facility] BREAST UNILATERAL [id number] 08:43:17Procedure: MM MAMMO DIAG DIR DIGITAL-BILAT, US [...] these mammographic nodules, followup mammogramsin 6 months wouldbe recommended.Targeted ultrasound examination of the retroareolar left breast shows a 3 x 7 x10 mmhypoechoic well- circumscribed ovoid nodule. It corresponds to themammographic nodule and is most suggestive of a fibroadenoma. There are noassociated calcifications.Impression: Probable benign findings bilaterally as noted. Recommend followupmammograms in 6 months.BI-RADS 3: Probably benign, short term follow up recommended.This final report was electronically signed by Dr Jerrell Sanchez MD 08/20/20178:36 AMDictated By: JERRELL SANCHEZDate: 08/20/2017 08:43[facility] BREAST UNILATERAL [id number] 08:43:15Procedure: MM MAMMO DIAG DIR DIGITAL-BILAT, US [...] followupmammograms in 6 months.BI-RADS 3: Probably benign, shortterm follow up recommended.This final report was electronically signed by Dr Jerrell Sanchez MD 08/20/20178:36 AMDictated By: JERRELL SANCHEZDate: 08/20/2017 08:43[facility] D[facility] [id number] 08:43:11 Procedure: MM MAMMO DIAG DIR DIGITAL-BILAT, US BREAST [...] these mammographic nodules, followup mammogramsin 6 months wouldbe recommended.Targeted ultrasound examination of the retroareolar left breast shows a 3 x 7 x10 mmhypoechoic well-circumscribed ovoid nodule. It corresponds to themammographic nodule and is most suggestive of a fibroadenoma. There are noassociated calcifications.Impression: Probable benign findings bilaterally as noted. Recommend followupmammograms in 6 months.BI-RADS 3: Probably benign, short term follow up recommended.This final report was electronically signed by Dr Jerrell Sanchez MD 08/20/20178:36 AMDictated By: Nathanael SANCHEZte: 08/20/2017 08:43[facility] M[facility] SCREEN DIR DIGITAL 2017-07-31 17:49:01Procedures: MM MAMMO SCREEN DIR DIGITALExam Date: 07/31/2017 10:45 AMOrdering Provider: KIP Lopezinical Indication: Digital screening mammography.Comparison: None availableTechnique: [...] and ultrasound.BIRADS Result 0: Incomplete. Need additional imaging and/or prior mammogramsfor comparison.This final report was electronically signed by Dr Geo Sanhcez MD 07/31/20175:42 PMDictated By: Nathanael SANCHEZte: 07/31/2017 17:49[facility] WITH [id number] 23:35:00* Test Item Value Reference Range Interpretation Comme nts Color (test code = UCOLR) Lt. Yellow Clarity (test code = UCLAR) CLEAR Glucose (test code = UGLUC) NEGATIVE NEGATIVE N Bilirubin (test code = UBILI) NEGATIVE NEGATIVE N Ketones (test code = UKET) NEGATIVE NEGATIVE N Specific [place] (test code = USPGR) <=1.005 1.005-1.030 A Blood (test code = UBLD) NEGATIVE NEGATIVE N PH (test code = UPH) 5.0 4.5-8.0 A Protein (test code = UPROT) NEGATIVE NEGATIVE N Urobilinogen (test code = U UROB) 0.2 >0.2 N Nitrite (test code = UNITR) NEGATIVE NEGATIVE N Leukocyte Esterase (test cod e = ULEUK) NEGATIVE NEGATIVE N WBC (test code = WBCUR) 0-1 0-5 A RBC (test code = RBCUR) 0-1 0-5 A Epithial Cells (test code = U EPI) 0-5 0-10 A Mucous (test code = UMUC) None Seen None Seen N Bacteria (test code = UBACT) Trace None Seen,Trace N [facility] RoseDRUG SCREEN [id number] 23:21:00* Test Item Value Reference Range Interpretation Comme nts FT (test code = AMPHET) Negative (qualifier value) FT (test code = ALFA) Negative (qualifier value) FT (test code = BENZO) Negative (qualifier value) FT (test code = KEKE) Negative (qualifier value) FT (test code = MTD) Negative (qualifier value) Opiates (test code = OPIAT) Presumptive Positive; Confirmation Upon Request FT (test code = PCP) Negative (qualifier value) The following table provides an interpretive guide for the Drugs of Abuse ran on the [employer] 5.1 analyzer listed there in: Amphetamines < 1000 ng/ml = Negative Barbituates < 200 ng/ml = Negative Benzodiazapines < 200 ngml = Negative Cocaine < 300 ng/ml = Negative Methadone < 300 ng/ml = Negative Opiate < 300 ng/ml = Negative PCP < 25 ng/ml = Negative THC < 50 ng/ml = Negative Results equal to or greater than the above cut-off values = Presumptive Positive. Confirmation of Presumptive Positive results are available upon request. Cannabinoids, THC (test code = THC) Presumptive Positive; Confirmation Upon Request [facility] RoseTROPONIN-I [id number] 21:22:00* Test Item Value Reference Range Interpretation Comme [facility] Troponin-I (test code = TROP) <0.012 ng/ml 0.000-0.034 N The 99th Percent ile URL is 0.034 ng/mL. The Joint Society of Cardiology/[place] College [employer] Cardiology (ESC/ACC) and the National Academy of Clinical Biochemistry Standards of Laboratory Practices (NACB) recommends that the diagnosis of AMI includes the presence of clinical history suggestive of Acute Coronary Syndrome (ACS) and a maximum concentration of cardiac troponin exceeding the 99th percentile of a normal reference population [upper reference limit (URL)] on at least one occasion during the first 24 hours after the clinical event. [facility] RosePTT2017-06-06 21:15:00* Test Item Value Reference Range Interpretation Comme nts aPTT (test code = PTT) 25.4 seconds 25.3-35.7 [facility] RosePT AND [id number] 21:15:00* Test Item Value Reference Range Interpretation Comme [facility] Protime (test code = PT) 10.1 seconds 9.0-11.8 INR (test code = INR) 1.0 0.9-1.1 INR results are intended ONLY to monitor Oral Anticoagulant therapy in stablized patients. The INR Therapeutic Range is 2.0 - 3.0 Patients with a mechanical heart, the INR Range is 2.5 - 3.5 [facility] RoseLIPASE, [id number] 21:09:00* Test Item Value Reference Range Interpretation Comme [facility] Lipase (test code = LIPA) 75 U/L 8-223 [facility] RoseALCOHOL, [id number] 21:08:00* Test Item Value Reference Range Interpretation Comme nts Alcohol % (test code = ALCPC) 0 % 0.00-0.00 N Ethanol % 0.00 - 0.10 Sub-clinical 0.11 - 0.20 Emotional Instability 0.21 - 0.30 Confusion 0.31 - 0.40 Stupor 0.41 - 0.50 Coma >.50 [facility]:08[facility]* Test Item Value Reference Range Interpretation Comme nts Glucose (test code = GLU) 91 mg/dl 75-110 BUN (test code = BUN) 13.0 mg/dl 6.0-17.0 Creatinine (test code = CREA) 0.9 mg/dl 0.4-1.2 Sodium (test code = NA) 144 mmol/l 137-145 Potassium (test code = K) 4.5 mmol/l 3.5-5.0 Chloride (test code = CL) 105 mmol/l 98-107 CO2 (test code = CO2) 27 mmol/l 22-30 Calcium (test code = CALC) 9.6 mg/dl 8.4-10.2 T Protein (test code = TP) 6.8 gm/dl 5.1-8.7 Albumin (test code = ALB) 4.0 gm/dl 3.5-4.6 A/G Ratio (test code = AGRAT) 1.4 % 1.1-2.2 AST (SGOT) (test code = AST) 25 U/L 11-36 ALT (SGPT) (test code = ALT) 26 U/L 11-40 Alkaline Phos (test code = ALKP) 92 U/L 47-114 Total Bilirubin (test code = TBIL) 0.3 mg/dl 0.2-1.2 Globulin (test code = GLOBU) 2.8 gm/dl 2.3-3.5 Anion Gap (test code = GAP) 13 Calcium, Corrected (test code = CALCCORR) 9.6 mg/dl 8.4-10.2 Various formulas exist for corrected serum calcium results, each yielding different values. This corrected result was based on the formula: Corrected Calcium = SerumCalcium + [0.8 * ( 4 - SerumAlbumin)] EGFR if (test code = EGFRAA) >60 mL/min/1.73m\\ S\\2 EGFR if Non- (test code = EGFRNA) >60 mL/min/1.73m\\ S\\2 Estimated Glomerular Filtration Rate (eGFR) Reference Intervals Decision Points for 18 years and older and average body mass: >= 60 Does not exclude kidney disease. 30 - 59 Suggests moderate chronic kidney disease and indicates the need for further investigation including assessment of proteinuria and cardiovascular factors. < 30 Usually indicates a need for referral for assessment and management of chronic kidney failure. [facility] RoseCBC WITH AUTO [id number] 20:49:00* Test Item Value Reference Range Interpretation Comme nts WBC (test code = WBC) 9.6 k/ul [...] 1.0-3.0 L NRBC, Auto (test code = NRBC_AUTO) 0 /100WBC 0-0 [facility] Notes Date/Time Note Provider Source 2023-08-26 00:00:00 [id number] KnP [id number]:00:00+-- +----- -------+| Plan Activity | Plan Date |+ += +| weight and height proportionate | 2022-06-13 || Healthy weight | || Continue healthy lifestyle choices | || RTC 1 month for WAE--> screening lung cancer at next OV | |+ +- +| Encourage smoking cessation | 2023-04-16 |+ +- +| kaylene fuller | 2023-03-19 |+ +- +| referral BH | 2022-10-18 || refill escitalopram for 20 mg for 3 months | |+ +- +| referral BH | 2022-10-18 || refill escitalopram 20 mg for 3 months | |+ +- +| Monitor | 2022-06-13 || follow-up with outside physician | |+ +- +| normal weight and height | 2022-08-02 |+ +- +| smoking cessation | 2022-08-02 |+ +- +| 1. Routine well adult visit | 2022-08-02 || 2. blood pressure, weight, height, and BMI calculated | || 3. Dietary: Recommend 3 meals a day that include lean protein, at least 5 | || servings of fruits and vegetables, whole grains, and at least 3 servings of | || dairy products or fortified soy milk. Limit food and drinks that are high in | || fat, salt, and sugar. | || 4. Physical activity: aim for 150 minutes of moderate physical activity (like | || fast walking) or 75 minutes of vigorous activity (like running) weekly | || 5. Vaccination decline | || 6. mammogram referral | |+ +- +| mammogram screening | 2022-08-02 |+ +- +| tsh pending | 2022-08-02 |+ +- +| CBC and CMP pending | 2022-08-02 |+ +- +| a1c pending | 2022-08-02 |+ +- +| lipid pending | 2022-08-02 |+ +- +| weight and height proportionate | 2022-09-06 || healthy weight | || continue healthy lifestyle choices | |+ +- +| RTC TPI injection x 2 | 2022-09-06 |+ +- +| unable to visualize mouth due to patient presenting virtually and video | 2022-08-20 || appearing pixelated | || ER precautions given to patient for signs and symptoms of respiratory distress | || OK to take benadryl prn | || Follow up in person tomorrow for complete assessment | |+ +- +| referral shoulder MRI,. advise pt to f/u for an appt | 2022-10-18 || Ortho f.u with ortho on schedule date november 26 | |+ +- +| weight and height proportionate | 2022-10-18 || Healthy weight | || Continue healthy choices | |+ +- +| Participate in physical activities and exercise. | 2023-04-16 || 30 of moderate aerobic exercise 5 times a week. Increase your activity as | || tolerated. | |+ +- +| Recommend healthy eating with foods from a variety of food groups, appropriate | 2023-04-16 || portion sizes, and few sugary snacks/drinks. | || | || Well-rounded, whole foods diet focused on fresh vegetables and fruits, lean | || proteins. Avoid sugary drinks. Avoid fried, greasy foods. Portion control. | |+ +- +| rx muporocin 2% | 2022-10-25 || f/u if no improvement | |+ +- +| Rx: Bromfed DM 2-30-10 MG/5ML Syrup - Sig: TAKE 10ML Q4-6HRS PRN COUGH QUANTITY | 2022-11-20 || 473 ML - Days 10 [facility] | || Rx: Fluticasone Propionate 50 MCG/ACT Suspension - Sig: USE ONE SPRAY IN EACH | || NOSTRIL TWICE A DAY QUANTITY 16 Suspension - REFILL 1 - Days 30 [facility] | || PHARMACY | || Recommend patient to Get plenty of rest. | || Take an dvsg-gpx-hihgdjq pain medicine if needed, such as acetaminophen | || (Tylenol) or ibuprofen (Advil, Motrin | || Drink plenty of fluids. | |+ +- +| Pt educated on eating a well balanced diet and incorporating at least 30 min of | 2023-03-26 || aerobic activity daily | |+ +- +| Continue Famotidine | 2023-04-16 || EGD consultation on with Dr. Land | || f/u amylase, CBC, CMP (r/o liver disease, chronic bleed, and peptic ulcer | || disease) | || RTC 1 month after GI consultation/EGD | |+ +- +| Most likely 2/2 OA | 2023-03-26 || stop Ibuprofen and Naproxen | || Start Meloxicam for GI comfort. | |+ +- +| RX methocarbomal and meloxicam. Medication side effects per pharmacy and verbal | 2023-06-20 || prescription given | || Educated on therapeutic treatment including stretches, ice/heat application. | || F/u if s/s worsen or persist. | |+ +- +| empirical tx | 2023-07-01 || z pack prescribed | || complete course as instructed | || Se discussed | || RX albuterol prn for sob, wheezing, persistent coughing | || otc antihistamine daily | || continue breathe right strips as needed | || start RX Bromfed sent during previous visit | || SE discussed. take as instructed | || stay hydrated | || humidifier, steam inhalation, Adriel's rub/drops | || warm tea w/ honey | || proper hand washing | || Take ktlc-mmr-ycrwhfh pain relievers to reduce inflammation, ease pain, and | || lower your fever if it occurs. | || These could include acetaminophen (1 brand name: Tylenol) or ibuprofen (1 brand | || name: Advil). | || Call 911 if you have trouble breathing, chest pain, extreme changes in body | || temp, elevated HR, dizziness/confusion | || RTO if symptoms persist or worsen | || follow-up for in person evaluation if symptoms persist | |+ +- +| educated pt on consuming a well balanced diet and exercising at least 30 min a | 2023-08-26 || day. | |+ +- +| solu merdol 125 | 2023-08-26 || Increased Meloxicam to 15 mg. | || FU if no improvement. May refer to Ortho. | || - Pt endorses seeing ortho in past and receiving injections for arthritis | |+ +- +| CMP, lipid | 2023-08-26 || RX spironolactone | || FU in 1-2weeks with bp log | |+ +- +| spironolactone prescribed | 2023-08-26 || Educated pt to elevate legs at rest | || wear compression stockings and decrease salt intake | || RTO in 1 week if worsening or no improvement | |+ +- +[id number] of TreatmentOR[facility]-[id number] .[id number] for patient h[id number] Section NarrativeNARRATIVEFormatted C-CDA narrative textSLovelace Rehabilitation Hospitaljohnperri Berry [place]2024-04-23T00:00:00 Kwaku RobledoStefany [place] 2023-07-02 00:00:00 oduksEynsT5QCM/zFVVsisH1gfGokHcFliS+mfKB soQ zXQcC/XUHxTtJRqzL3kto0966-65-71J04:00:00+-- +----- -------+| Plan Activity | Plan Date |+ += +| weight and height proportionate | 2022-06-13 || Healthy weight | || Continue healthy lifestyle choices | || RTC 1 month for WAE--> screening lung cancer at next OV | |+ +- +| Encourage smoking cessation | 2023-04-16 |+ +- +| refill trelogy | 2023-03-19 |+ +- +| referral BH | 2022-10-18 || refill escitalopram for 20 mg for 3 months | |+ +- +| referral BH | 2022-10-18 || refill escitalopram 20 mg for 3 months | |+ +- +| Monitor | 2022-06-13 || follow-up with outside physician | |+ +- +| normal weight and height | 2022-08-02 |+ +- +| smoking cessation | 2022-08-02 |+ +- +| 1. Routine well adult visit | 2022-08-02 || 2. blood pressure, weight, height, and BMI calculated | || 3. Dietary: Recommend 3 meals a day that include lean protein, at least 5 | || servings of fruits and vegetables, whole grains, and at least 3 servings of | || dairy products or fortified soy milk. Limit food and drinks that are high in | || fat, salt, and sugar. | || 4. Physical activity: aim for 150 minutes of moderate physical activity (like | || fast walking) or 75 minutes of vigorous activity (like running) weekly | || 5. Vaccination decline | || 6. mammogram referral | |+ +- +| mammogram screening | 2022-08-02 |+ +- +| tsh pending | 2022-08-02 |+ +- +| CBC and CMP pending | 2022-08-02 |+ +- +| a1c pending | 2022-08-02 |+ +- +| lipid pending | 2022-08-02 |+ +- +| weight and height proportionate | 2022-09-06 || healthy weight | || continue healthy lifestyle choices | |+ +- +| RTC TPI injection x 2 | 2022-09-06 |+ +- +| unable to visualize mouth due to patient presenting virtually and video | 2022-08-20 || appearing pixelated | || ER precautions given to patient for signs and symptoms of respiratory distress | || OK to take benadryl prn | || Follow up in person tomorrow for complete assessment | |+ +- +| referral shoulder MRI,. advise pt to f/u for an appt | 2022-10-18 || Ortho f.u with ortho on schedule date november 26 | |+ +- +| weight and height proportionate | 2022-10-18 || Healthy weight | || Continue healthy choices | |+ +- +| Participate in physical activities and exercise. | 2023-04-16 || 30 of moderate aerobic exercise 5 times a week. Increase your activity as | || tolerated. | |+ +- +| Recommend healthy eating with foods from a variety of food groups, appropriate | 2023-04-16 || portion sizes, and few sugary snacks/drinks. | || | || Well-rounded, whole foods diet focused on fresh vegetables and fruits, lean | || proteins. Avoid sugary drinks. Avoid fried, greasy foods. Portion control. | |+ +- +| rx muporocin 2% | 2022-10-25 || f/u if no improvement | |+ +- +| Rx: Bromfed DM 2-30-10 MG/5ML Syrup - Sig: TAKE 10ML Q4-6HRS PRN COUGH QUANTITY | 2022-11-20 || 473 ML - Days 10 [facility] | || Rx: Fluticasone Propionate 50 MCG/ACT Suspension - Sig: USE ONE SPRAY IN EACH | || NOSTRIL TWICE A DAY QUANTITY 16 Suspension - REFILL 1 - Days 30 [facility] | || Recommend patient to Get plenty of rest. | || Take an jomr-ugl-jtrdhyk pain medicine if needed, such as acetaminophen | || (Tylenol) or ibuprofen (Advil, Motrin | || Drink plenty of fluids. | |+ +- +| Pt educated on eating a well balanced diet and incorporating at least 30 min of | 2023-03-26 || aerobic activity daily | |+ +- +| Continue Famotidine | 2023-04-16 || EGD consultation on with Dr. Land | || f/u amylase, CBC, CMP (r/o liver disease, chronic bleed, and peptic ulcer | || disease) | || RTC 1 month after GI consultation/EGD | |+ +- +| Most likely 2/2 OA | 2023-03-26 || stop Ibuprofen and Naproxen | || Start Meloxicam for GI comfort. | |+ +- +| RX methocarbomal and meloxicam. Medication side effects per pharmacy and verbal | 2023-06-20 || prescription given | || Educated on therapeutic treatment including stretches, ice/heat application. | || F/u if s/s worsen or persist. | |+ +- +| empirical tx | 2023-07-01 || z pack prescribed | || complete course as instructed | || Se discussed | || RX albuterol prn for sob, wheezing, persistent coughing | || otc antihistamine daily | || continue breathe right strips as needed | || start RX Bromfed sent during previous visit | || SE discussed. take as instructed | || stay hydrated | || humidifier, steam inhalation, Adriel's rub/drops | || warm tea w/ honey | || proper hand washing | || Take ytcb-bqw-qulmhla pain relievers to reduce inflammation, ease pain, and | || lower your fever if it occurs. | || These could include acetaminophen (1 brand name: Tylenol) or ibuprofen (1 brand | || name: Advil). | || Call 911 if you have trouble breathing, chest pain, extreme changes in body | || temp, elevated HR, dizziness/confusion | || RTO if symptoms persist or worsen | || follow-up for in person evaluation if symptoms persist | |+ +- +71272-1Wwmn of TreatmentLNCARE PLANTXTS|[id number] .20.22.2.10AVAvailable for patient thazCusabtvVdaqbyalkSNVTt20 Section NarrativeNARRATIVEFormatted C-CDA narrative textSFAStcesar Berry [place]2024-04-21T00:00:00 Kwaku Berry [place] 2019-10-26 18:15:00 [id number]7iGH5F QyO R2pcZJakPBj1aQOomfCQbKEWyaM8g3e6831-66-09J4 8:15:00Discharge Instructions 2Discharge DiagnosiscostochondritisImportant InformationConsult your physician or return to the Emergency Department immediately if worse, if not better as expected, or if any problems arise.Follow Up CareYesImportant InformationPlease understand that you have received care only on an emergency basis. If your condition does not improve, you should call your personal physician for follow-up care. If you do not have a physician, you may call the referred physician listed.If you have questions about your care or these discharge instructions, you may call the Emergency Department. Please take your discharge paperwork with you to any follow-up appointments.Follow Up CarePatient To ScheduleFollow-Up With:Primary Care PhysicianFollow-Up Notes:PCP for further treatmentActivity LevelAs tolerated, unrestrictedDietRegularPrescriptions Given Via:Electronically sent to patient's preferred pharmacy.Patient TeachingPatient education providedDischarge InstructionsDischarge InstructionsDischarge Instructions 2019-10-26 (Encounter: [id number] for patient careSTLMLCHI [facility] ([facility]/[place])5849-11-06W87:58:04 [facility] ([facility]/[place]) 2018-10-30 17:52:00 [id number]Dkcm1X 62w 3nnMiddcxm9L4KaxPAGePsTGj7LRr2y9727-67-05G9 7:52:00Discharge Instructions 2Discharge Diagnosiscervical radiculopathyImportant InformationConsult your physician or return to the Emergency Department immediately if worse, if not better as expected, or if any problems arise.Follow Up CareYesImportant InformationPlease understand that you have received care only on an emergency basis. If your condition does not improve, you should call your personal physician for follow-up care. If you do not have a physician, you may call the referred physician listed.If you have questions about your care or these discharge instructions, you may call the Emergency Department. Please take your discharge paperwork with you to any follow-up appointments.Follow-Up With:Primary Care PhysicianFollow-Up Notes:follow up with pcp in 1-2 daysActivity LevelAs tolerated, unrestrictedDietRegularPrescriptions Given Via:Electronically sent to patient's preferred pharmacy.Patient TeachingPatient education providedDisease ProcessChange in CareProcedures/TreatmentsPain ControlDischarge InstructionsDischarge InstructionsDischarge Instructions 2018-10-30 (Encounter: [id number] for patient careSTBaylor Scott & [facility] ([facility]/)2549-89-36V02:59:16 [facility] ([facility]/) 2018-10-17 11:31:00 [id number]+ceivHj2j19o5iV1Lxlqe5v [facility] pWuV1G/nMR/BoJjDZWaXWgLEWhHzx9N4666-59-18M4 1:31:00Discharge Instructions 2Discharge Diagnosiscervical radiculopathyImportant InformationConsult your physician or return to the Emergency Department immediately if worse, if not better as expected, or if any problems arise.Please understand that you have received care only on an emergency basis. If your condition does not improve, you should call your personal physician for follow-up care. If you do not have a physician, you may call the referred physician listed.If you have questions about your care or these discharge instructions, you may call the Emergency Department. Please take your discharge paperwork with you to any follow-up appointments.Follow Up CarePatient To ScheduleFollow-Up With:Primary Care PhysicianActivity LevelAs tolerated, unrestrictedPrescriptions Given Via:Printed and given to patient/caregiver.Patient TeachingPatient education providedDisease ProcessDischarge InstructionsDischarge InstructionsDischarge Instructions 2018-10-17 (Encounter: [id number] for patient careSTLMLCAtrium Health [facility] ([facility]/[place])7034-12-88I33:59:15 [facility] ([facility]) 2018-10-04 15:00:00 [id number]DsHpp4 us3 vo31HSjoW7QO2xcemRA3KJwnQhRMeNL2218-66-83W5 5:00:00Discharge Instructions 2Discharge Diagnosiscervical ridiculopaImportant InformationConsult your physician or return to the Emergency Department immediately if worse, if not better as expected, or if any problems arise.Follow Up CareYesImportant InformationPlease understand that you have received care only on an emergency basis. If your condition does not improve, you should call your personal physician for follow-up care. If you do not have a physician, you may call the referred physician listed.If you have questions about your care or these discharge instructions, you may call the Emergency Department. Please take your discharge paperwork with you to any follow-up appointments.Follow Up CarePatient To ScheduleFollow-Up With:Primary Care PhysicianActivity LevelAs tolerated, unrestrictedDietRegularPrescriptions Given Via:Electronically sent to patient's preferred pharmacy.Patient TeachingPatient education providedAntimicrobial Stewardship Patient EducationDisease ProcessChange in CareProcedures/TreatmentsPain ControlDischarge InstructionsDischarge InstructionsDischarge Instructions 2018-10-04 (Encounter: [id number] for patient careHavasu [facility] ([facility])4137-15-00F27:59:15 [facility] ([facility]) 2018-08-28 14:12:00 [id number]/dLpnI2vM7 JCs ss0Swz31hweokZ+lyey4kltluuA2oG41217-82-87L7 4:12:00Discharge Instructions 2Discharge Diagnosisneck painImportant InformationConsult your physician or return to the Emergency Department immediately if worse, if not better as expected, or if any problems arise.Follow Up CareYesImportant InformationPlease understand that you have received care only on an emergency basis. If your condition does not improve, you should call your personal physician for follow-up care. If you do not have a physician, you may call the referred physician listed.If you have questions about your care or these discharge instructions, you may call the Emergency Department. Please take your discharge paperwork with you to any follow-up appointments.Follow-Up With:Primary Care PhysicianActivity LevelAs tolerated, unrestrictedDietRegularPrescriptions Given Via:Printed and given to patient/caregiver.Patient TeachingPatient education providedDischarge InstructionsDischarge InstructionsDischarge Instructions 2018-08-28 (Encounter: [id number] for patient careHavasu Regional Medical Center ([facility])2539-37-10A63:59:14 [facility] ([facility]/[place]) 2017-09-26 14:05:00 [id number]/Nksdbc1mCDRQvMXJEBSC 6Mb WTJArvfP3sgbHNivRa4Jv9jF6bqiTU/1849-80-32H2 4:05:00VTEVTE Discharge InstructionsEducation given related to Follow-Up after DischargeEducation given related to Discharge MedicationsPsychosocialAssistance RequiredNonePatient/Family ConcernsNoneEmotional StateCalmHousing TypeHouseEmotional StatePleasantDischarge InstructionsDischarge DiagnosisDX: UNSTABLE ANGINA/CHEST PAINPhysician Name for Follow Up Appt #1DR. KIP MANZO PRIMARY CARE PHYSICIAN (ADDRESS: [address] [place] [address]) OFFICE # [phone] FAX # [phone] PLEASE CALL OFFICE TO SCHEDULE AN APPOINTMENT TO FOLLOW UP IN ONE WEEK AND TO HAVE LABS DRAWN FOR CBC, CMPPneumonia VaccineRefused By PatientPhysician Name for Follow Up Appt #2DR. JOURDAN PROGRAM SPECIALIST (ADDRESS: [address] [place] [address]) OFFICE # [phone] FAX # [phone] FOLLOW UP ON SUNDAY OCTOBER 01, 2017 @ 2:30 PMIV Removed Date09/26/2017Discharge Utwous79.9 KGSImportant Message to Medicare Beneficiaries CompletedYesCopy of Advanced Directive given to PatientNoReferral RequiredNoneActivity LevelAs tolerated, unrestrictedMedicationsContinue Present MedicationsPrescriptions Called To PharmacyTake all medications as listed on your Discharge Medication List as directedDO NOT STOP taking your medicine(s) until directed by your doctor.DietCARDIAC DIET (LOW FAT LOW CHOLESTEROL LOW SODIUM)OtherDischarge InstructionsPatient education providedFollow Up CareYesScheduled AppointmentPatient To ScheduleReadmission Risk (LACE Score)6Written Discharge Plan given to the Patient at the time of discharge contains:Reason for hospitalizationDischarge medications including what medications to take, how to take them, and how to obtain the medication.Patient / family / caregiver given instructions on what to do if their condition changes.Coordination and planning for follow-up appointments that the patient can keep.Coordination and planning for follow-up of tests and studies for which confirmed results are not available at time of discharge.Influenza Vaccine NOT Given, State Reason(s) Below:Refused By Patient/CaregiverDischarge Instructions 2Wound / Incision CareNot ApplicableCore Measure / Get with the Guidelines (AMI/HF)Review Discharge Medications with patient for next dose timesAspirin (AMI)Beta Lou (AMI/HF)Statin (AMI)Smoking Cessation TeachingPatient is a current smoker or former smoker of less than one yearDischarge EducationCopy of Discharge Medication ListDiscussed New / Changed MedicationsPersonal Belongings Returned To Patient/FamilyYesValuables Returned To Patient/FamilyN/APre-Admission Medications Returned To Patient/FamilyN/APatient/Significant Other Education AcknowledgementI hereby acknowledge receiving the explanation of the attached instructions. I was able to 'teach back' my health information and education to my nurse and I understand what I was taught as indicated by my signature below.Discharge Instructions Explained ToPatientDischarge SummaryMode Of DischargePER PRIVATE CARWheelchairDischarge StatusVital Signs StablePatient Transferred/Discharged ToHomeDischarge StatusAfebrileAdequate Diet/Liquid IntakeAccompanied ByRelativesDischarge StatusAdequate Urinary OutputAdequate Bowel FunctioningMode Of DischargeOtherDischarge StatusActivity Tolerated within Physical LimitsHome Health Care Monitoring RequiredNoPain At DischargeDenies PainPt shows no visible signs of painLIV Ortho DishchargePhysician Name for Follow Up Appt #1RETURN TO THE HOSPITAL IMMEDIATELY IF HIGH FEVER, CHILLS, PURULENT DRAINAGE, NUMBNESS/TINGLING, WORSENING PAIN/SWELLING, CHEST PAIN OR SHORTNESS OF BREATH OCCUR.TransferNotified of Discharge/TransferFamilyReport Given OnFALL PRECAUTIONSFall PrecautionsOtherTransfer ModePER PRIVATE [facility] HospitalrOtdignity health mercy gilbert medical centerDischarge InstructionsDischarge InstructionsDischarge Instructions 2017-09-26 (Encounter: [id number] for patient careSTLMLCAtrium Health [facility] ([facility]/[place])2659-08-84B74:59:11 [facility] ([facility]/[place]) 2017-09-25 18:30:00 [id number]+c3GOoGSSk7ASC0 ybk Uadf1/EHGDD/S/+YddzNVH8c0lQ7tul4545-65-75U9 8:30:00Patient: PEPE PLASENCIA MRNO: [id number] ENC: [id number] [place] [address] [place], [place] [address] Voice [phone] Data [phone] SIGNING PHYSICIAN: TRISH SOLIMAN MDPATIENT NAME: GEORGE PLASENCIA REC NUM: [id number] NUM: [id number] OF CONSULTATION: 09/25/2017REASON FOR CONSULTATION: Chest pain.HISTORY OF PRESENT ILLNESS: The patient is a 57-year-old woman withpast medical history of hyperlipidemia, angina, hepatitis C, skin cancer,gastroesophageal reflux disease and fibromyalgia, who was doing okay till lastMond when she had one episode of chest pain and then another one this morningwhen she was in the PCP's office and was referred to ER when Dr. Roland saw thepatient and did a stress test on treadmill; however, the patient had to stopbecause of shortness of breath and leg cramps. The decision [place] of care. Of note, the patientstates that she had this chest pain before including the last year as well. The patient states that she never had heart catheterization and the chest painstarted this morning and as described has tightness in the lower part of thechest and sometimes stabbing which gets worse with touching the area andpressing that area and radiates to the back intermittently. Currently, shedenies that pain anymore. The patient was initially on heparin drip; however,it was stopped by hospitalist due to concern for dissection and CT angio wasordered. The patient has not been treated for hepatitis C either. The patientdenies any shortness of breath or chest pain at this time. Her heart enzymeswere negative x2. Chest x-ray did not show any acute cardiopulmonaryabnormality. EKG showed sinus rhythm with no dynamic ST-T wave changesconcerning for ischemia.PAST MEDICAL HISTORY: As per HPI.PAST SURGICAL HISTORY: As per HPI. No heart catheterization.ALLERGIES: PENICILLIN, LEVAQUIN, BACTRIM, DOXYCYCLINE.SOCIAL HISTORY: One pack cigarette per day for 20 years. No alcohol or drugabuse.FAMILY HISTORY: Father had IL and bypass in 30s. Also had lung cancer anddied of lung cancer.HOME MEDICATIONS: Please see medicine reconciliation list. All medicationswere reviewed.REVIEW OF SYSTEMS: A 12-point review of system was reviewed and the rest ofsystem was negative except as mentioned in HPI. Page 1 of 2Patient: PEPE PLASENCIA MRNO: [id number] ENC: [id number] Formerly Named [facility] [address] [place], [place] [address] Voice [phone] Data [phone] EXAMINATION:VITAL SIGNS: Blood pressure 132/85, heart rate of 78, respiratory rate of 18,temperature 97.8, O2 sat 99 percent on room air.GENERAL: Alert, awake, and oriented x3 in no acute distress.HEENT: Normal.NECK: Supple. No JVP. Normal range of motion.CHEST: Pressing in lower chest part reproduces the pain.HEART: Normal S1, normal S2. No murmur. Regular rate and rhythm.ABDOMEN: Soft, nontender, nondistended. Positive bowel sounds.EXTREMITIES: No clubbing, no cyanosis, no edema.SKIN: Warm.MUSCULOSKELETAL: No swelling. No erythema.LABORATORY INVESTIGATION: All the labs were reviewed. Creatinine 0.8 andtroponin negative x2. A 12-lead EKG showed sinus rhythm with no dynamic ST-Twave changes.ASSESSMENT AND PLAN: The patient is a 57-year-old woman with pastmedical history of hyperlipidemia, untreated hepatitis C, fibromyalgia,gastroesophageal reflux disease and angina, who presented with atypical chestpain and troponin was negative x2. Hospitalist ordered. CT angiogram to ruleout dissection. The patient is currently chest pain free and denies anyshortness of breath.PLAN AND RECOMMENDATION: We would check echocardiogram to assess heartfunction and valvular function. We will follow on the CTA angiogram of thechest and check one more set of cardiac enzymes. If no dissection is noted inCTA scan, heparin will be resumed. The patient will be reassessed again in themorning after echocardiogram is done and based on her clinical symptoms, wedecide if the patient needs heart catheterization or Lexiscan MPI(pharmacologic stress test as outpatient), the patient will definitely needischemic workup in the setting of having multiple cardiovascular risk factor onthis chest pain. I discussed this in detail with the patient who verbalizedunderstanding. I will follow the patient on daily basis and make furtherrecommendation.[id number] MT: NTS Page 2 of 2Electronically Authenticated by:TRISH SOLIMAN MD On 10/07/2017 04:17 PM CDTCONConsultationSee body of reportSee body of kcqajf3774-68-28T71:30:935757-59-08B43:17:1 7SJWQFRJNJJUM6534998BDAcvyvakvb for patient dxlwIEUGJKSRLOLDCY7613-13-11H47:08:44 STL 2017-09-25 14:54:00 [id number]/pDKEeI5fWe8pvol5E 7c1 IWMRK3xUsgR3SjXEkhzCWXy5Krtn6Bk4876-75-40C5 4:54:00Patient: PEPE PLASENCIA MRNO: [id number] ENC: [id number] [place] [address] Voice [phone] Data [phone] SIGNING PHYSICIAN: John Cooper MDPATIENT NAME: GEORGE PLASENCIA REC NUM: [id number] NUM: [id number] NOTEDATE OF OPERATION: 09/25/2017INDICATION: Chest pain with multiple risk factors, smoker, and abnormal EKG.DESCRIPTION OF PROCEDURE: After informed consent, Ms. Plasencia was subjected toa David protocol exercise stress test. Ms. Plasencia exercised for 6.34 minutes. At 10 mets, the resting EKG showed sinus rhythm with incomplete right bundlebranch block pattern. Ms. Plasencia achieved a heart rate of 130, which is 80percent of her predicted heart rate. This was submaximal. She did have somechest discomfort and some dizziness. Blood pressures were 122/80 at peakstress, coming down to 118/70 at baseline. There were no ischemic changes atsubmaximal stress test. In view of her symptoms, she has been advised to havefurther risk stratification with possible cardiac catheterization.[id number] MT: NTS Page 1 of 1Electronically Authenticated by:John Cooper MD On 10/21/2017 08:35 AM CDTOPOperative NoteSee body of reportSee body of nwvulp6181-41-36L73:54:291551-93-75G63:35:4 7FmhwjbkcyechwYENT9852340TXFedxhlrqq for patient gjwpODPRDKVEIMTNVR3487-64-89S05:10:20 [facility]
[2023-09-03] MEDS ORDERED: dexAMETHasone 10 MG/ML VIAL ONE (13:32)
[2023-09-03] MEDS ORDERED: KETOROLAC 30 MG/ML INJ ONE (13:32)
[2023-09-03] MEDS ORDERED: HYDROCODONE/APAP 7.5/325 MG TAB ONE (13:32)
--- NOTE | 2023-09-03 13:37 | ER ---
Nurse's Notes [facility] Name: Erin Jiang Age: 63 yrs Sex: Female : 1960 Arrival Date: 09/03/2023 Time: 12:01 Bed 20 Private MD: Diagnosis: Pain in right hand;Pain in right wrist Presentation: 09/02 12:07 Chief complaint: Patient states: right hand pain for the past month with it worsening as6 for the last 2 days. denies injury. Coronavirus screen: At this time, the client does not indicate any symptoms associated with coronavirus-19. Ebola Screen: No symptoms or risks identified at this time. Initial Sepsis Screen: Does the patient meet any 2 criteria? No. Patient's initial sepsis screen is negative. Does the patient have a suspected source of infection? No. Patient's initial sepsis screen is negative. Risk Assessment: Do you want to hurt yourself or someone else? Patient reports no desire to harm self or others. Onset of symptoms was September 01, 2023. 12:07 Acuity: MONY 4 as6 12:07 Method Of Arrival: Ambulatory as6 Triage Assessment: 12:11 General: Appears uncomfortable, Behavior is calm, cooperative. Pain: Complains of pain as6 in right hand. Historical: - Allergies: 12:08 Bactrim; as6 12:08 Levaquin; as6 12:08 PENICILLINS; as6 12:08 Sulfa (Sulfonamide Antibiotics); as6 - PMHx: 12:08 Hyperlipidemia; menieresdisease; as6 - PSHx: 12:08 neck (menieresdisease ); knee (menieresdisease ); Cholecystectomy; as6 - Immunization history:: Adult Immunizations up to date. - Infectious Disease History:: Denies. - Social history:: Smoking status: Patient reports the use of cigarette tobacco products, smokes one-half pack cigarettes per day. - Family history:: not pertinent. Screenin:15 [facility] ED Fall Risk Assessment (Adult) History of falling in the last 3 months, rs5 including since admission No falls in past 3 months (0 pts) Confusion or Disorientation No (0 pts) Intoxicated or Sedated No (0 pts) Impaired Gait No (0 pts) Mobility Assist Device Used No (0 pt) Altered Elimination No (0 pt). 12:39 Abuse screen: Denies threats or abuse. Nutritional screening: No deficits noted. ap3 Tuberculosis screening: No symptoms or risk factors identified. Assessment: 12:38 General: Appears in no apparent distress. Behavior is calm, cooperative. Pain: ap3 Complains of pain in right hand. Pain: Pain began. Neuro: Level of Consciousness is awake, alert, obeys commands, Oriented to person, place, time, situation. Cardiovascular: Patient's skin is warm and dry. Respiratory: Airway is patent Respiratory effort is even, unlabored, Respiratory pattern is regular, symmetrical. 13:00 Reassessment: Awaiting orders by provider. rs5 13:15 Reassessment: Provider notified pt is experiencing pain to right hand, rating 7/10, rs5 described as aching. 13:46 Reassessment: Patient and/or family updated on plan of care and expected duration. Pain rs5 level reassessed. Patient is alert, oriented x 3, equal unlabored respirations, skin warm/dry/pink. Vital Signs: 12:07 BP 146 / 82; Pulse 73; Resp 18 S; Temp 96.9(TE); Pulse Ox 95% on R/A; Weight 74.84 kg as6 (R); Height 5 ft. 5 in. (R); Pain 10/10; 13:47 BP 140 / 86; Pulse 77; Resp 17; Temp 97.6(O); Pulse Ox 99% ; rs5 12:07 Body Mass Index 27.46 (74.84 kg, 165.1 cm) as6 12:07 Pain Scale: Adult as6 ED Course: 12:01 Patient arrived in ED. rg4 12:08 Triage completed. as6 12:10 Valeriano Menchaca MD is Attending Physician. devin 12:11 Arm band placed on. as6 12:24 Nadeem Berger RN is Primary Nurse. rs5 12:39 Warm blanket given. ap3 12:39 Patient has correct armband on for positive identification. Bed in low position. Call ap3 light in reach. Side rails up X 1. Pulse ox on. NIBP on. 13:37 Eric Rios MD is Referral Physician. devin 13:45 No provider procedures requiring assistance completed. rs5 13:59 IV discontinued, intact, bleeding controlled, No redness/swelling at site. Pressure rs5 dressing applied. Administered Medications: 13:44 Drug: Ketorolac IM 60 mg IM once Route: IM; Site: left deltoid; rs5 13:59 Follow up: Response: No adverse reaction; Pain is decreased rs5 13:44 Drug: Dexamethasone IM 10 mg IM once Route: IM; Site: right ventrogluteal; rs5 13:59 Follow up: Response: No adverse reaction rs5 13:44 Drug: Hydrocodone-Acetaminophen PO (7.5 mg-325 mg) 1 tabs PO once Route: PO; rs5 13:59 Follow up: Response: No adverse reaction rs5 Medication: 13:47 VIS not applicable for this client. rs5 Outcome: 13:37 Discharge ordered by . devin 13:59 Discharged to home ambulatory, rs5 13:59 Condition: stable 13:59 Discharge instructions given to patient, family, Instructed on discharge instructions, follow up and referral plans. medication usage, Demonstrated understanding of instructions, follow-up care, medications, Prescriptions given X 3, 14:00 Patient left the ED. rs5 Signatures: Valeriano Menchaca MD MD cha Garcia, Rubi rg4 Yanni Tinsley RN RN ap3 Lopez Dominguez, GILLIAN RN as6 Nadeem Berger RN RN rs5
--- NOTE | 2023-09-03 13:37 | EDPHYS ---
Physician Documentation [facility] Name: Erin Jiang Age: 63 yrs Sex: Female : 1960 Arrival Date: 09/03/2023 Time: 12:01 Bed 20 Private MD: ED Physician Valeriano Menchaca HPI: 09/02 13:28 This 63 yrs old Female presents to ER via Ambulatory with complaints of Hand devin Pain. 13:28 The patient or guardian reports decreased range of motion, pain. The complaints affect devin the right hand diffusely. Context: The problem was sustained at an unknown location, resulted from an unknown cause. Onset: The symptoms/episode began/occurred 1 month(s) ago. Modifying factors: The symptoms are alleviated by holding still, splinting, the symptoms are aggravated by movement, dependent position. Associated signs and symptoms: The patient has no apparent associated signs or symptoms. Severity of symptoms: At their worst the symptoms were moderate, in the emergency department the symptoms are unchanged. The patient has experienced similar episodes in the past, multiple times. Historical: - Allergies: 12:08 Bactrim; as6 12:08 Levaquin; as6 12:08 PENICILLINS; as6 12:08 Sulfa (Sulfonamide Antibiotics); as6 - PMHx: 12:08 Hyperlipidemia; menieresdisease; as6 - PSHx: 12:08 neck (menieresdisease ); knee (menieresdisease ); Cholecystectomy; as6 - Immunization history:: Adult Immunizations up to date. - Infectious Disease History:: Denies. - Social history:: Smoking status: Patient reports the use of cigarette tobacco products, smokes one-half pack cigarettes per day. - Family history:: not pertinent. ROS: 13:32 Constitutional: Negative for fever, chills, and weight loss, Eyes: Negative for injury, devin pain, redness, and discharge, ENT: Negative for injury, pain, and discharge, Neck: Negative for injury, pain, and swelling, Cardiovascular: Negative for chest pain, palpitations, and edema, Respiratory: Negative for shortness of breath, cough, wheezing, and pleuritic chest pain, Abdomen/GI: Negative for abdominal pain, nausea, vomiting, diarrhea, and constipation, Back: Negative for injury and pain, : Negative for injury, bleeding, discharge, and swelling, Skin: Negative for injury, rash, and discoloration, Neuro: Negative for headache, weakness, numbness, tingling, and seizure, Psych: Negative for depression, anxiety, suicide ideation, homicidal ideation, and hallucinations, Allergy/Immunology: Negative for hives, rash, and allergies, Endocrine: Negative for neck swelling, polydipsia, polyuria, polyphagia, and marked weight changes, Hematologic/Lymphatic: Negative for swollen nodes, abnormal bleeding, and unusual bruising, 13:32 MS/extremity: Positive for decreased range of motion, pain, tenderness, of the right wrist and right hand, Exam: 13:32 Constitutional: This is a well developed, well nourished patient who is awake, alert, devin and in no acute distress. Head/Face: Normocephalic, atraumatic. Eyes: Pupils equal round and reactive to light, extra-ocular motions intact. Lids and lashes normal. Conjunctiva and sclera are non-icteric and not injected. Cornea within normal limits. Periorbital areas with no swelling, redness, or edema. ENT: Nares patent. No nasal discharge, no septal abnormalities noted. Tympanic membranes are normal and external auditory canals are clear. Oropharynx with no redness, swelling, or masses, exudates, or evidence of obstruction, uvula midline. Mucous membranes moist. Neck: Trachea midline, no thyromegaly or masses palpated, and no cervical lymphadenopathy. Supple, full range of motion without nuchal rigidity, or vertebral point tenderness. No Meningismus. Chest/axilla: Normal chest wall appearance and motion. Nontender with no deformity. No lesions are appreciated. Cardiovascular: Regular rate and rhythm with a normal S1 and S2. No gallops, murmurs, or rubs. Normal PMI, no JVD. No pulse deficits. Respiratory: Lungs have equal breath sounds bilaterally, clear to auscultation and percussion. No rales, rhonchi or wheezes noted. No increased work of breathing, no retractions or nasal flaring. Abdomen/GI: Soft, non-tender, with normal bowel sounds. No distension or tympany. No guarding or rebound. No evidence of tenderness throughout. Back: No spinal tenderness. No costovertebral tenderness. Full range of motion. Skin: Warm, dry with normal turgor. Normal color with no rashes, no lesions, and no evidence of cellulitis. Neuro: Awake and alert, GCS 15, oriented to person, place, time, and situation. Cranial nerves II-XII grossly intact. Motor strength 5/5 in all extremities. Sensory grossly intact. Cerebellar exam normal. Normal gait. Psych: Awake, alert, with orientation to person, place and time. Behavior, mood, and affect are within normal limits. 13:32 Musculoskeletal/extremity: ROM: limited active range of motion due to pain, limited passive range of motion due to pain, Pulses: are normal with no appreciated deficits, Sensation intact. Compartment Syndrome exam of affected extremity: is normal. Joints: All joints are normal except limited range of motion, pain at rest, painful range of motion, tenderness, Vital Signs: 12:07 BP 146 / 82; Pulse 73; Resp 18 S; Temp 96.9(TE); Pulse Ox 95% on R/A; Weight 74.84 kg as6 (R); Height 5 ft. 5 in. (R); Pain 10/10; 13:47 BP 140 / 86; Pulse 77; Resp 17; Temp 97.6(O); Pulse Ox 99% ; rs5 12:07 Body Mass Index 27.46 (74.84 kg, 165.1 cm) as6 12:07 Pain Scale: Adult as6 MDM: 12:10 Patient medically screened. [facility] 13:35 Differential diagnosis: closed fracture, contusion, tendonitis. Data reviewed: vital devin signs, nurses notes, radiologic studies, plain films. Consideration of Admission/Observation Escalation of care including admission/observation considered. I considered the following discharge prescriptions or medication management in the emergency department Medications were administered in the Emergency Department. See MAR. Independent interpretation of the following test(s) in the Emergency Department X-Ray: My interpretation is right wrist x ray. Test considered but Not performed: Labs: no labs. Care significantly affected by the following chronic conditions: high lipids,, menieres. 09/02 13:28 Order name: Splint - Wrist: cock up , velcro; Complete Time: 13:44 devin 09/02 13:28 Order name: Ice pack; Complete Time: 13:44 devin Administered Medications: 13:44 Drug: Ketorolac IM 60 mg IM once Route: IM; Site: left deltoid; rs5 13:59 Follow up: Response: No adverse reaction; Pain is decreased rs5 13:44 Drug: Dexamethasone IM 10 mg IM once Route: IM; Site: right ventrogluteal; rs5 13:59 Follow up: Response: No adverse reaction rs5 13:44 Drug: Hydrocodone-Acetaminophen PO (7.5 mg-325 mg) 1 tabs PO once Route: PO; rs5 13:59 Follow up: Response: No adverse reaction rs5 Disposition Summary: 09/03/23 13:37 Discharge Ordered Notes: Location: Home [facility] Problem: new devin Symptoms: have improved devin Condition: Stable devin Diagnosis - Pain in right hand devin - Pain in right wrist devin Followup: devin - With: Private Physician - When: 2 - 3 days - Reason: Recheck today's complaints, Re-evaluation by your physician Followup: devin - With: Eric Rios MD - When: 2 - 3 days - Reason: Recheck today's complaints, Re-evaluation by your physician Discharge Instructions: - Discharge Summary Sheet devin - Joint Pain devin - Arthritis devin - Musculoskeletal Pain [facility] - How to Use Cold Therapy, [id number] devin - Joint Pain, [id number] [facility] Forms: - Medication Reconciliation Form devin - Antibiotic Education devin - Prescription Opioid Use devin - Patient Portal Instructions [facility] - Leadership Thank You Letter [facility] Prescriptions: - acetaminophen-codeine 300-30 mg Oral tablet - take 2 tablet ORAL route every 6 hours; 18 tablet; Refills: 0, Product [facility] Selection Permitted - dexamethasone 4 mg Oral tablet - take 1 tablet ORAL route daily; 5 tablet; Refills: 0, Product Selection [facility] Permitted - diclofenac sodium 25 mg Oral tablet, delayed release (enteric coated) - take 1 tablet ORAL route 3 times per day; 30 tablet; Refills: 0, Product [facility] Selection Permitted Signatures: Valeriano Menchaca MD MD cha Slawson, Ashby RN RN as6 Nadeem Berger RN RN rs5
[2023-09-03 14:25] VITALS: BP 140/86; TEMP 97.6; O2SAT 99
== END 2023-09-03 14:00 | disposition home or self-care (01) ==
LOC: ER 12:01
DX: M79.641 Pain in right hand (principal); M25.531 Pain in right wrist; F17.210 Nicotine dependence, cigarettes, uncomplicated; Z88.0 Allergy status to penicillin; Z88.1 Allergy status to other antibiotic agents; Z88.2 Allergy status to sulfonamides
CPT/HCPCS: 96372; 99284; J1100

== ENCOUNTER 2023-09-06 15:22 | Emergency (ER) | payer OTHER ==
--- OUTSIDE RECORDS SUMMARY | 2023-09-06 15:29 | XMS REPORT | Continuity of Care Document ---
Author Name Unknown Address [address] [facility] [address] [place] [address] [facility] thconnect Address [address] [facility] [address] [facility] [address] [place] [address] Care Team Providers Care Interpreter And Translator Name Role Phone Camila Mario Primary Care Physician [phone] Kip Manzo Attending Clinician Unavailable RADIOLOGY Attending Clinician Unavailable Radiology Attending Clinician Unavailable Doctor Unassigned, [place] Attending Clinician U Samuel Mcgregor MD Attending Clinician [phone] SAMUEL HADDAD Attending Clinician Unavailgiancarlo chery Only, Ang Db Test Attending Clinician UnavailSabine Taylor Attending Clinician [phone] SABINE WALL Attending Clinician UnavailUri John MD Attending Clinician [phone] URI MARX Attending Clinician Unavailable Only, Adc Test Attending Clinician Unavailable Pob, Adc Lab Main Attending Clinician UnavailDale Gifford MD Attending Clinician NAHID CAPPS Attending Clinician Unavailable LEE DENTON Attending Clinician Unavailable KIP MANZO Attending Clinician Unavailable ESRG HUBER Attending Clinician Unavailable DR LIA CEE [...] Number Effective Date Expirati on Date Source [facility] DUAL COMP HMO D SNP [id number] 2022 00:00:00 [employer] Replace C1 [id number] [facility] [id number] [facility] [id number] [facility] [id number] [facility] [id number] [facility] [id number] [facility] [id number] [facility] Problems Condition Name Condition Details Condition [...] Active 09-25 00:00: [address] [facility] (LUF/LI V/SA) Chest pain Chest pain Problem Active 09-24 00:00: [address] [facility] (LUF/LI V/SA) Contusion of lower leg Contusion of lower leg Problem Active 10-17 00:00: 00 [facility] (LUF/LI V/SA) Contusion of multiple sites Contusion of multiple sites Problem Active 10-09 00:00: 00 [facility] (LUF/LI V/SA) [place] Problem Active 10-09 00:00: 00 [facility] (LUF/LI V/SA) Contusion wrist or hand Contusion wrist or hand Problem Active 09-11 00:00: [address] [facility] (LUF/LI V/SA) Contusion of rib Contusion of rib Problem Active 09-11 00:00: 00 [facility] (LUF/LI V/SA) Low back pain Low back pain Disease Active 11-29 00:00: 00 [facility] Chest pain Chest pain Disease Active 11-28 00:00: 00 [facility] [id number] Primary osteoarthr itis of right shoulder Problem [facility] 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 Viral hepatitis C Viral hepatitis C Problem [facility] Abdominal pain Abdominal pain [...] s Active Hives 2020-05 1 00:00: 00 [facility] SULFAMET HOXAZOLE -TRIMETH OPRIM DRUG Active Hives 2020-05 1- 00:00: 00 [facility] SULFA (SULFONA MIDE ANTIBIOT ICS) Drug Class Active Hives 2020-05 00:00: 00 [facility] Sulfamet hoxazole -Trimeth oprim Propensi ty to adverse reaction s Active Hives 2020-05 00:00: 00 [facility] Sulfa (Sulfona mide Antibiot ics) Propensi ty to adverse reaction s Active Hives 2020-05 00:00: 00 [facility] Amoxicil tati Propensi ty to adverse reaction s Active Rash 11-28 00:00: 00 [facility] Levoflox acin Propensi ty to adverse reaction s Active Anaphylaxis 11-28 00:00: 00 [facility] Penicill ins Propensi ty to adverse reaction s Active Rash 11-28 00:00: 00 [facility] Penicill ins Propensi ty to adverse reaction s Active Rash 11-28 00:00: 00 [facility] AMOXICIL TATI DRUG INGREDI Active Rash 11-28 00:00: 00 [facility] LEVOFLOX ACIN DRUG INGREDI Active Anaphylaxis 11-28 00:00: 00 [facility] PENICILL INS Drug Class Active Rash 11-28 00:00: 00 [facility] sulfamet hoxazole / trimetho prim sulfamet hoxazole / trimetho prim Active Unknown [facility] [id number] Drug allergy Active Unknown [facility] 0 Drug allergy Active Unknown [facility] doxycycl ine DA Active [facility]) gabapent in DA Active Unknown [facility] (LUF/LI V/SA) Bactrim DS DA Active Unknown [facility]) Levaquin DA Active Unknown thrush [facility] Penicill ins DA Active Unknown Anaphylaxis (Severe Allergic Rxn) [facility] (LUF/LI V/SA) Social History Social Habit Start Date Stop Date Quantity Comments Source Sex Assigned At [facility] History of tobacco use Smokes tobacco daily [facility] Exposure to SARS-CoV-2 (event) 2022-09-04 00:00:00 2022-09-14 14:13:00 Not sure [facility] Tobacco use and exposure 2022-03-23 00:00:00 2022-03-23 00:00:00 Smokeless tobacco non-user [facility] Smoking Status Start Date Stop Date Source Never smoker [facility] (LUF/MICHELLE/SA) Smokes tobacco daily 2022-03-23 00:00:00 [facility] Medications Ordered Medication Name Filled Medication Name [...] 07-01 00:00: 00 08-26 00:00 :00 No [id number] Kwaku Sharp TAKE 2 TABLETS ON DAY [...] 06-14 00:00: 00 08-26 00:00 :00 No [id number] Kwaku Sharp TAKE 1 TO 2 TABLETS DAILY. 2022-05 00:00: 00 08-26 00:00 :00 No 75 Kwaku Sharp TAKE 1 TABLET DAILY. 2022-05 00:00: 00 08-26 00:00 :00 No 20 Kwaku Sharp INHALE 1 PUFF BY MOUTH DAILY. 2022-05 00:00: 00 Yes [id number] 5 Kwaku Sharp TAKE 1 TABLET AT BEDTIME. 2022-05 00:00: 00 08-26 00:00 :00 No 20 Kwaku Sharp TAKE 1 TO 2 TABLETS DAILY. 2022-05 00:00: 00 08-26 00:00 :00 No 75 Kwaku Sharp TAKE 1 TABLET DAILY. 2022-05 1-16 00:00: 00 08-26 00:00 :00 No 20 Kwaku Sharp INHALE 1 PUFF BY MOUTH DAILY. 8-15 00:00: 00 08-26 00:00 :00 No [id number] 5 Kwaku Sharp Bupivicaine Desdemona Bupivicaine Desdemona 8-10 00:00: 00 No 5mL [facility] Kenalog (Triamcinol one) Kenalog (Triamcinol one) 8-10 00:00: 00 No 1mL [facility] Bupivicaine Desdemona Bupivicaine Desdemona 8-10 00:00: 00 No 5mL [facility] Kenalog (Triamcinol one) Kenalog (Triamcinol one) 8-10 00:00: 00 No 1mL [facility] INHALE 1 PUFF DAILY. 18 00:00: 00 08-26 00:00 :00 No [id number] 5 Kwaku Sharp TAKE 2 TABLETS ON [...] 1 PUFF DAILY. 06-13 00:00: 00 Yes [id number] 5 Kwaku Sharp TAKE 1 TABLET DAILY. [...] Until Mara 03/09/21 at 1511, Routine, Intra-op [facility] HYDROcodone -acetaminop hen (NORCO 5) 5-325 mg tablet 1 tablet 2020-05 14:00: 00 03-09 14:39 :00 No 1{tbl} 1 tablet, Oral, ONCE, 1 dose, On Mara 03/09/21 at 0900, Routine, PACU [facility] lactated ringers IV infusion 1,000 mL 2020-05 14:00: 00 03-09 20:11 :30 No 1000mL at 100 mL/hr, 1,000 mL, IV Infusion, CONTINUOUS , Starting on Mara 03/09/21 at 0900, Until Mara 03/09/21 at 1511, Routine, PACU [facility] HYDROmorphO ne (DILAUDID) injection 0.2 mg 2020-05 13:55: 47 03-09 20:11 :30 No .2mg 0.2 mg, Slow IV Push, Q5MIN PRN, 10 doses, Starting on Mara 03/09/21 at 0855, Until Mara 03/09/21 at 151, Routine, Pain (scale 7-10), PACU
Us e approved by (Faculty): PACU USE -ANESTHESI A SERVICE-HY DROMORPHON E INJECTIONS [facility] FENTanyl PF (SUBLIMAZE (PF)) injection 25 mcg 2020-05 13:55: 47 03-09 20:11 :30 No 25ug 25 mcg, Slow IV Push, Q5MIN PRN, 4 doses, Starting on Mara 03/09/21 at 0855, Until Mara 03/09/21 at 1511, Routine, Pain (scale 4-6), PACU [facility] ondansetron (ZOFRAN (PF)) injection 4 mg 2020-05 13:55: 47 03-09 20:11 :30 No 4mg 4 mg, Slow IV Push, PRN, 1 dose, Starting on Mara 03/09/21 at 0855, Until Mara 03/09/21 at 1511, Routine, Nausea and Vomiting (N/V), PACU [facility] SPIRONOLACT ONE ORAL 2020-05 13:11: 28 Yes Take by mouth. [facility] lactated ringers IV infusion 1,000 mL 2020-05 12:30: 00 03-09 12:22 :00 No 1000mL at 42 mL/hr, 1,000 mL, IV Infusion, ONCE, 1 dose, On Mara 03/09/21 at 0730, Routine, DSU Pre-op [facility] HYDROCODONE /ACETAMINOP HEN (NORCO ORAL) 2020-05 10:33: 23 Yes Take by mouth. [facility] TRELEGY ELLIPTA 100-62.5-25 mcg DsDv 2020-05 00:00: 00 Yes [facility] clindamycin 150 mg capsule 2020-05 00:00: 00 Yes [facility] escitalopra m oxalate 20 mg tablet 2020-05 00:00: 00 Yes [facility] traZODone 50 mg tablet 2020-05 00:00: 00 Yes [facility] SPIRONOLACT ONE ORAL 11-29 17:49: 55 Yes Take by mouth. [facility] aspirin 81 mg chewable tablet 11-29 00:00: 00 Yes 81mg Take 1 Tab by mouth daily. [facility] Lexapro Lexapro No Lexapro Lasix Lasix No Lasix Lasix Lasix No Lasix [facility] traMADol HCl traMADol HCl No traMADol HCl Acetaminoph en 300 MG / Codeine Phosphate 30 MG Oral Tablet Acetaminoph en 300 MG / Codeine Phosphate 30 MG Oral Tablet Yes 1 2xD orally 2 times per day as needed. [facility] (LUF/LI V/SA) Albuterol Albuterol Yes 1 6xD inhale d every 4 hours as needed. ( administer with spacer;) [facility] (LUF/LI V/SA) Meclizine Hydrochlori de 25 MG Oral Tablet Meclizine Hydrochlori de 25 MG Oral Tablet Yes 25mg 3xD orally 3 times per day as needed. [facility] (LUF/LI V/SA) Simvastatin 20 MG Oral Tablet Simvastatin 20 MG Oral Tablet Yes 20mg orally every day at bed[facility] Spironolact one 25 MG Oral Tablet Spironolact one 25 MG Oral Tablet Yes 25mg 1xD orally daily as needed. [facility] (LUF/LI V/SA) Vital Signs Vital Name Observation Time Observation Value Comments S ource height 2022-12-13 09:30:00 65 [in_i] Commo n [facility] weight 2022-12-13 09:30:00 143 [lb_av] Comm on [facility] temperature 2022-12-13 09:30:00 98.2 [degF] Com mon [facility] bmi 2022-12-13 09:30:00 23.79 kg/m2 Comm on [facility] blood pressure systolic 2022-12-13 09:30:00 126 mm[Hg] Common [facility] blood pressure diastolic 2022-12-13 09:30:00 76 mm[Hg] [facility] Systolic blood pressure 2022-03-23 16:56:00 134 mm[Hg] General acute hospital Diastolic blood pressure 2022-03-23 16:56:00 78 mm[Hg] General acute hospital Heart rate 2022-03-23 16:56:00 83 /min [facility] Oxygen saturation in Arterial blood by Pulse oximetry 2022-03-23 16:56:00 100 /min General acute hospital Body height 2022-03-23 16:22:00 163.8 cm [facility] Body weight 2022-03-23 16:22:00 53.434 kg [facility] BMI 2022-03-23 16:22:00 19.91 kg/m2 [facility] Systolic blood pressure 2021-03-09 14:58:00 129 mm[Hg] General acute hospital Diastolic blood pressure 2021-03-09 14:58:00 58 mm[Hg] General acute hospital Heart rate 2021-03-09 14:58:00 54 /min [facility] Respiratory rate 2021-03-09 14:58:00 19 /min [facility] Oxygen saturation in Arterial blood by Pulse oximetry 2021-03-09 14:58:00 97 /min General acute hospital Body temperature 2021-03-09 13:43:00 36.39 Barbara [facility] Body height 2021-03-08 15:30:00 165.1 cm [facility] Body weight 2021-03-08 15:30:00 68.04 kg [facility] BMI 2021-03-08 15:30:00 24.96 kg/m2 [facility] Systolic blood pressure 2021-03-09 14:58:00 129 mm[Hg] General acute hospital Diastolic blood pressure 2021-03-09 14:58:00 58 mm[Hg] General acute hospital Heart rate 2021-03-09 14:58:00 54 /min [facility] Respiratory rate 2021-03-09 14:58:00 19 /min [facility] Oxygen saturation in Arterial blood by Pulse oximetry 2021-03-09 14:58:00 97 /min General acute hospital Body temperature 2021-03-09 13:43:00 36.39 Barbara [facility] Body height 2021-03-08 15:30:00 165.1 cm [facility] Body weight 2021-03-08 15:30:00 68.04 kg [facility] BMI 2021-03-08 15:30:00 24.96 kg/m2 [facility] height 2020-07-04 09:30:00 65 [in_i] Commo n [facility] weight 2020-07-04 09:30:00 185 [lb_av] Comm on [facility] temperature 2020-07-04 09:30:00 97.3 [degF] Com mon [facility] bmi 2020-07-04 09:30:00 30.78 kg/m2 Comm on [facility] blood pressure systolic 2020-07-04 09:30:00 156 mm[Hg] [facility] blood pressure diastolic 2020-07-04 09:30:00 88 mm[Hg] Common [facility] height 2020-05-25 09:00:00 65 [in_i] Commo n [facility] weight 2020-05-25 09:00:00 185 [lb_av] Comm on [facility] temperature 2020-05-25 09:00:00 97.1 [degF] Com mon [facility] bmi 2020-05-25 09:00:00 30.78 kg/m2 Comm on [facility] blood pressure systolic 2020-05-25 09:00:00 142 mm[Hg] [facility] blood pressure diastolic 2020-05-25 09:00:00 90 mm[Hg] [facility] height 2020-04-21 09:30:00 65 [in_i] Commo n [facility] weight 2020-04-21 09:30:00 185 [lb_av] Comm on [facility] bmi 2020-04-21 09:30:00 30.78 kg/m2 Comm on [facility] blood pressure systolic 2020-04-21 09:30:00 134 mm[Hg] [facility] blood pressure diastolic 2020-04-21 09:30:00 74 mm[Hg] Common Pbi kush [facility] Height 2019-10-26 15:10:00 139.7 CM Weight [...] Sharp Weight Measured 2022-09-06 13:47:00 126.80 pounds wKaku Sharp Height Measured 2022-09-06 13:47:00 63.00 inches Kwaku Sahrp Body Temperature 2022-09-06 13:47:00 98.50 degrees Kwaku Sharp Heart Rate 2022-09-06 13:47:00 78.00 /min Nabila Sharp Respiratory Rate 2022-09-06 13:47:00 17.00 /min Kwaku Sharp Pulse Rate 2019-10-26 17:38:00 48 /min [facility] (LUF/MICHELLE/SA) Respiratory Rate 2019-10-26 17:38:00 19 /min [facility] (LUF/MICHELLE/SA) O2% BldC Oximetry 2019-10-26 17:38:00 90 % [facility] (LUF/MICHELLE/SA) BP Systolic 2019-10-26 17:38:00 152 mm[Hg] [facility] (LUF/MICHELLE/SA) BP Diastolic 2019-10-26 17:38:00 77 mm[Hg] [facility] (LUF/MICHELLE/SA) Body Temperature 2019-10-26 15:10:00 97.8 [degF] [facility] (LUF/MICHELLE/SA) Height 2019-10-26 15:10:00 55 [in_i] [facility] S t [facility] (LUF/MICHELLE/SA) Weight 2019-10-26 15:10:00 170 [lb_av] [facility] (LUF/MICHELLE/SA) BMI (Body Mass Index) 2019-10-26 15:10:00 39.9 kg/m2 [facility] (LUF/MICHELLE/SA) Body Temperature 2018-10-30 15:03:00 97.8 F [facility] (LUF/MICHELLE/SA) Pulse Rate 2018-10-30 15:03:00 80 /min [facility] S t [facility] (LUF/MICHELLE/SA) Respiratory Rate 2018-10-30 15:03:00 18 /min [facility] (LUF/MICHELLE/SA) O2% BldC Oximetry 2018-10-30 15:03:00 97 % [facility] (LUF/MICHELLE/SA) BP Systolic 2018-10-30 15:03:00 137 mm[Hg] [facility] (LUF/MICHELLE/SA) BP Diastolic 2018-10-30 15:03:00 69 mm[Hg] [facility] (LUF/MICHELLE/SA) Height 2018-10-30 15:03:00 65 in [facility] (LUF/MICHELLE/SA) Weight Measured 2018-10-30 15:03:00 186.95 lbs [facility] (LUF/MICHELLE/SA) BMI (Body Mass Index) 2018-10-30 15:03:00 31.1 kg/m2 [facility] (LUF/MICHELLE/SA) Body Temperature 2018-10-17 10:41:00 98.6 F [facility] (LUF/MICHELLE/SA) Pulse Rate 2018-10-17 10:41:00 74 /min [facility] (LUF/MICHELLE/SA) Respiratory Rate 2018-10-17 10:41:00 18 /min [facility] (LUF/MICHELLE/SA) O2% BldC Oximetry 2018-10-17 10:41:00 99 % [facility] (LUF/MICHELLE/SA) BP Systolic 2018-10-17 10:41:00 146 mm[Hg] [facility] (LUF/MICHELLE/SA) BP Diastolic 2018-10-17 10:41:00 80 mm[Hg] [facility] (LUF/MICHELLE/SA) Height 2018-10-17 10:41:00 65 in [facility] (LUF/MICHELLE/SA) Weight Measured 2018-10-17 10:41:00 189.6 lbs [facility] (LUF/MICHELLE/SA) BMI (Body Mass Index) 2018-10-17 10:41:00 31.5 kg/m2 [facility] (LUF/MICHELLE/SA) Body Temperature 2018-10-04 14:11:00 98 F [facility] (LUF/MICHELLE/SA) Pulse Rate 2018-10-04 14:11:00 78 /min [facility] (LUF/MICHELLE/SA) Respiratory Rate 2018-10-04 14:11:00 20 /min [facility] (LUF/MICHELLE/SA) O2% BldC Oximetry 2018-10-04 14:11:00 99 % [facility] (LUF/MICHELLE/SA) BP Systolic 2018-10-04 14:11:00 129 mm[Hg] [facility] (LUF/MICHELLE/SA) BP Diastolic 2018-10-04 14:11:00 98 mm[Hg] [facility] (LUF/MICHELLE/SA) Height 2018-10-04 14:11:00 55 in [facility] (LUF/MICHELLE/SA) Weight Measured 2018-10-04 14:11:00 191 lbs [facility] (LUF/MICHELLE/SA) BMI (Body Mass Index) 2018-10-04 14:11:00 44.8 kg/m2 [facility] (LUF/MICHELLE/SA) Pulse Rate 2018-08-28 13:30:00 65 /min [facility] (LUF/MICHELLE/SA) O2% BldC Oximetry 2018-08-28 13:30:00 96 % [facility] (LUF/MICHELLE/SA) BP Systolic 2018-08-28 13:30:00 139 mm[Hg] [facility] (LUF/MICHELLE/SA) BP Diastolic 2018-08-28 13:30:00 86 mm[Hg] [facility] (LUF/MICHELLE/SA) Body Temperature 2018-08-28 11:47:00 97.5 F [facility] (LUF/MICHELLE/SA) Respiratory Rate 2018-08-28 11:47:00 18 /min [facility] (LUF/MICHELLE/SA) Height 2018-08-28 11:47:00 66 in [facility] (LUF/MICHELLE/SA) Weight Measured 2018-08-28 11:47:00 195 lbs [facility] (LUF/MICHELLE/SA) BMI (Body Mass Index) 2018-08-28 11:47:00 31.7 kg/m2 [facility] (LUF/MICHELLE/SA) Body Temperature 2017-09-26 11:00:00 96.5 F [facility] (LUF/MICHELLE/SA) Respiratory Rate 2017-09-26 11:00:00 18 /min [facility] (LUF/MICHELLE/SA) O2% BldC Oximetry 2017-09-26 11:00:00 96 % [facility] (LUF/MICHELLE/SA) BP Systolic 2017-09-26 11:00:00 128 mm[Hg] [facility] (LUF/MICHELLE/SA) BP Diastolic 2017-09-26 11:00:00 63 mm[Hg] [facility] (LUF/MICHELLE/SA) Weight Measured 2017-09-26 00:00:00 191.58 lbs [facility] (LUF/MICHELLE/SA) Height 2017-09-25 18:32:00 65 in [facility] (LUF/MICHELLE/SA) BMI (Body Mass Index) 2017-09-25 18:32:00 31.9 [facility] (LUF/MICHELLE/SA) Respiratory Rate 2017-09-25 13:33:00 16 /min [facility] (LUF/MICHELLE/SA) O2% BldC Oximetry 2017-09-25 13:33:00 95 % [facility] (LUF/MICHELLE/SA) BP Systolic 2017-09-25 13:33:00 126 mm[Hg] [facility] (LUF/MICHELLE/SA) BP Diastolic 2017-09-25 13:33:00 72 mm[Hg] [facility] (LUF/MICHELLE/SA) Body Temperature 2017-09-25 12:25:00 98 F [facility] (LUF/MICHELLE/SA) Height 2017-09-25 12:25:00 65 in [facility] (LUF/MICHELLE/SA) Weight Measured 2017-09-25 12:25:00 224.87 lbs [facility] (LUF/MICHELLE/SA) BMI (Body Mass Index) 2017-09-25 12:25:00 37.4 [facility] (LUF/MICHELLE/SA) Body Temperature 2017-09-24 01:37:00 98.3 F [facility] (LUF/MICHELLE/SA) Respiratory Rate 2017-09-24 01:37:00 20 /min [facility] (F/MICHELLE/SA) O2% BldC Oximetry 2017-09-24 01:37:00 99 % [facility] (LUF/MICHELLE/SA) BP Systolic 2017-09-24 01:37:00 126 mm[Hg] [facility] (LUF/MICHELLE/SA) BP Diastolic 2017-09-24 01:37:00 76 mm[Hg] [facility] (LUF/MICHELLE/SA) Height 2017-09-23 21:40:00 65 in [facility] (LUF/MICHELLE/SA) Weight Measured 2017-09-23 21:40:00 194 lbs [facility] (LUF/MICHELLE/SA) BMI (Body Mass Index) 2017-09-23 21:40:00 32.3 [facility] (LUF/MICHELLE/SA) Procedures Procedure Date / Time Performed Performing Clinician Source XR SHOULDER 2+ VW RIGHT 2022-09-14 19:26:34 Lenin Grewal Hussein [facility] XR CERVICAL SPINE 3 VW 2022-09-14 19:26:14 Delmar Jeff Hussein [facility] ASSIGNMENT OF BENEFITS 2022-09-14 19:11:13 Docto r Unassigned, [place] [facility] EXTERNAL PROVIDER RECORDS 2022-04-10 06:01:00 Do ctor Unassigned, [place] [facility] INSURANCE CORRESPONDENCE 2022-03-01 05:01:00 Doc tor Unassigned, [place] [facility] ASPIRATE OR ABSCESS CULTURE(AEROBIC/ANAEROBIC) 2021-03-09 13:25:00 Uri Marx [facility] EXCISION LESION BACK 2021-03-09 12:27:00 Perri Marx [facility] EXCISION LESION UPPER EXTREMITY 2021-03-09 12:27:00 Uri Marx [facility] DAY SURGERY - ADC 2021-03-09 05:01:00 Doctor Esperanza ssigned, [place] [facility] EXTERNAL PROVIDER RECORDS 2021-03-08 05:01:00 Do ctor Unassigned, [place] [facility] CONSENT/REFUSAL FOR DIAGNOSIS AND TREATMENT 2021-03-07 21:17:09 Doctor Unassigned, [place] [facility] ASSIGNMENT OF BENEFITS 2021-03-07 21:16:50 Docto r Unassigned, [place] [place] [facility] NO SHOW OR MISSED APPOINTMENT POLICY ACKNOWLEDGEMENT 2021-03-07 21:16:29 Doctor Unassigned[place] [facility] PATIENT FINANCIAL POLICY 2021-03-07 21:15:49 Doctor Unassigned, [place] [facility] NOTICE OF BILLING PRACTICES FOR MEDICARE PATIENTS 2021-03-07 21:15:13 Doctor Unassigned, [place] [facility] NOTICE OF PRIVACY PRACTICES 2021-03-07 21:14:48 Doctor Unassigned, [place] [facility] CONSENT/REFUSAL FOR DIAGNOSIS AND TREATMENT 2021-03-07 21:14:29 Doctor Unassigned, [place] [facility] ASSIGNMENT OF BENEFITS 2021-03-07 21:14:12 Docto r Unassigned, [place] [facility] EXTERNAL PROVIDER RECORDS 2021-03-07 05:01:00 Do ctor Unassigned, [place] [facility] EXTERNAL PROVIDER RECORDS 2021-03-07 05:01:00 Do ctor Unassigned[place] [facility] RIGHT KNEE [facility] (LUF/MICHELLE/SA) Appendectomy [facility] (LUF/MICHELLE/SA) Cholecystectomy [facility] (LUF/MICHELLE/SA) Hysterectomy [facility] (LUF/MICHELLE/SA) RIGHT KNEE [facility] (LUF/MICHELLE/SA) Encounters Start Date/Time End Date/Time Encounter Type Admission Type Attending [facility] Care Department Encounter ID Source 2023-01-21 09:00:00 Outpatient Kip Manzo [facility] [id number] [facility] 2022-12-13 11:21:00 Outpatient Kip Manzo [facility] [id number] [facility] 2022-10-19 09:15:00 Outpatient Kip Manzo [facility] [id number] [facility] 2021-05-31 12:38:25 Outpatient Kip Manzo [facility] [id number] [facility] 2021-05-31 12:14:19 Outpatient Kip Manzo [facility] [id number] [facility] 2023-08-26 16:07:12 2023-08-26 16:07:12 Outpatient SFA S[facility] [id number] Kwaku Sharp 2023-08-26 00:00:00 2023-08-26 00:00:00 Outpatient Visit SFA [id number] Kwaku Sharp 2023-07-02 00:00:00 2023-07-02 00:00:00 Outpatient Visit SFA [id number] Kwaku Sharp 2023-06-20 16:48:59 2023-06-20 16:48:59 Outpatient SFA SFA [id number] Kwaku Sharp 2023-06-14 13:23:21 2023-06-14 13:23:21 Outpatient SFA SFA [id number] Kwaku Sharp 2023-04-16 11:21:16 2023-04-16 11:21:16 Outpatient SFA SFA [id number] Kwaku Sharp 2023-03-26 13:37:59 2023-03-26 13:37:59 Outpatient SFA SFA [id number] Kwaku Sharp 2023-03-19 10:50:48 2023-03-19 10:50:48 Outpatient SFA SFA [id number] Kwaku Sharp 2022-12-13 00:00:00 2022-12-13 00:00:00 OFFICE VISIT ESTAB PT LEVEL 4 [facility] [id number] [facility] 2022-10-25 10:25:35 2022-10-25 10:25:35 Outpatient SFA SFA [id number] Kwaku Sharp 2022-10-19 00:00:00 2022-10-19 00:00:00 (TEL) STLMLC STLMLC [id number] [facility] 2022-10-18 11:39:26 2022-10-18 11:39:26 Outpatient SFA [facility] [id number] Kwaku Sharp 2022-09-14 14:13:18 2022-09-14 23:59:00 Outpatient R RADIOLOGY [facility] [id number] [facility] 2022-09-14 14:13:18 2022-09-14 23:59:00 Hospital Encounter Radiology [facility] 1.2.840.114 350.1.13.10 4.2.7.2.686 [id number] [facility] 2022-09-14 13:45:00 2022-09-14 14:12:00 Hospital Encounter Radiology [facility] 1.2.840.114 350.1.13.10 4.2.7.2.686 [id number] [facility] 2022-09-14 00:00:00 2022-09-14 00:00:00 Orders Only Doctor Unassigned, [place] [facility] 1.2.840.114 350.1.13.10 4.2.7.2.686 [id number] [facility] 2022-09-10 14:07:08 2022-09-10 14:07:08 Outpatient SFA [facility] [id number] Kwaku Sharp 2022-09-06 13:30:34 2022-09-06 13:30:34 Outpatient SFA [facility] [id number] Kwaku Shapr 2022-08-17 14:17:44 2022-08-17 14:17:44 Outpatient SFA [facility] [id number] Kwaku Sharp 2022-08-02 10:27:41 2022-08-02 10:27:41 Outpatient SFA [facility] [id number] Kwaku Sharp 2022-06-13 10:22:11 2022-06-13 10:22:11 Outpatient SFA [facility] [id number] Kwaku Sharp 2022-04-13 00:00:00 2022-04-13 00:00:00 [facility]phone [facility] 1.2840.114 350.1.13.10 4.2.7.2.686 [id number] [facility] 2022-04-10 00:00:00 2022-04-10 00:00:00 Orders Only Doctor Unassigned, [place] [facility] 1.20.114 350.1.13.10 4.2.7.2.686 [id number] [facility] 2022-04-06 00:00:00 2022-04-06 00:00:00 Telephone [facility] 1.2840.114 350.1.13.10 4.2.7.2.686 [id number] [facility] 2022-04-02 00:00:00 2022-04-02 00:00:00 Telephone [facility] 1..114 350.1.13.10 4.2.7.2.686 [id number] [facility] 2022-03-28 00:00:00 2022-03-28 00:00:00 Telephone [facility] 1.20.114 350.1.13.10 4.2.7.2.686 [id number] [facility] 2022-03-28 00:00:00 2022-03-28 00:00:00 Telephone [facility] 1.2.114 350.1.13.10 4.2.7.2.686 [id number] [facility] 2022-03-23 10:15:00 2022-03-23 11:16:16 Outpatient R SAMUEL HADDAD [facility] [id number] [facility] 2022-03-23 10:15:00 2022-03-23 11:16:16 Office Visit Samuel Haddad [facility] 1.114 350.1.13.10 4.2.7.2.686 [id number] [facility] 2022-03-16 10:00:00 2022-03-16 10:00:00 Outpatient R BOO SAMUEL [facility] [id number] [facility] 2022-03-01 00:00:00 2022-03-01 00:00:00 Orders Only Doctor Unassigned, [place] [facility] 1.114 350.1.13.10 4.2.7.2.686 [id number] [facility] 2021-05-22 14:15:00 2021-05-22 14:30:00 Laboratory Only Only, Ang Db Test Chris Natanaelkendrick [facility] 1.114 350.1.13.10 4.2.7.2.686 [id number] [facility] 2021-05-22 14:15:00 2021-05-22 14:15:00 Outpatient R LORENALUCIANAKendrick ARIAKendrick [facility] [id number] [facility] 2021-03-09 06:41:00 2021-03-09 10:10:00 Hospital Encounter Uri Marx [facility] 1.114 350.1.13.10 4.2.7.2.686 [id number] [facility] 2021-03-09 06:41:00 2021-03-09 10:10:00 Outpatient R [facility]CO [facility] [id number] [facility] 2021-03-09 07:30:00 2021-03-09 10:06:00 Surgery [facility] 1.2.840.114 350.1.13.10 4.2.7.2.686 [id number] [facility] 2021-03-09 00:00:00 2021-03-09 00:00:00 Orders Only Doctor Unassigned, [place] [facility] 1.2.840.114 350.1.13.10 4.2.7.2.686 [id number] [facility] 2021-03-08 11:39:34 2021-03-08 11:54:34 Laboratory Only Only, Adc Test [facility] 1.2.840.114 350.1.13.10 4.2.7.2.686 [id number] [facility] 2021-03-08 10:45:00 2021-03-08 10:45:00 Outpatient R [facility]CO [facility] [id number] [facility] 2021-03-08 00:00:00 2021-03-08 00:00:00 Orders Only Doctor Unassigned, [place] [facility] 1.2.840.114 350.1.13.10 4.2.7.2.686 [id number] [facility] 2021-03-07 16:09:28 2021-03-07 23:59:[address] 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 Main Froylan Dale [facility] 1.2.840.114 350.1.13.10 4.2.7.2.686 [id number] [facility] 2021-03-07 16:13:15 2021-03-07 16:08:00 Outpatient R [facility] [id number] [facility] 2021-03-07 15:45:00 2021-03-07 16:08:00 Hospital Encounter Francisco J [facility] 1.2.840.114 350.1.13.10 4.2.7.2.686 [id number] [facility] 2020-07-04 00:00:00 2020-07-04 00:00:00 OFFICE VISIT EST PT LEVEL 3 STLMLC STLMLC [id number] [facility] 2020-05-25 00:00:00 2020-05-25 00:00:00 OFFICE VISIT ESTAB PT LEVEL 4 STLMLC STLMLC [id number] [facility] 2020-05-10 00:00:00 2020-05-10 00:00:00 (TEL) STLMLC STLMLC [id number] [facility] 2020-05-03 00:00:00 2020-05-03 00:00:00 (TEL) STLMLC STLMLC [id number] [facility] 2020-04-25 00:00:00 2020-04-25 00:00:00 (TEL) STLMLC STLMLC [id number] [facility] 2020-04-21 00:00:00 2020-04-21 00:00:00 OFFICE VISIT NEW PT LEVEL 4 STLMLC STLMLC [id number] [facility] 2019-10-26 15:02:00 2019-10-26 18:15:00 CHONDROCOS TANNER JUNCTION SYND TIETZE 1 NAHID CAPPS [facility] [place], [address], [place] [address] [facility] [id number] [facility] (LUF/LI V/SA) 2018-10-30 14:48:00 2018-10-30 17:52:00 RADICULOPA THY CERVICAL REGION SERG HUBER [facility] [place], [address], [facility] [place] [address] [facility] [id number] [facility] (LUF/LI V/SA) 2018-10-17 09:32:00 2018-10-17 23:59:00 OTH SPEC DORSOPATHI ES CERV REGION 3 HEREDIA, AGRICEL [facility] [place], [address], [facility], [facility] [id number] [facility] (LUF/LI V/SA) 2018-10-17 10:35:00 2018-10-17 11:31:00 RADICULOPA THY CERVICAL REGION APOLINAR NAIR [facility] N, [address], [facility], [facility] [id number] [facility] (LUF/LI V/SA) 2018-10-04 14:03:00 2018-10-04 15:00:00 RADICULOPA THY CERVICAL REGION SERG HUBER [facility] [place], [address], [facility], [facility] [id number] [facility] (LUF/LI V/SA) 2018-08-28 11:43:00 2018-08-28 14:12:00 CERVICALGI A CECILE ULRICH [facility] [place], [address], [place] [address] [facility] [id number] [facility] (LUF/LI V/SA) 2018-08-08 09:59:00 2018-08-08 23:59:00 OTH SPEC DORSOPATHI ES CERV REGION 3 [facility], [facility], [address], [facility], [facility] [id number] [facility] (LUF/LI V/SA) 2018-06-04 09:46:00 2018-06-04 23:59:00 UNS VIRAL HEPATITIS C W/O HEP COMA O EVON DALEY M [facility] [place], [address], [place] [address] [facility] [id number] [facility] (LUF/LI V/SA) 2018-05-20 09:27:00 2018-05-20 23:59:00 PAIN IN RIGHT UPPER ARM 3 KIP MANZO [facility] [place] N, [address], [place] [address] [facility] [id number] [facility] (LUF/LI V/SA) 2018-04-17 09:21:00 2018-04-17 23:59:00 OTH ABN INCONCL FIND DX IMAG BREAST 3 KIP MANZO [facility] N, [address], [place] [address] [facility] [id number] [facility] (LUF/LI V/SA) 2018-03-11 11:55:00 2018-03-11 23:59:00 Inpatient O EVON DALEY [facility] [place] [place], [address], [place] [address] [facility] [id number] [facility] (LUF/LI V/SA) 2018-02-25 13:04:00 2018-02-25 23:59:00 Inpatient [facility] N, [address], [place] [address] [facility] [id number] [facility] (LUF/LI V/SA) 2018-02-04 11:11:00 2018-02-04 23:59:00 CHRONIC VIRAL HEPATITIS C O NUSRAT HEREDIA [facility] N, [address], [place] [address] [facility] [id number] [facility] (LUF/LI V/SA) 2018-01-09 12:39:00 2018-01-09 23:59:00 UNS VIRAL HEPATITIS C W/O HEP COMA O EVON DALEY [facility] [place], [address], [place] [address] [facility] [id number] [facility] (LUF/LI V/SA) 2017-11-05 08:20:00 2017-11-05 23:59:00 CHRONIC VIRAL HEPATITIS C O EVON DALEY Dilcia [facility] N, [address], [place] [address] [facility] [id number] [facility] (LUF/LI V/SA) 2017-10-03 08:10:00 2017-10-03 23:59:00 OTHER CHEST PAIN 3 CHERIPARAMB [place], JOHN [facility] N, [address], [place] [address] [facility] [id number] [facility] (LUF/LI V/SA) 2017-10-02 12:33:00 2017-10-02 23:59:00 HYPERLIPID EMIA UNSPECIFIE D O KRISTEN SOLIMANEZA [facility] N, [address], [place] [address] [facility] [id number] [facility] (LUF/LI V/SA) 2017-09-25 17:37:00 2017-09-26 14:05:00 OTHER CHEST PAIN I LIA CEE [facility], [address] [place] [address] [facility] [id number] [facility] (LUF/LI V/SA) 2017-09-25 10:16:00 2017-09-25 15:52:00 UNSTABLE ANGINA 1 NOAM STEELE [facility] N, [address], [place] [address] [facility] [id number] [facility] (LUF/LI V/SA) 2017-09-23 21:34:00 2017-09-24 01:39:00 CHEST PAIN UNSPECIFIE D APOLINAR MANZANARES [facility] N, [address], [place] [address] [facility] [id number] [facility] (LUF/LI V/SA) 2017-08-19 13:06:00 2017-08-19 23:59:00 OTH ABN INCONCL FIND DX IMAG BREAST 3 KIP MANZO [facility] N, [address], [place] [address] [facility] [id number] [facility]LI [facility]/SA) 2017-07-31 10:47:00 2017-07-31 23:59:00 ENC SCR MAMMO MALIG NEOPLASM BREAST 3 KIP MANZO [facility] [place], [address], [place] [address] [facility] [id number] [facility] (LUF/LI V/SA) Results Test Description Test Time Test Comments Results Result Co mments Source LIPID [id number] 04:03:08* Test Item Value Reference Range Interpretation [...] SPECIMENS. FOR MOREINFORMATION, SEE CLIENT ANNOUNCEMENT AT [email or web address] /[email or web address] RISK RATIO LDL/HDL (test code = 2238) 1.74 RATIO <3.22 UNLESS OTHERW ISE INDICATED, ALL TESTING PERFORMED AT [facility] [address] [place] [address] FUR REMODELER: RAJEEV AGUDELO M.D. CLIA NUMBER [id number] [place]. [id number] 06:25:41* Test Item Value Reference Range Interpretation Comme nts AMYLASE (test code = 2205) 43 U/L 28-100 COMPREHENSIVE METABOLIC [id number] 05:49:02* Test Item Value Reference Range Interpretation [...] TESTING PERFORMED AT [facility] [address] [place] [address] FUR REMODELER: RAJEEV AGUDELO M.D. CLIA NUMBER [id number] [place]. [id number] CBC W/AUTO DIFF WITH [id number] 02:33:46* Test Item Value Reference Range Interpretation [...] 0.00-0.10 ABS NUCLEATED RBCS (test code = 15571) 0.00 K/UL 0.00-0.11 [id number] 00:00:00* Test Item Value Reference Range Interpretation Comme nts AMYLASE (test code = 2205) 43 U/L Kwaku Robledo AustinCBC W/AUTO [id number] 00:00:00* Test Item Value Reference Range Interpretation [...] ABS NUCLEATED RBCS (test cod e = 72712) 0.00 K/UL Kwaku Meena AronCOMPREHENSIVE METABOLIC [id number] 00:00:00* Test Item Value Reference Range Interpretation Comme nts GLUCOSE (test code = 2217) 66 MG/DL BUN (test code = 2208) 13 MG/DL CREATININE (test code = 2214) 0.94 MG/DL eGFR (2020 CKD-EPI) (test co de = 34692) 69 ML/MIN/1.73 CALC BUN/CREAT (test code = [...] (test code = 2219) 10 U/L Kwaku [id number] 00:00:00* Test Item Value Reference Range Interpretation Comme nts AMYLASE (test code = 2205) 43 U/L Kwaku SharpCBC W/AUTO [id number] 00:00:00* Test Item Value Reference Range Interpretation [...] ABS NUCLEATED RBCS (test cod e = 36993) 0.00 K/UL Kwaku SharpCOMPREHENSIVE METABOLIC [id number] 00:00:00* Test Item Value Reference Range Interpretation Comme nts GLUCOSE (test code = 2217) 66 MG/DL BUN (test code = 2208) 13 MG/DL CREATININE (test code = 2214) 0.94 MG/DL eGFR (2020 CKD-EPI) (test co de = 64923) 69 ML/MIN/1.73 CALC BUN/CREAT (test code = [...] = 2219) 10 U/L Kwaku AkersH, THIRD [id number] 07:05:44* Test Item Value Reference Range Interpretation Comme [facility] TSH, THIRD GENERATION (test code = 2821) 1.460 UIU/ML 0.400-4.100 HEMOGLOBIN [id number] 04:35:46* Test Item Value Reference Range Interpretation Comme [facility] HEMOGLOBIN A1c (test code = 88639) 6.1 % 4.2-5.6 H CITIZEN OF [employer] GUIDELINES FOR HGB A1C: [...] ALTERNATE TESTING OR LABORATORY CONSULTATION. COMPREHENSIVE METABOLIC [id number] 04:34:12* Test Item Value Reference Range Interpretation Comme nts GLUCOSE (test code = 7) 84 MG/DL 70-99 BUN (test code = 2208) 15 MG/DL 8-23 CREATININE (test code = 2214) 1.15 MG/DL 0.60-1.30 eGFR (2020 CKD-EPI) (test code = 07049) 55 ML/MIN/1.73 >60 L The NKF-ASN Taskforce recommends use of Cystatin C to confirm eGFR inadults at risk for CKD. [facility] offers eGFR with Cystatin C-Creatinineusing the 2020 CKD-EPI eGFR_creat-cystat equation (order code 3057) toincrease the accuracy of estimated GFR. For more information, contactyour insurance account specialist or see announcement [email or web address] CALC BUN/CREAT (test code = 2234) 13 [...] code = 9) 14 U/L 5-40 LIPID [id number] 04:34:12* Test Item Value Reference Range Interpretation [...] SPECIMENS. FOR MOREINFORMATION, SEE CLIENT ANNOUNCEMENT AT [email or web address] /CalcLDL-C RISK RATIO LDL/HDL (test code = 2238) 1.29 RATIO <3.22 [facility] has i mportant pathology staff changes effective 07/04/2022. New pathology staff will provide uninterrupted, excellent patient care and clinical consultation. See URL: [email or web address]. UNLESS OTHERWISE INDICATED, ALL TESTING PERFORMED AT [facility] [address] [place] [address] FUR REMODELER: RAJEEV AGUDELO M.D. CLIA NUMBER [id number] [place]. [id number] CBC W/AUTO DIFF WITH [id number] 03:51:06* Test Item Value Reference Range Interpretation [...] = 1065) 0.0 /100 WBC'S See_Comment [Automated VSofta ge] The system which generated this result [...] 0.00-0.10 ABS NUCLEATED RBCS (test code = 23045) 0.00 K/UL 0.00-0.11 TSH, THIRD [id number] 00:00:00* Test Item Value Reference Range Interpretation Comme nts TSH, THIRD GENERATION (test code = 2821) 1.460 UIU/ML Kwaku Robledo AronCBC W/AUTO [id number] 00:00:00* Test Item Value Reference Range Interpretation [...] ABS NUCLEATED RBCS (test cod e = 02875) 0.00 K/UL Kwaku SharpCOMPREHENSIVE METABOLIC [id number] 00:00:00* Test Item Value Reference Range Interpretation Comme nts GLUCOSE (test code = 2217) 84 MG/DL BUN (test code = 2208) 15 MG/DL CREATININE (test code = 2214) 1.15 MG/DL eGFR (2020 CKD-EPI) (test co de = 18833) 55 ML/MIN/1.73 CALC BUN/CREAT (test code = [...] code = 2219) 14 U/L Kwaku SharpHEMOGLOBIN [id number] 00:00:00* Test Item Value Reference Range Interpretation Comme nts HEMOGLOBIN A1c (test code = 31312) 6.1 % Kwaku SharpLIPID [id number] 00:00:00* Test Item Value Reference Range Interpretation Comme nts CHOLESTEROL (test code = 2210) 193 MG/DL TRIGLYCERIDES (test code = 2232) 82 MG/DL HDL CHOLESTEROL (test code = 2220) 77 MG/DL CALC LDL CHOL (test code = 2237) 99 MG/DL RISK RATIO LDL/HDL (test cod e = 2238) 1.29 RATIO Kwaku Duron, THIRD [id number] 00:00:00* Test Item Value Reference Range Interpretation Comme nts TSH, THIRD GENERATION (test code = 2821) 1.460 UIU/ML Kwaku SharpCBC W/AUTO [id number] 00:00:00* Test Item Value Reference Range Interpretation [...] ABS NUCLEATED RBCS (test cod e = 18726) 0.00 K/UL Kwaku SharpCOMPREHENSIVE METABOLIC [id number] 00:00:00* Test Item Value Reference Range Interpretation Comme nts GLUCOSE (test code = 2217) 84 MG/DL BUN (test code = 2208) 15 MG/DL CREATININE (test code = 2214) 1.15 MG/DL eGFR (2020 CKD-EPI) (test co de = 03265) 55 ML/MIN/1.73 CALC BUN/CREAT (test code = [...] code = 2219) 14 U/L Kwaku SharpHEMOGLOBIN [id number] 00:00:00* Test Item Value Reference Range Interpretation Comme nts HEMOGLOBIN A1c (test code = 43254) 6.1 % Kwaku SharpLIPID [id number] 00:00:00* Test Item Value Reference Range Interpretation Comme nts CHOLESTEROL (test code = 2210) 193 MG/DL TRIGLYCERIDES (test code = 2232) 82 MG/DL HDL CHOLESTEROL (test code = 2220) 77 MG/DL CALC LDL CHOL (test code = 2237) 99 MG/DL RISK RATIO LDL/HDL (test cod e = 2238) 1.29 RATIO Kwaku SharpXR RIBS UNILATERAL/ PA [id number] 16:57:42Left rib series with PA chest, 5 views:History: Rib painNo acute rib fracture is identified. There is old healed fracture of the leftsixth rib. No pneumothorax or pleural effusion is noted. The frontal view of thechest shows no acute cardiopulmonary abnormality.Impression: No acute rib fracture.This final report was electronically signed by Dr Jerrell Sanchez MD 10/26/20194:51 PMDictated By: JERRELL SANCHEZDate: 10/26/2019 16:51[facility] CSPINE W/O CONTRAST 2019-05-25 15:23:44"If patient is [...] 05/25/2019 3:17PMDictated By: LAW TAYLORDate: 05/25/2019 15:17[facility] [id number] 09:48:00* Test Item Value Reference Range Interpretation [...] assessment and management of chronic kidney failure. [place] [facility]:48[facility]00* Test Item Value Reference Range Interpretation Comme nts Lipase (test code = LIPA) 269 U/L 8-223 H [facility] (HEMOGRAM ONLY)2019-04-22 09:05:00* Test Item Value Reference [...] MORPHOLOGY WILL BE NOTED ON THE REPORT. [facility]CMP[facility] 14:03:00* Test Item Value Reference Range Interpretation [...] assessment and management of chronic kidney failure. [facility]2019-12-17 13:56:00* Test Item Value Reference Range Interpretation Comme nts Lipase (test code = LIPA) 232 U/L 8-223 H [facility] (HEMOGRAM ONLY)2019-04-21 13:41:00* Test Item Value Reference [...] MORPHOLOGY WILL BE NOTED ON THE REPORT. [facility] ABDOMEN [id number] 14:19:42Hx of RUQ pain, S/P GB resection, [...] 04/20/20192:13 PMDictated By: JERRELL SANCHEZDate: 04/20/2019 14:13[facility] ABDOMEN/PELVIS W/[id number] 07:28:14 EXAM: CT Abdomen and Pelvis WITH contrastINDICATION: [id number]: Abdominal pain quadrant pain, nauseatonight, hep CCOMPARISON: [...] 04/20/20197:21 AMDictated By: APOLINAR PATRICKDate: 04/20/2019 07:21[facility] [id number] 05:04:00* Test Item Value Reference Range Interpretation [...] assessment and management of chronic kidney failure. [facility]2019-12-16 05:04:00* Test Item Value Reference Range Interpretation Comme nts Lipase (test code = LIPA) 586 U/L 8-223 H [facility] HospitalURINALYSIS WITH [id number] 04:55:00 * Test Item Value Reference Range Interpretation Comme nts Color (test code = UCOLR) Lt. Yellow Clarity (test code = UCLAR) Clear Glucose (test code = UGLUC) NEGATIVE NEGATIVE N Bilirubin (test code = UBILI) NEGATIVE NEGATIVE N Ketones (test code = UKET) NEGATIVE NEGATIVE N Specific [place] (test code = USPGR) 1.010 1.005-1.030 A [...] = UBACT) None seen None Seen,Trace A [facility] HospitalCB WITH AUTO [id number] 04:34:00* Test Item Value Reference Range Interpretation [...] code = IG%) 0.7 % 0.0-0.4 H [facility]stonERYTHROCYTE SED [id number] 13:57:00* Test Item Value Reference Range Interpretation [...] Males 50-999 years old = 0-25 mm/hr [facility]2019-03-16 13:19:00* Test Item Value Reference [...] MORPHOLOGY WILL BE NOTED ON THE REPORT. [facility] CSPINE W/O [id number] 15:49:03"If patient is claustrophobic, contact ordering ph [...] 10/17/2018 15:42[facility] LIVINGSTONXR CERV SPINE MIN 4-5 [id number] 12:09:31Cervical spine series 5 views:History: Neck painAP, lateral, odontoid and both oblique views were obtained. No fracture orsubluxation is identified. No disc space narrowing is noted. There is noprever tebral soft tissue swelling. The sagittal diameter of the spinal canalappears adequate.Impression: Negative cervical spine series.This final report was electronically signed by Dr Jerrell Sanchez MD 08/08/201812:03 PMDictated By: JERRELL SANCHEZDate: 08/08/2018 12:03[facility] TULSAHCV, RNA, QUANT RT PCR, VIRAL [id number] 06:13:00* Test Item Value Reference Range Interpretation Comme nts HEPATITIS C QUANTITATION (test code = 924175) HCV Not Detected IU/mL HCV LOG10 (test code = 502705) BATCH WEIGHER TEST INFORMATION (test code = 608166) Comment The quantit ative range of this assay is 15 IU/mL to 100 million IU/mL. PERFORMED AT: [facility] [id number] TRUST ADVISOR: Etienne Cervantes MD PHONE: [phone] Memorial HospitalP2019-01-30 11:50:00* Test Item Value Reference [...] assessment and management of chronic kidney failure. [facility] WITH AUTO [id number] 11:37:00* Test Item Value Reference Range Interpretation [...] (test code = IG%) 0.3 % 0.0-0.4 [facility] HospitalUS EXTREMITY NON VASC-SPECIFIC [id number] 10:38:25Ultrasound of the right axillary region:History: Right axillary pain and tendernessTargeted ultrasound examination of the right axilla was performed. No cyst orsolid lesion is visualized. No lymphadenopathy is noted. There is no fluidcollection noted.Impression: Negative ultrasound of the right axilla.This final report was electronically signed by Dr Jerrell Sanchez MD 05/20/201810:32 AMDictated By: Nathanael SANCHEZte: 05/20/2018 10:32[facility] MAUREENMM MAMMO DIAG 3D [id number]-[id number] 08:29:26Procedure: MM MAMMO DIAG 3D CASA- BilateralExam [...] MD 04/18/20188:23 AMDictated By: Blessing SANCHEZ: 04/18/2018 08:23MMHANNIBAL [facility]ION[facility] HOSPITALHCV, RNA, QUANT RT PCR, VIRAL WVPO2016-15-09 08:31:00* Test Item Value Reference Range Interpretation Comme nts HEPATITIS C QUANTITATION (test code = 799986) HCV Not Detected IU/mL HCV LOG10 (test code = 628268) BATCH WEIGHER TEST INFORMATION (test code = 247866) Comment The quantit ative range of this assay is 15 IU/mL to 100 million IU/mL. PERFORMED AT: [facility] [id number] TRUST ADVISOR: Etienne Cervantes MD PHONE: [phone] Prairie Memorial HospitalCMP2018-11-06 13:17:00* Test Item Value Reference Range Interpretation [...] assessment and management of chronic kidney failure. [facility] WITH AUTO [id number] 12:37:00* Test Item Value Reference Range Interpretation [...] code = IG%) 0.5 % 0.0-0.4 H [facility] HospitalURINALYSIS WITH [id number] 13:40:00 * Test Item Value Reference Range Interpretation Comme nts Color (test code = UCOLR) LT. YELLOW Clarity (test code = UCLAR) CLEAR Glucose (test code = UGLUC) NEGATIVE NEGATIVE N Bilirubin (test code = UBILI) NEGATIVE NEGATIVE N Ketones (test code = UKET) NEGATIVE NEGATIVE N Specific [place] (test code = USPGR) <=1.005 1.005-1.030 A [...] code = UBACT) Trace None Seen,Trace N [facility] HospitalCMP2018-10-02 13:13:00* Test Item Value Reference Range Interpretation [...] assessment and management of chronic kidney failure. [facility]-REACTIVE [id number] 13:12:00* Test Item Value Reference Range Interpretation Comme nts C REACTIVE PROTEIN (test cod e = CRP) <2.9 mg/dl 0.0-0.9 H [facility] HospitalRYTHROCYTE SED [id number] 12:32:00* Test Item Value Reference Range Interpretation [...] Males 50-999 years old = 0-25 mm/hr [facility] WITH AUTO [id number] 12:07:00* Test Item Value Reference Range Interpretation [...] code = IG%) 0.6 % 0.0-0.4 H [facility] HospitalCMP2018-09-06 15:37:00* Test Item Value Reference Range Interpretation [...] assessment and management of chronic kidney failure. [facility] WITH AUTO [id number] 14:32:00* Test Item Value Reference Range Interpretation [...] code = IG%) 0.5 % 0.0-0.4 H [facility] RNA GENOTYPE [id number] 12:58:00* Test Item Value Reference Range Interpretation Comme nts HEPATITIS C GENOTYPE (test code = 593398) 1a TEST PERFOR MED AT [facility] [id number] 10:32:00* Test Item Value Reference Range Interpretation Comments FIBROSIS SCORE (test code = 521675) 0.08 0.00-0.21 N FIBROSIS STAGE (test code = 502226) Comment F0 - No fibrosis NECROINFLAMMAT ACTIVITY SCORE (test code = 548331) 0.08 0.00-0.17 N NECROINFLAMMAT ACTIVITY GRADE (test code = 443041) A0-No activity Alpha 2 Macroglobulins Qn (test code = 489825) 248 mg/dL 110-276 N Haptoglobin (test code = 523618) 216 mg/dL 34-200 H Apolipoprotein A1 (test code = 167690) 170 mg/dL 116-209 N Bilirubin, Total (test code = 607094) 0.2 mg/dL 0.0-1.2 N GGT (test code = 981057) 19 IU/L 0-60 N ALT P5P (test code = 163849) 24 IU/L 0-40 N INTERPRETATIONS (test code = 681437) Comment Quantitative res ults of 6 biochemical tests are analyzed using a computational algorithm to provide a quantitative surrogate marker (0.0-1.0) for liver fibrosis (METAVIR F0-F4) and for necroinflammatory activity (METAVIR A0-A3). Fibrosis Scoring (test code = 247967) Comment <0.21 = Sta ge F0 - [...] Cirrhosis NECROINFLAMM ACTIVITY SCORING (test code = 903636) Comment <0.17 = Grade A0 - No Activity 0.17 - 0.29 = Grade A0 - A1 0.29 - 0.36 = Grade A1 - Minimal activity 0.36 - 0.52 = Grade A1 - A2 0.52 - 0.60 = Grade A2 - Moderate activity 0.60 - 0.62 = Grade A2 - A3 >0.62 = Grade A3 - Severe activity LIMITATIONS (test code = 110649) Comment The negative predictive value of a [...] in the liver. COMMENT (test code = 093378) Comment This test was developed and its performance characteristics determined by [employer]. It has not been cleared or approved by the Food and Drug Administration. The FDA has determined that such clearance or approval is not necessary. For questions regarding this report please contact customer service at . [facility] HospitalHEP B SURFACE [id number] 06:14:00* Test Item Value Reference Range Interpretation [...] 5.00 Positive Specimen is positive for HBsAg. [facility] HEPATIC- Liver/ [id number] 11:30:35RIGHT UPPER QUADRANT ULTRASOUND:DATE: 11/05/2017INDICATION: Chronic viral [...] 11/05/201711:24 AMDictated By: JERRELL SANCHEZDate: 11/05/2017 11:30[facility] MYOCARD PERF STRESS REST [id number] 14:24:44NUCLEAR MEDICINE REST/STRESS MYOCARDIAL PERFUSION SPECT SCANDATE OF EXAM: 3-93-17NOKGOAGGWJ: risk factorsCOMPARISON: nilDISCUSSION: Nuclear medicine myocardial perfusion SPECT imaging acquired andreviewed. Rest and stress images were acquired post intravenous vxdedzmbgtiuhb02 mCi and 30 mCi technetium 99m labeled [...] 2:18 PMDictated By: JOHN COOPERDate: 10/03/2017 14:24[facility] [id number] 14:19:00* Test Item Value Reference Range Interpretation [...] assessment and management of chronic kidney failure. [facility] (HEMOGRAM ONLY)2017-10-02 13:46:00* Test Item Value Reference [...] MORPHOLOGY WILL BE NOTED ON THE REPORT. [facility]-LivingstonHEPARIN [id number] 11:44:00* Test Item Value Reference Range Interpretation Comme nts HEPARIN XA (test code = HEPXA) 0.36 0.30-0.70 [facility] [place]-ZfvhomEOZ4434-56-99 05:31:00* Test Item Value Reference Range Interpretation [...] and management of chronic kidney failure. [facility] HospitalkinCBC WITH AUTO [id number] 05:30:00* Test Item Value Reference Range Interpretation [...] code = IG%) 0.7 % 0.0-0.4 H [facility]-LufkinHEPARIN [id number] 05:28:00* Test Item Value Reference Range Interpretation Comme nts HEPARIN XA (test code = HEPXA) 0.42 0.30-0.70 [facility]-LufkinTROPONIN-I Txqcqcoomdpz1414-68-48 01:04:00* Test Item Value Reference Range Interpretation Comme nts Troponin-I (test code = TROP) <0.012 ng/ml 0.000-0.034 N The 99th Percent ile URL is 0.034 ng/mL. The Joint Society of Cardiology/[place] College of Cardiology (ESC/ACC) and the National [...] first 24 hours after the clinical event. [facility]-LufkinMYOGLOBIN, [id number] 01:04:00* Test Item Value Reference Range Interpretation Comme nts Myoglobin (test code = FLAVIO) 29.3 ng/ml 0.0-61.5 [facility] O[facility]owocVcvsiq-KnwanfXFBD4159-01-24 01:04:00* Test Item Value Reference Range Interpretation Comme nts CKMB (test code = CKMB) 0.58 ng/ml 0.00-2.37 [facility]-LufkinCT ANGIO CHEST W/ [id number] 22:13:0620 g Cathlon Above the Antecubital or [...] By: LIA BRADSHAWDate: 09/25/2017 22:12[facility]CT ANGIO ABD PELVIS W/WO OR W//[id number] 22:13:0220 g Cathlon Above the Antecubital or [...] PMDictated By: LIA BRADSHAWDate: 09/25/2017 22:12[facility] [id number] 19:00:00* Test Item Value Reference Range Interpretation Comme nts CKMB (test code = CKMB) 0.48 ng/ml 0.00-2.37 [facility]-LufkinMYOGLOBIN, [id number] 19:00:00* Test Item Value Reference Range Interpretation Comme nts Myoglobin (test code = FLAVIO) 33.6 ng/ml 0.0-61.5 [facility]-LufkinTROPONIN-I Lujawilbgunv7988-08-98 19:00:00* Test Item Value Reference Range Interpretation Comme nts Troponin-I (test code = TROP) <0.012 ng/ml 0.000-0.034 N The 99th Percent ile URL is 0.034 ng/mL. The Joint Society of Cardiology/[place] College of Cardiology (ESC/ACC) and the National [...] first 24 hours after the clinical event. [facility]-LufkinCT HEAD W/O [id number] 13:22:53CT HEAD WITHOUT CONTRAST:DATE OF EXAM: 09/25/2017INDICATION: [...] 09/25/20171:16 PMDictated By: Blessing SANCHEZ: 09/25/2017 13:22[facility] [id number] 13:18:00* Test Item Value Reference Range Interpretation Comme nts aPTT (test code = PTT) 28.1 seconds 25.3-35.7 [facility] HospitalPT AND [id number] 13:18:00* Test Item Value Reference Range Interpretation Comme nts Protime (test code = PT) 10.2 seconds 9.0-11.8 INR (test code = INR) 1.0 0.9-1.1 INR results are intended ONLY to monitor Oral Anticoagulant therapy in stablized patients. The INR Therapeutic Range is 2.0 - 3.0 Patients with a mechanical heart, the INR Range is 2.5 - 3.5 [facility] HospitalCPK2018-05-23 12:06:00* Test Item Value Reference Range Interpretation Comme nts CPK (test code = CPK) 90 U/L 30-135 [facility] HospitalTROPONIN-I Lrglfavwhulc5156-63-84 12:06:00* Test Item Value Reference Range Interpretation Comme [facility] Troponin-I (test code = TROP) <0.012 ng/ml 0.000-0.034 N The 99th Percent ile URL is 0.034 ng/mL. The Joint Society of Cardiology/[place] College of Cardiology (ESC/ACC) and the National [...] first 24 hours after the clinical event. [facility] HospitalCKMB2018-05-23 12:06:00* Test Item Value Reference Range Interpretation Comme [facility] CKMB (test code = CKMB) 0.41 ng/ml 0.00-2.36 [facility] HospitalCMP2018-05-23 11:22:00* Test Item Value Reference Range Interpretation [...] chronic kidney failure. [facility]2018-05-23 11:22:00* Test Item Value Reference Range Interpretation Comme nts Magnesium (test code = MG) 2.0 mg/dl 1.6-2.3 [facility] HospitalTROPONIN-I Ftmjiqbhfbnk5584-80-30 11:22:00* Test Item Value Reference Range Interpretation Comme nts Troponin-I (test code = TROP) <0.012 ng/ml 0.000-0.034 N The 99th Percent ile URL is 0.034 ng/mL. The Joint Society of Cardiology/[place] College of Cardiology (ESC/ACC) and the National [...] first 24 hours after the clinical event. [facility] HospitalPRO-BNP(B-Type Natriuretic Peptide)2017-09-25 11:22:00* Test Item Value Reference Range Interpretation Comme nts Pro-BNP(B-Peptide) (test cod e = PROBNP) 20 pg/ml 0-125 [facility] HospitalXR CHEST AP/PA 1 [id number] 11:09:11Exam: AP portable chest DATE OF EXAM: 09/25/2017 10:44AMINDICATION: chest painThe lungs are clear. The cardiomediastinal silhouette is within normal limits.The bony thorax shows no significant abnormality.Impression:No active cardiopulmonary disease.This final report was electronically signed by Yanick Sanchez MD 09/25/201711:02 AMDictated By: JERRELL SANCHEZDate: 09/25/2017 11:09 [facility] WITH AUTO [id number] 10:40:00* Test Item Value Reference Range Interpretation [...] code = IG%) 0.6 % 0.0-0.4 H [facility] HospitalTROPONIN-I Elhwzkgcnuqd1002-78-42 00:17:00* Test Item Value Reference Range Interpretation Comme nts Troponin-I (test code = TROP) <0.012 ng/ml 0.000-0.034 N The 99th Percent ile URL is 0.034 ng/mL. The Joint Society of Cardiology/[place] College of Cardiology (ESC/ACC) and the National [...] Panel at 90 mins after 1st set drawnSauk Prairie Memorial HospitalCPK2018-05-22 00:17:00* Test Item Value Reference Range Interpretation Comme nts CPK (test code = CPK) 141 U/L 30-135 H Rpt Cardiac Panel at 90 mins after 1st set drawnUpl[facility] Hills [facility]2018-05-22 00:17:00* Test Item Value Reference Range Interpretation Comme nts CKMB (test code = CKMB) 0.79 ng/ml 0.00-2.36 Rpt Cardiac Panel at 90 mins after 1st set drawnUpland Hills Health2018-05-21 22:37:00* Test Item Value Reference Range Interpretation Comme nts CKMB (test code = CKMB) 0.98 ng/ml 0.00-2.36 [facility] HospitalCPK2018-05-21 22:37:00* Test Item Value Reference Range Interpretation Comme nts CPK (test code = CPK) 177 U/L 30-135 H [facility] HospitalTROPONIN-I Canaobuetdsw8592-60-86 22:37:00* Test Item Value Reference Range Interpretation Comme nts Troponin-I (test code = TROP) <0.012 ng/ml 0.000-0.034 N The 99th Percent ile URL is 0.034 ng/mL. The Joint Society of Cardiology/[place] College of Cardiology (ESC/ACC) and the National [...] first 24 hours after the clinical event. [facility] HospitalXR CHEST 2 PA [id number] 22:25:05EXAM: XR CHEST 2 PA LATERALINDICATION: cpCOMPARISON: CT of the chest October 09, 2016 and chest x-ray September 11, 2016FINDINGS:LINES/TUBES: NoneLUNGS: No consolidations or edema.PLEURA: No effusions or pneumothorax.HEART AND MEDIASTINUM: Normal size and contour.BONES AND SOFT TISSUES: No acute findings.IMPRESSION:No acute thoracic abnormality.This final report was electronically signed by Dr Lizbet Zuniga MD 09/23/201710:18 PMDictated By: Indigo ZUNIGAte: 09/23/2017 22:25MMMARIA PARHAM HEALTHURNRKVMQMGZOP6205-22-94 22:24:00* Test Item Value Reference Range Interpretation [...] assessment and management of chronic kidney failure. [facility] WITH AUTO [id number] 22:07:00* Test Item Value Reference Range Interpretation [...] (test code = IG%) 0.4 % 0.0-0.4 [facility] BREAST UNILATERAL [id number] 08:43:17Procedure: MM MAMMO DIAG DIR DIGITAL-BILAT, US [...] JERRELL SANCHEZDate: 08/20/2017 08:43[facility] BREAST UNILATERAL [id number] 08:43:15Procedure: MM MAMMO DIAG DIR DIGITAL-BILAT, US [...] 08/20/20178:36 AMDictated By: JERRELL SANCHEZDate: 08/20/2017 08:43[facility] MEXICOMM MAMMO DIAG DIR YYRDFGC-[id number] 08:43:11 Procedure: MM MAMMO DIAG DIR DIGITAL-BILAT, US BREAST UNILATERAL LIMITED, USBREAST UNILATERAL LIMITEDExam Date: 08/19/2017Ordering Provider: IKP Logan Indication: Abnormal screening mammogramComparison: Mammograms dated [...] report was electronically signed by Dr Geo Sanchez MD 07/31/20175:42 PMDictated By: Nathanael SANCHEZte: 07/31/2017 17:49[facility] TULSAURINALYSIS WITH [id number] 23:35:00* Test Item Value Reference Range Interpretation Comme nts Color (test code = UCOLR) Lt. Yellow Clarity (test code = UCLAR) CLEAR Glucose (test code = UGLUC) NEGATIVE NEGATIVE N Bilirubin (test code = UBILI) NEGATIVE NEGATIVE N Ketones (test code = UKET) NEGATIVE NEGATIVE N Specific [place] (test code = USPGR) <=1.005 1.005-1.030 A [...] code = UBACT) Trace None Seen,Trace N [facility] HospitalDRUG SCREEN [id number] 23:21:00* Test Item Value Reference Range Interpretation [...] the Drugs of Abuse ran on the [employer] 5.1 analyzer listed there in: Amphetamines < [...] = THC) Presumptive Positive; Confirmation Upon Request [facility] HospitalTROPONIN-I Rujkqysudwph8039-59-91 21:22:00* Test Item Value Reference Range Interpretation Comme [facility] Troponin-I (test code = TROP) <0.012 ng/ml 0.000-0.034 N The 99th Percent ile URL is 0.034 ng/mL. The Joint Society of Cardiology/[place] College of Cardiology (ESC/ACC) and the National [...] first 24 hours after the clinical event. [facility] HospitalPTT2017-06-06 21:15:00* Test Item Value Reference Range Interpretation Comme nts aPTT (test code = PTT) 25.4 seconds 25.3-35.7 [facility] HospitalPT AND [id number] 21:15:00* Test Item Value Reference Range Interpretation Comme [facility] Protime (test code = PT) 10.1 seconds 9.0-11.8 INR (test code = INR) 1.0 0.9-1.1 INR results are intended ONLY to monitor Oral Anticoagulant therapy in stablized patients. The INR Therapeutic Range is 2.0 - 3.0 Patients with a mechanical heart, the INR Range is 2.5 - 3.5 [facility] HospitalLIPASE, [id number] 21:09:00* Test Item Value Reference Range Interpretation Comme [facility] Lipase (test code = LIPA) 75 U/L 8-223 [facility] HospitalALCOHOL, [id number] 21:08:00* Test Item Value Reference Range Interpretation Comme nts Alcohol % (test code = ALCPC) 0 % 0.00-0.00 N Ethanol % 0.00 - 0.10 Sub-clinical 0.11 - 0.20 Emotional Instability 0.21 - 0.30 Confusion 0.31 - 0.40 Stupor 0.41 - 0.50 Coma >.50 [facility]CMP[facility] 21:08:00* Test Item Value Reference [...] assessment and management of chronic kidney failure. [facility] HospitalCBC WITH AUTO [id number] 20:49:00* Test Item Value Reference Range Interpretation [...] (test code = NRBC_AUTO) 0 /100WBC 0-0 [facility] Notes Date/Time Note Provider Source 2023-08-26 00:00:00 wZ2Ud6+9ymdyZ0sN0jzT19c1uS+fUXhFATFupSL5 KnP cewQ8yGTIieIB6jZuUasn7017-08-55H43:00:00+-- +----- -------+| Plan Activity | Plan Date [...] 2022-11-20 || 473 ML - Days 10 [facility] | || Rx: Fluticasone Propionate 50 MCG/ACT Suspension - Sig: USE ONE SPRAY IN EACH | || NOSTRIL TWICE A DAY QUANTITY 16 Suspension - REFILL 1 - Days 30 [facility] | || PHARMACY | || Recommend patient to Get plenty of rest. | || Take an srhp-zdj-mxchvrv pain medicine if needed, such as acetaminophen [...] || proper hand washing | || Take lodw-vzj-zyfkikk pain relievers to reduce inflammation, ease pain, [...] worsening or no improvement | |+ +- +[phone] of TreatmentS[id number] .20.22.2.10AVAvailable for patient cuqjXjjescnZznvkszquMRSTv68 Section NarrativeNARRATIVEFormatted C-CDA narrative textSChinle Comprehensive Health Care Facilityjohnperri Berry [facility]2024-04-23T00:00:00 Kwaku RobledoStefany [facility] 2023-07-02 00:00:00 oaogtMpytM6PFO/oMNAlqqN3zdDazZoYinV+mfKB soQ zXQcC/YENbCaFBdfC3zdr8947-75-73Y67:00:00+-- +----- -------+| Plan Activity | Plan Date [...] plenty of rest. | || Take an pjqg-mtu-adzrgjh pain medicine if needed, such as acetaminophen [...] || proper hand washing | || Take epsx-mtn-udosgdh pain relievers to reduce inflammation, ease pain, [...] evaluation if symptoms persist | |+ +- +[phone] of TreatmentLNCARE PLANTXTS|[id number] .20.22.2.10AVAvailable for patient cetgDfnhjaoKjxyfnfchCPGQp27 Section NarrativeNARRATIVEFormatted C-CDA narrative textSFAStcesar Berry [facility]2024-04-21T00:00:00 Kwaku Berry [facility] 2019-10-26 18:15:00 [id number]I7Y QyO H0iqIOnvXKz0rKXgyhOPgHAZmnS7j8n6776-61-73L0 8:15:00Discharge Instructions 2Discharge DiagnosiscostochondritisImportant InformationConsult your physician [...] education providedDischarge InstructionsDischarge InstructionsDischarge Instructions 2019-10-26 (Encounter: [id number] for patient careSTLMLCHI [facility] ([facility])3325-89-97S40:58:04 [facility] ([facility]) 2018-10-30 17:52:00 [id number]Vmxi1N 62w 3shAydjnuo1W3XquTIMwHlAAh3ITs7m1914-15-97S4 7:52:00Discharge Instructions 2Discharge Diagnosiscervical radiculopathyImportant InformationConsult your [...] CareProcedures/TreatmentsPain ControlDischarge InstructionsDischarge InstructionsDischarge Instructions 2018-10-30 (Encounter: [id number] for patient careSTTexas Children's Hospital [facility] ([facility]/)5349-13-29M43:59:16 [facility] ([facility]/) 2018-10-17 11:31:00 [id number]+wphmVu1o01r1qV1Jfpfi2h [facility] [facility] pWuV1G/nMR/EbJrJBHcISeISArWrt2B5312-54-96F1 1:31:00Discharge Instructions 2Discharge Diagnosiscervical radiculopathyImportant InformationConsult your [...] providedDisease ProcessDischarge InstructionsDischarge InstructionsDischarge Instructions 2018-10-17 (Encounter: [id number] for patient careSTLMLCUNC Health [facility] (F/[place]HELLE/[place])7486-11-86R59:59:15 [facility] (F/MICHELLE/SA) 2018-10-04 15:00:00 [id number]WeSqf0 us3 ss42ZYquU5ZY7pgxqMS1PMaeAxSGrBW5451-65-86P3 5:00:00Discharge Instructions 2Discharge Diagnosiscervical ridiculopaImportant InformationConsult your [...] CareProcedures/TreatmentsPain ControlDischarge InstructionsDischarge InstructionsDischarge Instructions 2018-10-04 (Encounter: [id number] for patient careDign[facility] Health [facility] (F/[facility]HELLE/[place])5793-14-47B07:59:15 [facility] (F/MICHELLE/SA) 2018-08-28 14:12:00 [id number]/nBkuG2pC2 JCs mw7Zvb23bfygcU+npkc2wkmuhlR8bC68779-42-24W0 4:12:00Discharge Instructions 2Discharge Diagnosisneck painImportant InformationConsult your [...] education providedDischarge InstructionsDischarge InstructionsDischarge Instructions 2018-08-28 (Encounter: [id number] for patient careDignity Health [facility] ([facility]/[place]HELLE/[place])1346-37-07F05:59:14 [facility] (F/MICHELLE/SA) 2017-09-26 14:05:00 [id number]/Ucfheo9oWRETnJETQFWM 6Mb UTGKnieH3wpoIYgiAp9Ng9jK2hivHH/7139-78-30F9 4:05:00VTEVTE Discharge InstructionsEducation given related to Follow-Up after DischargeEducation given related to Discharge MedicationsPsychosocialAssistance RequiredNonePatient/Family ConcernsNoneEmotional StateCalmHousing TypeHouseEmotional StatePleasantDischarge InstructionsDischarge DiagnosisDX: UNSTABLE ANGINA/CHEST PAINPhysician Name for Follow Up Appt #1DR. KIP MANZO PRIMARY CARE PHYSICIAN (ADDRESS: [address] [place] [address]) OFFICE # [phone] FAX # [phone] PLEASE CALL OFFICE TO SCHEDULE AN APPOINTMENT TO FOLLOW UP IN ONE WEEK AND TO HAVE LABS DRAWN FOR CBC, CMPPneumonia VaccineRefused By PatientPhysician Name for Follow Up Appt #2DR. JOURDAN SWEATBAND PERFORATOR (ADDRESS: [address] [place] [address]) OFFICE # [phone] FAX # [phone] FOLLOW UP ON SUNDAY OCTOBER 01, 2017 @ 2:30 PMIV Removed Date09/26/2017Discharge Bxsuhe15.9 KGSImportant Message to Medicare Beneficiaries CompletedYesCopy of [...] Discharge/TransferFamilyReport Given OnFALL PRECAUTIONSFall PrecautionsOtherTransfer ModePER PRIVATE [facility] HospitalrOtavenir behavioral health center at surpriseDischarge InstructionsDischarge InstructionsDischarge Instructions 2017-09-26 (Encounter: [id number] for patient careSTLMLCUNC Health [facility] ([facility]/MICHELLE/[place])1591-69-05F05:59:11 [facility] (F/MICHELLE/SA) 2017-09-25 18:30:00 [id number]+w0AUfSLCi2DER5 ybk Uadf1/EHGDD/S/+DquuFDQ1q0gO5gtl9882-14-38M3 8:30:00Patient: PEPE PLASENCIA MRNO: [id number] ENC: [id number] [place] [address] [place], [place] [address] Voice [phone] Data [phone] SIGNING PHYSICIAN: TRISH SOLIMAN MDPATIENT NAME: GEORGE PLASENCIA REC NUM: [id number] NUM: [id number] OF CONSULTATION: 09/25/2017REASON FOR CONSULTATION: Chest pain.HISTORY [...] decision was made totransfer the patient to [place] for higher level of care. Of note, [...] No alcohol or drugabuse.FAMILY HISTORY: Father had MN and bypass in 30s. Also had lung cancer anddied of lung cancer.HOME MEDICATIONS: Please see medicine reconciliation list. All medicationswere reviewed.REVIEW OF SYSTEMS: A 12-point review of system was reviewed and the rest ofsystem was negative except as mentioned in HPI. Page 1 of 2Patient: PEPE PLASENCIA MRNO: [id number] ENC: [id number] [facility] [place] [address] [place], [place] [address] Voice [phone] Data [phone] EXAMINATION:VITAL SIGNS: Blood pressure 132/85, heart rate [...] the patient on daily basis and make furtherrecommendation.[id number] MT: NTS Page 2 of 2Electronically Authenticated by:TRISH SOLIMAN MD On 10/07/2017 04:17 PM CDTCONConsultationSee body of reportSee body of fdzcir5354-00-39B36:30:490867-90-48S19:17:1 6SUJAGKPQHHAY0475312NZXmdybnulg for patient yzfsVADLRGPMAEWRON8504-62-38O11:08:44 STL 2017-09-25 14:54:00 [id number]/aKEOjI8ePt1ttwg4S 7c1 LSWJV3yZcdU6IcRXhxlZDEd5Uoir6Ek1879-89-21S8 4:54:00Patient: PEPE PLASENCIA MRNO: [id number] ENC: [id number] [place] [address] Voice [phone] Data [phone] SIGNING PHYSICIAN: John Cooper MDPATIENT NAME: GEORGE PLASENCIA REC NUM: [id number] NUM: [id number] NOTEDATE OF OPERATION: 09/25/2017INDICATION: Chest pain with [...] to havefurther risk stratification with possible cardiac catheterization.[id number] MT: NTS Page 1 of 1Electronically Authenticated by:John Cooper MD On 10/21/2017 08:35 AM CDTOPOperative NoteSee body of reportSee body of mhhykk2212-56-96K05:54:910893-27-08A80:35:4 1FcxgadgxwotnvQLQZ3077151UNDvhfbnjbi for patient lezhYGAYFJKAHGHOSL8610-03-84T51:10:20 [facility]
[2023-09-06] MEDS ORDERED: METHYLPREDNISOLONE 125 MG INJ ONE (15:33)
[2023-09-06] MEDS ORDERED: DIPHENHYDRAMINE 50 MG/ML VIAL ONE (15:33)
[2023-09-06 15:55] LABS: Absolute Basophils 0.2 K/uL (0-0.5); Absolute Eosinophils 0.2 K/uL (0-0.5); Absolute Monocytes 0.6 K/uL (0.1-1.3); Absolute Neutrophil 7.5 K/uL (1.8-8.0); Basophils % 1.1 % (0-1.3); Eosinophils % 1.4 % (0-4.4); Hematocrit 43.3 % (36.0-45.0); Lymphocytes % 37.1 % (15.3-44.8); MCH 30.3 pg (27.0-35.0); MCHC 32.4 g/dL (32.0-36.0); MCV 93.4 fL (80-100); Monocytes % 4.5 % (3.3-12.3); Neutrophils % 55.9 % (41.7-73.7); Platelets 346 thou/uL (152-406); RBC Red Blood Cell Count 4.64 M/uL (3.86-4.86); Red Cell Distribution Width 15.3 % (12.1-15.2)
--- NOTE | 2023-09-06 15:59 | RAD REPORT ---
EXAM DESCRIPTION: RAD - Neck Soft Tissue - 09/06/2023 3:51 pm CLINICAL HISTORY: Swelling COMPARISON: No comparisons FINDINGS/IMPRESSION: No prevertebral soft tissue swelling. The airway appears widely patent. Status post C4 through C6 ACDF. No radiopaque foreign body. Soft tissue fullness in the submental region cou ld be from subcutaneous edema. Epiglottis is normal in caliber.
[2023-09-06 16:17] LABS: ALT/SGPT 21 U/L (13-56); AST/SGOT 6 U/L (15-37); Albumin 3.4 g/dL (3.4-5.0); Alkaline Phosphatase 82 U/L (45-117); Anion Gap 8.8 mEq/L (5.0-15.0); BUN Blood Urea Nitrogen 16 mg/dL (7-18); Bicarbonate 27 mEq/L (21-32); Bilirubin Direct < 0.1 mg/dL (0-0.2); Bilirubin Indirect, Calculated ND mg/dL (0.2-0.8); Bilirubin Total 0.3 mg/dL (0.2-1.0); Globulin 3.5 g/dL (2.3-3.5); Glomerular Filtration Rate 49 ml/min (=/>90); Glucose Level 160 mg/dL (74-106); Magnesium 2.4 mg/dL (1.6-2.4); NT PRO-BNP 181 pg/mL (<125); Potassium 3.8 mEq/L (3.5-5.1); Protein, Total 6.9 g/dL (6.4-8.2); Sodium Level 137 mEq/L (136-145); Troponin High Sensitivity 6.8 pg/mL (<58.9)
[2023-09-06 17:03] LABS: Band Neutrophils 1 % (0-1); Differential Total Cells Count 100; Eosinophils 2 % (0-3); Lymphocytes 37 % (15-42); Metamyelocytes 1 % (0-0); Monocytes 3 % (0-10); Reactive Lymphocytes 2 %; Segmented Neutrophils 53 % (40-80); White Blood Cell Scan OK (OK)
[2023-09-06 17:04] LABS: Blood Morphology Comment NOT SEEN (NOT SEEN); Platelet Estimate ADEQ
--- NOTE | 2023-09-06 17:29 | ER ---
Nurse's Notes [facility] Name: Erin Jiang Age: 63 yrs Sex: Female : 1960 Arrival Date: 09/06/2023 Time: 15:22 Bed 7 Private MD: Diagnosis: Allergic reaction Presentation: 09/05 15:23 Chief complaint: EMS states: "toned out for SOB that started after taking Diclofenac mb9 Sodium. Pt was 70s on RA when arriving. Placed pt on non-rebreather and pt SPO2 increased to 100%. Pt states her throat is swelling.". Coronavirus screen: At this time, the client does not indicate any symptoms associated with coronavirus-19. Ebola Screen: No symptoms or risks identified at this time. Initial Sepsis Screen: Does the patient meet any 2 criteria? No. Patient's initial sepsis screen is negative. Does the patient have a suspected source of infection? No. Patient's initial sepsis screen is negative. Risk Assessment: Do you want to hurt yourself or someone else? Patient reports no desire to harm self or others. Onset of symptoms was September 06, 2023. 15:23 Acuity: MONY 2 mb9 15:23 Method Of Arrival: EMS: [facility] mb9 Triage Assessment: 15:27 General: Appears uncomfortable, Behavior is anxious. Pain: Denies pain. EENT: Oral mb9 mucosa is moist. Throat is clear. Neuro: Driver Agitation-Sedation Scale (RASS): +2 Agitated Level of Consciousness is awake, alert, obeys commands, Oriented to person, place, time, situation, Appropriate for age. Cardiovascular: Patient's skin is warm and dry. Respiratory: Reports shortness of breath Airway is patent Trachea midline Respiratory effort is even, unlabored, Respiratory pattern is regular, symmetrical, Breath sounds are clear bilaterally. GI: Abdomen is round non-distended. : No signs and/or symptoms were reported regarding the genitourinary system. Derm: Skin is pink, warm \\T\\ dry. Musculoskeletal: Range of motion: intact in all extremities. Historical: - Allergies: 15:26 Bactrim; mb9 15:26 Levaquin; mb9 15:26 PENICILLINS; mb9 15:26 Sulfa (Sulfonamide Antibiotics); mb9 - Home Meds: 15:26 Dexamethasone Oral [Active]; Diclofenac Sodium [Active]; Acetaminophen-Codeine Oral mb9 [Active]; - PMHx: 15:26 Hyperlipidemia; menieresdisease; mb9 - PSHx: 15:26 Cholecystectomy; knee (es); neck (es); mb9 - Immunization history:: Adult Immunizations up to date. - Infectious Disease History:: Denies. - Social history:: Smoking status: Patient reports the use of cigarette tobacco products, denies chronic smoking, but will smoke occasionally. Screenin:29 [facility] ED Fall Risk Assessment (Adult) History of falling in the last 3 months, mb9 including since admission No falls in past 3 months (0 pts) Confusion or Disorientation No (0 pts) Intoxicated or Sedated No (0 pts) Impaired Gait No (0 pts) Mobility Assist Device Used No (0 pt) Altered Elimination No (0 pt) Score/Fall Risk Level 0 - 2 = Low Risk Oriented to surroundings, Maintained a safe environment, Educated pt \\T\\ family on fall prevention, incl call for assistance when getting out of bed. Abuse screen: Denies threats or abuse. Nutritional screening: No deficits noted. Tuberculosis screening: No symptoms or risk factors identified. Assessment: 15:29 Reassessment: see triage assessment. mb9 16:33 Reassessment: Patient appears in no apparent distress at this time. No changes from mb9 previously documented assessment. Patient and/or family updated on plan of care and expected duration. Pain level reassessed. Patient is alert, oriented x 3, equal unlabored respirations, skin warm/dry/pink. Vital Signs: 15:23 BP 143 / 79; Pulse 65; Resp 22; Temp 98; Pulse Ox 100% on R/A; Weight 83.91 kg; Height mb9 5 ft. 7 in. ; Pain 0/10; 16:32 BP 137 / 73; Pulse 60; Resp 18; Pulse Ox 100% on R/A; mb9 15:23 Body Mass Index 28.97 (83.91 kg, 170.18 cm) mb9 15:23 Pain Scale: Adult mb9 ED Course: 15:23 Patient arrived in ED. mb9 15:23 Zee Ames MD is Attending Physician. sp3 15:23 Arm band placed on. mb9 15:26 Triage completed. mb9 15:27 Initial lab(s) drawn, by ED staff, EKG done, by ED staff. Maintain EMS IV. Dressing jg11 intact. Good blood return noted. Site clean \\T\\ dry. Gauge \\T\\ site: 20G LAC. 15:28 Placed in gown. Bed in low position. Side rails up X 1. Side rails up X2. Warm blanket jg11 given. Client placed on continuous cardiac and pulse oximetry monitoring. NIBP monitoring applied. environmental monitoring technician on. 15:29 Rosy Peace, RN is Primary Nurse. mb9 15:29 Provided Education on: press call light if needing anything. mb9 15:29 No provider procedures requiring assistance completed. mb9 15:31 sent to lab. jg11 15:37 Basic Metabolic Panel Sent. mb9 15:37 CBC with Diff Sent. mb9 15:37 LFT's Sent. mb9 15:38 Magnesium Sent. mb9 15:38 NT PRO-BNP Sent. mb9 15:38 Troponin HS Sent. mb9 15:53 Neck Soft Tissue In Process Unspecified. EDMS 17:36 Chest Single View In Process Unspecified. EDMS 17:50 IV discontinued, intact, bleeding controlled, No redness/swelling at site. Pressure jg11 dressing applied. Administered Medications: 15:30 Drug: MethylPrednisoLONE IVP 125 mg IVP once Route: IVP; Site: left antecubital; mb9 16:33 Follow up: Response: No adverse reaction mb9 15:37 Drug: diphenhydrAMINE IVP 25 mg IVP once Route: IVP; Site: left antecubital; mb9 16:33 Follow up: Response: No adverse reaction mb9 Medication: 15:29 VIS not applicable for this client. mb9 Outcome: 17:28 Discharge ordered by . sp3 18:00 Discharged to home ambulatory, with family, hb 18:00 Condition: stable 18:00 Discharge instructions given to patient, family, Instructed on discharge instructions, follow up and referral plans. medication usage, Demonstrated understanding of instructions, follow-up care, medications, Prescriptions given X 1, 18:01 Patient left the ED. sp Signatures: Dispatcher [employer] EDMS Citlali Cat Heather, RN RN hb Patel, Setul, MD MD sp3 Rosy Peace, RN RN Gilberto Girard jg11 Corrections: (The following items were deleted from the chart) 15:27 15:26 [place] Meds: None; mb9 mb9
--- NOTE | 2023-09-06 17:29 | EDPHYS ---
Physician Documentation [facility] Name: Erin Jiang Age: 63 yrs Sex: Female : 1960 Arrival Date: 09/06/2023 Time: 15:22 Bed 7 Private MD: ED Physician Zee Ames HPI: 09/05 15:30 This 63 yrs old Female presents to ER via EMS with complaints of shortness of breath, sp3 allergic reaction. 15:31 63-year-old female with history of hyperlipidemia, Mnire's disease and multiple sp3 allergies including Bactrim, Levaquin, penicillin, sulfa presents to the ED with chief complaint difficulty breathing and feelings of allergic reaction and raspy voice/throat for greater than 2 hours. Patient activated EMS arrived to find patient tachypneic but with normal vital signs and oxygen level. They transported her here without difficulty. She denies any known allergens but does state that she started taking diclofenac as a new medicine today approximately 1 hour prior to her symptoms occurring. She currently denies headache, chest pain, abdominal pain, vomiting, diarrhea, syncope, near syncope, rash, or any other signs or symptoms on ROS at this time.. Historical: - Allergies: 15:26 Bactrim; mb9 15:26 Levaquin; mb9 15:26 PENICILLINS; mb9 15:26 Sulfa (Sulfonamide Antibiotics); mb9 - Home Meds: 15:26 Dexamethasone Oral [Active]; Diclofenac Sodium [Active]; Acetaminophen-Codeine Oral mb9 [Active]; - PMHx: 15:26 Hyperlipidemia; menieresdisease; mb9 - PSHx: 15:26 Cholecystectomy; knee (es); neck (es); mb9 - Immunization history:: Adult Immunizations up to date. - Infectious Disease History:: Denies. - Social history:: Smoking status: Patient reports the use of cigarette tobacco products, denies chronic smoking, but will smoke occasionally. ROS: 15:34 Constitutional: Negative for fever, chills, and weight loss, Eyes: Negative for injury, sp3 pain, redness, and discharge, ENT: Negative for injury, pain, and discharge, Neck: Negative for injury, pain, and swelling, Cardiovascular: Negative for chest pain, palpitations, and edema, Abdomen/GI: Negative for abdominal pain, nausea, vomiting, diarrhea, and constipation, Back: Negative for injury and pain, : Negative for injury, bleeding, discharge, and swelling, MS/Extremity: Negative for injury and deformity, Skin: Negative for injury, rash, and discoloration, Neuro: Negative for headache, weakness, numbness, tingling, and seizure, Psych: Negative for depression, anxiety, suicide ideation, homicidal ideation, and hallucinations, Allergy/Immunology: Negative for hives, rash, and allergies, Endocrine: Negative for neck swelling, polydipsia, polyuria, polyphagia, and marked weight changes, Hematologic/Lymphatic: Negative for swollen nodes, abnormal bleeding, and unusual bruising, 15:34 All other systems are negative, Exam: 15:34 Constitutional: This is a well developed, well nourished patient who is awake, alert, sp3 and in no acute distress. Head/Face: Normocephalic, atraumatic. Eyes: Pupils equal round and reactive to light, extra-ocular motions intact. Lids and lashes normal. Conjunctiva and sclera are non-icteric and not injected. Cornea within normal limits. Periorbital areas with no swelling, redness, or edema. ENT: Nares patent. No nasal discharge, no septal abnormalities noted. External auditory canals are clear. Oropharynx with no redness, swelling, or masses, exudates, or evidence of obstruction, uvula midline. Mucous membranes moist. Neck: Trachea midline, no thyromegaly or masses palpated, and no cervical lymphadenopathy. Supple, full range of motion without nuchal rigidity, or vertebral point tenderness. No Meningismus. Chest/axilla: Normal chest wall appearance and motion. Nontender with no deformity. No lesions are appreciated. Cardiovascular: Regular rate and rhythm with a normal S1 and S2. No gallops, murmurs, or rubs. Normal PMI, no JVD. No pulse deficits. Abdomen/GI: Soft, non-tender, with normal bowel sounds. No distension or tympany. No guarding or rebound. No evidence of tenderness throughout. Skin: Warm, dry with normal turgor. Normal color with no rashes, no lesions, and no evidence of cellulitis. MS/ Extremity: Pulses equal, no cyanosis. Neurovascular intact. Full, normal range of motion. Neuro: Awake and alert, GCS 15, oriented to person, place, time, and situation. Cranial nerves II-XII grossly intact. Motor strength 5/5 in all extremities. Sensory grossly intact. Cerebellar exam normal. Normal gait. Psych: Awake, alert, with orientation to person, place and time. Behavior, mood, and affect are within normal limits. 15:35 Respiratory: Coarse breath sounds bilaterally with tachypnea and 20-22 range, sp3 Vital Signs: 15:23 BP 143 / 79; Pulse 65; Resp 22; Temp 98; Pulse Ox 100% on R/A; Weight 83.91 kg; Height mb9 5 ft. 7 in. ; Pain 0/10; 16:32 BP 137 / 73; Pulse 60; Resp 18; Pulse Ox 100% on R/A; mb9 15:23 Body Mass Index 28.97 (83.91 kg, 170.18 cm) mb9 15:23 Pain Scale: Adult mb9 MDM: 15:23 Patient medically screened. sp3 15:35 Data reviewed: vital signs, nurses notes, EMS record, old medical records, lab test sp3 result(s), EKG, radiologic studies. ED course: 63-year-old female with PMH above now with possible allergic reaction versus anxiety attack versus combination. I am not highly suspicious for ACS spectrum, pneumonia or other infectious process, CHF or any other concerning pathology. Venous blood gas demonstrates 7.29 with pCO2 of 52. Patient has 100% oxygen saturation on room air. Will go ahead and treat with Benadryl and Solu-Medrol and obtain remainder of blood work and chest x-ray and soft tissue neck x-ray. EKG demonstrates normal sinus rhythm at 68 bpm with normal intervals, normal QRS, normal axis and normal ST's ST segments. Disposition pending workup and patient course.. 17:27 ED course: Patient much improved and asking to be discharged. She is with family who sp3 concur. We will discharge her on p.o. prednisone and instructed not to take diclofenac any longer.. 05 15:48 Order name: Basic Metabolic Panel EDMS 09/05 15:48 Order name: Liver (Hepatic) Function EDSD 09/05 15:48 Order name: Troponin High Sensitivity EDSD 09/05 15:48 Order name: NT PRO-BNP EDSD 09/05 15:48 Order name: Magnesium EDSD 09/05 15:48 Order name: CBC with Automated Diff EDMS 09/05 15:56 Order name: CBC with Automated Diff EDMS 09/05 15:58 Order name: CBC Smear Scan EDMS 09/05 16:18 Order name: Basic Metabolic Panel; Complete Time: 16:19 EDMS 09/05 16:18 Order name: Liver (Hepatic) Function; Complete Time: 16:19 EDMS 09/05 16:18 Order name: Troponin High Sensitivity; Complete Time: 16:19 EDMS 09/05 16:18 Order name: NT PRO-BNP; Complete Time: 16:19 EDMS 09/05 16:18 Order name: Magnesium; Complete Time: 16:19 EDMS 09/05 17:04 Order name: Manual Differential EDMS 09/05 17:04 Order name: CBC Smear Scan EDMS 09/05 17:05 Order name: Manual Differential EDMS 09/05 15:32 Order name: Neck Soft Tissue EDMS 09/05 16:00 Order name: RAD; Complete Time: 16:19 EDMS 09/05 17:05 Order name: Chest Single View EDMS 09/05 17:53 Order name: RAD EDMS 09/05 15:25 Order name: Cardiac monitoring; Complete Time: 15:28 sp3 09/05 15:25 Order name: EKG - Nurse/Tech; Complete Time: 15:28 sp3 09/05 15:25 Order name: IV Saline Lock; Complete Time: 15:28 sp3 09/05 15:25 Order name: Labs collected and sent; Complete Time: 15:38 sp3 09/05 15:25 Order name: O2 Per Protocol; Complete Time: 15:38 sp3 09/05 15:25 Order name: O2 Sat Monitoring; Complete Time: 15:38 sp3 Administered Medications: 15:30 Drug: MethylPrednisoLONE IVP 125 mg IVP once Route: IVP; Site: left antecubital; mb9 16:33 Follow up: Response: No adverse reaction mb9 15:37 Drug: diphenhydrAMINE IVP 25 mg IVP once Route: IVP; Site: left antecubital; mb9 16:33 Follow up: Response: No adverse reaction mb9 Disposition Summary: 09/06/23 17:28 Discharge Ordered Notes: Location: Home sp3 Condition: Stable sp3 Diagnosis - Allergic reaction sp3 Followup: sp3 - With: Private Physician - When: Upon discharge from the Emergency Department - Reason: Continuance of care Discharge Instructions: - Discharge Summary Sheet sp3 - Hives sp3 Forms: - Medication Reconciliation Form sp3 - Antibiotic Education sp3 - Prescription Opioid Use sp3 - Patient Portal Instructions sp3 - Leadership Thank You Letter sp3 Prescriptions: - Prednisone 20 mg Oral Tablet - take 2 tablets ORAL route once daily for 5 days; 10 tablet; Refills: 0, Product sp3 Selection Permitted Signatures: Dispatcher [employer] EDMS Zee Ames MD MD sp3 Rosy Peace RN RN mb9 Corrections: (The following items were deleted from the chart) 15:25 15:25 Chest Single View+RAD.RAD.BRZ ordered. EDSD EDMS 15:26 15:26 Neck Soft Tissue+RAD.RAD.BRZ ordered. EDSD EDMS 15:26 15:26 Arterial Blood Gas+RC.LAB.BRZ ordered. EDSD EDMS 15:27 15:26 Home Meds: None; esther mb9 17:28 17:27 ED course: Patient much improved. We will discharge her on p.o. prednisone and sp3 instructed not to take diclofenac any longer.. sp3
--- NOTE | 2023-09-06 17:52 | RAD REPORT ---
EXAM DESCRIPTION: RAD - Chest Single View - 09/06/2023 5:34 pm CLINICAL HISTORY: SOB COMPARISON: No comparisons FINDINGS: Lines: None. Lungs: No evidence of edema or pneumonia. Pleural: No significant pleural effusions or pneumothorax. Cardiac: The heart size is within normal limits. Mediastinum: Within normal limits. Bones: No acute fractures. Other: None IMPRESSION: No acute cardiopulmonary disease.
[2023-09-06 19:05] LABS: Arterial Blood Carboxyhemoglob 1.9 % (0-1.5); Blood Gas THB 14.8 g/dl (12-18); Blood O2 Saturation 60.2 % (92-98.5)
[2023-09-07 14:51] VITALS: BP 137/73; TEMP 98; O2SAT 100
--- NOTE | 2023-09-09 14:46 | EKG ---
Test Date: 2023-09-06 Test Time: 15:24:30 Auditing Coder: JOSE ANTONIO MEASUREMENT RESULTS: Intervals: Rate: 68 IN: 126 QRSD: 88 QT: 432 QTc: 459 [place]man: P: 65 IN: 126 QRS: 0 T: 56 INTERPRETIVE STATEMENTS: Normal sinus rhythm Normal ECG Compared to ECG 08/02/2000 17:50:00 Sinus bradycardia no longer present Myocardial infarct finding no longer present Electronically Signed On 09-09-23 14:39:55 CDT by Gurmeet Hicks
== END 2023-09-06 18:01 | disposition home or self-care (01) ==
LOC: ER 15:22
DX: R06.02 Shortness of breath (principal); F17.210 Nicotine dependence, cigarettes, uncomplicated; Z88.0 Allergy status to penicillin; Z88.1 Allergy status to other antibiotic agents; Z88.2 Allergy status to sulfonamides
CPT/HCPCS: 85025; 80048; 36415; 83735; 80076; 84484; 83880; 71045; 70360; 82805; 96375; 96374; 99285; J1200; J2919; 93005

== ENCOUNTER 2023-12-09 12:21 | Emergency (ER) | payer OTHER ==
--- OUTSIDE RECORDS SUMMARY | 2023-12-09 12:29 | XMS REPORT | Continuity of Care Document ---
Author Name Unknown Address [address] [facility] [address] [place] [address] [facility] Address [address] [facility] [address] [place] [address] Care Team Providers Care Pathology Transcriptionist Name Role Phone Jenifer Yeager Primary Care Physician [phone] Kip Manzo Attending Clinician Unavailable Cheikh Gaytan MD Attending Clinician [phone] RADIOLOGY Attending Clinician Unavailable Radiology Attending Clinician Unavailable Doctor Unassigned, Burden Attending Clinician U Samuel Mcgregor MD Attending Clinician [phone] SAMUEL HADDAD Attending Clinician Unavailgiancarlo chery Only, Ang Db Test Attending Clinician UnavailSabine Taylor Attending Clinician [phone] SABINE WALL Attending Clinician UnavailUri John MD Attending Clinician [phone] URI MARX Attending Clinician Unavailable Only, Adc Test Attending Clinician Unavailable Pob, Adc Lab Main Attending Clinician UnavailDale Gifford MD Attending Clinician [phone] NAHID CAPPS Attending Clinician Unavailable LEE DENTON [...] Unavailable EVON DALEY Admitting Clinician Unavailable JOHN DONIS Admitting Clinician Esperanza vailable SOLLISA PATELRREZKylee Admitting Clinician Unavailab SauerRAMOSMANI Admitting Clinician Unavailable NOAM STEELE Admitting Clinician Unavailable DO APOLINAR NAIR Admitting Clinician Unavailable DANNI LOAIZA Admitting Clinician Unavailable Payers Payer Name Policy Type Policy Number Effective Date Expirati on Date Source [employer] MEDICARE HMO [id number] 2023 00:00:00 [employer] DUAL COMP HMO D SNP [id number] 2022 00:00:00 [employer] Medicare Replace [id number] [id number] [facility] [id number] [facility] [id number] [facility] [id number] [facility] [id number] [facility] [id number] [facility] [id number] [facility] Problems Condition Name Condition Details Condition Category Status Onset Date Resolution Date Last Treatment Date Treating Clinician Comments Source [facility] arthritis Disease Active 10-27 00:00: 00 [facility] Pain of right hand Pain of right hand Disease Active 10-27 00:00: 00 [facility] Trigger middle finger of right hand Trigger middle finger of right hand Disease Active 10-27 00:00: 00 [facility] Costal chondritis Costal chondritis Problem Active 10-25 00:00: [address] [facility] ([facility] V/SA) Pancreatit is Pancreatit is Problem Active 2018-05 00:00: [address] [facility] (LUF/LI V/SA) Diarrhea Diarrhea Problem Active 2018-05 2 00:00: [address] [facility] [...] leg Problem Active 10-17 00:00: [address] [facility] (LUF/LI V/SA) Contusion of multiple sites Contusion of multiple sites Problem Active 10-09 00:00: [address] [facility] (LUF/LI V/SA) Falls Falls Problem Active 10-09 00:00: [address] [facility] (LUF/LI V/SA) Contusion wrist or hand Contusion wrist or hand Problem Active 09-11 00:00: [address] [facility] (LUF/LI V/SA) Contusion of rib Contusion of rib Problem Active 09-11 00:00: [address] [facility] (LUF/LI V/SA) Low back pain Low back pain Disease Active 11-29 00:00: 00 [facility] Chest pain Chest pain Disease Active 11-28 00:00: [address] [facility] FOLLOW UP FOLLOW UP Active 05/01/2013 [facility] Diagnosis Active 2012-05 00:00: 00 2013-07-06 15:28:00 Oksana Hernandez BEDDED OUTPATIENT /LIVER BIOPSY/CHR ONIC H BEDDED OUTPATIENT /LIVER BIOPSY/CHR ONIC H Active 04/13/2013 [facility] Diagnosis Active 2012-05 00:00: 00 2013-04-15 07:20:00 Oksana Hernandez CLINICAL FOLLOW UP CLINICAL FOLLOW UP Active 03/19/2013 [facility] Diagnosis Active 2012-05 00:00: 00 2013-05-21 13:49:00 Oksana Hernandez HEP C AND HEP B HEP C AND HEP B Active 12/25/2012 [facility] Diagnosis Active 12-25 00:00: 00 2013-01-22 12:40:00 Oksana Hernandez RIGHT INDEX FINGER MASS RIGHT INDEX FINGER MASS Active 12/26/2011 [facility] Diagnosis Active 12-25 00:00: 00 2012-01-15 14:50:00 Oksana Hernandez [id number] Primary osteoarthr itis of first carpometac arpal joint of right hand Problem [facility] [id number] Primary osteoarthr itis of right shoulder Problem [facility] M?i?e's disease M?i?e's disease Problem Active [facility] (LUF[facility]LI V/SA) Hypertensi ve disorder Hypertensi ve disorder Problem Active [facility] (LUF/LI V/SA) Viral hepatitis C Viral hepatitis C Problem Active [facility]LUF/LI V/SA) Abdominal pain Abdominal pain Problem Active [facility] (LUF/LI V/SA) Pyloric stenosis Pyloric stenosis Problem Complet ed [facility] (LUF/LI V/SA) Allergies, Adverse Reactions, Alerts Allergy Name Allergy Type Status Severity Reaction(s) Onset Date Inactive Date Treating Clinician Comments Source diclofen ac Propensi ty to adverse reaction to drug Active 09-10 00:00: 00 Kwaku Sharp Sulfa Drugs (Not Checked) Propensi ty to adverse reaction to drug Active 4-22 00:00: 00 Kwaku Sharp Penicill ins - CLASS Propensi ty to adverse reaction to drug Active 2-08 00:00: 00 Kwaku Sharp Sulfa (Sulfona mide Antibiot ics) Propensi ty to adverse reaction s Active Hives 2020-05 1- 00:00: 00 [facility] SULFAMET HOXAZOLE -TRIMETH OPRIM DRUG Active Hives 2020-05 00:00: 00 [facility] SULFA (SULFONA MIDE ANTIBIOT ICS) Drug Class Active Hives 2020-05 00:00: 00 [facility] Sulfamet hoxazole -Trimeth oprim Propensi ty to adverse reaction s Active Hives 2020-05 00:00: 00 [facility] Sulfa (Sulfona mide Antibiot ics) Propensi ty to adverse reaction s Active Hives 2020-05 00:00: 00 [facility] Amoxicil tati Propensi ty to adverse reaction s Active Rash 11-28 00:00: 00 [facility] Levoflox acin Propensi ty to adverse reaction s Active Anaphylaxis 11-28 00:00: 00 [facility] Penicill ins Propensi ty to adverse reaction s Active Rash 11-28 00:00: 00 [facility] Penicill ins Propensi ty to adverse reaction s Active Rash 11-28 00:00: 00 [facility] AMOXICIL TATI DRUG INGREDI Active Rash 11-28 00:00: 00 [facility] LEVOFLOX ACIN DRUG INGREDI Active Anaphylaxis 11-28 00:00: 00 [facility] PENICILL INS Drug Class Active Rash 11-28 00:00: 00 [facility] [id number] Drug allergy Active Unknown [facility] Substanc e with sulfonam silvio structur e and antibact erial mechanis m of action (substan ce) Substanc e with sulfonam silvio structur e and antibact erial mechanis m of action (substan ce) Active Unknown [facility] sulfamet hoxazole / trimetho prim sulfamet hoxazole / trimetho prim Active Unknown [facility] [id number] Drug allergy Active Unknown [facility] doxycycl ine DA Active Unknown [facility] (LUF/LI V/SA) gabapent in DA Active Unknown [facility] (LUF/LI V/SA) Bactrim DS DA Active Unknown thrush [facility] (LUF/LI V/SA) Levaquin DA Active Unknown thrush [facility] (LUF/LI V/SA) Penicill ins DA Active Unknown Anaphylaxis (Severe Allergic Rxn) [facility] (LUF/LI V/SA) Levaquin Levaquin Active [facility] penicill ins penicill ins Active [facility] Social History Social Habit Start Date Stop Date Quantity Comments Source History of tobacco use Smokes tobacco daily [facility] Sexual orientation [facility] Exposure to SARS-CoV-2 (event) 2022-09-04 00:00:00 2022-09-14 14:13:00 Not sure [facility] Tobacco use and exposure 2022-03-23 00:00:00 2022-03-23 00:00:00 Smokeless tobacco non-user [facility] Sex assigned at 1960 00:00:00 1960 00:00:00 [facility] Smoking Status Start Date Stop Date Source Tobacco smoking consumption unknown [facility] Never smoker [facility] morial (LUF/MICHELLE/SA) Smokes tobacco daily 2022-03-23 00:00:00 [facility] Medications Ordered Medication Name Filled Medication Name Start Date Stop Date Current Medication? Ordering Clinician Indication Dosage Frequency Signature (SIG) Comments Components Source Trelegy Ellipta 100 mcg-62.5 mcg-25 mcg powder for inhalation 11-24 00:00: 00 Yes mcg Kwaku Sharp escitalopra m 20 mg tablet 11-24 00:00: 00 Yes 1mg Kwaku Sharp lidocaine (Xylocaine) 1 % injection 1 mL 10-27 14:30: 00 10-27 14:30 :00 No [id number] 1mL 1 mL, Injection, Once PRN Procedure, Starting on Sat10/28/23 at 0930, For 1 dose [facility] triamcinolo ne acetonide (Kenalog-40 ) injection 40 mg 10-27 14:30: 00 10-27 14:30 :00 No [id number] 40mg 40 mg, Intra-helen cular, Once PRN Procedure, Starting on Sat10/28/23 at 0930, For 1 dose [facility] BUPivacaine HCl BUPivacaine HCl 10-06 00:00: 00 No .5mL [facility] Celestone Soluspan (Betamethas one) Celestone Soluspan (Betamethas one) 10-06 00:00: 00 No .5mL [facility] EpiPen 0.3 mg/0.3 mL injection, auto-inject or 09-10 00:00: 00 Yes mg/0.3 mL Kwaku Sharp TAKE 2 TABLETS BY MOUTH EVERY DAY FOR 5 DAYS 09-05 00:00: 00 Yes Kwaku Sharp escitalopra m 20 mg tablet 09-04 00:00: 00 Yes 1mg Kwaku Sharp DICLOFEN SOD 25MG EC 09-03 00:00: 00 Yes Kwaku Sharp APAP/CODEIN E 300-30MG 09-02 00:00: 00 Yes Kwaku Sharp DEXAMETHASO N 4MG 09-02 00:00: 00 Yes Kwaku Sharp TAKE 1 TABLET BY MOUTH THREE TIMES A DAY 09-02 00:00: 00 Yes Kwaku Sharp TRELEGY 100MCG INH 08-26 00:00: 00 Yes 100 Kwaku Sharp meloxicam 15 mg tablet 08-25 00:00: 00 Yes 1mg Kwaku Sharp spironolact one 25 mg tablet 08-25 00:00: 00 Yes 1mg Kwaku Sharp TRELEGY 100 ELLIPTA INH 18 00:00: 00 Yes Kwaku Sharp meloxicam 7.5 mg tablet 07-04 00:00: 00 Yes 1mg Kwaku Sharp escitalopra m 20 mg tablet 07-03 00:00: 00 Yes mg Kwaku Sharp Trelekaren Ellipta 100 mcg-62.5 mcg-25 mcg powder for inhalation 07-03 00:00: 00 Yes mcg Kwaku Sharp Ventolin HFA 90 mcg/actuati on aerosol inhaler 07-01 00:00: 00 Yes mcg/act uation Kwaku Sharp INHALE 1 TO 2 PUFFS BY MOUTH EVERY 4 TO 6 HOURS NEEDED FOR WHEEZING , COUGH, AND/OR SHORTNESS OF BREATH 07-01 00:00: 00 09-16 00:00 :00 No [id number] Kwaku Sharp TAKE 2 TABLETS ON DAY 1 THEN TAKE 1 TABLET A DAY FOR 4 DAYS. 07-01 00:00: 00 09-16 00:00 :00 No 250 Kwaku Sharp methocarbam ol 500 mg tablet 06-20 00:00: 00 Yes mg Kwaku Sharp TAKE 1 TO 2 TABLETS DAILY. 06-20 00:00: 00 09-16 00:00 :00 No 75 Kwaku Sharp fluticasone propionate 50 mcg/actuati on nasal spray,suspe nsion 06-14 00:00: 00 Yes mcg/act uation Kwaku Sharp TAKE 10ML Q4-6HRS PRN COUGH 06-14 00:00: 00 09-16 00:00 :00 No [id number] Kwaku Sharp TAKE 1 TO 2 TABLETS DAILY. 2022-05 00:00: 00 09-16 00:00 :00 No 75 Kwaku Sharp TAKE 1 TABLET DAILY. 2022-05 00:00: 00 09-16 00:00 :00 No 20 Kwaku Sharp INHALE 1 PUFF BY MOUTH DAILY. 2022-05 00:00: 00 Yes [id number] 5 Kwaku Sharp TAKE 1 TABLET AT BEDTIME. 2022-05 00:00: 00 09-16 00:00 :00 No 20 Kwaku Sharp TAKE 1 TO 2 TABLETS DAILY. 2022-05 1-21 00:00: 00 09-16 00:00 :00 No 75 Kwaku Sharp TAKE 1 TABLET DAILY. 2022-05 1-16 00:00: 00 09-16 00:00 :00 No 20 Kwaku Sharp INHALE 1 PUFF BY MOUTH DAILY. 8-15 00:00: 00 09-16 00:00 :00 No [id number] Kwaku Sharp Bupivicaine [place] Bupivicaine [place] 8-10 00:00: 00 No 5mL [facility] Kenalog (Triamcinol one) Kenalog (Triamcinol one) 8-10 00:00: 00 No 1mL [facility] INHALE 1 PUFF DAILY. 11-20 00:00: 00 09-16 00:00 :00 No [id number] 5 Kwaku Sharp TAKE 2 TABLETS ON DAY 1 THEN TAKE 1 TABLET A DAY FOR 4 DAYS. 11-20 00:00: 00 09-16 00:00 :00 No 250 Kwaku Sharp ESCITALOPRA M OXALATE 20 MG TABS 11-20 00:00: 00 09-16 00:00 :00 No Kwaku Sharp APPLY SPARINGLY TO AFFECTED AREA(S) TWICE DAILY 10-25 00:00: 00 09-16 00:00 :00 No 2 Kwaku Sharp TIZANIDINE HYDROCHLORI DE 4 MG TABS 10-20 00:00: 00 09-16 00:00 :00 No Kwaku Sharp APPLY SPARINGLY TO AFFECTED AREA(S) ONCE DAILY. 09-06 00:00: 00 09-16 00:00 :00 No 1 Kwaku Sharp TAKE 1 TABLET AT BEDTIME. - 00:00: 00 09-16 00:00 :00 No 4 Kwaku Sharp TAKE 1 TABLET BY MOUTH TWICE A DAY FOR 10 DAYS - 00:00: 00 09-16 00:00 :00 No 50 Kwaku Sharp TAKE 1 TABLET TWICE DAILY. 08-17 00:00: 00 09-16 00:00 :00 No 500 Kwaku Sharp TAKE 1 TABLET 3 TIMES DAILY. 08-17 00:00: 00 09-16 00:00 :00 No 500 Kwaku Sharp ESCITALOPRA M OXALATE 20 MG TABS 08-02 00:00: 00 Yes Kwaku Sharp TRELEGY ELLIPTA 100-62.5-25 MCG/ACT AEPB 08-02 00:00: 00 Yes Kwaku Sharp APPLY 1 PATCH DAILY DIRECTED. 08-02 00:00: 00 09-16 00:00 :00 No 1424 Kwaku Sharp INHALE 1 PUFF DAILY. 06-13 00:00: 00 Yes [id number] 5 Kwaku Sharp TAKE 1 TABLET DAILY. 06-13 00:00: 00 Yes 20 Kwaku Sharp TAKE [...] TWICE A DAY 2021-05 00:00: 00 Yes Kwkau Sharp TAKE 1 TABLET BY MOUTH EVERY DAY NEEDED 11-28 00:00: 00 Yes Kwaku Sharp TAKE 1 TABLET BY MOUTH EVERY DAY IN THE MORNING 11-28 00:00: 00 Yes Kwaku Sharp TAKE 1 PUFF BY MOUTH EVERY DAY 11-28 00:00: 00 Yes Kwaku Sharp TAKE 1 TABLET BY MOUTH EVERYDAY AT BEDTIME 08-10 00:00: 00 Yes Kwaku Sharp INHALE 1 PUFF BY MOUTH EVERY DAY 08-10 00:00: 00 Yes Kwaku Sharp TAKE 1 TABLET BY MOUTH EVERY DAY IN THE MORNING 08-10 00:00: 00 Yes Kwaku Sharp bupivacaine (preserv free) 0.5% (SENSORCAIN E MPF) 0.5 % (5 mg/mL) injection 2020-05 17:31: 00 Yes PRN, Starting on Mara 03/09/21 at 1231, Until Discontinu ed, Routine, Intra-op [facility] lactated ringers IV infusion 1,000 mL 2020-05 14:00: 00 Yes 1000mL at 100 mL/hr, 1,000 mL, IV Infusion, CONTINUOUS , Starting on Mara 03/09/21 at 0900, Until Discontinu ed, Routine, PACU [facility] HYDROcodone -acetaminop hen (NORCO 5) 5-325 mg tablet 1 tablet 2020-05 14:00: 00 03-09 14:39 :00 No 1{tbl} 1 tablet, Oral, ONCE, 1 dose, On Mara 03/09/21 at 0900, Routine, PACU [facility] HYDROmorphO ne (DILAUDID) injection 0.2 mg 2020-05 13:55: 47 Yes .2mg 0.2 mg, Slow IV Push, Q5MIN PRN, 10 doses, Starting on Mara 03/09/21 at 0855, Until Discontinu ed, Routine, Pain (scale 7-10), PACU
Us e approved by (Faculty): PACU USE -ANESTHESI A SERVICE-HY DROMORPHON E INJECTIONS [facility] FENTanyl PF (SUBLIMAZE (PF)) injection 25 mcg 2020-05 13:55: 47 Yes 25ug 25 mcg, Slow IV Push, Q5MIN PRN, 4 doses, Starting on Mara 03/09/21 at 0855, Until Discontinu ed, Routine, Pain (scale 4-6), PACU [facility] ondansetron (ZOFRAN (PF)) injection 4 mg 2020-05 13:55: 47 Yes 4mg 4 mg, Slow IV Push, PRN, 1 dose, Starting on Mara 03/09/21 at 0855, Until Discontinu ed, Routine, Nausea and Vomiting (N/V), PACU [facility] SPIRONOLACT ONE ORAL 2020-05 13:11: 28 Yes Take by mouth. [facility] lactated ringers IV infusion 1,000 mL 2020-05 12:30: 00 03-09 12:22 :00 No 1000mL at 42 mL/hr, 1,000 mL, IV Infusion, ONCE, 1 dose, On Mara 03/09/21 at 0730, Routine, DSU Pre-op [facility] HYDROCODONE /ACETAMINOP HEN (NORCO ORAL) 2020-05 10:33: 23 Yes Take by mouth. [facility] clindamycin 150 mg capsule 2020-05 00:00: 00 Yes [facility] escitalopra m oxalate 20 mg tablet 2020-05 00:00: 00 Yes [facility] traZODone 50 mg tablet 2020-05 00:00: 00 Yes [facility] SPIRONOLACT ONE ORAL 11-29 17:49: 55 Yes Take by mouth. [facility] aspirin 81 mg chewable tablet 11-29 00:00: 00 Yes 81mg Take 1 Tab by mouth daily. [facility] Motrin 2012-05 17:07: 00 No Chris Klein 400 mg, 1 tab, Route: PO, Drug form: TAB, ONCE, Dosing Weight 82.727, kg, Start date: 04/15/13 11:07:00, Stop date: 04/15/13 11:07:00(S ashley as: Teresa) "Do Not Crush" Give with food. Oksana Hernandez naproxen 500 mg oral enteric coated tablet 12-30 21:57: 05 Yes Ralph Parkere r 500 mg, PO, BID, PRN, 20 tab, Pain, Substituti on Allowed [facility] Amlin 7.5/325 oral tablet 12-30 21:56: 46 Yes Ralph Parkere r 1 tab, PO, Q4H, PRN, 40 tab, for pain, Substituti on Allowed, Maintenanc e, TAB [facility]oria carmen BarnettAlma Amlin 325 mg-10 mg / 15 mL oral solution 12-30 21:11: 00 No Surinder Trent 15 mL, Route: PO, Dosing Weight 81.818, kg, ONCE, Start date: 12/31/11 16:11:00, Stop date: 12/31/11 16:11:00 Oksana Hernandez LORAzepam 12-30 19:21: 00 No Young Y Hickman 1 mg, 0.5 mL, Route: IVP, Drug form: INJ, Q20Min, kg, PRN Anxiety, Start date: 12/31/11 14:21:00, Duration: 3 doses or times, Stop date: 01/01/12 0:00:00 Oksana Hernandez promethazin e 12-30 19:21: 00 No Young Y Hickman 6.25 mg, 0.25 mL, Route: IVPB, Drug form: INJ, ONCE, kg, PRN Nausea & Vomiting, Start date: 12/31/11 14:21:00 Oksana Hernandez ondansetron 12-30 19:21: 00 No Young Y Hickman 4 mg, 2 mL, Route: IVP, Drug form: INJ, ONCE, kg, PRN Nausea & Vomiting, Start date: 12/31/11 14:21:00 Oksana Hernandez albuterol 0.083% inhalation solution 12-30 19:21: 00 No Young Y Hickman 2.49 mg, 3 mL, Route: NEB, Drug form: SOLN, Q5Min, kg, PRN Wheezing, Priority: STAT, Start date: 12/31/11 14:21:00, Stop date: 01/01/12 14:20:00 Oksana Hernandez naloxone 12-30 19:21: 00 No Young Y Hickman 0.04 mg, 0.1 mL, Route: IVP, Drug form: INJ, Q2MIN, kg, PRN Narcotic Reversal, Start date: 12/31/11 14:21:00, Duration: 8 doses or times, Stop date: 01/01/12 0:00:00 Shabanasheridan Barnettann flumazenil 12-30 19:21: 00 No Young Y Hickman 0.2 mg, 2 mL, Route: IVP, Drug form: INJ, PRN, kg, PRN Benzodiaze pine Reversal, Initial dose, Start date: 12/31/11 14:21:00, Stop date: 01/01/12 0:00:00 Oksana Hernandez morphine Sulfate 12-30 19:21: 00 No Young Y Hickman 2 mg, 1 mL, Route: IVP, Drug form: INJ, Q5Min, kg, PRN Pain Score 4-6, Start date: 12/31/11 14:21:00, Duration: 8 doses or times, Stop date: 01/01/12 0:00:00 Oksana Hernandez hydromorpho ne 12-30 19:21: 00 No Young Y Hickman 0.5 mg, 0.25 mL, Route: IVP, Drug form: INJ, Q5Min, kg, PRN Pain Score 4-6, Start date: 12/31/11 14:21:00, Duration: 5 doses or times, Stop date: 01/01/12 0:00:00 Oksana Hernandez hydrALAZINE 12-30 19:21: 00 No Young Y Hickman 5 mg, 0.2 5 mL, Route: IVP, Drug form: INJ, Q5Min, kg, PRN Elevated BP, Start date: 12/31/11 14:21:00, Duration: 4 doses or times, Stop date: 01/01/12 0:00:00 Oksana Hernandez labetalol 12-30 19:21: 00 No Young Y Hickman 5 mg, 1 mL, Route: IVP, Drug form: INJ, Q5Min, kg, PRN Elevated BP, Start date: 12/31/11 14:21:00, Duration: 5 doses or times, Stop date: 01/01/12 0:00:00 Oksana Hernandez hydrochloro thiazide 50 mg oral tablet 12-27 14:27: 52 Yes 50 mg, 1 tab, PO, Daily, 30 tab, Substituti on Allowed Oksana Hernandez meloxicam 7.5 mg oral tablet 12-27 14:27: 40 Yes 7.5 mg, 1 tab, PO, Daily, 30 tab, Substituti on Allowed, TAB Oksana Hernandez Seroquel 100 mg oral tablet 12-27 14:27: 31 Yes 100 mg, 1 tab, PO, Daily, 270 tab, Substituti on Allowed, TAB [facility] Lexapro 20 mg oral tablet 12-27 14:27: 17 Yes 20 mg, 1 tab, PO, Daily, 30 tab, Substituti on Allowed, TAB [facility]oria carmen [facility] Trelegy Ellipta 100-62.5-25 MCG/ACT Trelegy Ellipta 100-62.5-25 MCG/ACT No Trelegy Ellipta 100-62.5-2 5 MCG/ACT Spironolact one 25 MG Spironolact one 25 MG No 1{table t} Spironolac tone 25 MG Meloxicam 15 MG Meloxicam 15 MG No 1{table t} QD Meloxicam 15 MG Lexapro 20 MG Lexapro 20 MG No 1{table t} QD Lexapro 20 MG Acetaminoph en 300 MG / Codeine Phosphate 30 MG Oral Tablet Acetaminoph en 300 MG / Codeine Phosphate 30 MG Oral Tablet Yes 1 2xD orally 2 times per day as needed. [facility] (LUF/LI V/SA) Albuterol Albuterol Yes 1 6xD inhale d every 4 hours as needed. ( administer with spacer;) [facility] (LUF/LI V/SA) Meclizine Hydrochlori de 25 MG Oral Tablet Meclizine Hydrochlori de 25 MG Oral Tablet Yes 25mg 3xD orally 3 times per day as needed. [facility] (LUF/LI V/SA) Simvastatin 20 MG Oral Tablet Simvastatin 20 MG Oral Tablet Yes 20mg orally every day at bedtime [facility] (LUF/LI V/SA) Spironolact one 25 MG Oral Tablet Spironolact one 25 MG Oral Tablet Yes 25mg 1xD orally daily as needed. [facility] l (LUF/LI V/SA) Vital Signs Vital Name Observation Time Observation Value Comments S ource height 2023-10-07 10:45:00 65 [in_i] Commo n [facility] weight 2023-10-07 10:45:00 164.8 [lb_av] Co mmon [facility] temperature 2023-10-07 10:45:00 97.5 [degF] Com mon [facility] bmi 2023-10-07 10:45:00 27.42 kg/m2 Comm on [facility] blood pressure systolic 2023-10-07 10:45:00 124 mm[Hg] [facility] blood pressure diastolic 2023-10-07 10:45:00 78 mm[Hg] [facility] height 2023-09-23 10:30:00 65 [in_i] Commo n [facility] weight 2023-09-23 10:30:00 165 [lb_av] Comm on [facility] temperature 2023-09-23 10:30:00 98.2 [degF] Com [facility] bmi 2023-09-23 10:30:00 27.45 kg/m2 Comm on [facility] blood pressure systolic 2023-09-23 10:30:00 134 mm[Hg] [facility] blood pressure diastolic 2023-09-23 10:30:00 80 mm[Hg] [facility] height 2022-12-13 09:30:00 65 [in_i] Commo n [facility] weight 2022-12-13 09:30:00 143 [lb_av] Comm on [facility] temperature 2022-12-13 09:30:00 98.2 [degF] Com [facility] bmi 2022-12-13 09:30:00 23.79 kg/m2 Comm on [facility] blood pressure systolic 2022-12-13 09:30:00 126 mm[Hg] [facility] blood pressure diastolic 2022-12-13 09:30:00 76 mm[Hg] [facility] Systolic blood pressure 2022-03-23 16:56:00 134 mm[Hg] [facility] Diastolic blood pressure 2022-03-23 16:56:00 78 mm[Hg] [facility] Heart rate 2022-03-23 16:56:00 83 /min [facility] Oxygen saturation in Arterial blood by Pulse oximetry 2022-03-23 16:56:00 100 /min [facility] Body height 2022-03-23 16:22:00 163.8 cm [facility] Body weight 2022-03-23 16:22:00 53.434 kg [facility] BMI 2022-03-23 16:22:00 19.91 kg/m2 [facility] Systolic blood pressure 2021-03-09 14:58:00 129 mm[Hg] [facility] Diastolic blood pressure 2021-03-09 14:58:00 58 mm[Hg] [facility] Heart rate 2021-03-09 14:58:00 54 /min [facility] Respiratory rate 2021-03-09 14:58:00 19 /min [facility] Oxygen saturation in Arterial blood by Pulse oximetry 2021-03-09 14:58:00 97 /min [facility] Body temperature 2021-03-09 13:43:00 36.39 Barbara [facility] Body height 2021-03-08 15:30:00 165.1 cm [facility] Body weight 2021-03-08 15:30:00 68.04 kg [facility] BMI 2021-03-08 15:30:00 24.96 kg/m2 [facility] Systolic blood pressure 2021-03-09 14:58:00 129 mm[Hg] [facility] Diastolic blood pressure 2021-03-09 14:58:00 58 mm[Hg] [facility] Heart rate 2021-03-09 14:58:00 54 /min [facility] Respiratory rate 2021-03-09 14:58:00 19 /min [facility] Oxygen saturation in Arterial blood by Pulse oximetry 2021-03-09 14:58:00 97 /min [facility] Body temperature 2021-03-09 13:43:00 36.39 [facility] Body height 2021-03-08 15:30:00 165.1 cm [facility] Body weight 2021-03-08 15:30:00 68.04 kg [facility] BMI 2021-03-08 15:30:00 24.96 kg/m2 [facility] height 2020-07-04 09:30:00 65 [in_i] Commo n [facility] weight 2020-07-04 09:30:00 185 [lb_av] Comm on [facility] temperature 2020-07-04 09:30:00 97.3 [degF] Com [facility] bmi 2020-07-04 09:30:00 30.78 kg/m2 Comm on [facility] blood pressure systolic 2020-07-04 09:30:00 156 mm[Hg] Common [facility] blood pressure diastolic 2020-07-04 09:30:00 88 mm[Hg] Common [facility] height 2020-05-25 09:00:00 65 [in_i] Commo n [facility] weight 2020-05-25 09:00:00 185 [lb_av] Comm on [facility] temperature 2020-05-25 09:00:00 97.1 [degF] Com [facility] bmi 2020-05-25 09:00:00 30.78 kg/m2 Comm on [facility] blood pressure systolic 2020-05-25 09:00:00 142 mm[Hg] [facility] blood pressure diastolic 2020-05-25 09:00:00 90 mm[Hg] Common [facility] height 2020-04-21 09:30:00 65 [in_i] Commo n [facility] weight 2020-04-21 09:30:00 185 [lb_av] Comm on [facility] bmi 2020-04-21 09:30:00 30.78 kg/m2 Comm on [facility] blood pressure systolic 2020-04-21 09:30:00 134 mm[Hg] Common [facility] blood pressure diastolic 2020-04-21 09:30:00 74 mm[Hg] [facility] Height 2019-10-26 15:10:00 139.7 CM Weight 2019-10-26 15:10:00 77.11 KG BP Systolic 2023-11-25 13:10:00 Step hen F Aron BP Diastolic 2023-11-25 13:10:00 [place]an[place] phen F Aron Weight Measured 2023-11-25 13:10:00 Kwaku F Aron Height Measured 2023-11-25 13:10:00 63.00 inches Kwaku F Aron Body Temperature 2023-11-25 13:10:00 Kwaku F Aron Heart Rate 2023-11-25 13:10:00 Nabila en F Aron Respiratory Rate 2023-11-25 13:10:00 Kwaku F Aron BP Systolic 2023-08-26 16:10:00 154 mm[Hg] Step hen F Aron BP Diastolic 2023-08-26 16:10:00 74 mm[Hg] [place]an[place] phen F Aron Weight Measured 2023-08-26 16:10:00 169.60 pounds Kwaku F Aron Height Measured 2023-08-26 16:10:00 63.00 inches Kwaku F Aron Body Temperature 2023-08-26 16:10:00 98.30 degrees Kwaku F Aron Heart Rate 2023-08-26 16:10:00 81.00 /min Nabila en F Aron Respiratory Rate 2023-08-26 16:10:00 18.00 /min Kwaku F Aron BP Systolic 2023-07-02 18:31:00 Step [...] Temperature 2023-06-20 17:07:00 98.20 degrees Kwaku F Raon Heart Rate 2023-06-20 17:07:00 91.00 /min Nabila [...] Measured 2022-10-25 10:35:00 134.40 pounds Kwaku F Aorn Height Measured 2022-10-25 10:35:00 63.00 inches Kwaku [...] Rate 2022-09-10 14:12:00 77.00 /min Nabila en F Aron Respiratory Rate 2022-09-10 14:12:00 18.00 /min Kwaku F Aron BP Systolic 2022-09-06 13:47:00 122 mm[Hg] Step hen F Aron BP Diastolic 2022-09-06 13:47:00 76 mm[Hg] [place] phen F Aron Weight Measured 2022-09-06 13:47:00 126.80 pounds Kwaku F Aron Height Measured 2022-09-06 13:47:00 63.00 inches Kwaku F Aron Body Temperature 2022-09-06 13:47:00 98.50 degrees Kwaku F Aron Heart Rate 2022-09-06 13:47:00 78.00 /min Nabila en F Aron Respiratory Rate 2022-09-06 13:47:00 17.00 /min Kwaku F Aron Pulse Rate 2019-10-26 17:38:00 48 /min [facility] (LUF/MICHELLE/SA) Respiratory Rate 2019-10-26 17:38:00 19 /min [facility] ([facility]) O2% BldC Oximetry 2019-10-26 17:38:00 90 % [facility] ([facility]) BP Systolic 2019-10-26 17:38:00 152 mm[Hg] [facility]) BP Diastolic 2019-10-26 17:38:00 77 mm[Hg] [facility]) Body Temperature 2019-10-26 15:10:00 97.8 [degF] [facility] ([facility]) Height 2019-10-26 15:10:00 55 [in_i] [facility] (LUF/MICHELLE/SA) Weight 2019-10-26 15:10:00 170 [lb_av] [facility] ([facility]) BMI (Body Mass Index) 2019-10-26 15:10:00 39.9 kg/m2 [facility] ([facility]) Body Temperature 2018-10-30 15:03:00 97.8 F [facility] ([facility]) Pulse Rate 2018-10-30 15:03:00 80 /min [facility] (LUF/MICHELLE/SA) Respiratory Rate 2018-10-30 15:03:00 18 /min [facility] ([facility]) O2% BldC Oximetry 2018-10-30 15:03:00 97 % [facility] ([facility]) BP Systolic 2018-10-30 15:03:00 137 mm[Hg] [facility] ([facility]) BP Diastolic 2018-10-30 15:03:00 69 mm[Hg] [facility] ([facility]) Height 2018-10-30 15:03:00 65 in [facility] Zane [facility] (LUF/MICHELLE/SA) Weight Measured 2018-10-30 15:03:00 186.95 lbs [facility] ([facility]) BMI (Body Mass Index) 2018-10-30 15:03:00 31.1 kg/m2 [facility] ([facility]) Body Temperature 2018-10-17 10:41:00 98.6 F [facility] ([facility]) Pulse Rate 2018-10-17 10:41:00 74 /min [facility] (LUF/MICHELLE/SA) Respiratory Rate 2018-10-17 10:41:00 18 /min [facility] ([facility]) O2% BldC Oximetry 2018-10-17 10:41:00 99 % [facility] ([facility]) BP Systolic 2018-10-17 10:41:00 146 mm[Hg] [facility] ([facility]) BP Diastolic 2018-10-17 10:41:00 80 mm[Hg] [facility] ([facility]) Height 2018-10-17 10:41:00 65 in [facility] S [facility] (LUF/MICHELLE/SA) Weight Measured 2018-10-17 10:41:00 189.6 lbs [facility] ([facility]) BMI (Body Mass Index) 2018-10-17 10:41:00 31.5 kg/m2 [facility] ([facility]) Body Temperature 2018-10-04 14:11:00 98 F [facility] ([facility]) Pulse Rate 2018-10-04 14:11:00 78 /min [facility] S [facility] (LUF/MICHELLE/SA) Respiratory Rate 2018-10-04 14:11:00 20 /min [facility] ([facility]) O2% BldC Oximetry 2018-10-04 14:11:00 99 % [facility] ([facility]) BP Systolic 2018-10-04 14:11:00 129 mm[Hg] [facility] ([facility]) BP Diastolic 2018-10-04 14:11:00 98 mm[Hg] [facility] ([facility]) Height 2018-10-04 14:11:00 55 in [facility] S t [facility] (LUF/MICHELLE/SA) Weight Measured 2018-10-04 14:11:00 191 lbs [facility] ([facility]) BMI (Body Mass Index) 2018-10-04 14:11:00 44.8 kg/m2 [facility] ([facility]) Pulse Rate 2018-08-28 13:30:00 65 /min [facility] S [facility] (LUF/MICHELLE/SA) O2% BldC Oximetry 2018-08-28 13:30:00 96 % [facility] ([facility]) BP Systolic 2018-08-28 13:30:00 139 mm[Hg] [facility] ([facility]) BP Diastolic 2018-08-28 13:30:00 86 mm[Hg] [facility] ([facility]) Body Temperature 2018-08-28 11:47:00 97.5 F [facility] ([facility]) Respiratory Rate 2018-08-28 11:47:00 18 /min [facility] ([facility]) Height 2018-08-28 11:47:00 66 in [facility] S [facility] (LUF/MICHELLE/SA) Weight Measured 2018-08-28 11:47:00 195 lbs [facility] ([facility]) BMI (Body Mass Index) 2018-08-28 11:47:00 31.7 kg/m2 [facility] ([facility]) Body Temperature 2017-09-26 11:00:00 96.5 F [facility] ([facility]) Respiratory Rate 2017-09-26 11:00:00 18 /min [facility] ([facility]) O2% BldC Oximetry 2017-09-26 11:00:00 96 % [facility] ([facility]) BP Systolic 2017-09-26 11:00:00 128 mm[Hg] [facility] ([facility]) BP Diastolic 2017-09-26 11:00:00 63 mm[Hg] [facility] ([facility]) Weight Measured 2017-09-26 00:00:00 191.58 lbs [facility] ([facility]) Height 2017-09-25 18:32:00 65 in [facility] S t [facility] (LUF/MICHELLE/SA) BMI (Body Mass Index) 2017-09-25 18:32:00 31.9 [facility] ([facility]) Respiratory Rate 2017-09-25 13:33:00 16 /min [facility] ([facility]) O2% BldC Oximetry 2017-09-25 13:33:00 95 % [facility] ([facility]) BP Systolic 2017-09-25 13:33:00 126 mm[Hg] [facility] ([facility]) BP Diastolic 2017-09-25 13:33:00 72 mm[Hg] [facility] ([facility]) Body Temperature 2017-09-25 12:25:00 98 F [facility] ([facility]) Height 2017-09-25 12:25:00 65 in [facility] (LUF/MICHELLE/SA) Weight Measured 2017-09-25 12:25:00 224.87 lbs [facility] ([facility]) BMI (Body Mass Index) 2017-09-25 12:25:00 37.4 [facility] ([facility]) Body Temperature 2017-09-24 01:37:00 98.3 F [facility] ([facility]) Respiratory Rate 2017-09-24 01:37:00 20 /min [facility] ([facility]) O2% BldC Oximetry 2017-09-24 01:37:00 99 % [facility] ([facility]) BP Systolic 2017-09-24 01:37:00 126 mm[Hg] [facility] ([facility]) BP Diastolic 2017-09-24 01:37:00 76 mm[Hg] [facility] ([facility]) Height 2017-09-23 21:40:00 65 in [facility] (LUF/MICHELLE/SA) Weight Measured 2017-09-23 21:40:00 194 lbs [facility] ([facility]) BMI (Body Mass Index) 2017-09-23 21:40:00 32.3 [facility] ([facility]) Diastolic (mm Hg) 2013-04-15 13:52:00 [facility] Systolic (mm Hg) 2013-04-15 13:52:00 [facility] Heart Rate 2013-04-15 13:52:00 [facility] Respitory Rate 2013-04-15 13:52:00 [facility] Weight 2013-04-15 13:23:00 [facility] Height 2013-04-15 13:23:00 162.56 cm [facility] Heart Rate 2013-03-19 19:29:00 [facility] Respitory Rate 2013-03-19 19:29:00 [facility] Systolic (mm Hg) 2013-03-19 19:29:00 [facility] Diastolic (mm Hg) 2013-03-19 19:29:00 [facility] Height 2013-03-19 19:29:00 165.1 cm [facility] Weight 2013-03-19 19:29:00 [facility] Systolic (mm Hg) 2011-12-31 21:45:00 [facility] Diastolic (mm Hg) 2011-12-31 21:45:00 [facility] Heart Rate 2011-12-31 21:45:00 [facility] Respitory Rate 2011-12-31 21:45:00 [facility] Diastolic (mm Hg) 2011-12-31 21:00:00 [facility] Systolic (mm Hg) 2011-12-31 21:00:00 [facility] Respitory Rate 2011-12-31 21:00:00 [facility] Systolic (mm Hg) 2011-12-31 20:45:00 [facility] Diastolic (mm Hg) 2011-12-31 20:45:00 [facility] Respitory Rate 2011-12-31 20:45:00 [facility] Heart Rate 2011-12-31 16:26:00 [facility] Weight 2011-12-28 14:18:00 [facility] Height 2011-12-28 14:18:00 165.10 cm [facility] Procedures Procedure Date / Time Performed Performing Clinician Source ID ARTHROCENTESIS ASPIR&/INJ SMALL JT/BURSA W/O 2023-10-28 14:30:00 Cheikh Gaytan [facility] XR SHOULDER 2+ VW RIGHT 2022-09-14 19:26:34 Lenin Grewal [facility] XR CERVICAL SPINE 3 VW 2022-09-14 19:26:14 Delmar Jeff [facility] ASSIGNMENT OF BENEFITS 2022-09-14 19:11:13 Docto r Unassigned, Burden [facility] EXTERNAL PROVIDER RECORDS 2022-04-10 06:01:00 Do ctor Unassigned, Burden [facility] INSURANCE CORRESPONDENCE 2022-03-01 05:01:00 Doc tor Unassigned, Burden [facility] ASPIRATE OR ABSCESS CULTURE(AEROBIC/ANAEROBIC) 2021-03-09 13:25:00 Uri Marx [facility] EXCISION LESION BACK 2021-03-09 12:27:00 Simón Marx [facility] EXCISION LESION UPPER EXTREMITY 2021-03-09 12:27:00 Uri Marx [facility] DAY SURGERY - ADC 2021-03-09 05:01:00 Doctor Esperanza ssigned, Burden [facility] EXTERNAL PROVIDER RECORDS 2021-03-08 05:01:00 Do ctor Unassigned, Burden [facility] CONSENT/REFUSAL FOR DIAGNOSIS AND TREATMENT 2021-03-07 21:17:09 Doctor Unassigned, Burden [facility] ASSIGNMENT OF BENEFITS 2021-03-07 21:16:50 Docto r Unassigned, Burden [facility] NO SHOW OR MISSED APPOINTMENT POLICY ACKNOWLEDGEMENT 2021-03-07 21:16:29 Doctor Unassigned, Burden [facility] PATIENT FINANCIAL POLICY 2021-03-07 21:15:49 Doctor Unassigned, Burden [facility] NOTICE OF BILLING PRACTICES FOR MEDICARE PATIENTS 2021-03-07 21:15:13 Doctor Unassigned, Burden [facility] NOTICE OF PRIVACY PRACTICES 2021-03-07 21:14:48 Doctor Unassigned, Burden [facility] CONSENT/REFUSAL FOR DIAGNOSIS AND TREATMENT 2021-03-07 21:14:29 Doctor Unassigned, Burden [facility] ASSIGNMENT OF BENEFITS 2021-03-07 21:14:12 Docto r Unassigned, Burden [facility] EXTERNAL PROVIDER RECORDS 2021-03-07 05:01:00 Do ctor Unassigned, Burden [facility] EXTERNAL PROVIDER RECORDS 2021-03-07 05:01:00 Do ctor Unassigned, Burden [facility] RIGHT KNEE [facility] (LUF[facility]LE/[facility]) Appendectomy [facility]) Cholecystectomy [facility] ([facility]) Hysterectomy [facility] ([facility]) RIGHT KNEE [facility] (LUF/[facility]HELLE/SA) Encounters Start Date/Time End Date/Time Encounter Type Admission Type Attending [facility] Care Department Encounter ID Source 2023-09-23 11:42:00 [facility] [id number] Common [facility] 2023-09-19 15:08:00 Outpatient Kip Manzo [facility] [id number] [facility] 2023-09-16 09:35:00 [facility] [id number] Common [facility] 2023-01-21 09:00:00 Outpatient Kip Manzo [facility] [id number] Common [facility] 2022-12-13 11:21:00 [facility] [id number] [facility] 2022-10-19 09:15:00 [facility] [id number] [facility] 2021-05-31 12:38:25 Outpatient Kip Manzo [facility] [id number] [facility] 2021-05-31 12:14:19 Outpatient Kip Manzo [facility] [id number] [facility] 2023-11-25 13:10:27 2023-11-25 13:10:27 Outpatient SFA SFA [id number] Kwaku Sharp 2023-11-25 00:00:00 2023-11-25 00:00:00 Outpatient Visit SFA [id number] Kwaku Sharp 2023-10-28 09:30:00 2023-10-28 10:00:43 Outpatient [facility] [id number] [facility] 2023-10-28 09:30:00 2023-10-28 10:00:33 Office Visit Cheikh Gaytan [facility] [place] 1.2.840.114 350.1.13.58 9.2.7.2.686 [id number] [facility] 2023-10-21 10:30:00 2023-10-21 10:30:00 Outpatient CHEIKH GAYTAN [facility] [id number] [facility] 2023-10-21 10:30:00 2023-10-21 10:30:00 Outpatient [facility] [id number] [facility] 2023-10-07 00:00:00 2023-10-07 00:00:00 (F/U) Follow Up Visit [facility] [id number] [facility] 2023-09-23 00:00:00 2023-09-23 00:00:00 (ESTPT) Establishe d Patient STLMLC STLC [id number] [facility] 2023-09-11 13:35:18 2023-09-11 13:35:18 Outpatient SFA SFA [id number] Kwaku Robledo Aron 2023-09-11 00:00:00 2023-09-11 00:00:00 Outpatient Visit SFA [id number] Kwaku Sharp 2023-08-26 16:07:12 2023-08-26 16:07:12 Outpatient SFA SFA [id number] Kwauk Robledo Aron 2023-08-26 00:00:00 2023-08-26 00:00:00 Outpatient Visit SFA [id number] Kwaku Sharp 2023-07-02 00:00:00 2023-07-02 00:00:00 Outpatient Visit SFA [id number] Kwaku Sharp 2023-06-20 16:48:59 2023-06-20 16:48:59 Outpatient SFA SFA [id number] Kwaku Sharp 2023-06-14 13:23:21 2023-06-14 13:23:21 Outpatient [facility] [place] [id number] Kwaku Sharp 2023-04-16 11:21:16 2023-04-16 11:21:16 Outpatient SFA [facility] [id number] Kwaku Sharp 2023-03-26 13:37:59 2023-03-26 13:37:59 Outpatient SFA SFA [id number] Kwaku Sharp 2023-03-19 10:50:48 2023-03-19 10:50:48 Outpatient SFA [facility] [id number] Kwaku Sharp 2022-12-13 00:00:00 2022-12-13 00:00:00 OFFICE VISIT ESTAB PT LEVEL 4 STLMLC STLMLC [id number] [facility] 2022-10-25 10:25:35 2022-10-25 10:25:35 Outpatient SFA [facility] [id number] Kwaku Sharp 2022-10-19 00:00:00 2022-10-19 00:00:00 (TEL) STLMLC STLMLC [id number] [facility] 2022-10-18 11:39:26 2022-10-18 11:39:26 Outpatient SFA [facility] [id number] Kwaku Sharp 2022-09-14 14:13:18 2022-09-14 23:59:00 Outpatient R RADIOLOGY [facility] [id number] [facility] 2022-09-14 14:13:18 2022-09-14 23:59:00 Hospital Encounter Radiology [facility] 1.2.840.114 350.1.13.10 4.2.7.2.686 [id number] [facility] 2022-09-14 13:45:00 2022-09-14 14:12:00 Hospital Encounter Radiology [facility] 1.2840.114 350.1.13.10 4.2.7.2.686 [id number] [facility] 2022-09-14 00:00:00 2022-09-14 00:00:00 Orders Only Doctor Unassigned, Burden [facility] 1.84.114 350.1.13.10 4.2.7.2.686 [id number] [facility] 2022-09-10 14:07:08 2022-09-10 14:07:08 Outpatient SFA SFA [id number] Kwaku Robledo [place] 2022-09-06 13:30:34 2022-09-06 13:30:34 Outpatient SFA SFA [id number] Kwaku Robledo Aron 2022-08-17 14:17:44 2022-08-17 14:17:44 Outpatient SFA SFA [id number] Kwaku Rboledo Aron 2022-08-02 10:27:41 2022-08-02 10:27:41 Outpatient SFA SFA [id number] Kwaku Robledo Aron 2022-06-13 10:22:11 2022-06-13 10:22:11 Outpatient SFA SFA [id number] Kwaku Robledo Aron 2022-04-13 00:00:00 2022-04-13 00:00:00 Telephone Samuel Haddad [facility] 1.840.114 350.1.13.10 4.2.7.2.686 [id number] [facility] 2022-04-10 00:00:00 2022-04-10 00:00:00 Orders Only Doctor Unassigned, Burden [facility] 1.840.114 350.1.13.10 4.2.7.2.686 [id number] [facility] 2022-04-06 00:00:00 2022-04-06 00:00:00 Telephone Samson Samuel [facility] 1.840.114 350.1.13.10 4.2.7.2.686 [id number] [facility] 2022-04-02 00:00:00 2022-04-02 00:00:00 Telephone Samuel Haddad [facility] 1.2.840.114 350.1.13.10 4.2.7.2.686 [id number] [facility] 2022-03-28 00:00:00 2022-03-28 00:00:00 Telephone Samuel Haddad [facility] 1.2.840.114 350.1.13.10 4.2.7.2.686 [id number] [facility] 2022-03-28 00:00:00 2022-03-28 00:00:00 Telephone Samuel Haddad [facility] 1.2.840.114 350.1.13.10 4.2.7.2.686 [id number] [facility] 2022-03-23 10:15:00 2022-03-23 11:16:16 Outpatient R SAMUEL HADDAD [facility] [id number] [facility] 2022-03-23 10:15:00 2022-03-23 11:16:16 Office Visit Samuel Haddad [facility] 1.2.840.114 350.1.13.10 4.2.7.2.686 [id number] [facility] 2022-03-16 10:00:00 2022-03-16 10:00:00 Outpatient R SAMUEL HADDAD [facility] [id number] [facility] 2022-03-01 00:00:00 2022-03-01 00:00:00 Orders Only Doctor Unassigned, Burden [facility] 1.114 350.1.13.10 4.2.7.2.686 [id number] [facility] 2021-05-22 14:15:00 2021-05-22 14:30:00 Laboratory Only Only, Ang Db Test Sabine Wall [facility] 1.114 350.1.13.10 4.2.7.2.686 [id number] [facility] 2021-05-22 14:15:00 2021-05-22 14:15:00 Outpatient R SABINE WALL [facility] [id number] [facility] 2021-03-09 06:41:00 2021-03-09 10:10:00 Hospital Encounter Cheng [facility] 1.114 350.1.13.10 4.2.7.2.686 [id number] [facility] 2021-03-09 06:41:00 2021-03-09 10:10:00 Outpatient R URI MARX [facility] SAV [id number] [facility] 2021-03-09 07:30:00 2021-03-09 10:06:[facility] 350.1.13.10 4.2.7.2.686 [id number] [facility] 2021-03-09 00:00:00 2021-03-09 00:00:00 Orders Only Doctor Unassigned, Burden [facility] 1.114 350.1.13.10 4.2.7.2.686 [id number] [facility] 2021-03-08 11:39:34 2021-03-08 11:54:34 Laboratory Only Only, Adc Test Cheng [facility] 1.2.840.114 350.1.13.10 4.2.7.2.686 [id number] [facility] 2021-03-08 10:45:00 2021-03-08 10:45:00 Outpatient Geo MARX [facility] [id number] [facility] 2021-03-08 00:00:00 2021-03-08 00:00:00 Orders Only Doctor Unassigned, Burden [facility] 1.2.840.114 350.1.13.10 4.2.7.2.686 [id number] [facility] 2021-03-07 16:09:28 2021-03-07 23:59:00 [id number] [id number] [id number] [id number] [facility] 2021-03-07 16:09:12 2021-03-07 16:24:12 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, [facility] [id number] [id number] [id number] [id number] [facility] 2021-03-07 16:13:15 2021-03-07 16:08:00 Outpatient Geo MARX [facility] [id number] [facility] 2021-03-07 15:45:00 2021-03-07 16:08:00 [facility] [id number] [id number] [id number] [id number] [facility] 2020-07-04 00:00:00 2020-07-04 00:00:00 OFFICE VISIT EST PT LEVEL 3 STLMLC STLMLC [id number] [facility] 2020-05-25 00:00:00 2020-05-25 00:00:00 OFFICE VISIT ESTAB PT LEVEL 4 STLMLC STLMLC [id number] [facility] 2020-05-10 00:00:00 2020-05-10 00:00:00 (TEL) STLMLC STLMLC [id number] [facility] 2020-05-03 00:00:00 2020-05-03 00:00:00 (TEL) STLMLC STLMLC [id number] [facility] 2020-04-25 00:00:00 2020-04-25 00:00:00 (TEL) STLMLC STLMLC [id number] [facility] 2020-04-21 00:00:00 2020-04-21 00:00:00 OFFICE VISIT NEW PT LEVEL 4 STLMLC STLMLC [id number] [facility] 2019-10-26 15:02:00 2019-10-26 18:15:00 CHONDROCOS TANNER JUNCTION SYND TIETZE 1 CAPPS, NAHID [facility], [address], [facility] [place] [address] [facility] [id number] [facility] 2018-10-30 14:48:00 2018-10-30 17:52:00 RADICULOPA THY CERVICAL REGION SERG HUBER [facility] N, [address], [facility] [place] [address] [facility] [id number] [facility] (LUF/LI V/SA) 2018-10-17 09:32:00 2018-10-17 23:59:00 OTH SPEC DORSOPATHI ES CERV REGION 3 HEREDIA, AGRICEL [facility], [address], [facility] [place] [address] [facility] [id number] [facility] (LUF/LI V/SA) 2018-10-17 10:35:00 2018-10-17 11:31:00 RADICULOPA THY CERVICAL REGION APOLINAR NAIR [facility] N, [address], [facility] [place] [address] [facility] [id number] [facility] (LUF/LI V/SA) 2018-10-04 14:03:00 2018-10-04 15:00:00 RADICULOPA THY CERVICAL REGION SERG HUBER [facility], [address], [facility] [place] [address] [facility] [id number] [facility] (LUF/LI V/SA) 2018-08-28 11:43:00 2018-08-28 14:12:00 CERVICALGI A CECILE HICKMAN [facility], [address], [facility] [place] [address] [facility] [id number] [facility] (LUF/LI V/SA) 2018-08-08 09:59:00 2018-08-08 23:59:00 OTH SPEC DORSOPATHI ES CERV REGION 3 HEREDIA, AGRICEL [facility] N, [address], [facility] [place] [address] [facility] [id number] [facility] (LUF/LI V/SA) 2018-06-04 09:46:00 2018-06-04 23:59:00 UNS VIRAL HEPATITIS C W/O HEP COMA O EVNO DALEY [facility], [address], [facility] [place] [address] [facility] [id number] [facility] (LUF/LI V/SA) 2018-05-20 09:27:00 2018-05-20 23:59:00 PAIN IN RIGHT UPPER ARM 3 JI KIP LANETTE [facility], [address], [facility] [place] [address] [facility] [id number] [facility] (LUF/LI V/SA) 2018-04-17 09:21:00 2018-04-17 23:59:00 OTH ABN INCONCL FIND DX IMAG BREAST 3 JI, KIP GAMA [facility], [address], [facility] [place] [address] [facility] [id number] [facility] (LUF/LI V/SA) 2018-03-11 11:55:00 2018-03-11 23:59:00 Inpatient O ETHAN DALEYER Dilcia [facility], [address], [facility] [place] [address] [facility] [id number] [facility] (LUF/LI V/SA) 2018-02-25 13:04:00 2018-02-25 23:59:00 [facility]patient [facility], [address], [facility], [facility] [id number] [facility] (LUF/LI V/SA) 2018-02-04 11:11:00 2018-02-04 23:59:00 CHRONIC VIRAL HEPATITIS C O REJI HEREDIAEL [facility] N, [address], [facility] [place] [address] [facility] [id number] [facility] (LUF/LI V/SA) 2018-01-09 12:39:00 2018-01-09 23:59:00 UNS VIRAL HEPATITIS C W/O HEP COMA O TEHAN DALEYER M [facility], [address], [facility] [place] [address] [facility] [id number] [facility] (LUF/LI V/SA) 2017-11-05 08:20:00 2017-11-05 23:59:00 CHRONIC VIRAL HEPATITIS C O EVON DALEY M [facility] N, [address], [facility], [facility]351 [facility] [id number] [facility] (LUF/LI V/SA) 2017-10-03 08:10:00 2017-10-03 23:59:00 OTHER CHEST PAIN 3 CHERIPARAMB IL, JOHN [facility] N, [address], [facility] [place] [address] [facility] [id number] [facility] (LUF/LI V/SA) 2017-10-02 12:33:00 2017-10-02 23:59:00 HYPERLIPID EMIA UNSPECIFIE D O SOLHPOUR, AMIRREZA [facility] N, [address], [facility] [place] [address] [facility] [id number] [facility] (LUF/LI V/SA) 2017-09-25 17:37:00 2017-09-26 14:05:00 OTHER CHEST PAIN I LIA CEE [facility], [address], [place] [address] [facility] [phone] [facility] (LUF/LI V/SA) 2017-09-25 10:16:00 2017-09-25 15:52:00 UNSTABLE ANGINA 1 NOAM STEELE [facility], [address], [facility] [place] [address] [facility] [id number] [facility] (LUF/LI V/SA) 2017-09-23 21:34:00 2017-09-24 01:39:00 CHEST PAIN UNSPECIFIE APOLINAR FELICIANO [facility], [address], [place] [address] [facility] [id number] [facility] (LUF/LI V/SA) 2017-08-19 13:06:00 2017-08-19 23:59:00 OTH ABN INCONCL FIND DX IMAG BREAST 3 KIP MANZO [facility], [address], [place] [address] [facility] [id number] [facility] (LUF/LI V/SA) 2017-07-31 10:47:00 2017-07-31 23:59:00 ENC SCR MAMMO MALIG NEOPLASM BREAST 3 KIP MANZO [facility] N, [address], [place] [address] [facility] [id number] [facility] (LUF/LI V/SA) Results Test Description Test Time Test Comments Results Resul t Comments Source Hand / UE Inj/Asp: R thumb CMC 2023-10-06 4 14:30:00 Cheikh Gaytan MD ? ? 10/28/2023 ?9:47 AMHand / UE Inj/Asp: R thumb CMC for osteoarthritis (Thumb CMC joint right) on 10/28/2023 9:30 AMIndications: painDetails: 25 G needle, dorsal approachMedications: 1 mL lidocaine 1 %; 40 mg triamcinolone acetonide 40 MG/MLOutcome: tolerated well, no immediate complicationsProcedure, treatment alternatives, risks and benefits explained, specific risks discussed. Consent was given by the patient. Patient was prepped and draped in the usual sterile fashion. [facility] LIPID [id number] 04:03:08* Test Item Value Reference Range Interpretation [...] SPECIMENS. FOR MOREINFORMATION, SEE CLIENT ANNOUNCEMENT AT [email or web address] /CalcLDL-C RISK RATIO LDL/HDL (test code = 2238) 1.74 RATIO <3.22 UNLESS OTHERW ISE INDICATED, ALL TESTING PERFORMED AT [facility] [address] [place] [address] BUSHLER: RAJEEV AGUDELO M.D. CLIA NUMBER [id number] [facility] [place]. [id number] COMPREHENSIVE METABOLIC [id number] 00:00:00* Test Item Value Reference Range Interpretation Comme nts GLUCOSE (test code = 2217) 74 MG/DL BUN (test code = 2208) 15 MG/DL CREATININE (test code = 2214) 1.06 MG/DL eGFR (2020 CKD-EPI) (test co de = 10055) 60 ML/MIN/1.73 CALC BUN/CREAT (test code = 2235) 14 RATIO SODIUM (test code = 2231) 140 MEQ/L POTASSIUM (test code = 2228) 4.6 MEQ/L CHLORIDE (test code = 2215) 104 MEQ/L CARBON DIOXIDE (test code = 2206) 23 MEQ/L CALCIUM (test code = 2209) 9.7 MG/DL PROTEIN, TOTAL (test code = 2229) 6.8 G/DL ALBUMIN (test code = 2201) 4.5 G/DL CALC GLOBULIN (test code = 2240) 2.3 G/DL CALC A/G RATIO (test code = 2234) 2.0 RATIO BILIRUBIN, TOTAL (test code = 2207) <0.2 MG/DL ALKALINE PHOSPHATASE (test code = 2204) 95 U/L AST (test code = 2218) 14 U/L ALT (test code = 2219) 14 U/L Kwaku Robledo AustinLIPID [id number] 00:00:00* Test Item Value Reference Range Interpretation Comme nts CHOLESTEROL (test code = 2210) 217 MG/DL TRIGLYCERIDES (test code = 2232) 131 MG/DL HDL CHOLESTEROL (test code = 2220) 70 MG/DL CALC LDL CHOL (test code = 2237) 122 MG/DL RISK RATIO LDL/HDL (test cod e = 2238) 1.74 RATIO Kwaku Robledo AronCOMPREHENSIVE METABOLIC [id number] 00:00:00* Test Item Value Reference Range Interpretation Comme nts GLUCOSE (test code = 2217) 74 MG/DL BUN (test code = 2208) 15 MG/DL CREATININE (test code = 2214) 1.06 MG/DL eGFR (2020 CKD-EPI) (test co de = 57215) 60 ML/MIN/1.73 CALC BUN/CREAT (test code = 2235) 14 RATIO SODIUM (test code = 2231) 140 MEQ/L POTASSIUM (test code = 2228) 4.6 MEQ/L CHLORIDE (test code = 2215) 104 MEQ/L CARBON DIOXIDE (test code = 2206) 23 MEQ/L CALCIUM (test code = 2209) 9.7 MG/DL PROTEIN, TOTAL (test code = 2229) 6.8 G/DL ALBUMIN (test code = 2201) 4.5 G/DL CALC GLOBULIN (test code = 2240) 2.3 G/DL CALC A/G RATIO (test code = 2234) 2.0 RATIO BILIRUBIN, TOTAL (test code = 2207) <0.2 MG/DL ALKALINE PHOSPHATASE (test code = 2204) 95 U/L AST (test code = 2218) 14 U/L ALT (test code = 2219) 14 U/L Kwaku Robledo AustinLIPID [id number] 00:00:00* Test Item Value Reference Range Interpretation Comme nts CHOLESTEROL (test code = 2210) 217 MG/DL TRIGLYCERIDES (test code = 2232) 131 MG/DL HDL CHOLESTEROL (test code = 2220) 70 MG/DL CALC LDL CHOL (test code = 2237) 122 MG/DL RISK RATIO LDL/HDL (test cod e = 2238) 1.74 RATIO Kwaku [id number] 06:25:41* Test Item Value Reference Range Interpretation Comme nts AMYLASE (test code = 2205) 43 U/L 28-100 COMPREHENSIVE METABOLIC [id number] 05:49:02* Test Item Value Reference Range Interpretation Comme nts GLUCOSE (test code = 2217) 66 MG/DL 70-99 L BUN (test code = 2208) 13 MG/DL 8-23 CREATININE (test code = 2214) 0.94 MG/DL 0.60-1.30 eGFR (2020 CKD-EPI) (test code = 33012) 69 ML/MIN/1.73 >60 CALC BUN/CREAT (test code = 2235) 14 RATIO 6-28 SODIUM (test code = 2231) 143 MEQ/L 133-146 POTASSIUM (test code = 2228) 5.1 MEQ/L 3.5-5.4 CHLORIDE (test code = 2215) 106 MEQ/L 95-107 CARBON DIOXIDE (test code = 2206) 25 MEQ/L 19-31 CALCIUM (test code = 2209) 9.7 MG/DL 8.5-10.5 PROTEIN, TOTAL (test code = 2229) 6.6 G/DL 6.1-8.3 ALBUMIN (test code = 2201) 4.4 G/DL 3.5-5.2 CALC GLOBULIN (test code = 2240) 2.2 G/DL 1.9-3.7 CALC A/G RATIO (test code = 2234) 2.0 RATIO 1.0-2.6 BILIRUBIN, TOTAL (test code = 2207) 0.2 MG/DL <=1.2 ALKALINE PHOSPHATASE (test code = 2204) 80 U/L 40-140 AST (test code = 2218) 13 U/L 9-40 ALT (test code = 2219) 10 U/L 5-40 UNLESS OTHERWISE INDICATED, ALL TESTING PERFORMED AT [facility] [address] [place] [address] BUSHLER: RAJEEV AGUDELO M.D. CLIA NUMBER [id number] [facility]. [id number] CBC W/AUTO DIFF WITH [id number] 02:33:46* Test Item Value Reference Range Interpretation [...] = 1065) 0.0 /100 WBC'S See_Comment [Automated J[employer] Solutionsa ge] The system which generated this result [...] 0.00-0.10 ABS NUCLEATED RBCS (test code = 45485) 0.00 K/UL 0.00-0.11 [id number] 00:00:00* Test Item Value Reference Range Interpretation Comme nts AMYLASE (test code = 2205) 43 U/L Kwaku SharpCBC W/AUTO [id number] 00:00:00* Test Item Value Reference Range Interpretation [...] ABS NUCLEATED RBCS (test cod e = 67640) 0.00 K/UL Kwaku SharpCOMPREHENSIVE METABOLIC [id number] 00:00:00* Test Item Value Reference Range Interpretation Comme nts GLUCOSE (test code = 2217) 66 MG/DL BUN (test code = 2208) 13 MG/DL CREATININE (test code = 2214) 0.94 MG/DL eGFR (2020 CKD-EPI) (test co de = 59090) 69 ML/MIN/1.73 CALC BUN/CREAT (test code = [...] (test code = 2219) 10 U/L Kwaku [id number] 00:00:00* Test Item Value Reference Range Interpretation Comme nts AMYLASE (test code = 2205) 43 U/L Kwaku SharpCBC W/AUTO [id number] 00:00:00* Test Item Value Reference Range Interpretation [...] ABS NUCLEATED RBCS (test cod e = 04747) 0.00 K/UL Kwaku Robledo AronCOMPREHENSIVE METABOLIC [id number] 00:00:00* Test Item Value Reference Range Interpretation Comme nts GLUCOSE (test code = 2217) 66 MG/DL BUN (test code = 2208) 13 MG/DL CREATININE (test code = 2214) 0.94 MG/DL eGFR (2020 CKD-EPI) (test co de = 54931) 69 ML/MIN/1.73 CALC BUN/CREAT (test code = [...] (test code = 2219) 10 U/L Kwaku [id number] 00:00:00* Test Item Value Reference Range Interpretation Comme nts AMYLASE (test code = 2205) 43 U/L Kwaku Robledo AronCBC W/AUTO [id number] 00:00:00* Test Item Value Reference Range Interpretation [...] ABS NUCLEATED RBCS (test cod e = 71802) 0.00 K/UL Kwaku SharpCOMPREHENSIVE METABOLIC [id number] 00:00:00* Test Item Value Reference Range Interpretation Comme nts GLUCOSE (test code = 2217) 66 MG/DL BUN (test code = 2208) 13 MG/DL CREATININE (test code = 2214) 0.94 MG/DL eGFR (2020 CKD-EPI) (test co de = 08563) 69 ML/MIN/1.73 CALC BUN/CREAT (test code = [...] (test code = 2219) 10 U/L Kwaku [id number] 00:00:00* Test Item Value Reference Range Interpretation Comme nts AMYLASE (test code = 2205) 43 U/L Kwaku SharpCBC W/AUTO [id number] 00:00:00* Test Item Value Reference Range Interpretation [...] ABS NUCLEATED RBCS (test cod e = 52129) 0.00 K/UL Kwaku SharpCOMPREHENSIVE METABOLIC [id number] 00:00:00* Test Item Value Reference Range Interpretation Comme nts GLUCOSE (test code = 2217) 66 MG/DL BUN (test code = 2207) 13 MG/DL CREATININE (test code = 2214) 0.94 MG/DL eGFR (2020 CKD-EPI) (test co de = 36914) 69 ML/MIN/1.73 CALC BUN/CREAT (test code = 2235) 14 RATIO SODIUM (test code = 2231) 143 MEQ/L POTASSIUM (test code = 2228) 5.1 MEQ/L CHLORIDE (test code = 2215) 106 MEQ/L CARBON DIOXIDE (test code = 2206) 25 MEQ/L CALCIUM (test code = 2209) 9.7 MG/DL PROTEIN, TOTAL (test code = 222) 6.6 G/DL ALBUMIN (test code = 2201) 4.4 G/DL CALC GLOBULIN (test code = 2240) 2.2 G/DL CALC A/G RATIO (test code = 2234) 2.0 RATIO BILIRUBIN, TOTAL (test code = 2206) 0.2 MG/DL ALKALINE PHOSPHATASE (test code = 2203) 80 U/L AST (test code = 2218) 13 U/L ALT (test code = 2219) 10 U/L Kwaku Robledo AronCHINEDU, THIRD [id number] 07:05:44* Test Item Value Reference Range Interpretation Comme [facility] TSH, THIRD GENERATION (test code = 2821) 1.460 UIU/ML 0.400-4.100 HEMOGLOBIN [id number] 04:35:46* Test Item Value Reference Range Interpretation Comme [facility] HEMOGLOBIN A1c (test code = 10676) 6.1 % 4.2-5.6 H [employer] GUIDELINES FOR HGB A1C: [...] ALTERNATE TESTING OR LABORATORY CONSULTATION. COMPREHENSIVE METABOLIC [id number] 04:34:12* Test Item Value Reference Range Interpretation Comme nts GLUCOSE (test code = 2216) 84 MG/DL 70-99 BUN (test code = 2207) 15 MG/DL 8-23 CREATININE (test code = 2213) 1.15 MG/DL 0.60-1.30 eGFR (2020 CKD-EPI) (test code = 74423) 55 ML/MIN/1.73 >60 L The NKF-ASN Taskforce recommends use of Cystatin C to confirm eGFR inadults at risk for CKD. [facility] offers eGFR with Cystatin C-Creatinineusing the 2020 CKD-EPI eGFR_creat-cystat equation (order code 3057) toincrease the accuracy of estimated GFR. For more information, contactyour dealer account manager or see announcement [email or web address] CALC BUN/CREAT (test code = 2234) 13 [...] G/DL 3.5-5.2 CALC GLOBULIN (test code = 2240) 2.2 G/DL 1.9-3.7 CALC A/G RATIO (test code = 2233) 2.0 RATIO 1.0-2.6 BILIRUBIN, TOTAL (test code = 2206) 0.2 MG/DL See_Comment [Automated me ssage] The system which generated this result transmitted reference range: <=1.2. The reference range was not used to interpret this result as normal/abnormal. ALKALINE PHOSPHATASE (test code = 2203) 74 U/L 40-136 AST (test code = 2218) 17 U/L 9-40 ALT (test code = 2219) 14 U/L 5-40 LIPID [id number] 04:34:12* Test Item Value Reference Range Interpretation Comme nts CHOLESTEROL (test code = 0) 193 MG/DL <200 TRIGLYCERIDES (test code = 2232) 82 MG/DL <150 HDL CHOLESTEROL (test code = 2220) 77 MG/DL >39 CALC LDL CHOL (test code = 2237) 99 MG/DL <100 NOTE: CALCULATED LDL IS BASED ON RUI-CHAVEZ METHOD WHICHINCLUDES ADJUSTABLE TRIGLYCERIDE:VLDL CHOLESTEROL RATIO.THIS FACTOR VARIES BY MEASURED TRIGLYCERIDE AND NON-HDLCHOLESTEROL CONCENTRATIONS WITH INCREASED CALCULATED LDL SEENIN HIGHER TRIGLYCERIDE OR LOWER NON-HDL SPECIMENS. FOR MOREINFORMATION, SEE CLIENT ANNOUNCEMENT AT [email or web address]-C RISK RATIO LDL/HDL (test code = 2238) 1.29 RATIO <3.22 [facility] has i mportant pathology staff changes effective 07/04/2022. New pathology staff will provide uninterrupted, excellent patient care and clinical consultation. See URL: [email or web address] UNLESS OTHERWISE INDICATED, ALL TESTING PERFORMED AT [facility] [address] [place] [address] BUSHLER: RAJEEV AGUDELO M.D. [place] NUMBER [id number] [facility] [place]. [id number] CBC W/AUTO DIFF WITH [id number] 03:51:06* Test Item Value Reference Range Interpretation [...] = 1065) 0.0 /100 WBC'S See_Comment [Automated [employer]a ge] The system which generated this result [...] 0.00-0.10 ABS NUCLEATED RBCS (test code = 87914) 0.00 K/UL 0.00-0.11 TSH, THIRD [id number] 00:00:00* Test Item Value Reference Range Interpretation Comme nts TSH, THIRD GENERATION (test code = 2821) 1.460 UIU/ML Kwaku Meena AronCBC W/AUTO [id number] 00:00:00* Test Item Value Reference Range Interpretation [...] ABS NUCLEATED RBCS (test cod e = 22659) 0.00 K/UL Kwaku SharpCOMPREHENSIVE METABOLIC [id number] 00:00:00* Test Item Value Reference Range Interpretation Comme nts GLUCOSE (test code = 2217) 84 MG/DL BUN (test code = 2208) 15 MG/DL CREATININE (test code = 2214) 1.15 MG/DL eGFR (2020 CKD-EPI) (test co de = 77865) 55 ML/MIN/1.73 CALC BUN/CREAT (test code = [...] code = 2219) 14 U/L Kwaku SharpHEMOGLOBIN [id number] 00:00:00* Test Item Value Reference Range Interpretation Comme nts HEMOGLOBIN A1c (test code = 62108) 6.1 % Kwaku SharpLIPID [id number] 00:00:00* Test Item Value Reference Range Interpretation Comme nts CHOLESTEROL (test code = 2210) 193 MG/DL TRIGLYCERIDES (test code = 2232) 82 MG/DL HDL CHOLESTEROL (test code = 2220) 77 MG/DL CALC LDL CHOL (test code = 2237) 99 MG/DL RISK RATIO LDL/HDL (test cod e = 2238) 1.29 RATIO Kwaku Duron, THIRD [id number] 00:00:00* Test Item Value Reference Range Interpretation Comme nts TSH, THIRD GENERATION (test code = 2821) 1.460 UIU/ML Kwaku SharpCBC W/AUTO [id number] 00:00:00* Test Item Value Reference Range Interpretation [...] ABS NUCLEATED RBCS (test cod e = 62336) 0.00 K/UL Kwaku SharpCOMPREHENSIVE METABOLIC [id number] 00:00:00* Test Item Value Reference Range Interpretation Comme nts GLUCOSE (test code = 2217) 84 MG/DL BUN (test code = 2208) 15 MG/DL CREATININE (test code = 2214) 1.15 MG/DL eGFR (2020 CKD-EPI) (test co de = 55607) 55 ML/MIN/1.73 CALC BUN/CREAT (test code = [...] code = 2219) 14 U/L Kwaku SharpHEMOGLOBIN [id number] 00:00:00* Test Item Value Reference Range Interpretation Comme nts HEMOGLOBIN A1c (test code = 65135) 6.1 % Kwaku SharpLIPID [id number] 00:00:00* Test Item Value Reference Range Interpretation Comme nts CHOLESTEROL (test code = 2210) 193 MG/DL TRIGLYCERIDES (test code = 2232) 82 MG/DL HDL CHOLESTEROL (test code = 2220) 77 MG/DL CALC LDL CHOL (test code = 2237) 99 MG/DL RISK RATIO LDL/HDL (test cod e = 2238) 1.29 RATIO Kwaku SharpTSH, THIRD [id number] 00:00:00* Test Item Value Reference Range Interpretation Comme nts TSH, THIRD GENERATION (test code = 2821) 1.460 UIU/ML Kwaku SharpCBC W/AUTO [id number] 00:00:00* Test Item Value Reference Range Interpretation [...] ABS NUCLEATED RBCS (test cod e = 91830) 0.00 K/UL Kwaku SharpCOMPREHENSIVE METABOLIC [id number] 00:00:00* Test Item Value Reference Range Interpretation Comme nts GLUCOSE (test code = 2217) 84 MG/DL BUN (test code = 2208) 15 MG/DL CREATININE (test code = 2214) 1.15 MG/DL eGFR (2020 CKD-EPI) (test co de = 26711) 55 ML/MIN/1.73 CALC BUN/CREAT (test code = [...] code = 2219) 14 U/L Kwaku SharpHEMOGLOBIN [id number] 00:00:00* Test Item Value Reference Range Interpretation Comme monique HEMOGLOBIN A1c (test code = 32070) 6.1 % Kwaku SharpLIPID [id number] 00:00:00* Test Item Value Reference Range Interpretation Comme nts CHOLESTEROL (test code = 2210) 193 MG/DL TRIGLYCERIDES (test code = 2232) 82 MG/DL HDL CHOLESTEROL (test code = 2220) 77 MG/DL CALC LDL CHOL (test code = 2237) 99 MG/DL RISK RATIO LDL/HDL (test cod e = 2238) 1.29 RATIO Kwaku SharpTSH, THIRD [id number] 00:00:00* Test Item Value Reference Range Interpretation Comme nts TSH, THIRD GENERATION (test code = 2821) 1.460 UIU/ML Kwaku SharpCBC W/AUTO [id number] 00:00:00* Test Item Value Reference Range Interpretation [...] ABS NUCLEATED RBCS (test cod e = 30811) 0.00 K/UL Kwaku SharpCOMPREHENSIVE METABOLIC [id number] 00:00:00* Test Item Value Reference Range Interpretation Comme nts GLUCOSE (test code = 2217) 84 MG/DL BUN (test code = 2208) 15 MG/DL CREATININE (test code = 2214) 1.15 MG/DL eGFR (2020 CKD-EPI) (test co de = 22002) 55 ML/MIN/1.73 CALC BUN/CREAT (test code = [...] code = 2219) 14 U/L Kwaku SharpHEMOGLOBIN [id number] 00:00:00* Test Item Value Reference Range Interpretation Comme nts HEMOGLOBIN A1c (test code = 86195) 6.1 % Kwaku SharpLIPID [id number] 00:00:00* Test Item Value Reference Range Interpretation Comme nts CHOLESTEROL (test code = 2210) 193 MG/DL TRIGLYCERIDES (test code = 2232) 82 MG/DL HDL CHOLESTEROL (test code = 2220) 77 MG/DL CALC LDL CHOL (test code = 2237) 99 MG/DL RISK RATIO LDL/HDL (test cod e = 2238) 1.29 RATIO Kwaku SharpXR RIBS UNILATERAL/ PA [id number] 16:57:42Left rib series with PA chest, 5 views:History: Rib painNo acute rib fracture is identified. There is old healed fracture of the leftsixth rib. No pneumothorax or pleural effusion is noted. The frontal view of thechest shows no acute cardiopulmonary abnormality.Impression: No acute rib fracture.This final report was electronically signed by Dr Jerrell Sanchez MD 10/26/20194:51 PMDictated By: JERRELL SANCHEZDate: 10/26/2019 16:51[facility] W/O CONTRAST 2019-05-25 15:23:44"If patient is claustrophobic, [...] report was electronically signed by Dr Law Fair MD 05/25/2019 3:17PMDictated By: LAW FAIRDate: 05/25/2019 15:17[facility] [id number] 09:48:00* Test Item Value Reference Range Interpretation [...] assessment and management of chronic kidney failure. [facility] 09:48:00* Test Item Value Reference Range Interpretation Comme nts Lipase (test code = LIPA) 269 U/L 8-223 [facility] (HEMOGRAM ONLY)2019-04-22 09:05:00* Test Item Value Reference [...] MORPHOLOGY WILL BE NOTED ON THE REPORT. [facility] 14:03:00* Test Item Value Reference Range Interpretation [...] assessment and management of chronic kidney failure. [facility] 13:56:00* Test Item Value Reference Range Interpretation Comme nts Lipase (test code = LIPA) 232 U/L 8-223 [facility] (HEMOGRAM ONLY)2019-04-21 13:41:00* Test Item Value Reference [...] MORPHOLOGY WILL BE NOTED ON THE REPORT. [facility] ABDOMEN [id number] 14:19:42Hx of RUQ pain, S/P GB resection, [...] 04/20/20192:13 PMDictated By: JERRELL SANCHEZDate: 04/20/2019 14:13[facility]/PELVIS [id number] 07:28:14 EXAM: CT Abdomen and Pelvis WITH contrastINDICATION: [id number]: Abdominal pain quadrant pain, nauseatonight, hep CCOMPARISON: [...] DO 04/20/20197:21 AMDictated By: APOLINAR PATRICKDate: 04/20/2019 07:21[id number] 05:04:00* Test Item Value Reference Range Interpretation [...] assessment and management of chronic kidney failure. [facility]2019-[facility]-16 05:04:00* Test Item Value Reference Range Interpretation Comme nts Lipase (test code = LIPA) 586 U/L 8-223 H [facility] CountyURINALYSIS WITH [id number] 04:55:00 * Test Item Value Reference Range Interpretation Comme nts Color (test code = UCOLR) Lt. Yellow Clarity (test code = UCLAR) Clear Glucose (test code = UGLUC) NEGATIVE NEGATIVE N Bilirubin (test code = UBILI) NEGATIVE NEGATIVE N Ketones (test code = UKET) NEGATIVE NEGATIVE N Specific [place] (test code = USPGR) 1.010 1.005-1.030 A [...] = UBACT) None seen None Seen,Trace A [facility] County[facility] WITH AUTO [id number] 04:34:00* Test Item Value Reference Range Interpretation [...] code = IG%) 0.7 % 0.0-0.[address] [facility]LivingstonERYTHROCYTE SED [id number] 13:57:00* Test Item Value Reference Range Interpretation [...] Males 50-999 years old = 0-25 mm/hr [facility] (HEMOGRAM ONLY)2019-03-16 13:19:00* Test Item Value Reference [...] MORPHOLOGY WILL BE NOTED ON THE REPORT. [facility] CSPINE W/O [id number] 15:49:03"If patient is claustrophobic, contact ordering ysician [...] Dr Jerrell Sanchez MD 10/17/20183:42 PMDictated By: Nathanael SANCHEZte: 10/17/2018 15:42[facility] HOMERXR CERV SPINE MIN 4-5 [id number] 12:09:31Cervical spine series 5 views:History: Neck painAP, lateral, odontoid and both oblique views were obtained. No fracture orsubluxation is identified. No disc space narrowing is noted. There is noprever tebral soft tissue swelling. The sagittal diameter of the spinal canalappears adequate.Impression: Negative cervical spine series.This final report was electronically signed by Dr Jerrell Sanchez MD 08/08/201812:03 PMDictated By: Blessing SANCHEZ: 08/08/2018 12:03[facility] HOMERHCV, RNA, QUANT RT PCR, VIRAL [id number] 06:13:00* Test Item Value Reference Range Interpretation Comme nts HEPATITIS C QUANTITATION (test code = 762478) HCV Not Detected IU/mL HCV LOG10 (test code = 222525) POST ADOPTION COORDINATOR TEST INFORMATION (test code = 436850) Comment The quantit ative range of this assay is 15 IU/mL to 100 million IU/mL. PERFORMED AT: [facility] [address] [id number] REAL PROPERTY EVALUATOR: Etienne Cervantes MD PHONE: [phone] [facility] Center Manitowoc CountyCMP2019-01-30 11:50:00* Test Item Value Reference Range Interpretation [...] assessment and management of chronic kidney failure. [facility] WITH AUTO [id number] 11:37:00* Test Item Value Reference Range Interpretation [...] (test code = IG%) 0.3 % 0.0-0.4 [facility] EXTREMITY NON VASC-SPECIFIC [id number] 10:38:25Ultrasound of the right axillary region:History: Right axillary pain and tendernessTargeted ultrasound examination of the right axilla was performed. No cyst orsolid lesion is visualized. No lymphadenopathy is noted. There is no fluidcollection noted.Impression: Negative ultrasound of the right axilla.This final report was electronically signed by Dr Jerrell Sanchez MD 05/20/201810:32 AMDictated By: JERRELL SANCHEZDate: 05/20/2018 10:32[facility] MAMMO DIAG 3D KLQD-[id number] 08:29:26Procedure: MM MAMMO DIAG 3D CASA- BilateralExam [...] MD 04/18/20188:23 AMDictated By: JERRELL SANCHEZDate: 04/18/2018 08:23[facility], [facility], QUANT RT PCR, VIRAL [id number] 08:31:00* Test Item Value Reference Range Interpretation Comme nts HEPATITIS C QUANTITATION (test code = 110694) HCV Not Detected IU/mL HCV LOG10 (test code = 563774) POST ADOPTION COORDINATOR TEST INFORMATION (test code = 410439) Comment The quantit ative range of this assay is 15 IU/mL to 100 million IU/mL. PERFORMED AT: [facility] [id number] REAL PROPERTY EVALUATOR: Etienne Cervantes MD PHONE: [phone] Medical Center Manitowoc CountyCMP2018-11-06 13:17:00* Test Item Value Reference Range Interpretation [...] assessment and management of chronic kidney failure. [facility] WITH AUTO [id number] 12:37:00* Test Item Value Reference Range Interpretation [...] code = IG%) 0.5 % 0.0-0.4 H [facility] CountyURINALYSIS WITH [id number] 13:40:00 * Test Item Value Reference Range Interpretation Comme nts Color (test code = UCOLR) LT. YELLOW Clarity (test code = UCLAR) CLEAR Glucose (test code = UGLUC) NEGATIVE NEGATIVE N Bilirubin (test code = UBILI) NEGATIVE NEGATIVE N Ketones (test code = UKET) NEGATIVE NEGATIVE N Specific [place] (test code = USPGR) <=1.005 1.005-1.030 A [...] code = UBACT) Trace None Seen,Trace N [facility] CountyCMP2018-10-02 13:13:00* Test Item Value Reference Range Interpretation [...] assessment and management of chronic kidney failure. [facility]-REACTIVE [id number] 13:12:00* Test Item Value Reference Range Interpretation Comme nts C REACTIVE PROTEIN (test cod e = CRP) <2.9 mg/dl 0.0-0.[address] [facility]stonERYTHROCYTE SED [id number] 12:32:00* Test Item Value Reference Range Interpretation Comme nts Sed Rate (test code = ESR) 38 mm/hr 0-35 H EFFECTIVE 4-1-20 14, THE METHODOLOGY USED FOR ERYTHROCYTE SEDIMENTATION RATE HAS CHANGED. THE NORMAL RANGES HAVE CHANGED. PLEASE NOTE THAT RANGES ARE DEFINED BY THE AGE OF THE PATIENT. NEW REFERENCE RANGES: Females 0-49 years old = 0-25 mm/hr Females 50-999 years old = 0-35 mm/hr Males 0-49 years old = 0-20 mm/hr Males 50-999 years old = 0-25 mm/hr [facility] WITH AUTO [id number] 12:07:00* Test Item Value Reference Range Interpretation [...] code = IG%) 0.6 % 0.0-0.4 H [facility] CountyCMP2018-09-06 15:37:00* Test Item Value Reference Range Interpretation [...] assessment and management of chronic kidney failure. [facility] WITH AUTO [id number] 14:32:00* Test Item Value Reference Range Interpretation [...] code = IG%) 0.5 % 0.0-0.4 H [facility] RNA GENOTYPE [id number] 12:58:00* Test Item Value Reference Range Interpretation Comme nts HEPATITIS C GENOTYPE (test code = 679960) 1a TEST [facility]FOR MED AT [facility] [id number] 10:32:00* Test Item Value Reference Range Interpretation Comments FIBROSIS SCORE (test code = 683790) 0.08 0.00-0.21 N FIBROSIS STAGE (test code = 434350) Comment F0 - No fibrosis NECROINFLAMMAT ACTIVITY SCORE (test code = 548783) 0.08 0.00-0.17 N NECROINFLAMMAT ACTIVITY GRADE (test code = 312017) A0-No activity Alpha 2 Macroglobulins Qn (test code = 122426) 248 mg/dL 110-276 N Haptoglobin (test code = 170621) 216 mg/dL 34-200 H Apolipoprotein A1 (test code = 164043) 170 mg/dL 116-209 N Bilirubin, Total (test code = 821096) 0.2 mg/dL 0.0-1.2 N GGT (test code = 460051) 19 IU/L 0-60 N ALT P5P (test code = 319722) 24 IU/L 0-40 N INTERPRETATIONS (test code = 385355) Comment Quantitative res ults of 6 biochemical tests are analyzed using a computational algorithm to provide a quantitative surrogate marker (0.0-1.0) for liver fibrosis (METAVIR F0-F4) and for necroinflammatory activity (METAVIR A0-A3). Fibrosis Scoring (test code = 085174) Comment <0.21 = Sta ge F0 - [...] Cirrhosis NECROINFLAMM ACTIVITY SCORING (test code = 856493) Comment <0.17 = Grade A0 - No Activity 0.17 - 0.29 = Grade A0 - A1 0.29 - 0.36 = Grade A1 - Minimal activity 0.36 - 0.52 = Grade A1 - A2 0.52 - 0.60 = Grade A2 - Moderate activity 0.60 - 0.62 = Grade A2 - A3 >0.62 = Grade A3 - Severe activity LIMITATIONS (test code = 832804) Comment The negative predictive value of a [...] in the liver. COMMENT (test code = 439741) Comment This test was developed and its performance characteristics determined by [employer]. It has not been cleared or approved by the Food and Drug Administration. The FDA has determined that such clearance or approval is not necessary. For questions regarding this report please contact customer service at . [facility] [place][note 2] B SURFACE [id number] 06:14:00* Test Item Value Reference Range Interpretation [...] 5.00 Positive Specimen is positive for HBsAg. [facility] HEPATIC- Liver/ [id number] 11:30:35RIGHT UPPER QUADRANT ULTRASOUND:DATE: 11/05/2017INDICATION: Chronic viral [...] 11/05/201711:24 AMDictated By: JERRELL SANCHEZDate: 11/05/2017 11:30[facility] MYOCARD PERF STRESS REST [id number] 14:24:44NUCLEAR MEDICINE REST/STRESS MYOCARDIAL PERFUSION SPECT SCANDATE OF EXAM: 7-56-38UQDHHGKAKE: risk factorsCOMPARISON: nilDISCUSSION: Nuclear medicine myocardial perfusion SPECT imaging acquired andreviewed. Rest and stress images were acquired post intravenous wcwjqiwpsyxzhh95 mCi and 30 mCi technetium 99m labeled [...] final report was electronically signed by John Donis MD10/03/2017 2:18 PMDictated By: JOHN DONISDate: 10/03/2017 14:24[facility] [id number] 14:19:00* Test Item Value Reference Range Interpretation [...] assessment and management of chronic kidney failure. [facility] (HEMOGRAM ONLY)2017-10-02 13:46:00* Test Item Value Reference [...] MORPHOLOGY WILL BE NOTED ON THE REPORT. [facility] CountyHEPARIN [id number] 11:44:00* Test Item Value Reference Range Interpretation Comme nts HEPARIN XA (test code = HEPXA) 0.36 0.30-0.[address] [facility]-[id number] 05:31:00* Test Item Value Reference Range Interpretation [...] assessment and management of chronic kidney failure. [facility]CBC WITH AUTO [id number] 05:30:00* Test Item Value Reference Range Interpretation [...] code = IG%) 0.7 % 0.0-0.[address] [facility] SystemkinHEPARIN [id number] 05:28:00* Test Item Value Reference Range Interpretation Comme nts HEPARIN XA (test code = HEPXA) 0.42 0.30-0.70 [facility] [id number] 01:04:00* Test Item Value Reference Range Interpretation Comme nts Troponin-I (test code = TROP) <0.012 ng/ml 0.000-0.034 N The 99th Percent ile URL is 0.034 ng/mL. The Joint Society of Cardiology/[place] College of Cardiology (ESC/ACC) and the National [...] first 24 hours after the clinical event. [facility] CenterkinMYOGLOBIN, [id number] 01:04:00* Test Item Value Reference Range Interpretation Comme nts Myoglobin (test code = FLAVIO) 29.3 ng/ml 0.0-61.[address] [facility] ClinicsPvfcrw-[id number] 01:04:00* Test Item Value Reference Range Interpretation Comme nts CKMB (test code = CKMB) 0.58 ng/ml 0.00-2.[address] [facility]-LufkinCT ANGIO CHEST W/ [id number] 22:13:0620 g Cathlon Above the Antecubital or higher requiredProcedures: CT ANGIO ABD PELVIS W/WO OR W//CON, CT ANGIO CHEST W/ CONTRASTExam Date: 09/25/2017 5:46PMOrdering Physician: DR LIA AVILEZlinical Indication: RESPDIST: Chest-Respiratory [...] PMDictated By: LIA BRADSHAWDate: 09/25/2017 22:12[facility] OF KIMCT ANGIO ABD PELVIS W/WO OR W//[id number] 22:13:0220 g Cathlon Above the Antecubital or [...] PMDictated By: LIA BRADSHAWDate: 09/25/2017 22:12[facility] OF [id number] 19:00:00* Test Item Value Reference Range Interpretation Comme nts CKMB (test code = CKMB) 0.48 ng/ml 0.00-2.[address] [facility]-LufkinMYOGLOBIN, [id number] 19:00:00* Test Item Value Reference Range Interpretation Comme nts Myoglobin (test code = FLAVIO) 33.6 ng/ml 0.0-61.[address] [facility]-LufkinTROPONIN-I [id number] 19:00:00* Test Item Value Reference Range Interpretation Comme nts Troponin-I (test code = TROP) <0.012 ng/ml 0.000-0.034 N The 99th Percent ile URL is 0.034 ng/mL. The Joint Society of Cardiology/[place] College of Cardiology (ESC/ACC) and the National [...] first 24 hours after the clinical event. [facility]ufkinCT HEAD W/O [id number] 13:22:53CT HEAD WITHOUT CONTRAST:DATE OF EXAM: 09/25/2017INDICATION: [...] Dr Jerrell Sanchez MD 09/25/20171:16 PMDictated By: JERRELL SANCHEZDate: 09/25/2017 13:22[facility] [id number] 13:18:00* Test Item Value Reference Range Interpretation Comme [facility] aPTT (test code = PTT) 28.1 seconds 25.3-35.7 [facility] CountyPT AND [id number] 13:18:00* Test Item Value Reference Range Interpretation Comme nts Protime (test code = PT) 10.2 seconds 9.0-11.8 INR (test code = INR) 1.0 0.9-1.1 INR results are intended ONLY to monitor Oral Anticoagulant therapy in stablized patients. The INR Therapeutic Range is 2.0 - 3.0 Patients with a mechanical heart, the INR Range is 2.5 - 3.5 [facility] CountyCPK2018-05-23 12:06:00* Test Item Value Reference Range Interpretation Comme nts CPK (test code = CPK) 90 U/L 30-135 [facility] CountyTROPONIN-I [id number] 12:06:00* Test Item Value Reference Range Interpretation Comme nts Troponin-I (test code = TROP) <0.012 ng/ml 0.000-0.034 N The 99th Percent ile URL is 0.034 ng/mL. The Joint Society of Cardiology/[place] College of Cardiology (ESC/ACC) and the National [...] first 24 hours after the clinical event. [facility] CountyCKMB2018-05-23 12:06:00* Test Item Value Reference Range Interpretation Comme nts CKMB (test code = CKMB) 0.41 ng/ml 0.00-2.36 [facility]P2018-05-23 11:22:00* Test Item Value Reference Range Interpretation [...] assessment and management of chronic kidney failure. [facility] CountyMAGNESIUM2018-05-23 11:22:00* Test Item Value Reference Range Interpretation Comme [facility] Magnesium (test code = MG) 2.0 mg/dl 1.6-2.3 [facility] CountyTROPONIN-I [id number] 11:22:00* Test Item Value Reference Range Interpretation Comme nts Troponin-I (test code = TROP) <0.012 ng/ml 0.000-0.034 N The 99th Percent ile URL is 0.034 ng/mL. The Joint Society of Cardiology/[place] College of Cardiology (ESC/ACC) and the National [...] first 24 hours after the clinical event. [facility] CountyPRO-BNP(B-Type Natriuretic Peptide)2017-09-25 11:22:00* Test Item Value Reference Range Interpretation Comme nts Pro-BNP(B-Peptide) (test cod e = PROBNP) 20 pg/ml 0-125 [facility] CountyXR CHEST AP/PA 1 [id number] 11:09:11Exam: AP portable chest DATE OF EXAM: 09/25/2017 10:44AMINDICATION: chest painThe lungs are clear. The cardiomediastinal silhouette is within normal limits.The bony thorax shows no significant abnormality.Impression:No active cardiopulmonary disease.This final report was electronically signed by Yanick Sanchez MD 09/25/201711:02 AMDictated By: Blessing SANCHEZ: 09/25/2017 11:09 [facility] WITH AUTO [id number] 10:40:00* Test Item Value Reference Range Interpretation [...] code = IG%) 0.6 % 0.0-0.4 H [facility] [id number] 00:17:00* Test Item Value Reference Range Interpretation Comme nts Troponin-I (test code = TROP) <0.012 ng/ml 0.000-0.034 N The 99th Percent ile URL is 0.034 ng/mL. The Joint Society of Cardiology/[place] College of Cardiology (ESC/ACC) and the National [...] Panel at 90 mins after 1st set drawnKenneth Ville [id number] 00:17:00* Test Item Value Reference Range Interpretation Comme nts CPK (test code = CPK) 141 U/L 30-135 H Rpt Cardiac Panel at 90 mins after 1st set drawnRacine [facility]2018-05-22 00:17:00* Test Item Value Reference Range Interpretation Comme nts CKMB (test code = CKMB) 0.79 ng/ml 0.00-2.36 Rpt Cardiac Panel at 90 mins after 1st set drawnRacine County [facility]2018-05-21 22:37:00* Test Item Value Reference Range Interpretation Comme nts CKMB (test code = CKMB) 0.98 ng/ml 0.00-2.36 [place] [id number] 22:37:00* Test Item Value Reference Range Interpretation Comme nts CPK (test code = CPK) 177 U/L 30-135 [facility] [place]OPONIN-I [id number] 22:37:00* Test Item Value Reference Range Interpretation Comme nts Troponin-I (test code = TROP) <0.012 ng/ml 0.000-0.034 N The 99th Percent ile URL is 0.034 ng/mL. The Joint Society of Cardiology/[place] College of Cardiology (ESC/ACC) and the National [...] first 24 hours after the clinical event. [facility] CountyXR CHEST 2 PA [id number] 22:25:05EXAM: XR CHEST 2 PA LATERALINDICATION: cpCOMPARISON: CT of the chest October 09, 2016 and chest x-ray September 11, 2016FINDINGS:LINES/TUBES: NoneLUNGS: No consolidations or edema.PLEURA: No effusions or pneumothorax.HEART AND MEDIASTINUM: Normal size and contour.BONES AND SOFT TISSUES: No acute findings.IMPRESSION:No acute thoracic abnormality.This final report was electronically signed by Dr Navin Zuniga MD 09/23/201710:18 PMDictated By: NAVIN ZUNIGADate: 09/23/2017 22:25[facility] [id number] 22:24:00* Test Item Value Reference Range Interpretation [...] assessment and management of chronic kidney failure. [facility] WITH AUTO [id number] 22:07:00* Test Item Value Reference Range Interpretation [...] (test code = IG%) 0.4 % 0.0-0.4 [facility] BREAST UNILATERAL [id number] 08:43:17Procedure: MM MAMMO DIAG DIR DIGITAL-BILAT, US [...] JERRELL SANCHEZDate: 08/20/2017 08:43[facility]STON[facility] BREAST UNILATERAL [id number] 08:43:15Procedure: MM MAMMO DIAG DIR DIGITAL-BILAT, US [...] SANCHEZDate: 08/20/2017 08:43[facility] LIVINGSTONMM MAMMO DIAG DIR [id number] 08:43:11 Procedure: MM MAMMO DIAG DIR DIGITAL-BILAT, [...] SANCHEZDate: 08/20/2017 08:43[facility] LIVINGSTONMM MAMMO SCREEN DIR DIGITAL 2017-07-31 17:49:01Procedures: MM MAMMO SCREEN DIR DIGITALExam Date: 07/31/2017 10:45 AMOrdering Provider: KIP Logan Indication: Digital screening mammography.Comparison: None availableTechnique: [...] Dr Geo Sanchez MD 07/31/20175:42 PMDictated By: JERRELL SANCHEZDate: 07/31/2017 17:49[facility] HOMERURINALYSIS WITH [id number] 23:35:00* Test Item Value Reference Range Interpretation Comme nts Color (test code = UCOLR) Lt. Yellow Clarity (test code = UCLAR) CLEAR Glucose (test code = UGLUC) NEGATIVE NEGATIVE N Bilirubin (test code = UBILI) NEGATIVE NEGATIVE N Ketones (test code = UKET) NEGATIVE NEGATIVE N Specific [place] (test code = USPGR) <=1.005 1.005-1.030 A [...] code = UBACT) Trace None Seen,Trace N [facility] CountyDRUG SCREEN [id number] 23:21:00* Test Item Value Reference Range Interpretation [...] the Drugs of Abuse ran on the [employer]ia 5.1 analyzer listed there in: Amphetamines < [...] = THC) Presumptive Positive; Confirmation Upon Request [facility] CountyTROPONIN-I [id number] 21:22:00* Test Item Value Reference Range Interpretation Comme nts Troponin-I (test code = TROP) <0.012 ng/ml 0.000-0.034 N The 99th Percent ile URL is 0.034 ng/mL. The Joint Society of Cardiology/[place] College of Cardiology (ESC/ACC) and the National [...] first 24 hours after the clinical event. [facility] CountyPTT2017-06-06 21:15:00* Test Item Value Reference Range Interpretation Comme nts aPTT (test code = PTT) 25.4 seconds 25.3-35.7 [facility] AND [id number] 21:15:00* Test Item Value Reference Range Interpretation Comme nts Protime (test code = PT) 10.1 seconds 9.0-11.8 INR (test code = INR) 1.0 0.9-1.1 INR results are intended ONLY to monitor Oral Anticoagulant therapy in stablized patients. The INR Therapeutic Range is 2.0 - 3.0 Patients with a mechanical heart, the INR Range is 2.5 - 3.5 [facility] CountyLIPASE, [id number] 21:09:00* Test Item Value Reference Range Interpretation Comme [facility] Lipase (test code = LIPA) 75 U/L 8-223 [facility] CountyALCOHOL, [id number] 21:08:00* Test Item Value Reference Range Interpretation Comme nts Alcohol % (test code = ALCPC) 0 % 0.00-0.00 N Ethanol % 0.00 - 0.10 Sub-clinical 0.11 - 0.20 Emotional Instability 0.21 - 0.30 Confusion 0.31 - 0.40 Stupor 0.41 - 0.50 Coma >.50 Fatal [facility] CountyCMP2017-06-06 21:08:00* Test Item Value Reference Range Interpretation [...] assessment and management of chronic kidney failure. [facility] WITH AUTO [id number] 20:49:00* Test Item Value Reference Range Interpretation [...] (test code = NRBC_AUTO) 0 /100WBC 0-0 [facility] CountyCHEMISTRY2013-12-11 13:24:00* Test Item Value Reference Range Interpretation Comme nts AGAP (test code = AGAP) 13.3 10.0-20.0 N [facility] CenterNacznmhNTNBZTFUUN4066-68-51 13:24:00* Test Item Value Reference Range Interpretation Comme nts Hct (test code = Hct) 37.7 36.0-48.0 N [facility] Notes Date/Time Note Provider Source Kwaku Berry [facility]2024-05-08 00:00:00 Plan Activity weight and height proportion ate Healthy weight Continue healthy lifestyle choices RTC 1 month for WAE--> screening lung cancer at next OV 2022-06-13 Encourage smoking cessation 2023-04-16 refill trelogy 2023-03-19 referral refill escitalopram for 20 mg for 3 months 2022-10-18 referral refill escitalopram 20 mg for 3 months 2022-10-18 Monitor follow-up with outside physician 2022-06-13 normal weight and height 2022-08-02 smoking cessation 2022-08-02 1. Routine well adult visit 2. blood pressure, weight, height, and BMI calculated 3. Dietary: Recommend 3 meals a day that include lean protein, at least 5 servings of fruits and vegetables, whole grains, and at least 3 servings of dairy products or fortified soy milk. Limit food and drinks that are high in fat, salt, and sugar. 4. Physical activity: aim for 150 minutes of moderate physical activity (like fast walking) or 75 minutes of vigorous activity (like running) weekly 5. Vaccination decline 6. mammogram referral 2022-08-02 mammogram screening 2022-08-02 tsh pending 2022-08-02 CBC and CMP pending 2022-08-02 a1c pending 2022-08-02 lipid pending 2022-08-02 weight and height proportion ate healthy weight continue healthy lifestyle choices 2022-09-06 RTC TPI injection x 2 2022-09-06 unable to visualize mouth du e to patient presenting virtually and video appearing pixelated ER precautions given to patient for signs and symptoms of respiratory distress OK to take benadryl prn Follow up in person tomorrow for complete assessment 2022-08-20 referral shoulder MRI,. advi pt to f/u for an appt Ortho f.u with ortho on schedule date 2022-10-18 weight and height proportion ate Healthy weight Continue healthy choices 2022-10-18 Participate in physical acti vities and exercise. 30 of moderate aerobic exercise 5 times a week. Increase your activity as tolerated. 2023-04-16 Recommend healthy eating with foods from a variety of food groups, appropriate portion sizes, and few sugary snacks/drinks. Well-rounded, whole foods diet focused on fresh vegetables and fruits, lean proteins. Avoid sugary drinks. Avoid fried, greasy foods. Portion control. 2023-04-16 rx muporocin 2% f/u if no improvement 2022-10-25 Rx: Bromfed DM 2-30-10 MG/5M L Syrup - Sig: TAKE 10ML Q4-6HRS PRN COUGH QUANTITY 473 ML - Days 10 [facility] Rx: Fluticasone Propionate 50 MCG/ACT Suspension - Sig: USE ONE SPRAY IN EACH NOSTRIL TWICE A DAY QUANTITY 16 Suspension - REFILL 1 - Days 30 [facility] Recommend patient to Get plenty of rest. Take an gqbb-fuu-gjontoc pain medicine if needed, such as acetaminophen (Tylenol) or ibuprofen (Advil, Motrin Drink plenty of fluids. 2022-11-20 Pt educated on eating a well balanced diet and incorporating at least 30 min of aerobic activity daily 2023-03-26 Continue Famotidine EGD consultation on with Dr. Land f/u amylase, CBC, CMP (r/o liver disease, chronic bleed, and peptic ulcer disease) RTC 1 month after GI consultation/EGD 2023-04-16 Most likely 2/2 OA stop Ibuprofen and Naproxen Start Meloxicam for GI comfort. 2023-03-26 RX methocarbomal and meloxic am. Medication side effects per pharmacy and verbal prescription given Educated on therapeutic treatment including stretches, ice/heat application. F/u if s/s worsen or persist. 2023-06-20 empirical tx z pack prescribed complete course as instructed Se discussed RX albuterol prn for sob, wheezing, persistent coughing otc antihistamine daily continue breathe right strips as needed start RX Bromfed sent during previous visit SE discussed. take as instructed stay hydrated humidifier, steam inhalation, Adriel's rub/drops warm tea w/ honey proper hand washing Take euyo-tip-fezyqsc pain relievers to reduce inflammation, ease pain, and lower your fever if it occurs. These could include acetaminophen (1 brand name: Tylenol) or ibuprofen (1 brand name: Advil). Call 911 if you have trouble breathing, chest pain, extreme changes in body temp, elevated HR, dizziness/confusion RTO if symptoms persist or worsen follow-up for in person evaluation if symptoms persist 2023-07-01 educated pt on consuming a w ell balanced diet and exercising at least 30 min a day. 2023-08-26 Continue meloxicam 15 mg referral to orthopedics - Pt endorses seeing ortho in past and receiving injections for arthritis 2023-08-26 CMP, lipid RX spironolactone FU in 1-2weeks with bp log 2023-08-26 spironolactone prescribed Educated pt to elevate legs at rest wear compression stockings and decrease salt intake RTO in 1 week if worsening or no improvement 2023-08-26 Continue a meloxicam 15 mg referral to orthopedics for further management history of multiple bone spurs 2023-09-11 RX Epi-Pen to be used only i n case of anaphylactic reaction /emergency use diclofenac added to allergy list advised patient write down and keep a list of medications she is allergic to on hand at all times SE discussed 2023-09-11 Patient reports remote histo ry of osteoporosis, no records on file DEXA scan 2023-09-11 Kwaku [facility]2024-04-22 00:00:00 Plan Activity weight and height proportion ate Healthy weight Continue healthy lifestyle choices RTC 1 month for WAE--> screening lung cancer at next OV 2022-06-13 Encourage smoking cessation 2023-04-16 refill trelogy 2023-03-19 referral refill escitalopram for 20 mg for 3 months 2022-10-18 referral refill escitalopram 20 mg for 3 months 2022-10-18 Monitor follow-up with outside physician 2022-06-13 normal weight and height 2022-08-02 smoking cessation 2022-08-02 1. Routine well adult visit 2. blood pressure, weight, height, and BMI calculated 3. Dietary: Recommend 3 meals a day that include lean protein, at least 5 servings of fruits and vegetables, whole grains, and at least 3 servings of dairy products or fortified soy milk. Limit food and drinks that are high in fat, salt, and sugar. 4. Physical activity: aim for 150 minutes of moderate physical activity (like fast walking) or 75 minutes of vigorous activity (like running) weekly 5. Vaccination decline 6. mammogram referral 2022-08-02 mammogram screening 2022-08-02 tsh pending 2022-08-02 CBC and CMP pending 2022-08-02 a1c pending 2022-08-02 lipid pending 2022-08-02 weight and height proportion ate healthy weight continue healthy lifestyle choices 2022-09-06 RTC TPI injection x 2 2022-09-06 unable to visualize mouth du e to patient presenting virtually and video appearing pixelated ER precautions given to patient for signs and symptoms of respiratory distress OK to take benadryl prn Follow up in person tomorrow for complete assessment 2022-08-20 referral shoulder MRI,. advi se pt to f/u for an appt Ortho f.u with ortho on schedule date 2022-10-18 weight and height proportion ate Healthy weight Continue healthy choices 2022-10-18 Participate in physical acti vities and exercise. 30 of moderate aerobic exercise 5 times a week. Increase your activity as tolerated. 2023-04-16 Recommend healthy eating with foods from a variety of food groups, appropriate portion sizes, and few sugary snacks/drinks. Well-rounded, whole foods diet focused on fresh vegetables and fruits, lean proteins. Avoid sugary drinks. Avoid fried, greasy foods. Portion control. 2023-04-16 rx muporocin 2% f/u if no improvement 2022-10-25 Rx: Bromfed DM 2-30-10 MG/5M L Syrup - Sig: TAKE 10ML Q4-6HRS PRN COUGH QUANTITY 473 ML - Days 10 [facility] Rx: Fluticasone Propionate 50 MCG/ACT Suspension - Sig: USE ONE SPRAY IN EACH NOSTRIL TWICE A DAY QUANTITY 16 Suspension - REFILL 1 - [facility] Recommend patient to Get plenty of rest. Take an wiqg-syh-leeshqo pain medicine if needed, such as acetaminophen (Tylenol) or ibuprofen (Advil, Motrin Drink plenty of fluids. 2022-11-20 Pt educated on eating a well balanced diet and incorporating at least 30 min of aerobic activity daily 2023-03-26 Continue Famotidine EGD consultation on with Dr. Land f/u amylase, CBC, CMP (r/o liver disease, chronic bleed, and peptic ulcer disease) RTC 1 month after GI consultation/EGD 2023-04-16 Most likely 2/2 OA stop Ibuprofen and Naproxen Start Meloxicam for GI comfort. 2023-03-26 RX methocarbomal and meloxic am. Medication side effects per pharmacy and verbal prescription given Educated on therapeutic treatment including stretches, ice/heat application. F/u if s/s worsen or persist. 2023-06-20 empirical tx z pack prescribed complete course as instructed Se discussed RX albuterol prn for sob, wheezing, persistent coughing otc antihistamine daily continue breathe right strips as needed start RX Bromfed sent during previous visit SE discussed. take as instructed stay hydrated humidifier, steam inhalation, Adriel's rub/drops warm tea w/ honey proper hand washing Take mlll-uta-mjivgax pain relievers to reduce inflammation, ease pain, and lower your fever if it occurs. These could include acetaminophen (1 brand name: Tylenol) or ibuprofen (1 brand name: Advil). Call 911 if you have trouble breathing, chest pain, extreme changes in body temp, elevated HR, dizziness/confusion RTO if symptoms persist or worsen follow-up for in person evaluation if symptoms persist 2023-07-01 educated pt on consuming a w ell balanced diet and exercising at least 30 min a day. 2023-08-26 solu merdol 125 Increased Meloxicam to 15 mg. FU if no improvement. May refer to Ortho. - Pt endorses seeing ortho in past and receiving injections for arthritis 2023-08-26 CMP, lipid RX spironolactone FU in 1-2weeks with bp log 2023-08-26 spironolactone prescribed Educated pt to elevate legs at rest wear compression stockings and decrease salt intake RTO in 1 week if worsening or no improvement 2023-08-26 Kwaku [facility]2024-02-27 00:00:00 Plan Activity weight and height proportion ate Healthy weight Continue healthy lifestyle choices RTC 1 month for WAE--> screening lung cancer at next OV 2022-06-13 Encourage smoking cessation 2023-04-16 refill trelogy 2023-03-19 referral refill escitalopram for 20 mg for 3 months 2022-10-18 referral refill escitalopram 20 mg for 3 months 2022-10-18 Monitor follow-up with outside physician 2022-06-13 normal weight and height 2022-08-02 smoking cessation 2022-08-02 1. Routine well adult visit 2. blood pressure, weight, height, and BMI calculated 3. Dietary: Recommend 3 meals a day that include lean protein, at least 5 servings of fruits and vegetables, whole grains, and at least 3 servings of dairy products or fortified soy milk. Limit food and drinks that are high in fat, salt, and sugar. 4. Physical activity: aim for 150 minutes of moderate physical activity (like fast walking) or 75 minutes of vigorous activity (like running) weekly 5. Vaccination decline 6. mammogram referral 2022-08-02 mammogram screening 2022-08-02 tsh pending 2022-08-02 CBC and CMP pending 2022-08-02 a1c pending 2022-08-02 lipid pending 2022-08-02 weight and height proportion ate healthy weight continue healthy lifestyle choices 2022-09-06 RTC TPI injection x 2 2022-09-06 unable to visualize mouth du e to patient presenting virtually and video appearing pixelated ER precautions given to patient for signs and symptoms of respiratory distress OK to take benadryl prn Follow up in person tomorrow for complete assessment 2022-08-20 referral shoulder MRI,. advi se pt to f/u for an appt Ortho f.u with ortho on schedule date 2022-10-18 weight and height proportion ate Healthy weight Continue healthy choices 2022-10-18 Participate in physical acti vities and exercise. 30 of moderate aerobic exercise 5 times a week. Increase your activity as tolerated. 2023-04-16 Recommend healthy eating with foods from a variety of food groups, appropriate portion sizes, and few sugary snacks/drinks. Well-rounded, whole foods diet focused on fresh vegetables and fruits, lean proteins. Avoid sugary drinks. Avoid fried, greasy foods. Portion control. 2023-04-16 rx muporocin 2% f/u if no improvement 2022-10-25 Rx: Bromfed DM 2-30-10 MG/5M L Syrup - Sig: TAKE 10ML Q4-6HRS PRN COUGH QUANTITY 473 ML - Days 10 [facility] Rx: Fluticasone Propionate 50 MCG/ACT Suspension - Sig: USE ONE SPRAY IN EACH NOSTRIL TWICE A DAY QUANTITY 16 Suspension - REFILL 1 - Days 30 [facility] Recommend patient to Get plenty of rest. Take an fvya-xtn-hgzhukp pain medicine if needed, such as acetaminophen (Tylenol) or ibuprofen (Advil, Motrin Drink plenty of fluids. 2022-11-20 Pt educated on eating a well balanced diet and incorporating at least 30 min of aerobic activity daily 2023-03-26 Continue Famotidine EGD consultation on with Dr. Land f/u amylase, CBC, CMP (r/o liver disease, chronic bleed, and peptic ulcer disease) RTC 1 month after GI consultation/EGD 2023-04-16 Most likely 2/2 OA stop Ibuprofen and Naproxen Start Meloxicam for GI comfort. 2023-03-26 RX methocarbomal and meloxic am. Medication side effects per pharmacy and verbal prescription given Educated on therapeutic treatment including stretches, ice/heat application. F/u if s/s worsen or persist. 2023-06-20 empirical tx z pack prescribed complete course as instructed Se discussed RX albuterol prn for sob, wheezing, persistent coughing otc antihistamine daily continue breathe right strips as needed start RX Bromfed sent during previous visit SE discussed. take as instructed stay hydrated humidifier, steam inhalation, Adriel's rub/drops warm tea w/ honey proper hand washing Take hlfu-iaf-rkfyymq pain relievers to reduce inflammation, ease pain, and lower your fever if it occurs. These could include acetaminophen (1 brand name: Tylenol) or ibuprofen (1 brand name: Advil). Call 911 if you have trouble breathing, chest pain, extreme changes in body temp, elevated HR, dizziness/confusion RTO if symptoms persist or worsen follow-up for in person evaluation if symptoms persist 2023-07-01 Kwaku [facility]2020-06-22 18:15:00 Discharge Instructions 2 Discharge Diagnosis costochondritis Important Information Consult your physician or return to the Emergency Department immediately if worse, if not better asexpected, or if any problems arise. Follow Up Care Yes Important Information Please understand that you have received care only on an emergency basis. If your condition does not improve, you should call your personal physician for follow-up care. If you do not have a physician, you may call the referred physician listed. If you have questions about your care or these discharge instructions, you may call the Emergency Department. Please take your discharge paperwork with you to any follow-up appointments. Follow Up Care Patient To Schedule Follow-Up With: Primary Care Physician Follow-Up Notes: PCP for further treatment Activity Level As tolerated, unrestricted Diet Regular Prescriptions Given Via: Electronically sent to patient's preferred pharmacy. Patient Teaching [facility])2018-10-30 17:52:00 Discharge Instructions 2 Discharge Diagnosis cervical radiculopathy Important Information Consult your physician or return to the Emergency Department immediately if worse, if not better asexpected, or if any problems arise. Follow Up Care Yes Important Information Please understand that you have received care only on an emergency basis. If your condition does not improve, you should call your personal physician for follow-up care. If you do not have a physician, you may call the referred physician listed. If you have questions about your care or these discharge instructions, you may call the Emergency Department. Please take your discharge paperwork with you to any follow-up appointments. Follow-Up With: Primary Care Physician Follow-Up Notes: follow up with pcp in 1-2 days Activity Level As tolerated, unrestricted Diet Regular Prescriptions Given Via: Electronically sent to patient's preferred pharmacy. Patient Teaching Patient education provided Disease Process Change in Care Procedures/Treatments [facility] ([facility])2018-10-17 11:31:00 Discharge Instructions 2 Discharge Diagnosis cervical radiculopathy Important Information Consult your physician or return to the Emergency Department immediately if worse, if not better asexpected, or if any problems arise. Please understand that you have received care only on an emergency basis. If your condition does not improve, you should call your personal physician for follow-up care. If you do not have a physician, you may call the referred physician listed. If you have questions about your care or these discharge instructions, you may call the Emergency Department. Please take your discharge paperwork with you to any follow-up appointments. Follow Up Care Patient To Schedule Follow-Up With: Primary Care Physician Activity Level As tolerated, unrestricted Prescriptions Given Via: Printed and given to patient/caregiver. Patient Teaching Patient education provided [facility] ([facility]/)2018-10-04 15:00:00 Discharge Instructions 2 Discharge Diagnosis cervical ridiculopa Important Information Consult your physician or return to the Emergency Department immediately if worse, if not better asexpected, or if any problems arise. Follow Up Care Yes Important Information Please understand that you have received care only on an emergency basis. If your condition does not improve, you should call your personal physician for follow-up care. If you do not have a physician, you may call the referred physician listed. If you have questions about your care or these discharge instructions, you may call the Emergency Department. Please take your discharge paperwork with you to any follow-up appointments. Follow Up Care Patient To Schedule Follow-Up With: Primary Care Physician Activity Level As tolerated, unrestricted Diet Regular Prescriptions Given Via: Electronically sent to patient's preferred pharmacy. Patient Teaching Patient education provided Antimicrobial Stewardship Patient Education Disease Process Change in Care Procedures/Treatments Pain [facility] ([facility]/)2018-08-28 14:12:00 Discharge Instructions 2 Discharge Diagnosis neck pain Important Information Consult your physician or return to the Emergency Department immediately if worse, if not better asexpected, or if any problems arise. Follow Up Care Yes Important Information Please understand that you have received care only on an emergency basis. If your condition does not improve, you should call your personal physician for follow-up care. If you do not have a physician, you may call the referred physician listed. If you have questions about your care or these discharge instructions, you may call the Emergency Department. Please take your discharge paperwork with you to any follow-up appointments. Follow-Up With: Primary Care Physician Activity Level As tolerated, unrestricted Diet Regular Prescriptions Given Via: Printed and given to patient/caregiver. Patient Teaching Patient education provided[facility] ([facility])2017-09-26 14:05:00 VTE VTE Discharge Instructions Education given related to Follow-Up after Discharge Education given related to Discharge Medications Psychosocial Assistance Required None Patient/Family Concerns None Emotional State Calm Housing Type House Emotional State Pleasant Discharge Instructions Discharge Diagnosis DX: UNSTABLE ANGINA/CHEST PAIN Physician Name for Follow Up Appt #1 DR. KIP MANZO PRIMARY CARE PHYSICIAN (ADDRESS: [address] [place] [address]) OFFICE # [phone] FAX # [phone] PLEASE CALL OFFICE TO SCHEDULE AN APPOINTMENT TO FOLLOW UP IN ONE WEEK AND TO HAVE LABS DRAWN FOR CBC, CMP Pneumonia Vaccine Refused By Patient Physician Name for Follow Up Appt #2 DR. SOLIMAN DIRECTOR MICROBIOLOGY (ADDRESS: [address] [place] [address]) OFFICE # [phone] FAX # [phone] FOLLOW UP ON SUNDAY OCTOBER 01, 2017 @ 2:30 PM IV Removed Date 09/26/2017 Discharge Weight 86.9 KGS Important Message to Medicare Beneficiaries Completed Yes Copy of Advanced Directive given to Patient No Referral Required None Activity Level As tolerated, unrestricted Medications Continue Present Medications Prescriptions Called To Pharmacy Take all medications as listed on your Discharge Medication List as directed DO NOT STOP taking your medicine(s) until directed by your doctor. Diet CARDIAC DIET (LOW FAT LOW CHOLESTEROL LOW SODIUM) Other Discharge Instructions Patient education provided Follow Up Care Yes Scheduled Appointment Patient To Schedule Readmission Risk (LACE Score) 6 Written Discharge Plan given to the Patient at the time of discharge contains: Reason for hospitalization Discharge medications including what medications to take, how to take them, and how to obtain the medication. Patient / family / caregiver given instructions on what to do if their condition changes. Coordination and planning for follow-up appointments that the patient can keep. Coordination and planning for follow-up of tests and studies for which confirmed results are not available at time of discharge. Influenza Vaccine NOT Given, State Reason(s) Below: Refused By Patient/Caregiver Discharge Instructions 2 Wound / Incision Care Not Applicable Core Measure / Get with the Guidelines (AMI/HF) Review Discharge Medications with patient for next dose times Aspirin (AMI) Beta Lou (AMI/HF) Statin (AMI) Smoking Cessation Teaching Patient is a current smoker or former smoker of less than one year Discharge Education Copy of Discharge Medication List Discussed New / Changed Medications Personal Belongings Returned To Patient/Family Yes Valuables Returned To Patient/Family N/A Pre-Admission Medications Returned To Patient/Family N/A Patient/Significant Other Education Acknowledgement I hereby acknowledge receiving the explanation of the attached instructions. I was able to 'teach back' my health information and education to my nurse and I understand what I was taught as indicatedby my signature below. Discharge Instructions Explained To Patient Discharge Summary Mode Of Discharge PER PRIVATE CAR Wheelchair Discharge Status Vital Signs Stable Patient Transferred/Discharged To Home Discharge Status Afebrile Adequate Diet/Liquid Intake Accompanied By Relatives Discharge Status Adequate Urinary Output Adequate Bowel Functioning Mode Of Discharge Other Discharge Status Activity Tolerated within Physical Limits Home Health Care Monitoring Required No Pain At Discharge Denies Pain Pt shows no visible signs of pain [facility] Dishcharge Physician Name for Follow Up Appt #1 RETURN TO THE HOSPITAL IMMEDIATELY IF HIGH FEVER, CHILLS, PURULENT DRAINAGE, NUMBNESS/TINGLING, WORSENING PAIN/SWELLING, CHEST PAIN OR SHORTNESS OF BREATH OCCUR. Transfer Notified of Discharge/Transfer Family Report Given On FALL PRECAUTIONS Fall Precautions Other Transfer Mode PER PRIVATE CAR Wheelchair [facility] ([facility])2017-09-25 18:30:00Patient: PEPE JIANG MRNO: [id number] ENC: [id number] [address]Stef[address] [place]Lin[place], [place] [address] Voice [phone] Data [phone] SIGNING PHYSICIAN: TRISH SOLIMAN MD PATIENT NAME: PEPE JIANG MED REC NUM: [id number] ACCOUNT NUM: [id number] CONSULTATION DATE OF CONSULTATION: 09/25/2017 REASON FOR CONSULTATION: Chest pain. HISTORY OF PRESENT ILLNESS: The patient is a 57-year-old woman with past medical history of hyperlipidemia, angina, hepatitis C, skin cancer, gastroesophageal reflux disease and fibromyalgia, who was doing okay till last Saturday when she had one episode of chest pain and then another one this morning when she was in the PCP's office and was referred to ER when Dr. Roland saw the patient and did a stress test on treadmill; however, the patient had to stop because of shortness of breath and leg cramps. The decision was made to transfer the patient to [facility] for higher level of care. Of note, the patient states that she had this chest pain before including the last year as well. The patient states that she never had heart catheterization and the chest pain started this morning and as described has tightness in the lower part of the chest and sometimes stabbing which gets worse with touching the area and pressing that area and radiates to the back intermittently. Currently, she denies that pain anymore. The patient was initially on heparin drip; however, it was stopped by hospitalist due to concern for dissection and CT angio was ordered. The patient has not been treated for hepatitis C either. The patient denies any shortness of breath or chest pain at this time. Her heart enzymes were negative x2. Chest x-ray did not show any acute cardiopulmonary abnormality. EKG showed sinus rhythm with no dynamic ST-T wave changes concerning for ischemia. PAST MEDICAL HISTORY: As per HPI. PAST SURGICAL HISTORY: As per HPI. No heart catheterization. ALLERGIES: PENICILLIN, LEVAQUIN, BACTRIM, DOXYCYCLINE. SOCIAL HISTORY: One pack cigarette per day for 20 years. No alcohol or drug abuse. FAMILY HISTORY: Father had MT and bypass in 30s. Also had lung cancer and of lung cancer. HOME MEDICATIONS: Please see medicine reconciliation list. All medications were reviewed. REVIEW OF SYSTEMS: A 12-point review of system was reviewed and the rest of system was negative except as mentioned in HPI. Page 1 of 2 Patient: PEPE JIANG MRNO: [id number] ENC: [id number] [place] [address] [place], [place] [address] Voice [phone] Data [phone] PHYSICAL EXAMINATION: VITAL SIGNS: Blood pressure 132/85, heart rate of 78, respiratory rate of 18, temperature 97.8, O2 sat 99 percent on room air. GENERAL: Alert, awake, and oriented x3 in no acute distress. HEENT: Normal. NECK: Supple. No JVP. Normal range of motion. CHEST: Pressing in lower chest part reproduces the pain. HEART: Normal S1, normal S2. No murmur. Regular rate and rhythm. ABDOMEN: Soft, nontender, nondistended. Positive bowel sounds. EXTREMITIES: No clubbing, no cyanosis, no edema. SKIN: Warm. MUSCULOSKELETAL: No swelling. No erythema. LABORATORY INVESTIGATION: All the labs were reviewed. Creatinine 0.8 and troponin negative x2. A 12-lead EKG showed sinus rhythm with no dynamic ST-T wave changes. ASSESSMENT AND PLAN: The patient is a 57-year-old woman with past medical history of hyperlipidemia, untreated hepatitis C, fibromyalgia, gastroesophageal reflux disease and angina, who presented with atypical chest pain and troponin was negative x2. Hospitalist ordered. CT angiogram to rule out dissection. The patient is currently chest pain free and denies any shortness of breath. PLAN AND RECOMMENDATION: We would check echocardiogram to assess heart function and valvular function. We will follow on the CTA angiogram of the chest and check one more set of cardiac enzymes. If no dissection is noted in CTA scan, heparin will be resumed. The patient will be reassessed again in the morning after echocardiogram is done and based on her clinical symptoms, we decide if the patient needs heart catheterization or Lexiscan MPI (pharmacologic stress test as outpatient), the patient will definitely need ischemic workup in the setting of having multiple cardiovascular risk factor on this chest pain. I discussed this in detail with the patient who verbalized understanding. I will follow the patient on daily basis and make further recommendation. [id number] MT: NTS Page 2 of 2 Electronically Authenticated by: TRISH SOLIMAN MD On 10/07/2017 04:17 PM [id number] 14:54:00Patient: PEPE JIANG MRNO: [id number] ENC: [id number] [address]Stefany CarnesCl[place], [place] [address] Voice [phone] Data [phone] SIGNING PHYSICIAN: John Donis MD PATIENT NAME: PEPE JIANG MED REC NUM: [id number] ACCOUNT NUM: [id number] OPERATIVE NOTE DATE OF OPERATION: 09/25/2017 INDICATION: Chest pain with multiple risk factors, smoker, and abnormal EKG. DESCRIPTION OF PROCEDURE: After informed consent, Ms. Jiang was subjected to a David protocol exercise stress test. Ms. Jiang exercised for 6.34 minutes. At 10 mets, the resting EKG showed sinus rhythm with incomplete right bundle branch block pattern. Ms. Jiang achieved a heart rate of 130, which is 80 percent of her predicted heart rate. This was submaximal. She did have some chest discomfort and some dizziness. Blood pressures were 122/80 at peak stress, coming down to 118/70 at baseline. There were no ischemic changes at submaximal stress test. In view of her symptoms, she has been advised to have further risk stratification with possible cardiac catheterization. [id number] MT: MONIQUE Page 1 of 1 Electronically Authenticated by: John Donis MD On 10/21/2017 08:35 AM [id number] 09:15:00* PROCEDURE: Ultrasound-guided liver parenchymal biopsy. DATE OF PROCEDURE: 04/15/2013 INDICATION: 53-year-old female with history of hepatitis C-induced cirrhosis who presents for staging liver biopsy. PHYSICIANS: Dr. Chris Klein, the attending physician, was present for the procedure and its imaging. MEDICATIONS: Moderate sedation was achieved with fentanyl 75 mcg IV and Versed 1.5 mg IV administered by the radiology nurse under the supervision of Dr. Klein. Procedure time was 30 minutes, monitored all times by radiology nursing staff. TECHNIQUE AND FINDINGS: Informed written consent was obtained. The patient was then brought to the procedure suite, placed in the supine position, and a timeout was performed. Brief ultrasound was then performed of the right upper quadrant, demonstrating a safe percutaneous intercostal biopsy route. The patient's right upper quadrant was then prepped and draped in standard sterile fashion. After numbing the skin with local lidocaine anesthesia, a 17-gauge introducer needle was passed through the anterior abdominal wall and into the liver under ultrasound guidance, with an image stored for the record. Through this, an 18-gauge Temno biopsy needle was then advanced, and 2 core biopsy specimens were obtained. The specimens were submitted in formalin for surgical pathology analysis. The needle was then removed, and a sterile dressing was applied. Followup ultrasound demonstrated no evidence of hematoma or other complication. The patient tolerated the procedure well without any complication and was transferred to recovery area in stable condition. IMPRESSION: Ultrasound-guided parenchymal core biopsy of the liver for cirrhosis staging purposes. [facility]2013-10-10 11:06:48* REASON FOR EXAM: [id number]. COMPARISON: None. FINDINGS: Ultrasound of the abdomen was performed. Static images are submitted. The gallbladder is surgically absent. The visualized segment of the common bile duct is prominent measuring 1 cm. Images of the liver are unremarkable. The liver echotexture is within normal limits. There is no demonstrable hepatic lesion. The pancreas is largely obscured. The visualized segment of the pancreatic body is unremarkable. Images of the inferior vena cava are unremarkable. There is no ascites. There is a 5.5 x 5.1 x 4.6 cm heterogeneous primarily echogenic lesion in the spleen. There is a 1.2 x 0.93 x 1.1 cm nonshadowing echogenic lesion in the mid left renal cortex. Images of the kidneys are otherwise unremarkable. There is no hydronephrosis. The caliber of the visualized abdominal aorta is within normal limits. The maximal craniocaudad dimension of the liver is approximately 17 cm. The right kidney measures 9.2 x 3.5 x 3.8 cm and the left kidney 9.5 x 4.3 x 4.1 cm (length x AP x width). The maximal length of the spleen is 10.4 cm. IMPRESSION: 1. Post cholecystectomy. 2. Mild extrahepatic biliary dilatation. 3. Suboptimal visualization of the pancreas. 4. There is a 5.5 cm splenic lesion. 5. There is a 1.2 cm left renal cortical lesion. 6. If the patient is capable further evaluation may be obtained with an unenhanced and enhanced MRI of the abdomen. Please correlate clinically and consider follow-up imaging as indicated. Dictation code: [id number] OPID [id number] 13:01:05* EXAM: XR BILATERAL KNEE 3 VIEWS DATE: 2012-12-17 1248 hours INDICATION: Arthritis, pain COMPARISON: None available TECHNIQUE: Standing AP, sunrise and lateral radiographs of both knees FINDINGS: No fracture, dislocation or other acute bony abnormality is identified. Joint spaces are preserved in all three compartments. There is a focal lucency at the lateral weight-bearing surface of the medial femoral condyle on the right measuring approximately 8 mm. There is no knee joint effusion on either side. No soft tissue abnormality is identified. IMPRESSION: 1. Suspected osteochondral lesion of the right medial femoral condyle may be further evaluated with MRI if indicated. 2. Joint spaces preserved bilaterally. JONO [id number] 13:01:05* EXAM: XR BILATERAL FOOT 3 VIEWS DATE: 2012-12-17 1300 INDICATION: Arthritis pain COMPARISON: None available TECHNIQUE: AP, lateral and oblique radiographs of bilateral feet FINDINGS: No fracture, dislocation or other acute bony abnormality is identified. There is early osteophyte formation at the first metatarsophalangeal joints bilaterally, with bony bunion formation bilaterally. Joint spaces and bone mineral density are preserved. There is a tiny right plantar calcaneal spur. No soft tissue abnormality is identified. IMPRESSION: Early osteophyte formation at the first metatarsophalangeal and bilaterally, with bony bunion formation. STAN [id number] 13:01:05* EXAM: XR BILATERAL HIP 2 VIEWS AND AP PELVIS DATE: 2012-12-17 1303 hours INDICATION: Arthritis pain COMPARISON: None available TECHNIQUE: AP and frogleg lateral radiographs of each hip and a single AP radiograph of the pelvis FINDINGS: No fracture, dislocation or other acute bony abnormality is identified. Hip joint spaces are maintained bilaterally. The pubic symphysis and SI joints are unremarkable. A small dystrophic calcification projects at the acetabular margin on the left. IMPRESSION: No abnormality identified. JONO [id number] 13:01:05* EXAM: XR BILATERAL HAND 4 VIEWS DATE: 2012-12-17 1249 hours INDICATION: Arthritis pain COMPARISON: December 26, 2011 TECHNIQUE: PA, lateral, [place] and oblique radiographs of both hands FINDINGS: No fracture, dislocation or other acute bony abnormality is identified. There is flexion of the fifth PIP joint on the right on all images, which may be fixed. There is mild DIP joint narrowing with early dorsal osteophyte formation. There is moderate narrowing of the first carpometacarpal joint on the left, with osteophyte formation and sclerosis. No soft tissue abnormality is identified. IMPRESSION: 1. Mild DIP joint narrowing bilaterally, with early dorsal osteophyte formation. Moderate narrowing of the first carpometacarpal joint on the left. 2. Apparent fixed flexion of the fifth PIP joint on the right. JONO Hernandez
--- NOTE | 2023-12-09 13:34 | RAD REPORT ---
EXAM DESCRIPTION: USExtremity Venous Uni Ltd12/09/2023 1:22 pm CLINICAL HISTORY: left leg pain COMPARISON: None FINDINGS: Left common femoral, superficial femoral, greater saphenous, popliteal and posterior tibi al veins are compressible and demonstrate augmentation. Doppler demonstrates good flow. Grayscale, color and spectral analysis performed on all vessels IMPRESSION: No evidence of deep venous thrombosis involving the left lower extremity.
--- NOTE | 2023-12-09 14:23 | EDPHYS ---
Physician Documentation [facility] Name: Erin Jiang Age: 63 yrs Sex: Female : 1960 Arrival Date: 12/09/2023 Time: 12:21 Bed 11 Private MD: ED Physician Jillian Blake HPI: 12/08 14:37 This 63 yrs old Female presents to ER via Ambulatory with complaints of Leg Swelling. kb 14:37 Pt is a 63 year old female who presents for left leg pain. States she tripped over a small fence and hit her left medial calf a couple of weeks ago and has had pain since then. States the pain radiates from medial calf to medial thigh with intermittent swelling. Came in today to make sure she didn't have a blood clot because she was told that could cause her symptoms. . Historical: - Allergies: 12:39 Bactrim; hb 12:39 Levaquin; hb 12:39 PENICILLINS; hb 12:39 Sulfa (Sulfonamide Antibiotics); hb - PMHx: 12:39 Hyperlipidemia; menieresdisease; hb - PSHx: 12:39 Cholecystectomy; knee; neck; hb - Immunization history:: Adult Immunizations up to date. - Infectious Disease History:: Denies. - Social history:: Smoking status: Patient denies any tobacco usage or history of. ROS: 14:37 Constitutional: As per HPI kb Exam: 14:37 Constitutional: This is a well developed, well nourished patient who is awake, alert, kb and in no acute distress. Head/Face: Normocephalic, atraumatic. ENT: Moist Mucous membranes Cardiovascular: Regular rate Respiratory: Respirations even and unlabored. No increased work of breathing. Talking in full sentences Skin: Warm, dry with normal turgor. Normal color. Neuro: Awake and alert, GCS 15, oriented to person, place, time, and situation. Moves all extremities. Normal gait. 14:37 Musculoskeletal/extremity: Extremities: grossly normal except: noted in the medial aspect of left thigh and medial aspect of left calf: pain, tenderness, ROM: intact in all extremities, Circulation is intact in all extremities. Sensation intact. Weight bearing: able to fully bear weight, Vital Signs: 12:39 BP 197 / 93; Pulse 86; Resp 17; Temp 97; Pulse Ox 99% ; Pain 8/10; hb 14:32 BP 169 / 73; Pulse 61; Resp 16; Pulse Ox 99% ; ll1 12:39 Pain Scale: Adult hb MDM: 12:30 Patient medically screened. kb 14:39 Differential diagnosis: tendonitis, contusion, strain, DVT. Data reviewed: vital signs, kb nurses notes. Counseling: I had a detailed discussion with the patient and/or guardian regarding the historical points, exam findings, and any diagnostic results supporting the discharge/admit diagnosis, radiology results, the need for outpatient follow up, a family practitioner, to return to the emergency department if symptoms worsen or persist or if there are any questions or concerns that arise at home. 14:40 Test considered but Not performed: X-ray: xray considered but pt has no bony kb tenderness, ambulates with steady gait. 12/08 12:42 Order name: US Extremity Venous Unilateral Ltd; Complete Time: 13:35 kb Administered Medications: No medications were administered Disposition Summary: 12/09/23 14:22 Discharge Ordered Notes: Location: Home kb Condition: Stable kb Diagnosis - Pain in left leg kb Followup: kb - With: Emergency Department - When: As needed - Reason: Worsening of condition Followup: kb - With: Private Physician - When: 2 - 3 days - Reason: Recheck today's complaints, Continuance of care, Re-evaluation by your physician Discharge Instructions: - Discharge Summary Sheet kb - Musculoskeletal Pain kb - Muscle Strain, [id number] kb Forms: - Medication Reconciliation Form kb - Antibiotic Education kb - Prescription Opioid Use kb - Patient Portal Instructions kb - Leadership Thank You Letter kb Signatures: Dispatcher [employer] Brandie Pérez, SOPHIA-C PRODUCTION ENGINEER-Nikia Cuevas, RN RN Blade John RN RN ll1
--- NOTE | 2023-12-09 14:23 | ER ---
Nurse's Notes [facility] Name: Erin Jiang Age: 63 yrs Sex: Female : 1960 Arrival Date: 12/09/2023 Time: 12:21 Bed 11 Private MD: Diagnosis: Pain in left leg Presentation: 12/08 12:39 Chief complaint: Patient states: Hit L leg a couple weeks ago, hit it on small fence. hb LLE pain and swelling since, radiates into L groin. Coronavirus screen: Client denies travel out of the [place] in the last 14 days. At this time, the client does not indicate any symptoms associated with coronavirus-19. Ebola Screen: Patient denies travel to an Ebola-affected area in the 21 days before illness onset. Initial Sepsis Screen: Does the patient meet any 2 criteria? No. Patient's initial sepsis screen is negative. Does the patient have a suspected source of infection? No. Patient's initial sepsis screen is negative. Risk Assessment: Do you want to hurt yourself or someone else? Patient reports no desire to harm self or others. Onset of symptoms was December 06, 2023. 12:39 Method Of Arrival: Ambulatory hb 12:39 Acuity: MONY 3 hb Triage Assessment: 12:39 General: Appears uncomfortable, Behavior is calm, cooperative, appropriate for age. ll1 Pain: Complains of pain in left leg Quality of pain is described as aching. Musculoskeletal: Circulation, motion, and sensation intact. Capillary refill < 3 seconds, Reports pain in left leg. Historical: - Allergies: 12:39 Bactrim; hb 12:39 Levaquin; hb 12:39 PENICILLINS; hb 12:39 Sulfa (Sulfonamide Antibiotics); hb - PMHx: 12:39 Hyperlipidemia; menieresdisease; hb - PSHx: 12:39 Cholecystectomy; knee; neck; hb - Immunization history:: Adult Immunizations up to date. - Infectious Disease History:: Denies. - Social history:: Smoking status: Patient denies any tobacco usage or history of. Screenin:33 [facility] ED Fall Risk Assessment (Adult) History of falling in the last 3 months, ll1 including since admission Yes- single mechanical fall (1 pt) Confusion or Disorientation No (0 pts) Intoxicated or Sedated No (0 pts) Impaired Gait No (0 pts) Mobility Assist Device Used No (0 pt) Altered Elimination No (0 pt) Score/Fall Risk Level 0 - 2 = Low Risk Maintained a safe environment, Hourly rounding (assess needs \T\ fall precautionary measures) done. Abuse screen: Denies threats or abuse. Nutritional screening: No deficits noted. Tuberculosis screening: No symptoms or risk factors identified. Assessment: 14:33 Reassessment: No changes from previously documented assessment. Patient and/or family ll1 updated on plan of care and expected duration. Pain level reassessed. Patient is alert, oriented x 3, equal unlabored respirations, skin warm/dry/pink. Vital Signs: 12:39 BP 197 / 93; Pulse 86; Resp 17; Temp 97; Pulse Ox 99% ; Pain 8/10; hb 14:32 BP 169 / 73; Pulse 61; Resp 16; Pulse Ox 99% ; ll1 12:39 Pain Scale: Adult hb ED Course: 12:29 Patient arrived in ED. ra3 12:30 Brandie Sesay FNP-C is [facility]. kb 12:30 Jillian Blake MD is Attending Physician. kb 12:39 Arm band placed on. hb 12:41 Triage completed. hb 13:23 US Extremity Venous Unilateral Ltd In Process Unspecified. EDMS 14:33 No provider procedures requiring assistance completed. Patient did not have IV access ll1 during this emergency room visit. 14:34 Patient has correct armband on for positive identification. Provided Education on: ll1 return for worsening symptoms. Administered Medications: No medications were administered Medication: 14:34 VIS not applicable for this client. ll1 Outcome: 14:22 Discharge ordered by . kb 14:33 Discharged to home ambulatory, ll1 14:33 Condition: stable 14:33 Discharge instructions given to patient, Instructed on discharge instructions, follow up and referral plans. Demonstrated understanding of instructions, follow-up care, 14:35 Patient left the ED. ll1 Signatures: Dispatcher [employer] EDMS Brandie Sesay FNP-C FNP-Ckb Baxter, Heather, RN RN hb Lewis, Lynsay, RN RN ll1 Crista Lopez ra3
[2023-12-09 17:26] VITALS: TEMP 97; O2SAT 99
[2023-12-09 17:27] VITALS: BP 169/73
== END 2023-12-09 14:35 | disposition home or self-care (01) ==
LOC: ER 12:21
DX: M79.605 Pain in left leg (principal)
CPT/HCPCS: 93971; 99282